=== PATIENT | male | born 1960 | race Caucasian/White ===

== ENCOUNTER 2017-09-04 21:06 | Emergency (ER) | payer BC, SELFPAY ==
[2017-09-04 21:07] VITALS: BP 137/89; PULSE 69; RESP 16; TEMP 37; O2SAT 97; BMI 25.8
--- NOTE | 2017-09-04 22:58 | US_ITS ---
STUDY: SCROTUM ULTRASOUND REASON FOR EXAM: Male, 57 years old. Left greater than right scrotal pain. History of scrotal mass. TECHNIQUE: Ultrasound evaluation of the scrotum was performed with color Doppler and static bhatia-scale imaging. COMPARISON: June 09, 2015 FINDINGS: RIGHT TESTICLE INTRATESTICULAR: There is a normal size of the right testicle. The right testicle measures 4.4 x 2.9 x 2.4 cm. There is a homogenous echotexture. There is normal arterial and normal venous vascularity. There is no demonstrated right testicular mass or cyst. EXTRATESTICULAR: The epididymis is enlarged. The epididymis head measures 2.3 x 2.8 x 2.3 cm. There is normal vascularity of the epididymis. There is a well-defined cystic structure within the epididymis, without internal echoes, consistent with an epididymal cyst. There is a moderate size hydrocele. There is no demonstrated varicocele. There is no demonstrated extratesticular mass or cyst. LEFT TESTICLE INTRATESTICULAR: There is a normal size of the left testicle. The left testicle measures 4.5 x 2.8 x 1.9 cm. There is a homogenous echotexture. There is normal arterial and normal venous vascularity. There is no demonstrated left testicular mass or cyst. EXTRATESTICULAR: The epididymis is enlarged. The epididymis head measures 2.4 x 3.7 x 1.8 cm. There is normal vascularity of the epididymis. There is a well-defined cystic structure within the epididymis, without internal echoes, consistent with an epididymal cyst. There is a moderate size hydrocele. There are prominent extratesticular veins consistent with a varicocele. There is no demonstrated extratesticular mass or cyst. US/Testicular with Arterial Flow IMPRESSION: Bilateral hydroceles and bilateral varicoceles. Bilateral epididymal cysts. Electronically Signed: Jayme Gamboa MD at 0:01 EST , Service support ,
[2017-09-04] MEDS: HYDROcodone Bitartrate/Apap 5/325 Tablet PO (23:03)
--- NOTE | 2017-09-04 23:06 | ED.VISSUMM ---
- ER Visit Summary Date of Service: 09/04/17 Chief Complaint: Testicular pain History of Present Illness: The patient is a [address] Oliva. He reports he has had bilateral testicle pain for approximately 1 month. Pain is much worse on the left than the right. It is an intermittent pain that he describes as aching that lasts for days at a time. It worsened today. Pain is 8 out of 10 at worst and 6 out of 10 currently. Is worsened by nothing relieved by nothing. He denies any penile discharge or lesions. No dysuria or frequency. He is sexually active with a single partner has been for a long time. No exposure to STDs. No anal intercourse. No fever, chills, or other complaints. Patient reports that he was told a couple of years ago that he had a mass on his left testicle. He did not follow-up on this. Physical Examination: Vitals: Stable. Afebrile. General: Well-nourished and well-developed. Head: Normocephalic atraumatic. Neck: Supple, no lymphadenopathy. No JVD. Nontender. Cardiovascular: Regular rate and rhythm. No murmurs. Respiratory: No respiratory distress. Clear to auscultation bilaterally. Abdominal: Soft, nontender, nondistended, normal bowel sounds. No guarding, rebound, or peritoneal signs. : Normal circumcised male. He has a mass on the inferior medial side of his left testicle. He has moderate left epididymal tenderness to palpation. There are no hernias. He was examined while standing. Back: Nontender. Extremities: Nontender, no edema. Skin: Normal color, no rash. Neurologic: Alert and oriented ?3. Cranial nerves II through XII are intact. Normal strength and sensation. Psych: Normal affect. Test Results: Ultrasound shows bilateral hydroceles and varicoceles and epididymal cysts. Emergency Department Course and Treatment: Patient was treated with [place]. He is resting comfortably. Treatment Plan: Patient will be discharged symptomatic care. Supportive undergarments. Ice to the area. [place] for pain. Follow-up with Dr. Leos in 1-2 weeks if not improving. Disposition: To home in improved and stable condition. Impression: 1. Bilateral hydroceles/varicoceles/epididymal cysts. This note was generated with [employer] software. It may contain incorrect words, spelling, and punctuation that were not noted in review of the chart prior to signing ED Disposition - Plan for ED Patient: Disposition: Home or Assisted Living Chief Complaint: Male Pain/Injury Prescriptions: Hydrocodone Bitart/Apap 5-325 [[place] 5/325] 1 - 2 tablet PO Q4H PRN PRN 5 Days #20 tablet PRN Reason: Pain Referrals: aMl Leos MD [STAFF PHYSICIAN] - 1-2 Weeks
[2017-09-05 00:21] VITALS: BP 140/91; PULSE 60; RESP 17; O2SAT 96
== END 2017-09-05 00:22 | disposition home or self-care (01) ==
PROVIDERS: Emergency Provider Emergency Medicine; Family Provider Internal Medicine; PCP Internal Medicine
DX: N43.3 Hydrocele, unspecified (principal); I86.1 Scrotal varices; N50.3 Cyst of epididymis; K21.9 Gastro-esophageal reflux disease without esophagitis; I10 Essential (primary) hypertension; Z86.711 Personal history of pulmonary embolism; F17.200 Nicotine dependence, unspecified, uncomplicated; Z79.01 Long term (current) use of anticoagulants; Z79.899 Other long term (current) drug therapy
CPT/HCPCS: 76870; 93976; 99283

== ENCOUNTER 2018-04-09 19:31 | Emergency (ER) | payer BC, SELFPAY ==
[2018-04-09 19:33] VITALS: BP 115/81; PULSE 101; RESP 16; TEMP 36.8; O2SAT 95; BMI 24.7
--- NOTE | 2018-04-09 20:24 | CT_ITS ---
STUDY: CT ABDOMEN AND PELVIS WITHOUT CONTRAST REASON FOR EXAM: Male, 58 years old. Abdominal pain. RADIATION DOSAGE (If Supplied By Facility): CTDIvol = ( 7.01 ) mGy, DLP = ( 380.14 ) mGycm TECHNIQUE: Transaxial images were obtained from the dome of the diaphragm to the symphysis pubis without oral contrast, and without intravenous contrast. Sagittal and coronal images were reconstructed. Individualized dose optimization techniques were used for this CT. COMPARISON: 06/09/2015. FINDINGS: The visualized lung bases are unremarkable. The visualized portions of the heart are within normal limits. There is a 1 cm low-attenuation lesion in the right lobe of the liver, not characterized without contrast. The liver is otherwise unremarkable. Normal gallbladder and extrahepatic biliary system. Normal spleen. Normal pancreas. There is a 1.2 cm right adrenal nodule. CT density measures approximately 2 Hounsfield units. This is consistent with adenoma with a high degree of confidence. The left adrenal gland is normal. The kidneys are unremarkable. The aorta is normal in caliber. There is no bowel obstruction or inflammatory change. Stool burden is moderate. The appendix is normal. The bladder is unremarkable. Normal abdominal wall. Normal osseous structures. CT/Abdomen/Pelvis without Cont IMPRESSION: 1. No acute process. 2. Hepatic hypodensity, not characterized without contrast. 3. Right adrenal adenoma. Electronically Signed: Katharina Russell MD at 21:20 EDT Tel , Service support ,
[2018-04-09] MEDS: 0.9% Normal Saline 1,000 ML 125 ML IV (20:42)
[2018-04-09 20:46] LABS: Absolute Lymphocyte Count 2.44 X10^3/ul (0.83-4.51); Absolute Neutrophil Count 5.2 X10^3/uL (2.0-7.7); Basophil# 0.04 X10^3/uL; Basophil% 0.5 % (0-1); Eosinophil# 0.16 X10^3/uL; Eosinophils% 1.8 % (0-5); Hematocrit 41.1 % (40-54); Hemoglobin 13.5 g/dl (13.0-16.5); Lymphocyte # 2.44 X10^3/ul (4.0); Lymphocyte % 27.7 % (19-41); Mean Corp Hgb Conc 32.8 g/gl (32-36); Mean Corpuscular Hgb 31.2 pg (27.0-32.0); Mean Corpuscular Volume 94.9 fL (80-94); Mean Platelet Vol. 10.1 fl (6.2-12.0); Monocyte# 1.01 X10^3/uL; Monocyte% 11.5 % (0-10); Neutrophil # 5.15 X10^3/uL (2.7-7.7); Neutrophil % 58.3 % (47-70); POSITIVE COUNT NO; POSITIVE DIFFERENTIAL NO; POSITIVE MORPHOLOGY NO; Platelet Count 270 K/mm3 (150-450); RBC Distribution Width CV 12.8 % (11.6-14.6); RBC Distribution Width SD 43.3 fl (35.1-43.9); Red Blood Count 4.33 M/mm3 (4.6-6.2); White Blood Count 8.8 K/mm3 (4.4-11.0)
[2018-04-09 20:58] LABS: ALB/GLOB Ratio 0.9 RATIO (0.9-2.4); AST(SGOT) 10 U/L (15-37); Alanine Aminotransfer ALT/SGPT 18 U/L (16-61); Albumin, Serum 3.7 g/dL (3.2-5.0); Alkaline Phosphatase 71 U/L (45-117); Anion Gap 6 (5-15); BUN 11 mg/dL (7-18); BUN/Creat Ratio 12.3 RATIO (10-20); Calcium,Total 8.7 mg/dL (8.5-10.1); Chloride 104 mmol/L (98-107); EST Glomerular Filtration Rate 92 mL/min (>60); Est Glom Filt Rate - Afr Amer 112 mL/min (>60); Estimated Creatinine Clearance 91.25 ml/min; Glucose 91 mg/dL (74-106); Lipase 108 U/L (73-393); Potassium 4.4 mmol/L (3.5-5.1); Protein, Total 7.7 g/dL (6.4-8.2); Sodium Level 139 mmol/L (136-145)
[2018-04-09 21:49] VITALS: BP 131/93; PULSE 91; RESP 18; O2SAT 97
--- NOTE | 2018-04-09 22:18 | ED.VISSUMM ---
- ER Visit Summary Date of Service: 04/09/18 Chief Complaint: [] History of Present Illness: The patient is a 58 M [abdominal pain presents the emergency department complaint of abdominal pain that started this morning. Patient states the pain started around 8 AM this been relatively continuous throughout the day but waxes and wanes in intensity. Patient had a lot of bloating associated with it. Patient does states that he had a colonoscopy and an EGD performed yesterday. Patient apparently did have a polyp removed and some biopsies of his colon. Patient denies any rectal bleeding. He does have a history of hypertension and Pringle's esophagitis. Patient has not had any vomiting today but has had nausea.] Physical Examination: [HEENT-PERRLA, EOMI. Cranial nerves II through XII grossly intact. TMs clear. Mucous membranes moist. No adenopathy. Cardiovascular-regular rate and rhythm without murmur or ectopy Lungs-clear to auscultation, chest wall stable without crepitus or subcu emphysema Abdomen-normoactive bowel sounds, soft. Patient has some mild diffuse tenderness on palpation. There is no rebound, rigidity, or perineal signs. Extremities-intact ?4, normal range of motion, normal pulses, atraumatic] Test Results: [CBC with differential was normal. Chemistries were normal. LFTs were normal. Lipase was normal. CT scan of the abdomen pelvis showed a right adrenal adenoma otherwise nothing acute.] Emergency Department Course and Treatment: [She did not anything for pain in the emergency department. Patient states that his bloating is significantly improved at this time is actually passing gas. He still continues to have some mild abdominal discomfort.] Treatment Plan: [Patient will be given for [place] tablets for home for severe pain should he need them. I suspect his pain may be related to gas insufflation rate related to the colonoscopy.] Disposition: [Discharged home in stable condition. Patient advised to return if worsening pain, fever, or condition should worsen anyway.] Impression: [Abdominal pain-etiology uncertain-status post colonoscopy and EGD] This note was generated with [employer] dictation software. It may contain incorrect words, spelling, and punctuation that were not noted in review of the chart prior to signing ED Disposition - Plan for ED Patient: Chief Complaint: Abd Pain Referrals: Harper Oliva MD [Primary Care Provider] -
--- NOTE | 2018-04-09 22:21 | ED.DEP ---
ED Disposition - Plan for ED Patient: Chief Complaint: Abd Pain Instructions: ED Abdominal Pain Unkn Cause Male Referrals: Harper Oliva MD [Primary Care Provider] - 3-5 Days
[2018-04-09] MEDS: HYDROcodone Bitartrate/Apap 5/325 Tablet PO (22:37)
[2018-04-09 22:39] VITALS: BP 139/99; PULSE 73; RESP 16; O2SAT 98
== END 2018-04-09 22:39 | disposition home or self-care (01) ==
LOC: ED 20:36
PROVIDERS: Emergency Provider Emergency Medicine; Family Provider Internal Medicine; PCP Internal Medicine
DX: R10.9 Unspecified abdominal pain (principal); Z98.890 Other specified postprocedural states; R11.0 Nausea; I10 Essential (primary) hypertension; K22.70 Barrett's esophagus without dysplasia; D35.01 Benign neoplasm of right adrenal gland; Z86.010 Personal history of colon polyps; Z79.01 Long term (current) use of anticoagulants; Z79.899 Other long term (current) drug therapy; Z72.0 Tobacco use
CPT/HCPCS: 74176; 80053; 83690; 85025; 96360; 96361; 99283; J7030; A4216

== ENCOUNTER → 2018-08-07 07:07 | Outpatient (CLI) | payer BC, SELFPAY ==
--- NOTE | 2018-08-07 07:11 | MRI_ITS ---
STUDY: MRI RIGHT FOOT REASON FOR EXAM: Pain between toes/ball of foot for 3 years. TECHNIQUE: Standardized fat and water weighted pulse sequences were obtained in all 3 orthogonal planes. COMPARISON: None. FINDINGS: Normal talonavicular articulation. Normal calcaneocuboid articulation. Normal navicular-cuneiform articulations. Normal intercuneiform articulations. 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 Normal first tarsometatarsal articulation. Normal Lisfranc ligament. Normal second and third tarsometatarsal articulations. Normal cuboid fourth and cuboid fifth tarsometatarsal articulation. Normal first through fifth metatarsi. Normal extensor hallucis longus tendon. Normal extensor digitorum longus tendons. Normal intrinsic muscles of the mid and forefoot region. Normal extensor digitorum brevis muscle. There is an intermetatarsal neuroma in the third webspace (T1 series 3 image 22) measuring 0.8 cm in AP dimension. 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 Electronically Signed: Darvin Tsang MD at 15:12 EST Tel , Service support ,
== END ==
PROVIDERS: Family Provider Internal Medicine; PCP Internal Medicine; Referring Provider Podiatrist; Visit Provider Podiatrist
DX: G57.81 Other specified mononeuropathies of right lower limb (principal)
CPT/HCPCS: 73718

== ENCOUNTER 2018-08-30 10:09 | Day surgery (SDC) | payer BC, SELFPAY ==
[2018-08-30] VITALS (7 sets, daily range): BP systolic 110–127; BP diastolic 79–92; PULSE 55–74; RESP 16–18; TEMP 35.9–36.7; O2SAT 98–100; BMI 24.7
--- NOTE | 2018-08-30 11:30 | NEUR_PTH ---
PATIENT: ROSA ISELA CERON LOC: [facility] U#:[id number] AGE/SX: 58/M ROOM: RE08/30/[address]: Dr. Brandon Flores DPM : 1960 BED: DIS: 08/30/2018 SPEC #: [id number] RECD: 08/30/18 16:18 STATUS: FAITH REAlisa #: [id number] DONOVAN: 08/30/18 11:[address]: Brandon Flores DEPT: SURGICAL PATHOLOGY RECD BY: Noel Pedraza ENTERED: 09/02/18 13:53 SP TYPE: NEUROMA OTHR DR: Dr. Harper Oliva MD Tissues: A - NEUROMA B - NEUROMA Procedures: Surgery Specimen Level III HEADER OPERATION: Excision second and third intermetatarsal neuromas PRE-OP DIAGNOSIS: Right foot second and third intermetatarsal neuromas TISSUE SUBMITTED: A - Neuroma 2-3, B - Neuroma 3-4 MICROSCOPIC DIAGNOSIS A. Neuroma 2-3, excision: Fragments of fibroadipose and fibrovascular tissue with focal changes consistent with Gar's neuroma. B. Neuroma 3-4, excision: Fragments of fibroadipose and fibrovascular tissue with focal changes consistent with Gar's neuroma. ANTHONY:anayeli 09/03/18 MICROSCOPIC DESCRIPTION Slides are reviewed. GROSS DESCRIPTION A - Received in fixative is one container labeled with the patient's name and designated neuroma 2-3. The specimen consists of multiple fragments of eli-yellow fibroadipose tissue that in aggregate measure 3 x 2.5 x 0.4 cm. The entire specimen is submitted in one cassette. B - Received in fixative is one container labeled with the patient's name and designated neuroma 3-4. The specimen consists of multiple fragments of eli-yellow fibroadipose tissue that in aggregate measure 3 x 2.5 x 0.4 cm. The entire specimen is submitted in one cassette. / SJ:anayeli 09/02/18 TC:5 CPT: 44147 x2
[2018-08-30] MEDS: Bupivacaine Mpf 0.5% 30 ML VIAL (12:25)
[2018-08-30] MEDS: Cefazolin 2 GM in 0.9% Normal Saline 100 ML IV (12:37)
--- NOTE | 2018-08-30 13:35 | DCINST_ITS ---
Discharge Diet: Light diet - advance as tolerated Discharge Activity: May Not Drive, Use Crutches Weight Bearing Status: No weight bearing - No weightbearing right foot Keep extremity elevated above heart level: Right Leg - Keep right foot elevated for at least 50 minutes per hour using pillows Call your doctor if your incision/area has: Continuous Slow Oozing, Sudden Increased Bleeding, Foul Smelling Discharge Call your doctor if you observe: Fever of 101 or Higher, Coldness, Increased Pain, Shortness of breath, Chest pain, Calf discomfort, Uncontrolled pain Cleanse incision/area with: Do not get Incision Wet, Keep Dressing Clean & Dry Allergies/Adverse Reactions: Allergies Sulfa (Sulfonamide Antibiotics) Allergy (Verified 08/30/18 10:35) Unknown venom-honey bee [bee venom (honey bee)] Allergy (Verified 08/30/18 10:35) Hives Medications to take at Discharge Multivit-Min/FA/Lycopene/Lut [Centrum Silver Tablet] 1 each PO DAILY 03/30/14 Omeprazole [Prilosec] 40 mg PO DAILY #30 capsule 03/31/14 Dicyclomine HCl 10 mg PO BID 12/22/14 Rivaroxaban [Xarelto] 20 mg PO DAILY #30 tablet 06/09/15 Cholecalciferol (Vitamin D3) [Vitamin D3] 1,000 unit PO DAILY 04/09/18 Calcipotriene [Calcitrene] 60 gm TP DAILY 08/23/18 Lisinopril [Zestril] 10 mg PO DAILY 08/23/18 Triamcinolone 0.1% Cream [Kenalog] 1 applic TOPICAL DAILY 08/23/18 Hydrocodone/Acetaminophen [Vicodin 5-300 mg Tablet] 1 ea PO Q6H PRN PRN 3 Days #30 tab 08/30/18 The following prescriptions were given: Hydrocodone/Acetaminophen [Vicodin 5-300 mg Tablet] 1 ea PO Q6H PRN PRN 3 Days #30 tab PRN Reason: Pain Primary Care Physician: Harper Oliva MD [Primary Care Provider] - Test Results: Test results from this visit will be discussed in further detail at your follow- up appointment, if applicable. Please Follow Up With: Brandon Flores DPM When: within 1 week, sooner if needed
--- NOTE | 2018-08-30 13:37 | OP.PCM_ITS ---
Report of Operation Date of Procedure: 08/30/18 Pre-Operative Diagnosis: Intermetatarsal neuroma right foot, 2nd and 3rd IM spaces Post-Operative Diagnosis: Same Surgery/Procedure Performed:: Excision of 2nd and 3rd intermetatarsal spaces neuromas right foot riveter helper: Yes - Dr. Sam Morales Type of Anesthesia:: Local MAC Specimen's removed: Excised 2nd and 3rd intermetatarsal space neuromas sent to pathology Description of Procedure: ndications: There is a 58 year old male with history of chronic right foot pain at level of the 2nd and 3rd intermetatarsal/digital spaces. He has undergone conservative / nonsurgical care (including but not limited to injection therapy, foot orthotics, rest, activity modifications, changes in shoegear, anti- inflammatories) but continues to have significant limiting pain. He elected to proceed with surgical intervention of excision of the 2nd and 3rd intermetatarsal space neuromas (advised patient she would have numbness to the plantar foot). This was discussed with him in great detail. He agreed with this plan, reviewed all of the possible benefits vs risks, goal, expectations, and typical healing time. He was able to repeat these back, all of his questions were answered. The consent forms were reviewed with him and he agreed signed them. No guarantees were given nor implied. Operative procedure: The patient was brought back to the operating room and was placed on the operating room table in the supine position. Patient was carefully secured the the operating room table with a safely belt around his waist. A time out was performed and the patient was properly identified and the surgical plan was confirmed. The patient received 2g of IV Cefazolin for antibiotic prophylaxis. A well padded pneumatic tourniquet was applied around the right ankle. The patient did receive MAC anesthesia per the anesthesiologist. A total of 10mL of 0.5% Bupivacaine plain was given as a local block to the 2nd and 3rd intermetatarsal spaces on the right foot. The right foot was scrubbed, prepped, draped in the usual aseptic fashion. The right foot was exsanguinated using an Esmarch bandage and the right ankle pneumatic tourniquet was inflated to 250mmHg. Attention was directed to the 2nd intermetatarsal space, where a longitudinal incision was made using a 15 blade on the dorsal aspect. Careful dissection was completed down to the deep transverse metatarsal ligament which was released in sharp fashion. A plantar neuroma was identified localized to the site, which was yellow, degenerative and had significant fatty tissue around it. There were findings consistent with perineural fibrosis to the lesion. This was carefully dissected out, removing the proximal nerve and also the distal branches to the 2nd and 3rd toes at the base of the toes. This was passed from the surgical site and was sent to pathology for further evaluation. The proximal nerve stump was healthy, viable and was carefully buried into the intrinsic musculature of the foot. All other tissue to the site appeared healthy and viable with no other abnormality present to this site. The site was flushed out with copious amounts of normal saline solution. The subcutaneous tissue was reapproximated using 4-0 Vicryl. The skin was reapproximated using 4-0 Monocryl. Attention was directed to the 3rd intermetatarsal space, where a longitudinal i ncision was made using a 15 blade on the dorsal aspect. Careful dissection was completed down to the deep transverse metatarsal ligament which was released in sharp fashion. A plantar neuroma was identified localized to the site, which was yellow, degenerative and had significant fatty tissue around it. There were findings consistent with perineural fibrosis to the lesion. This was carefully dissected out, removing the proximal nerve and also the distal branches to the 3rd and 4th toes at the base of the toes. This was passed from the surgical site and was sent to pathology for further evaluation. The proximal nerve stump was healthy, viable and was carefully buried into the intrinsic musculature of the foot. All other tissue to the site appeared healthy and viable with no other abnormality present to this site. The site was flushed out with copious amounts of normal saline solution. The subcutaneous tissue was reapproximated using 4-0 Vicryl. The skin was reapproximated using 4-0 Monocryl. An additional 20mL of 0.5% Bupivacaine was given as a local nerve block around the surgical site, this was needed as patient was relating to some pain when first starting. Cavilon was painted to the sutured skin edges and steristrips were applied across the sutures skin incision sites. All vital structures including all vital musculoskeletal and neurovascular structures were properly identified and protected/retracted as necessary. The pneumatic tourniquet was deflated (total tourniquet time was 40 minutes), and there was immediate return vascular flow to the foot, CFT < 2 seconds to all toes, normal temperature gradient, pedal pulses intact. Hemostasis was achieved. A dressing was applied which consisted of Betadine soaked adaptic, 4x4 gauze, kerlix, and delilah bandage. The patient tolerated the above operative procedure well at the anesthesia well with no complication. The patient was transported to the recovery room with vital signs stable and in good condition. Post operative orders were placed. Post operative instructions were reviewed with him as well as with his who was here with him today. No weightbearing to the right forefoot, keep right foot elevated for at least 50 minutes of every hour, keep dressing clean, dry and intact. Prescription for Vicodin 5mg/300mg was prescribed: 1-2 tabs PO q 6 hours PRN pain. Resume Xarelto 20mg PO daily. Reviewed mechanical DVT prophylaxis with patient pre operatively. He is to follow up with me within 1 week or sooner if needed. Grafts/Implants Used: None - Complications None
== END 2018-08-30 14:53 | disposition home or self-care (01) ==
LOC: SDC 10:10 → AC 10:11
PROVIDERS: Family Provider Internal Medicine; PCP Internal Medicine; Referring Provider Podiatrist; Visit Provider Podiatrist
PROC: (CPT 28080; principal; 2018-08-30 11:15)
DX: G57.81 Other specified mononeuropathies of right lower limb (principal); K21.9 Gastro-esophageal reflux disease without esophagitis; Z86.711 Personal history of pulmonary embolism; Z79.899 Other long term (current) drug therapy; I10 Essential (primary) hypertension; Z79.01 Long term (current) use of anticoagulants; L40.8 Other psoriasis; F17.210 Nicotine dependence, cigarettes, uncomplicated
CPT/HCPCS: 28080 ×2; 88304; J7120

== ENCOUNTER 2018-09-04 18:31 | Emergency (ER) | payer BC, SELFPAY ==
[2018-08-30 10:38] VITALS: BMI 24.7
[2018-09-04 18:32] VITALS: BP 153/105; PULSE 106; RESP 18; TEMP 36.3; O2SAT 99; BMI 25.1
== END 2018-09-04 21:10 | disposition left against medical advice (07) ==
LOC: ED 20:45
PROVIDERS: Emergency Provider Emergency Medicine; Family Provider Internal Medicine; PCP Internal Medicine
DX: M79.673 Pain in unspecified foot (principal); G89.18 Other acute postprocedural pain; Z53.21 Procedure and treatment not carried out due to patient leaving prior to being seen by health care provider

== ENCOUNTER 2018-09-06 09:20 | Observation (INO) | payer BC, SELFPAY ==
[2018-09-06 10:02] VITALS: BMI 24.0
[2018-09-06 10:07] VITALS: BP 121/76; PULSE 65; RESP 16; TEMP 36.5; O2SAT 100
--- NOTE | 2018-09-06 10:44 | MRI_ITS ---
STUDY: MRI RIGHT MIDFOOT REASON FOR EXAM: Male, 58 years old. Abscess after surgery for Gar's neuroma removal. TECHNIQUE: Standardized fat and water weighted pulse sequences were obtained in all 3 orthogonal planes. COMPARISON: None. FINDINGS: There is a 1.6 cm low T2 and low T1 signal collection or mass in the dorsal subcutaneous soft tissues at the level of the distal second and third metatarsals just superficial to the extensor tendons, difficult to evaluate without IV contrast. There is diffuse dorsal subcutaneous soft tissue edema. Normal talonavicular articulation. Normal calcaneocuboid articulation. Normal navicular-cuneiform articulations. Normal intercuneiform articulations. Normal first tarsometatarsal articulation. Normal Lisfranc ligament. Normal second and third tarsometatarsal articulations. Normal cuboid fourth and cuboid fifth tarsometatarsal articulation. Normal first through fifth metatarsi. Visualized tendons of the foot appear grossly unremarkable. Normal intrinsic muscles of the mid and forefoot region. Normal extensor digitorum brevis muscle. MRI/Lower Ext/No Jt/w/o IMPRESSION: There is a 1.6 cm low T2 and low T1 signal collection or mass in the dorsal subcutaneous soft tissues at the level of the distal second and third metatarsals just superficial to the extensor tendons, difficult to evaluate without IV contrast. These findings may represent an abscess as per history. There is diffuse dorsal subcutaneous soft tissue edema. Electronically Signed: Hao Salas, at 9:54 EST Tel , Service support ,
[2018-09-06] MEDS: oxyCODONE 5 MG Tablet PO ×3 (10:53→19:10)
[2018-09-06] MEDS: Morphine 4 MG/ML Syringe IV (11:04)
[2018-09-06 11:20] LABS: Absolute Lymphocyte Count 2.74 X10^3/ul (0.83-4.51); Absolute Neutrophil Count 4.9 X10^3/uL (2.0-7.7); Basophil# 0.04 X10^3/uL; Basophil% 0.5 % (0-1); Eosinophil# 0.14 X10^3/uL; Eosinophils% 1.6 % (0-5); Hematocrit 43.2 % (40-54); Hemoglobin 14.3 g/dl (13.0-16.5); Lymphocyte # 2.74 X10^3/ul (4.0); Lymphocyte % 31.2 % (19-41); Mean Corp Hgb Conc 33.1 g/gl (32-36); Mean Corpuscular Hgb 31.2 pg (27.0-32.0); Mean Corpuscular Volume 94.1 fL (80-94); Mean Platelet Vol. 10.4 fl (6.2-12.0); Monocyte# 0.94 X10^3/uL; Monocyte% 10.7 % (0-10); Neutrophil # 4.91 X10^3/uL (2.7-7.7); Neutrophil % 55.8 % (47-70); Platelet Count 280 K/mm3 (150-450); RBC Distribution Width CV 12.9 % (11.6-14.6); RBC Distribution Width SD 43.8 fl (35.1-43.9); Red Blood Count 4.59 M/mm3 (4.6-6.2); White Blood Count 8.8 K/mm3 (4.4-11.0)
[2018-09-06 11:24] LABS: POSITIVE COUNT NO; POSITIVE DIFFERENTIAL NO; POSITIVE MORPHOLOGY NO
[2018-09-06 11:35] LABS: BUN 16 mg/dL (7-18); Creatinine, Serum 0.95 mg/dL (0.70-1.30); Estimated Creatinine Clearance 86.45 ml/min; Glucose 94 mg/dL (74-106)
[2018-09-06 11:36] LABS: ALB/GLOB Ratio 0.8 RATIO (0.9-2.4); AST(SGOT) 14 U/L (15-37); Alanine Aminotransfer ALT/SGPT 20 U/L (16-61); Albumin, Serum 3.7 g/dL (3.2-5.0); Alkaline Phosphatase 69 U/L (45-117); Anion Gap 10 (5-15); BUN/Creat Ratio 16.9 RATIO (10-20); Calcium,Total 9.3 mg/dL (8.5-10.1); Chloride 103 mmol/L (98-107); EST Glomerular Filtration Rate 86 mL/min (>60); Est Glom Filt Rate - Afr Amer 105 mL/min (>60); Globulin 4.4 g/dL (2.2-4.2); Potassium 4.1 mmol/L (3.5-5.1); Protein, Total 8.1 g/dL (6.4-8.2); Sodium Level 138 mmol/L (136-145)
--- NOTE | 2018-09-06 12:59 | CASEMGMT ---
Addendum entered by Ej Hernandez 09/06/18 13:36: MRI pending. PT/OT evals pending. CM to follow. *If pt would require IV atb's on d/c, will need to re-address discharge plans with pt. Original Note: RN CM [employer] CM to room to meet with patient for initial transition planning/care coordination assessment. RN CM introduced self and role at [facility]. Pt voices understanding and consents to assessment at this time. Pt resting in bed in no distress at this time. Pt is A/O at this time and answers all questions appropriately. Care providers, pharmacy, and demographics verified at this time. PCP: [facility]: Dr Flores. Also goes to [facility] for psoriasis. Preferred Pharmacy: [facility] Insurance: [place] Prescription Benefit: Yes Living Will/HPOA: States he is pretty sure he completed paperwork for LW & HCPOA with his state's attorney in the past, but is unsure. States that if he has completed paperwork that his PCP, Dr Oliva, should have copies of this. Offered to call Dr Oliva's office for him to inquire if they have this paperwork and he stated appreciated this. Call placed to Dr Oliva's office and they do have pt's LW and HCPOA on file. They faxed copies to this NEYDA GILBERT and they were placed on pt's chart. Pt made aware they have this paperwork and it has been placed on his records @ [facility]. LNOK: Living Arrangements: Lives in a Ranch-style home with his . Approx 12 steps to go downstairs. 2 steps to enter. States independent prior to admission. able to assist if needed. Transportation: Pt/. DME: [facility] has the following DME that he currently uses: Shower chair, crutches. [facility] also has a walker available but does not use. Pt states no need for further DME at this time. HHC/SNF: Has never used HHC or been to a SNF. Anticipate pt will be discharged home on PO atb's. CM to follow for for discharge planning/needs. Pt voices no further concerns/needs at this time. Advised pt to ask for CM if any further questions/concerns/needs arise. Voices understanding. PLAN: Home w/spousal support and discharge plans in place. DGiauque BSN RN CM
--- NOTE | 2018-09-06 13:01 | PCM.RX.CS ---
Consult Pharmacy has been consulted to manage selected antiobiotic: Vancomycin Type of Consult: New start Suspected Infection: Other Prior Doses of Antibiotics Received/Current Regimen: 0 NEW START Labs: Sodium 138 mmol/L (136-145) 09/06/18 11:00 Potassium 4.1 mmol/L (3.5-5.1) 09/06/18 11:00 Chloride 103 mmol/L (98-107) 09/06/18 11:00 Carbon Dioxide 25.0 mmol/L (21.0-32.0) 09/06/18 11:00 Anion Gap 10 (5-15) 09/06/18 11:00 BUN 16 mg/dL (7-18) 09/06/18 11:00 Creatinine 0.95 mg/dL (0.70-1.30) 09/06/18 11:00 Est GFR (MDRD) Af Amer 105 mL/min (>60) 09/06/18 11:00 Est GFR (MDRD) Non-Af 86 mL/min (>60) 09/06/18 11:00 BUN/Creatinine Ratio 16.9 RATIO (10-20) 09/06/18 11:00 Glucose 94 mg/dL (74-106) 09/06/18 11:00 Weight used for dosin kg Estimated Creatinine Clearance: 86 Goal Trough: 15-20 mcg/mL - VANCOMYCIN 1250MG IVPB Q12H. CHECK TROUGH LEVEL PRIOR TO 4TH DOSE = 09/08/18 @0030 Pharmacy Plan for Drug Dosing: Pharmacy Service will continue to monitor and adjust dosing as required.
[2018-09-06] MEDS: 0.9% NaCl Peripheral Flush Adult/Peds IV ×3 (13:27→21:02)
--- NOTE | 2018-09-06 13:32 | CON.PCM_ITS ---
Reason for Consult Date of Consultation: 09/06/18 Reason for Consultation: Right foot History of Present Illness: The patient is a 58 year old gentleman with history of PE in past on Xarelto presented to my office today for 1 week post op check on right foot. He is s/p 2nd and 3rd intermetatarsal neuroma excision on 08/30/18, surgery when well with no immediate post op complications or problems. He was doing well over weekend, he developed worsening pain over this week, he did not call me as instructed, but did go to the ER, however he relates he left because the wait was too long and he decided to wait until today (Sunday) to see me as scheduled. He relates to significant pain to the foot which is not getting better, pain is worse when not elevating his foot. Upon examination his right foot was red, warm and had edema, erythema extended from the distal dorsal forefoot to the across the dorsal foot to the lateral ankle/hindfoot area and was very painful. He had no fever, chills, nausea or vomiting. There was no visible abscess or silvia purulence. He was sent to the hospital due to significant cellulitis, as well as for MRI to r/o a deep abscess. Past Medical History Past Medical History (Chronic Problems): Chronic Problems Epididymal cyst (Chronic) Hydrocele (Chronic) Bullous emphysema (Chronic) Hypertension (Chronic) Allergies Sulfa (Sulfonamide Antibiotics) Allergy (Verified 09/06/18 10:11) Unknown venom-honey bee [bee venom (honey bee)] Allergy (Verified 09/06/18 10:11) Hives Home Medications: Ambulatory Orders Medication Instructions Recorded Multivit-Min/FA/Lycopene/Lut 1 each PO DAILY 03/30/14 [Centrum Silver Tablet] Omeprazole [Prilosec] 40 mg PO DAILY #30 capsule 03/31/14 Dicyclomine HCl 10 mg PO BID 12/22/14 Rivaroxaban [Xarelto] 20 mg PO DAILY #30 tablet 06/09/15 Cholecalciferol (Vitamin D3) 1,000 unit PO DAILY 04/09/18 [Vitamin D3] Calcipotriene [Calcitrene] 60 gm TP DAILY 08/23/18 Lisinopril [Zestril] 10 mg PO DAILY 08/23/18 Triamcinolone 0.1% Cream [Kenalog] 1 applic TOPICAL DAILY 08/23/18 Surgical History: - - orthospedic surgery left hand, R inguinal herniorrhaphy 1 08/09/14 Smoking Status: Light Smoker (<10/day) - *Family History Paternal History Items: - Sibling History Items: - Maternal History Items: Diabetes, Heart Disease, - Review of Systems Constitutional: Denies: Chills, Fever Gastrointestinal: Denies: Nausea, Vomiting - Physical Exam General: Alert, Oriented x3, Cooperative, No apparent distress Extremities: Capillary Refill Less than 3 Seconds, No Calf Tenderness, Peripheral Pulses Normal - to foot, - - Incision sites dorsal 2nd and 3rd IM spaces right foot well coapted, there is no dehiscence, no fluctuance, no crepitus, no maloder, no necrosis, but there is significant cellulitis extending from the forefoot to the hindfoot/lateral ankle on the dorsal surface of the right foot, there is no blistering or visible abscess present. POP to the dorsal right foot, sensation intact and motor function intact to the right foot. Psych/Mental Status: Normal Affect Vital Signs Temp Pulse Resp BP Pulse Ox 97.7 F L 65 16 121/76 H 100 09/06/18 10:07 09/06/18 10:07 09/06/18 10:07 09/06/18 10:07 09/06/18 10:07 Oxygen Delivery Method Room Air Weight: 76 kg Body Mass Index (BMI) 24.0 Laboratory Tests Past 24 Hrs 09/06/18 09/06/18 11:00 11:00 WBC 8.8 RBC 4.59 L Hgb 14.3 Hct 43.2 MCV 94.1 H MCH 31.2 MCHC 33.1 RDW 12.9 RDW Differential 43.8 Plt Count 280 MPV 10.4 Immature Gran % (Auto) 0.200 Neut % (Auto) 55.8 Lymph % (Auto) 31.2 [place] % (Auto) 10.7 H Eos % (Auto) 1.6 Baso % (Auto) 0.5 Absolute Neuts (auto) 4.9 Absolute Lymphs (auto) 2.74 Total Counted Not Reportable Sodium 138 Potassium 4.1 Chloride 103 Carbon Dioxide 25.0 Anion Gap 10 BUN 16 Creatinine 0.95 Estim Creat Clear Calc 86.45 Est GFR (MDRD) Af Amer 105 Est GFR (MDRD) Non-Af 86 BUN/Creatinine Ratio 16.9 Glucose 94 Calcium 9.3 Total Bilirubin 1.10 H AST 14 L ALT 20 Alkaline Phosphatase 69 Total Protein 8.1 Albumin 3.7 Globulin 4.4 H Albumin/Globulin Ratio 0.8 L Assessment/Plan All Active Problems Bilateral pulmonary embolism (Acute) Adrenal nodule (Resolved) 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 New right foot xrays also ordered as well. Labs reviewed and patient has no leukocytosis. Patient afebrile. A culture has been obtained from when he was in my office this morning and was sent for culture and sensitivity as well as MRSA DNA PCR. I did speak with Dr. Mckeon, and greatly appreciate medicine team's assistance.
--- NOTE | 2018-09-06 14:00 | RAD_ITS ---
STUDY: X-RAY - RIGHT FOOT CLINICAL: Male, 58 years old. Cellulitis, pain TECHNIQUE: 3 view(s) of the foot. COMPARISON: None. FINDINGS: There is a plantar and Achilles spur. Normal visualized subtalar, talonavicular, calcaneocuboid, tarsal and tarsometatarsal articulations. Normal metatarsi. Normal metatarsophalangeal joint of the great toe. Normal tibial and fibular sesamoid bones. Normal interphalangeal joint of the great toe. Normal phalanges of the great toe. Normal second through fifth metatarsophalangeal joints. Normal interphalangeal joints and phalanges of the lesser toes. There is mild soft tissue swelling. RAD/Foot min 3 Views IMPRESSION: Soft tissue swelling about the foot. No visualized fracture. Electronically Signed: Michelle Sevilla MD at 14:46 EST Tel , Service support ,
--- NOTE | 2018-09-06 14:31 | NURSING ---
This nurse in and took old dressing off and Dr. Mckeon looked at dressing. This nurse was going to obtain MRSA swab and culture to wound. Dr. Mckeon aware that Dr. Mcdonald ordered but informed this nurse that Dr. Flores performed in office so order from Dr. Mckeon not to get culture or MRSA swab.
[2018-09-06 14:48] VITALS: BP 106/69; PULSE 96; RESP 18; TEMP 36.7; O2SAT 97
--- NOTE | 2018-09-06 16:05 | PCM.HP.ID ---
Problem List (1) Foot infection Status: Acute Reason for Consult: foot infection Consulted by: Dr. Mkceon History of Present Illness: The patient is a 58 year old M with h/o PE, follows with Dr. Flores, is s/p 2nd and 3rd intermetatarsal neuroma excision on 08/30/18. Over the next few days post-op, developed severe throbbing pain in foot with swelling, odor, and redness. Minimal drainage. No fever. No n/v/d. No prior h/o MRSA infection. Saw Dr. Flores this AM, sent to hospital. Full ROS performed and neg except as noted above. - Medical History Past Medical History (Chronic Problems): Chronic Problems Epididymal cyst (Chronic) Hydrocele (Chronic) Bullous emphysema (Chronic) Hypertension (Chronic) Allergies/Adverse Reactions: Allergies Sulfa (Sulfonamide Antibiotics) Allergy (Verified 09/06/18 10:11) Unknown venom-honey bee [bee venom (honey bee)] Allergy (Verified 09/06/18 10:11) Hives Home Medications: Ambulatory Orders Medication Instructions Recorded RX: Multivit-Min/FA/Lycopene/Lut 1 each PO DAILY 03/30/14 [Centrum Silver Tablet] RX: Omeprazole [Prilosec] 40 mg PO DAILY #30 capsule 03/31/14 RX: Dicyclomine HCl 10 mg PO BID 12/22/14 RX: Rivaroxaban [Xarelto] 20 mg PO DAILY #30 tablet 06/09/15 Cholecalciferol (Vitamin D3) 1,000 unit PO DAILY 04/09/18 [Vitamin D3] Calcipotriene [Calcitrene] 60 gm TP DAILY 08/23/18 Lisinopril [Zestril] 10 mg PO DAILY 08/23/18 Triamcinolone 0.1% Cream [Kenalog] 1 applic TOPICAL DAILY 08/23/18 - Social History Tobacco Use: cigarettes Vital Signs Temp Pulse Resp BP Pulse Ox 98.1 F 96 18 106/69 97 09/06/18 14:48 09/06/18 14:48 09/06/18 14:48 09/06/18 14:48 09/06/18 14:48 Oxygen Delivery Method Room Air Weight: 76 kg Body Mass Index (BMI) 24.0 Laboratory Tests Past 24 Hrs 09/06/18 09/06/18 09/06/18 11:00 11:00 16:02 WBC 8.8 RBC 4.59 L Hgb 14.3 Hct 43.2 MCV 94.1 H MCH 31.2 MCHC 33.1 RDW 12.9 RDW Differential 43.8 Plt Count 280 MPV 10.4 Immature Gran % (Auto) 0.200 Neut % (Auto) 55.8 Lymph % (Auto) 31.2 [place] % (Auto) 10.7 H Eos % (Auto) 1.6 Baso % (Auto) 0.5 Absolute Neuts (auto) 4.9 Absolute Lymphs (auto) 2.74 Total Counted Not Reportable Sodium 138 Potassium 4.1 Chloride 103 Carbon Dioxide 25.0 Anion Gap 10 BUN 16 Creatinine 0.95 Estim Creat Clear Calc 86.45 Est GFR (MDRD) Af Amer 105 Est GFR (MDRD) Non-Af 86 BUN/Creatinine Ratio 16.9 Glucose 94 Calcium 9.3 Total Bilirubin 1.10 H AST 14 L ALT 20 Alkaline Phosphatase 69 Total Protein 8.1 Albumin 3.7 Globulin 4.4 H Albumin/Globulin Ratio 0.8 L S.aureus Protein A PCR Pending MRSA (PCR) Pending - Other Studies Radiology: [] reviewed Other Studies: [] Route of nutrition/ use of supplements: [] Nutritional Intake: [] IV Site: [] Fernandez Catheter: [] - Physical Exam General: Alert, Oriented x3, Cooperative, No apparent distress HEENT: Atraumatic, PERRLA, EOMI Neck: Supple, No Nodes Lungs: Clear to auscultation, Normal air movement Cardiovascular: Regular rate, Regular Rhythm, No murmurs Abdomen: Soft, Non Tender, Non-Distended Extremities: No edema Skin: Ulcer/ Wound - R foot with swelling and redness around surgical sites. IV Site: Peripheral, without redness Neurological: Cranial nerves II-XII grossly intact - Assessment/Plan Antibiotics: [] Assessment/Plan: [] R foot post-surgical infection - wound cx sent as well as MRSA pcr. MRI pending. Given recent surgery, will start empiric nosocomial coverage with vanc/zosyn. Will follow, thank you.
[2018-09-06] MEDS: Dicyclomine 10 MG Capsule PO (17:28)
[2018-09-06 17:30] LABS: M R Staph aureus DNA By PCR Negative (Negative); Probe Check PASS; Specimen Processing Control PASS; Staph aureus DNA By PCR NEGATIVE (Negative)
[2018-09-06 20:59] VITALS: BP 119/76; PULSE 65; RESP 18; TEMP 36.9; O2SAT 99
--- NOTE | 2018-09-06 21:00 | PCM.HP.STD ---
Problem List (1) Cellulitis of right foot Status: Acute History of Present Illness Date of Admission: 09/06/18 Chief Complaint: Right foot cellulitis The patient is a 58 year old M who was directly admitted to the third floor MedSurg unit at [facility] with a chief complaint of redness, pain, and swelling of the right foot. Patient had surgery on August 30, 2018 for a neuroma between his second and third metatarsal areas. Patient states that his foot is been wrapped since his surgery and it has hurt since the surgery but the pain became more intense this week, he initially went to the emergency room at the hospital here but did not want to wait to be seen and left without being seen. He contacted Dr. Flores and was examined by Dr. espinoza today and Dr. espinoza recommended that he be admitted to the hospital. Patient denies any fevers or chills, he states his right foot throbs. Patient states that the right foot is hurt since the surgery on August 30, 2018. Past Medical History Past Medical History (Chronic Problems): Chronic Problems Epididymal cyst (Chronic) Hydrocele (Chronic) Bullous emphysema (Chronic) Hypertension (Chronic) Allergies Sulfa (Sulfonamide Antibiotics) Allergy (Verified 09/06/18 10:11) Unknown venom-honey bee [bee venom (honey bee)] Allergy (Verified 09/06/18 10:11) Hives Home Medications: Ambulatory Orders Medication Instructions Recorded Multivit-Min/FA/Lycopene/Lut 1 each PO DAILY 03/30/14 [Centrum Silver Tablet] Omeprazole [Prilosec] 40 mg PO DAILY #30 capsule 03/31/14 Dicyclomine HCl 10 mg PO BID 12/22/14 Rivaroxaban [Xarelto] 20 mg PO DAILY #30 tablet 06/09/15 Cholecalciferol (Vitamin D3) 1,000 unit PO DAILY 04/09/18 [Vitamin D3] Calcipotriene [Calcitrene] 60 gm TP DAILY 08/23/18 Lisinopril [Zestril] 10 mg PO DAILY 08/23/18 Triamcinolone 0.1% Cream [Kenalog] 1 applic TOPICAL DAILY 08/23/18 Surgical History: - - orthospedic surgery left hand, R inguinal herniorrhaphy 06/08/15 Psychiatric History: No pertinent psych hx Lives: Spouse/ Significant Other Smoking Status: Light Smoker (<10/day) Tobacco Use: Cigarettes Alcohol: Occasional Drugs: None - *Family History Paternal History Items: - - Leukemia, renal failure Maternal History Items: Diabetes, Heart Disease Review of Systems Constitutional: Denies: Anorexia, Chills, Fever, Night Sweats, Malaise, Weakness, Weight Change, Fatigue Eyes: Denies: Blurred vision, Cataracts, Conjunctivae Inflammation, Double vision, Drainage HEENT: Denies: Difficulty Swallowing, Dysphasia, Ear Pain, Eye Pain, Hearing Changes, Nasal bleeding, Nasal Congestion Cardiovascular: Denies: Chest Pain, Claudication, Chest Pressure, Chest Tightness, Edema, Heaviness, Palpitations Respiratory: Denies: Cough, Hemoptysis, Pleuritic Pain, Shortness of Breath, Shortness of breath at rest, Shortness of breath upon exertion Gastrointestinal: Denies: Abdominal Pain, Constipation, Diarrhea, Hematemesis, Hematochezia, Nausea, Melena, Vomiting Genitourinary: Denies: Dysuria, Frequency, Hematuria, Hesitancy, Urgency Musculoskeletal: Reports: Foot Pain. Denies: Arm Pain, Back Pain, Hand Pain, Joint Pain, Joint stiffness, Joint swelling Skin: Denies: Dryness, Jaundice, Pruritis, Rash Neurological: Denies: Blurred vision, Double vision, Change in Speech, Slurred speech, Difficulty swallowing, Focal weakness, Headaches, Incoordination, Numbness, Tingling Psychiatric: Denies: Anxiety, Depression, Homicidal Ideations, Suicidal Ideations Endocrine: Denies: Change in Body Habitus, Heat/ Cold Intolerance, Polydipsia, Polyuria Hematologic/ Lymphatic: Denies: Adenopathy, Anemia, Easy Bruising, Easy Bleeding, Petechiae, Purpura VTE Information - Inpt Only VTE Present on Admission: No VTE Mechan Device Prophylaxis: None VTE Pharm Prophylaxis ordered?: Yes Patient Problems: Active and Suspected Problems Foot infection (Acute) Cellulitis of right foot (Acute) - Physical Exam General: Alert, Oriented x3, Cooperative, Well developed, Well nourished HEENT: Atraumatic, PERRLA, EOMI, Normocephalic Oral: Moist Mucosa Neck: Supple, No JVD, Negative Carotid Bruits, No Nuchal Rigidity, Trachea Midline, Thyroid Normal Size and Texture Lungs: Clear to auscultation, Normal air movement, No rhonchi, No wheeze, No rales Cardiovascular: Regular rate, Regular Rhythm, Normal S1, Normal S2, No murmurs, No Ectopic Activity, PMI Normal, No rub noted, No Gallop Abdomen: Bowel Sounds Present, Soft, Non Tender, Non-Distended, No hernias noted Extremities: No clubbing, No cyanosis, Capillary Refill Less than 3 Seconds, Edema - Generalized swelling of the right foot is noted along with redness over the lateral aspect of the right foot, Tenderness - Right foot is tender to palpation Skin: Rash Present - There is redness over the patient's right foot particularly on its lateral aspect Musculoskeletal: No Muscle Wasting Neurological: Cranial nerves II-XII grossly intact, Neuro grossly intact, Sensory exam intact to light touch and pain, Coordination normal Psych/Mental Status: Normal Affect, Appropriate, Alert and oriented to time, place, person, mood and affect Vital Signs Temp Pulse Resp BP Pulse Ox 98.4 F 65 18 119/76 99 09/06/18 20:59 09/06/18 20:59 09/06/18 20:59 09/06/18 20:59 09/06/18 20:59 Oxygen Delivery Method Room Air Weight: 76 kg Body Mass Index (BMI) 24.0 Intake and Output for Last 24 Hours 09/04/18 09/05/18 09/06/18 23:59 23:59 23:59 Intake Total 572 / 572 Balance 572 / 572 Laboratory Tests Past 24 Hrs 09/06/18 09/06/18 09/06/18 11:00 11:00 16:02 WBC 8.8 RBC 4.59 L Hgb 14.3 Hct 43.2 MCV 94.1 H MCH 31.2 MCHC 33.1 RDW 12.9 RDW Differential 43.8 Plt Count 280 MPV 10.4 Immature Gran % (Auto) 0.200 Neut % (Auto) 55.8 Lymph % (Auto) 31.2 [place] % (Auto) 10.7 H Eos % (Auto) 1.6 Baso % (Auto) 0.5 Absolute Neuts (auto) 4.9 Absolute Lymphs (auto) 2.74 Total Counted Not Reportable Sodium 138 Potassium 4.1 Chloride 103 Carbon Dioxide 25.0 Anion Gap 10 BUN 16 Creatinine 0.95 Estim Creat Clear Calc 86.45 Est GFR (MDRD) Af Amer 105 Est GFR (MDRD) Non-Af 86 BUN/Creatinine Ratio 16.9 Glucose 94 Calcium 9.3 Total Bilirubin 1.10 H AST 14 L ALT 20 Alkaline Phosphatase 69 Total Protein 8.1 Albumin 3.7 Globulin 4.4 H Albumin/Globulin Ratio 0.8 L S.aureus Protein A PCR NEGATIVE MRSA (PCR) Negative Assessment/Plan All Active Problems Foot infection (Acute) Cellulitis of right foot (Acute) Bilateral pulmonary embolism (Acute) Adrenal nodule (Resolved) #1 cellulitis of the right foot-in a patient with recent right foot surgery-suspect gram-positive bacterial infection-swab was obtained by podiatry today in their office and at the time of this dictation, swab is negative for staph. Patient was seen by infectious diseases today and they recommended Zosyn and vancomycin. Patient had x-rays of his foot today, he will have an MRI of his foot performed. Podiatry will follow the patient during his hospital stay #2 remote history of blood clot-patient currently is on Xarelto, I have taken him off Xarelto in case surgery needs to be performed on his foot, patient was placed on Lovenox for VTE prophylaxis #3 hypertension-patient will remain on his home medication #4 GERD Code Visit Inpatient E&M: 34343 Init Hosp L3
[2018-09-06 21:29] VITALS: PULSE 65; RESP 18; O2SAT 99
[2018-09-07] MEDS: oxyCODONE 5 MG Tablet PO ×4 (00:01→17:01)
[2018-09-07 02:01] VITALS: BP 100/51; PULSE 64; RESP 18; TEMP 36.8; O2SAT 95
[2018-09-07 02:05] VITALS: PULSE 64; RESP 18
--- NOTE | 2018-09-07 05:48 | PCM.PROGNOTE ---
Patient Problems: Active and Suspected Problems Foot infection (Acute) Cellulitis of right foot (Acute) Subjective: This 58 year old patient is about 1 week s/p neuroma excision of the second and third interspace. He was admitted for cellulitis yesterday. His pain is still moderate but slightly decreased compared to yesterday. He has been resting and elevating. He denies fever, chill, nausea, vomiting, shortness of breath or chest pain. - Physical Exam General: Alert, Oriented x3, Cooperative HEENT: Atraumatic Extremities: No cyanosis, Capillary Refill Less than 3 Seconds - All digits right foot, No Calf Tenderness - Negative Keisha and Munoz sign bilateral, Edema - Right foot and ankle; skin wrinkles are starting to develop suggesting edema decreased compared to yesterday to dorsal foot and ankle region, Peripheral Pulses Normal - Palpable dorsalis pedis pulse right Skin: Incision - Well aligned and coapted with subcutaneous sutures intact; no gapping or silvia necrosis. There is no active drainage or purulence on expression today. The incisions are located over the dorsal second and third interspaces of the right foot. Careful evaluation does not demonstrate interdigital maceration, fluctuance or crepitation on palpation to the interspaces or surgical area., - - There is intense dark erythema/ecchymosis appearance of the dorsal right foot spanning from the toe sulcus area to the lateral ankle area which was marked with a marker. The discoloration does not extend beyond these boundaries. Musculoskeletal: No Muscle Wasting, Tenderness - Pain on palpation to dorsal foot proximal to the medial incision dorsal site without palpable abscess. Passive and active range of motion of digits is noted to the right foot without pain. Compartments remain soft to the right foot. Subjectively he reports decreased pain with palpation and foot manipulation on exam Neurological: Sensory exam intact to light touch and pain Psych/Mental Status: Normal Affect, Appropriate Vital Signs Temp Pulse Resp BP Pulse Ox 98.3 F 64 18 100/51 L 95 09/07/18 02:01 09/07/18 02:05 09/07/18 02:05 09/07/18 02:01 09/07/18 02:01 Oxygen Delivery Method Room Air Weight: 76 kg Body Mass Index (BMI) 24.0 Intake and Output for Last 24 Hours 09/05/18 09/06/18 09/07/18 23:59 23:59 23:59 Intake Total 572 / 572 158 / 158 Balance 572 / 572 158 / 158 Laboratory Tests Past 24 Hrs 09/06/18 09/06/18 09/06/18 11:00 11:00 16:02 WBC 8.8 RBC 4.59 L Hgb 14.3 Hct 43.2 MCV 94.1 H MCH 31.2 MCHC 33.1 RDW 12.9 RDW Differential 43.8 Plt Count 280 MPV 10.4 Immature Gran % (Auto) 0.200 Neut % (Auto) 55.8 Lymph % (Auto) 31.2 [place] % (Auto) 10.7 H Eos % (Auto) 1.6 Baso % (Auto) 0.5 Absolute Neuts (auto) 4.9 Absolute Lymphs (auto) 2.74 Total Counted Not Reportable Sodium 138 Potassium 4.1 Chloride 103 Carbon Dioxide 25.0 Anion Gap 10 BUN 16 Creatinine 0.95 Estim Creat Clear Calc 86.45 Est GFR (MDRD) Af Amer 105 Est GFR (MDRD) Non-Af 86 BUN/Creatinine Ratio 16.9 Glucose 94 Calcium 9.3 Total Bilirubin 1.10 H AST 14 L ALT 20 Alkaline Phosphatase 69 Total Protein 8.1 Albumin 3.7 Globulin 4.4 H Albumin/Globulin Ratio 0.8 L S.aureus Protein A PCR NEGATIVE MRSA (PCR) Negative Medical Necessity - Tobacco Use Smoking Status: Light Smoker (<10/day) Tobacco Use: Cigarettes Assessment/Plan All Active Problems Foot infection (Acute) Cellulitis of right foot (Acute) Bilateral pulmonary embolism (Acute) Adrenal nodule (Resolved) s/p 2nd and 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 He is on broad-spectrum antibiotics including vancomycin and Zosyn time. Initial CBC did not demonstrate leukocytosis in the labs from this morning are pending. His wound culture and blood cultures do not demonstrate bacterial growth so far and these are pending. MRSA PCR was negative. His foot x-rays were negative for soft tissue emphysema, fracture, dislocation, foreign body or other acute findings. The images from the MRI of the right foot were reviewed which do not demonstrate any osseous changes. There is edema noted in the subcutaneous tissue adjacent to the surgical site with fluid formation. This is semi-formed and is likely consistent with his surgery that was performed 1 week ago. The final MRI report is pending and I will follow with this as it is finalized. It is noted he appears to be clinically stable and his vital signs are stable overnight. The right foot site was evaluated and a new postoperative dressing was applied including gauze, Kerlix, and Phillip wrap. I recommend he works on edema reduction by elevating his foot today and wear the compressive dressing. Medical management, pain control, DVT prophylaxis per primary team is greatly appreciated. The podiatry team will continue to follow him closely while in house. Please not hesitate to call if you have any questions. Tasha Weinstein DPM, [facility] [phone]
[2018-09-07] MEDS: Enoxaparin 40 MG/0.4 ML Syringe SC (06:13)
[2018-09-07 07:20] LABS: Absolute Lymphocyte Count 2.16 X10^3/ul (0.83-4.51); Absolute Neutrophil Count 4.3 X10^3/uL (2.0-7.7); Basophil# 0.03 X10^3/uL; Basophil% 0.4 % (0-1); Eosinophil# 0.23 X10^3/uL; Eosinophils% 3.1 % (0-5); Hematocrit 38.6 % (40-54); Hemoglobin 12.5 g/dl (13.0-16.5); Lymphocyte # 2.16 X10^3/ul (4.0); Lymphocyte % 29.1 % (19-41); Mean Corp Hgb Conc 32.4 g/gl (32-36); Mean Corpuscular Hgb 31.3 pg (27.0-32.0); Mean Corpuscular Volume 96.5 fL (80-94); Mean Platelet Vol. 10.1 fl (6.2-12.0); Monocyte# 0.72 X10^3/uL; Monocyte% 9.7 % (0-10); Neutrophil # 4.25 X10^3/uL (2.7-7.7); Neutrophil % 57.4 % (47-70); POSITIVE COUNT NO; POSITIVE DIFFERENTIAL NO; POSITIVE MORPHOLOGY NO; Platelet Count 265 K/mm3 (150-450); RBC Distribution Width CV 12.9 % (11.6-14.6); RBC Distribution Width SD 44.9 fl (35.1-43.9); White Blood Count 7.4 K/mm3 (4.4-11.0)
[2018-09-07] MEDS: Dicyclomine 10 MG Capsule PO ×2 (07:52→16:54)
[2018-09-07] MEDS: Pantoprazole Sodium 40 MG Tablet PO (07:53)
--- NOTE | 2018-09-07 07:57 | NURSING ---
Assisted pt to bathroom. Encouraged pt to sit in chair for breakfast. He wants to sit in chair when breakfast comes and until then will lay in bed and elevate leg. RLE elevated on 3 pillows at this time.
[2018-09-07 08:00] VITALS: BP 100/76; PULSE 72; RESP 16; TEMP 37; O2SAT 95
[2018-09-07 10:40] VITALS: BP 154/91; PULSE 89
[2018-09-07] MEDS: Lisinopril 10 MG Tablet PO (10:40)
--- NOTE | 2018-09-07 11:54 | PCM.PN.HOSP ---
Patient Problems: Active and Suspected Problems Foot infection (Acute) Cellulitis of right foot (Acute) Subjective: Patient seen and examined. He is being managed for cellulitis. He has no complaints and fells well. Pain is well controlled. He denies any fever, chills, cough, chest pain, SOB, abdominal pain, diarrhea or vomiting. Review of systems is otherwise negative. Labs and vitals reviewed. Vitals/I&O's: Vital Signs Temp Pulse Resp BP Pulse Ox 98.6 F 89 16 154/91 H 95 09/07/18 08:00 09/07/18 10:40 09/07/18 08:00 09/07/18 10:40 09/07/18 08:00 Oxygen Delivery Method Room Air Weight: 167 lb 8.821 oz Body Mass Index (BMI) 24.0 Intake and Output for Last 24 Hours 09/05/18 09/06/18 09/07/18 23:59 23:59 23:59 Intake Total 572 / 572 843 / 843 Balance 572 / 572 843 / 843 General: Alert, Oriented x3, Cooperative HEENT: Atraumatic, PERRLA, EOMI, Normocephalic Oral: Moist Mucosa Neck: Supple, No JVD, Negative Carotid Bruits Lungs: Clear to auscultation, Normal air movement, No rhonchi, No wheeze, No rales Cardiovascular: Regular rate, Regular Rhythm, Normal S1, Normal S2, No murmurs Abdomen: Bowel Sounds Present, Soft, Non Tender, Non-Distended, No Hepato-splenomegaly Extremities: No clubbing, No cyanosis, No edema, Capillary Refill Less than 3 Seconds Skin: - - as under extremities Musculoskeletal: - - right foot wrapped in bandage Lymphatic: No Cervical, Supraclavicular, or Inguinal Adenopathy Neurological: Cranial nerves II-XII grossly intact, Neuro grossly intact Psych/Mental Status: Normal Affect, Appropriate, Alert and oriented to time, place, person, mood and affect Microbiology Past 72 Hours 09/06/18 16:02 Wound Abcess - Right Foot Gram Stain - Final 09/06/18 16:02 Wound Abcess - Right Foot Wound Culture - Preliminary No growth-Final to follow Laboratory Results 09/06/18 16:02: S.aureus Protein A PCR NEGATIVE, MRSA (PCR) Negative 09/07/18 07:04: WBC 7.4, RBC 4.00 L, Hgb 12.5 L, Hct 38.6 L, MCV 96.5 H, MCH 31.3, MCHC 32.4, RDW 12.9, RDW Differential 44.9 H, Plt Count 265, MPV 10.1, Immature Gran % (Auto) 0.300, Neut % (Auto) 57.4, Lymph % (Auto) 29.1, [place] % (Auto) 9.7, Eos % (Auto) 3.1, Baso % (Auto) 0.4, Absolute Neuts (auto) 4.3, Absolute Lymphs (auto) 2.16, Total Counted Not Reportable Diagnostic Data Lower Extremity MRI 09/06/18 10:44 IMPRESSION: There is a 1.6 cm low T2 and low T1 signal collection or mass in the dorsal subcutaneous soft tissues at the level of the distal second and third metatarsals just superficial to the extensor tendons, difficult to evaluate without IV contrast. These findings may represent an abscess as per history. There is diffuse dorsal subcutaneous soft tissue edema. Electronically Signed: Hao Salas, at 9:54 EST Tel , Service support , Foot X-Ray 09/06/18 14:00 IMPRESSION: Soft tissue swelling about the foot. No visualized fracture. Electronically Signed: Michelle Sevilla MD at 14:46 EST Tel , Service support , Current Medications Acetaminophen (Tylenol) 650 mg PO Q6H PRN PRN PRN Reason: Mild Pain (1-3)/Temp > 100.7 F Dicyclomine HCl (Bentyl) 10 mg PO BIDAC [facility] Last Admin: 09/07/18 07:52 Dose: 10 mg Enoxaparin Sodium (Lovenox) 40 mg SC DAILY@0600 [facility] Last Admin: 09/07/18 06:13 Dose: 40 mg Piperacillin Sod/Tazobactam (Sod 3.375 gm/ Sodium Chloride) 50 mls @ 12.5 mls/hr IV Q8 [facility] Last Admin: 09/07/18 06:13 Dose: 12.5 mls/hr Vancomycin IV Pharmacy to Dose (1 ea/ Sodium Chloride) 500 mls @ 250 mls/hr IV X1 PRN; Protocol PRN Reason: Rx to Dose Vancomycin HCl 1,250 mg/ (Sodium Chloride) 275 mls @ 167 mls/hr IV Q12H [facility] Last Admin: 09/07/18 01:57 Dose: 167 mls/hr Lisinopril (Zestril) 10 mg PO DAILY [facility] Last Admin: 09/07/18 10:40 Dose: 10 mg Morphine Sulfate () 4 - 6 mg IV Q4H PRN PRN PRN Reason: MOD-SEVERE PAIN (4-10/10) Last Admin: 09/06/18 11:04 Dose: 4 mg Nutritional Formula (Lactose Free) (Ensure Enlive) 120 ml PO 4X/DAY [facility] Last Admin: 09/07/18 07:52 Dose: 120 ml Ondansetron HCl (Zofran) 4 mg IV Q8H PRN PRN PRN Reason: NAUSEA Oxycodone HCl (Oxyir) 5 - 10 mg PO Q4H PRN PRN PRN Reason: MOD-SEVERE PAIN (4-10/10) Last Admin: 09/07/18 10:46 Dose: 10 mg Pantoprazole Sodium (Protonix) 40 mg PO DAILY [facility] Last Admin: 09/07/18 07:53 Dose: 40 mg Sodium Chloride () 5 - 15 ml IV UD PRN PRN Reason: SALINE FLUSH Last Admin: 09/06/18 21:02 Dose: 10 ml Medical Necessity - Tobacco Use Smoking Status: Light Smoker (<10/day) Tobacco Use: Cigarettes Assessment/Plan All Active Problems Foot infection (Acute) Cellulitis of right foot (Acute) Bilateral pulmonary embolism (Acute) Adrenal nodule (Resolved) 1. 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 ID on board. Currently on vancomycin and Zosyn. Has remained afebrile. Has no leukocytosis. MRI of the foot showed signal collection or mass in the dorsal subcutaneous soft tissues at the level of the distal second and third metatarsals just superficial to the extensor tendons, difficult to evaluate without contrast. Findings may represent an abscess. There is also diffuse dorsal subcutaneous soft tissue edema. Podiatry on board-recommend elevating patient's foot to reduce edema. Wound cultures negative and blood cultures are pending. 2. History of blood clots: Was on Xarelto. Xarelto was held in case he would need surgery on his foot and is currently on Lovenox for DVT prophylaxis. 3. Hypertension: Fairly controlled. Lisinopril 10 mg daily DVT Prophylaxis: Lovenox Code Visit Inpatient E&M: 07092 [facility] L3
--- NOTE | 2018-09-07 11:59 | PN_ITS ---
Patient Problems: Active and Suspected Problems Foot infection (Acute) Cellulitis of right foot (Acute) Subjective: Patient seen and examined. He is being managed for cellulitis. He has no complaints and fells well. Pain is well controlled. He denies any fever, chills, cough, chest pain, SOB, abdominal pain, diarrhea or vomiting. Review of systems is otherwise negative. Labs and vitals reviewed. Vitals/I&O's: Vital Signs Temp Pulse Resp BP Pulse Ox 98.6 F 89 16 154/91 H 95 09/07/18 08:00 09/07/18 10:40 09/07/18 08:00 09/07/18 10:40 09/07/18 08:00 Oxygen Delivery Method Room Air Weight: 167 lb 8.821 oz Body Mass Index (BMI) 24.0 Intake and Output for Last 24 Hours 09/05/18 09/06/18 09/07/18 23:59 23:59 23:59 Intake Total 572 / 572 843 / 843 Balance 572 / 572 843 / 843 General: Alert, Oriented x3, Cooperative HEENT: Atraumatic, PERRLA, EOMI, Normocephalic Oral: Moist Mucosa Neck: Supple, No JVD, Negative Carotid Bruits Lungs: Clear to auscultation, Normal air movement, No rhonchi, No wheeze, No rales Cardiovascular: Regular rate, Regular Rhythm, Normal S1, Normal S2, No murmurs Abdomen: Bowel Sounds Present, Soft, Non Tender, Non-Distended, No Hepato- splenomegaly Extremities: No clubbing, No cyanosis, No edema, Capillary Refill Less than 3 Seconds Skin: - - as under extremities Musculoskeletal: - - right foot wrapped in bandage Lymphatic: No Cervical, Supraclavicular, or Inguinal Adenopathy Neurological: Cranial nerves II-XII grossly intact, Neuro grossly intact Psych/Mental Status: Normal Affect, Appropriate, Alert and oriented to time, place, person, mood and affect Microbiology Past 72 Hours 09/06/18 16:02 Wound Abcess - Right Foot Gram Stain - Final 09/06/18 16:02 Wound Abcess - Right Foot Wound Culture - Preliminary No growth-Final to follow Laboratory Results 09/06/18 16:02: S.aureus Protein A PCR NEGATIVE, MRSA (PCR) Negative 09/07/18 07:04: WBC 7.4, RBC 4.00 L, Hgb 12.5 L, Hct 38.6 L, MCV 96.5 H, MCH 31.3, MCHC 32.4, RDW 12.9, RDW Differential 44.9 H, Plt Count 265, MPV 10.1, Immature Gran % (Auto) 0.300, Neut % (Auto) 57.4, Lymph % (Auto) 29.1, [place] % (Auto) 9.7, Eos % (Auto) 3.1, Baso % (Auto) 0.4, Absolute Neuts (auto) 4.3, Absolute Lymphs (auto) 2.16, Total Counted Not Reportable Diagnostic Data Lower Extremity MRI 09/06/18 10:44 IMPRESSION: There is a 1.6 cm low T2 and low T1 signal collection or mass in the dorsal subcutaneous soft tissues at the level of the distal second and third metatarsals just superficial to the extensor tendons, difficult to evaluate without IV contrast. These findings may represent an abscess as per history. There is diffuse dorsal subcutaneous soft tissue edema. Electronically Signed: Hao Salas, at 9:54 EST Tel , Service support , Foot X-Ray 09/06/18 14:00 IMPRESSION: Soft tissue swelling about the foot. No visualized fracture. Electronically Signed: Michelle Sevilla MD at 14:46 EST Tel , Service support , Current Medications Acetaminophen (Tylenol) 650 mg PO Q6H PRN PRN PRN Reason: Mild Pain (1-3)/Temp > 100.7 F Dicyclomine HCl (Bentyl) 10 mg PO BIDAC [facility] Last Admin: 09/07/18 07:52 Dose: 10 mg Enoxaparin Sodium (Lovenox) 40 mg SC DAILY@0600 [facility] Last Admin: 09/07/18 06:13 Dose: 40 mg Piperacillin Sod/Tazobactam (Sod 3.375 gm/ Sodium Chloride) 50 mls @ 12.5 mls/hr IV Q8 [facility] Last Admin: 09/07/18 06:13 Dose: 12.5 mls/hr Vancomycin IV Pharmacy to Dose (1 ea/ Sodium Chloride) 500 mls @ 250 mls/hr IV X1 PRN; Protocol PRN Reason: Rx to Dose Vancomycin HCl 1,250 mg/ (Sodium Chloride) 275 mls @ 167 mls/hr IV Q12H [facility] Last Admin: 09/07/18 01:57 Dose: 167 mls/hr Lisinopril (Zestril) 10 mg PO DAILY [facility] Last Admin: 09/07/18 10:40 Dose: 10 mg Morphine Sulfate () 4 - 6 mg IV Q4H PRN PRN PRN Reason: MOD-SEVERE PAIN (4-10/10) Last Admin: 09/06/18 11:04 Dose: 4 mg Nutritional Formula (Lactose Free) (Ensure Enlive) 120 ml PO 4X/DAY [facility] Last Admin: 09/07/18 07:52 Dose: 120 ml Ondansetron HCl (Zofran) 4 mg IV Q8H PRN PRN PRN Reason: NAUSEA Oxycodone HCl (Oxyir) 5 - 10 mg PO Q4H PRN PRN PRN Reason: MOD-SEVERE PAIN (4-10/10) Last Admin: 09/07/18 10:46 Dose: 10 mg Pantoprazole Sodium (Protonix) 40 mg PO DAILY [facility] Last Admin: 09/07/18 07:53 Dose: 40 mg Sodium Chloride () 5 - 15 ml IV UD PRN PRN Reason: SALINE FLUSH Last Admin: 09/06/18 21:02 Dose: 10 ml Medical Necessity - Tobacco Use Smoking Status: Light Smoker (<10/day) Tobacco Use: Cigarettes Assessment/Plan All Active Problems Foot infection (Acute) Cellulitis of right foot (Acute) Bilateral pulmonary embolism (Acute) Adrenal nodule (Resolved) 1. 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 * ID on board. Currently on vancomycin and Zosyn. * Has remained afebrile. Has no leukocytosis. * MRI of the foot showed signal collection or mass in the dorsal subcutaneous soft tissues at the level of the distal second and third metatarsals just superficial to the extensor tendons, difficult to evaluate without contrast. Findings may represent an abscess. There is also diffuse dorsal subcutaneous soft tissue edema. * Podiatry on board-recommend elevating patient's foot to reduce edema. * Wound cultures negative and blood cultures are pending. 2. History of blood clots: Was on Xarelto. Xarelto was held in case he would need surgery on his foot and is currently on Lovenox for DVT prophylaxis. 3. Hypertension: Fairly controlled. Lisinopril 10 mg daily DVT Prophylaxis: Lovenox Code Visit Inpatient E&M: [id number] [facility] L3
[2018-09-07] MEDS: 0.9% NaCl Peripheral Flush Adult/Peds IV ×2 (13:03→20:36)
[2018-09-07 13:27] VITALS: BP 118/79; PULSE 72; RESP 18; TEMP 36.8; O2SAT 98
--- NOTE | 2018-09-07 18:58 | NURSING ---
Dr. Mayorga called in and spoke to this nurse. Not sure if going to take pt to surgery or not tomorrow, just depends what foot looks like in the morning but orders to make him NPO after midnight in case she has to take him to surgery.
[2018-09-07 20:28] VITALS: BP 118/68; PULSE 70; RESP 16; TEMP 36.8; O2SAT 99
[2018-09-07] MEDS: Morphine 4 MG/ML Syringe IV (20:36)
[2018-09-08 00:45] LABS: Vancomycin, Trough Level 9.5 ug/mL (5.0-15.0)
[2018-09-08 01:39] VITALS: BP 112/74; PULSE 60; RESP 16; TEMP 36.6; O2SAT 98
[2018-09-08] MEDS: Morphine 4 MG/ML Syringe IV (01:43)
--- NOTE | 2018-09-08 01:55 | PCM.RX.CS ---
Consult Pharmacy has been consulted to manage selected antiobiotic: Vancomycin Type of Consult: Follow-up Suspected Infection: Skin/Soft tissue Prior Doses of Antibiotics Received/Current Regimen: Medications Vancomycin HCl 1,250 mg/ (Sodium Chloride) 275 mls @ 167 mls/hr IV Q8H [facility] Discontinued Medications Vancomycin HCl 1,250 mg/ (Sodium Chloride) 275 mls @ 167 mls/hr IV Q12H [facility] Last Admin: 09/08/18 01:43 Dose: 167 mls/hr Labs: Sodium 138 mmol/L (136-145) 09/06/18 11:00 Potassium 4.1 mmol/L (3.5-5.1) 09/06/18 11:00 Chloride 103 mmol/L (98-107) 09/06/18 11:00 Carbon Dioxide 25.0 mmol/L (21.0-32.0) 09/06/18 11:00 Anion Gap 10 (5-15) 09/06/18 11:00 BUN 16 mg/dL (7-18) 09/06/18 11:00 Creatinine 0.95 mg/dL (0.70-1.30) 09/06/18 11:00 Est GFR (MDRD) Af Amer 105 mL/min (>60) 09/06/18 11:00 Est GFR (MDRD) Non-Af 86 mL/min (>60) 09/06/18 11:00 BUN/Creatinine Ratio 16.9 RATIO (10-20) 09/06/18 11:00 Glucose 94 mg/dL (74-106) 09/06/18 11:00 Vancomycin Trough 9.5 ug/mL (5.0-15.0) 09/08/18 00:00 Microbiology: Microbiology 09/06/18 16:02 Wound Abcess - Right Foot Gram Stain - Final 09/06/18 16:02 Wound Abcess - Right Foot Wound Culture - Preliminary No growth-Final to follow Weight used for dosin kg Estimated Creatinine Clearance: 86 Goal Trough: 15-20 mcg/mL Pharmacy Plan for Drug Dosing: Trough level of 9.5 was below target range of 15-20. Dosing calculator advised increasing frequency to 1250mg q8h. Will redraw trough in 4 doses. Pharmacy Service will continue to monitor and adjust dosing as required. Follow-Up Labs: Trough Vancomycin Labs to be done on [date and time ordered]: 09/09/18 @0030
--- NOTE | 2018-09-08 06:00 | EKG12_ITS ---
Test Reason : AM EKG Blood Pressure : / mmHG Vent. Rate : 062 BPM Atrial Rate : 062 BPM P-R Int : 204 ms QRS Dur : 090 ms QT Int : 384 ms P-R-T Axes : 010 023 018 degrees QTc Int : 389 ms Normal sinus rhythm Normal ECG When compared with ECG of 28-MAR-2016 15:10, No significant change was found Confirmed by KRISTI KLEIN, TOYA ([id number]), multimedia editor SHAVON PARKER ([id number]) on 09/13/2018 9:53:33 AM Referred By: Angelica Valente Confirmed By:TOYA BERRY MD
[2018-09-08 06:53] LABS: Absolute Lymphocyte Count 2.15 X10^3/ul (0.83-4.51); Absolute Neutrophil Count 4.7 X10^3/uL (2.0-7.7); Basophil# 0.04 X10^3/uL; Basophil% 0.5 % (0-1); Eosinophil# 0.32 X10^3/uL; Hematocrit 40.7 % (40-54); Hemoglobin 13.1 g/dl (13.0-16.5); Lymphocyte # 2.15 X10^3/ul (4.0); Lymphocyte % 26.8 % (19-41); Mean Corp Hgb Conc 32.2 g/gl (32-36); Mean Corpuscular Hgb 31.3 pg (27.0-32.0); Mean Corpuscular Volume 97.4 fL (80-94); Mean Platelet Vol. 10.6 fl (6.2-12.0); Monocyte# 0.81 X10^3/uL; Monocyte% 10.1 % (0-10); Neutrophil # 4.67 X10^3/uL (2.7-7.7); Neutrophil % 58.2 % (47-70); Platelet Count 279 K/mm3 (150-450); RBC Distribution Width CV 12.6 % (11.6-14.6); RBC Distribution Width SD 43.6 fl (35.1-43.9); Red Blood Count 4.18 M/mm3 (4.6-6.2)
[2018-09-08 06:59] LABS: POSITIVE COUNT NO; POSITIVE DIFFERENTIAL NO; POSITIVE MORPHOLOGY NO
[2018-09-08 07:06] LABS: Anion Gap 4 (5-15); BUN 15 mg/dL (7-18); BUN/Creat Ratio 17.4 RATIO (10-20); Calcium,Total 8.4 mg/dL (8.5-10.1); Chloride 107 mmol/L (98-107); Creatinine, Serum 0.86 mg/dL (0.70-1.30); EST Glomerular Filtration Rate 96 mL/min (>60); Est Glom Filt Rate - Afr Amer 116 mL/min (>60); Estimated Creatinine Clearance 95.49 ml/min; Glucose 89 mg/dL (74-106); Potassium 4.7 mmol/L (3.5-5.1); Sodium Level 138 mmol/L (136-145)
--- NOTE | 2018-09-08 07:37 | PCM.PROGNOTE ---
Patient Problems: Active and Suspected Problems Foot infection (Acute) Cellulitis of right foot (Acute) Subjective: This 58-year-old male was seen bedside for right foot cellulitis. It is noted he is about 1-1/2 weeks status post neuroma excisions. He rates his pain at worse is a 5 out of 10 and this has decreased over his hospital stay. He denies fever, chill, nausea, vomiting. - Physical Exam General: Alert, Oriented x3, Cooperative Extremities: No cyanosis, Capillary Refill Less than 3 Seconds, No Calf Tenderness - Negative Keisha and Munoz sign lateral, Edema - Decreased with increased skin tension lines noted, Peripheral Pulses Normal Skin: Incision - No purulence, odor, maceration, necrosis noted. The erythema has decreased in location and there is also significant reduction in erythema intensity. Both dorsal foot incisions are well aligned and coapted without. There is no bogginess or crepitus on palpation nor do I feel a palpable abscess Musculoskeletal: No Tenderness to Palpation of Joints or Extremities, No Muscle Wasting, - - Active range of motion digits noted right foot. Compartments of right foot remain soft to palpate Neurological: Sensory exam intact to light touch and pain Psych/Mental Status: Normal Affect, Appropriate Vital Signs Temp Pulse Resp BP Pulse Ox 97.8 F 60 16 112/74 98 09/08/18 01:39 09/08/18 01:39 09/08/18 01:39 09/08/18 01:39 09/08/18 01:39 Oxygen Flow Rate (L/min) 2 Oxygen Delivery Method Nasal Cannula Weight: 76 kg Body Mass Index (BMI) 24.0 Intake and Output for Last 24 Hours 09/06/18 09/07/18 09/09/18 23:59 23:59 00:59 Intake Total 572 / 572 1596 / 1596 881 / 881 Balance 572 / 572 1596 / 1596 881 / 881 Microbiology Past 72 Hours 09/06/18 16:02 Gram Stain - Final Wound Abcess - Right Foot Wound Culture - Preliminary No growth-Final to follow Laboratory Tests Past 24 Hrs 09/07/18 09/08/18 09/08/18 07:04 00:00 05:50 WBC 7.4 8.0 RBC 4.00 L 4.18 L Hgb 12.5 L 13.1 Hct 38.6 L 40.7 MCV 96.5 H 97.4 H MCH 31.3 31.3 MCHC 32.4 32.2 RDW 12.9 12.6 RDW Differential 44.9 H 43.6 Plt Count 265 279 MPV 10.1 10.6 Immature Gran % (Auto) 0.300 0.400 Neut % (Auto) 57.4 58.2 Lymph % (Auto) 29.1 26.8 [place] % (Auto) 9.7 10.1 H Eos % (Auto) 3.1 4.0 Baso % (Auto) 0.4 0.5 Absolute Neuts (auto) 4.3 4.7 Absolute Lymphs (auto) 2.16 2.15 Total Counted Not Reportable Not Reportable Sodium Potassium Chloride Carbon Dioxide Anion Gap BUN Creatinine Estim Creat Clear Calc Est GFR (MDRD) Af Amer Est GFR (MDRD) Non-Af BUN/Creatinine Ratio Glucose Calcium Vancomycin Trough 9.5 09/08/18 05:50 WBC RBC Hgb Hct MCV MCH MCHC RDW RDW Differential Plt Count MPV Immature Gran % (Auto) Neut % (Auto) Lymph % (Auto) [place] % (Auto) Eos % (Auto) Baso % (Auto) Absolute Neuts (auto) Absolute Lymphs (auto) Total Counted Sodium 138 Potassium 4.7 Chloride 107 Carbon Dioxide 27.0 Anion Gap 4 L BUN 15 Creatinine 0.86 Estim Creat Clear Calc 95.49 Est GFR (MDRD) Af Amer 116 Est GFR (MDRD) Non-Af 96 BUN/Creatinine Ratio 17.4 Glucose 89 Calcium 8.4 L Vancomycin Trough Medical Necessity - Tobacco Use Smoking Status: Light Smoker (<10/day) Tobacco Use: Cigarettes Assessment/Plan All Active Problems Foot infection (Acute) Cellulitis of right foot (Acute) Bilateral pulmonary embolism (Acute) Adrenal nodule (Resolved) 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 He is on broad-spectrum antibiotics including vancomycin and Zosyn time. His recent CBC did not demonstrate leukocytosis (WBC 8.0). His wound culture and blood cultures do not demonstrate bacterial growth so far and these are pending. MRSA PCR was negative. The images from the MRI of the right foot were reviewed which do not demonstrate any osseous changes. There is edema noted in the subcutaneous tissue adjacent to the surgical site with fluid formation. Clinically his foot appears to be improved and I do not recommend incision and drainage in the operating room at this time. His n.p.o. order that was placed last night as a precaution has been discontinued. I do recommend continuation of antibiotics and transition to oral antibiotics for discharge likely tomorrow. A new dressing was applied including gauze, [place], and Phillip wrap. His edema has also improved with his compression dressing and I recommend continued use of the compression dressing as well as elevation. Medical management, pain control, DVT prophylaxis per primary team is greatly appreciated. The podiatry team will continue to follow him closely while in house. Please not hesitate to call if you have any questions. Tasha Weinstein DPM, FACFAS [facility] [phone]
--- NOTE | 2018-09-08 07:45 | PCM.DC.POD ---
Discharge Diet: No Restrictions Discharge Activity: May not drive while taking narcotic pain medications., - - weight bear as tolerated right foot surgical shoe Weight Bearing Status: Weight bearing as tolerated Keep extremity elevated above heart level: Right Leg Call your doctor if your incision/area has: Continuous Slow Oozing, Sudden Increased Bleeding, Increased Pain/ Swelling, Increased Redness, Foul Smelling Discharge, Swelling at the incision site Call your doctor if you observe: Fever of 101 or Higher, Numbness or Tingling, Calf discomfort, Uncontrolled pain Cleanse incision/area with: Keep Dressing Clean & Dry Allergies/Adverse Reactions: Allergies Sulfa (Sulfonamide Antibiotics) Allergy (Verified 09/06/18 10:11) Unknown venom-honey bee [bee venom (honey bee)] Allergy (Verified 09/06/18 10:11) Hives Medications to take at Discharge Multivit-Min/FA/Lycopene/Lut [Centrum Silver Tablet] 1 each PO DAILY 03/30/14 Omeprazole [Prilosec] 40 mg PO DAILY #30 capsule 03/31/14 Dicyclomine HCl 10 mg PO BID 12/22/14 Rivaroxaban [Xarelto] 20 mg PO DAILY #30 tablet 06/09/15 Cholecalciferol (Vitamin D3) [Vitamin D3] 1,000 unit PO DAILY 04/09/18 Calcipotriene [Calcitrene] 60 gm TP DAILY 08/23/18 Lisinopril [Zestril] 10 mg PO DAILY 08/23/18 Triamcinolone 0.1% Cream [Kenalog] 1 applic TOPICAL DAILY 08/23/18 Primary Care Physician: Harper Oliva MD [Primary Care Provider] - Test Results: Test results from this visit will be discussed in further detail at your follow-up appointment, if applicable. Please Follow Up With: Brandon Flores DPM When: 1 week, [facility] [place] - [phone] Proposed Discharge Date: 09/09/18
[2018-09-08 07:49] VITALS: BP 121/84; PULSE 71; RESP 18; TEMP 36.5; O2SAT 98
[2018-09-08] MEDS: Pantoprazole Sodium 40 MG Tablet PO (07:52)
[2018-09-08] MEDS: Lisinopril 10 MG Tablet PO (07:52)
[2018-09-08] MEDS: Dicyclomine 10 MG Capsule PO ×2 (07:52→17:22)
[2018-09-08] MEDS: Enoxaparin 40 MG/0.4 ML Syringe SC (07:53)
[2018-09-08] MEDS: oxyCODONE 5 MG Tablet PO ×3 (09:23→19:01)
--- NOTE | 2018-09-08 13:21 | PCM.PN.HOSP ---
Patient Problems: Active and Suspected Problems Foot infection (Acute) Cellulitis of right foot (Acute) Subjective: Patient seen and examined. He has no complaints and feels well. Review of systems otherwise negative. Labs and vitals reviewed. Vitals/I&O's: Vital Signs Temp Pulse Resp BP Pulse Ox 97.7 F L 71 18 121/84 H 98 09/08/18 07:49 09/08/18 07:49 09/08/18 07:49 09/08/18 07:49 09/08/18 07:49 Oxygen Flow Rate (L/min) 2 Oxygen Delivery Method Room Air Weight: 167 lb 8.821 oz Body Mass Index (BMI) 24.0 Intake and Output for Last 24 Hours 09/06/18 09/07/18 09/09/18 23:59 23:59 00:59 Intake Total 572 / 572 1596 / 1596 881 / 881 Balance 572 / 572 1596 / 1596 881 / 881 General: Alert, Oriented x3, Cooperative HEENT: Atraumatic, PERRLA, EOMI, Normocephalic Oral: Moist Mucosa Neck: Supple, No JVD, Negative Carotid Bruits Lungs: Clear to auscultation, Normal air movement, No rhonchi, No wheeze, No rales Cardiovascular: Regular rate, Regular Rhythm, Normal S1, Normal S2, No murmurs Abdomen: Bowel Sounds Present, Soft, Non Tender, Non-Distended, No Hepato-splenomegaly Extremities: No clubbing, No cyanosis, No edema, Capillary Refill Less than 3 Seconds Skin: - - as under extremities Musculoskeletal: - - right foot wrapped in bandage Lymphatic: No Cervical, Supraclavicular, or Inguinal Adenopathy Neurological: Cranial nerves II-XII grossly intact, Neuro grossly intact Psych/Mental Status: Normal Affect, Appropriate, Alert and oriented to time, place, person, mood and affect Microbiology Past 72 Hours 09/06/18 16:02 Wound Abcess - Right Foot Gram Stain - Final 09/06/18 16:02 Wound Abcess - Right Foot Wound Culture - Preliminary No growth-Final to follow Laboratory Results 09/08/18 00:00: Vancomycin Trough 9.5 09/08/18 05:50: WBC 8.0, RBC 4.18 L, Hgb 13.1, Hct 40.7, MCV 97.4 H, MCH 31.3, MCHC 32.2, RDW 12.6, RDW Differential 43.6, Plt Count 279, MPV 10.6, Immature Gran % (Auto) 0.400, Neut % (Auto) 58.2, Lymph % (Auto) 26.8, [place] % (Auto) 10.1 H, Eos % (Auto) 4.0, Baso % (Auto) 0.5, Absolute Neuts (auto) 4.7, Absolute Lymphs (auto) 2.15, Total Counted Not Reportable 09/08/18 05:50: Sodium 138, Potassium 4.7, Chloride 107, Carbon Dioxide 27.0, Anion Gap 4 L, BUN 15, Creatinine 0.86, Estim Creat Clear Calc 95.49, Est GFR (MDRD) Af Amer 116, Est GFR (MDRD) Non-Af 96, BUN/Creatinine Ratio 17.4, Glucose 89, Calcium 8.4 L Current Medications Acetaminophen (Tylenol) 650 mg PO Q6H PRN PRN PRN Reason: Mild Pain (1-3)/Temp > 100.7 F Dicyclomine HCl (Bentyl) 10 mg PO BIDAC [facility] Last Admin: 09/08/18 07:52 Dose: 10 mg Enoxaparin Sodium (Lovenox) 40 mg SC DAILY@0600 [facility] Last Admin: 09/08/18 07:53 Dose: 40 mg Piperacillin Sod/Tazobactam (Sod 3.375 gm/ Sodium Chloride) 50 mls @ 12.5 mls/hr IV Q8 [facility] Last Admin: 09/08/18 05:56 Dose: 12.5 mls/hr Vancomycin IV Pharmacy to Dose (1 ea/ Sodium Chloride) 500 mls @ 250 mls/hr IV X1 PRN; Protocol PRN Reason: Rx to Dose Vancomycin HCl 1,250 mg/ (Sodium Chloride) 275 mls @ 167 mls/hr IV Q8H [facility] Last Admin: 09/08/18 10:34 Dose: 167 mls/hr Lisinopril (Zestril) 10 mg PO DAILY [facility] Last Admin: 09/08/18 07:52 Dose: 10 mg Morphine Sulfate () 4 - 6 mg IV Q4H PRN PRN PRN Reason: MOD-SEVERE PAIN (-04/10) Last Admin: 09/08/18 01:43 Dose: 4 mg Nutritional Formula (Lactose Free) (Ensure Enlive) 120 ml PO 4X/DAY [facility] Last Admin: 09/08/18 07:52 Dose: 120 ml Ondansetron HCl (Zofran) 4 mg IV Q8H PRN PRN PRN Reason: NAUSEA Oxycodone HCl (Oxyir) 5 - 10 mg PO Q4H PRN PRN PRN Reason: MOD-SEVERE PAIN (4-04/10) Last Admin: 09/08/18 09:23 Dose: 10 mg Pantoprazole Sodium (Protonix) 40 mg PO DAILY [facility] Last Admin: 09/08/18 07:52 Dose: 40 mg Sodium Chloride () 5 - 15 ml IV UD PRN PRN Reason: SALINE FLUSH Last Admin: 09/07/18 20:36 Dose: 10 ml Medical Necessity - Tobacco Use Smoking Status: Light Smoker (<10/day) Tobacco Use: Cigarettes Assessment/Plan All Active Problems Foot infection (Acute) Cellulitis of right foot (Acute) Bilateral pulmonary embolism (Acute) Adrenal nodule (Resolved) 1. Cellulitis of the right foot stable. ID on board. Remains on IV vancomycin and IV zosyn podiatry on board for likely dc tomorrow after antibiotics transitioned to orals per ID wound cultures negative. blood cultures are negative. 2. History of blood clots: Was on Xarelto. Xarelto was held in case he would need surgery on his foot and is currently on Lovenox for DVT prophylaxis. per podiatry, for likely dc tomorrow. Will therefore resume xarelto 3. Hypertension: Fairly controlled. Lisinopril 10 mg daily DVT Prophylaxis: Lovenox Code Visit Inpatient E&M: 75236 Subs Hosp L2
--- NOTE | 2018-09-08 13:28 | PN_ITS ---
Patient Problems: Active and Suspected Problems Foot infection (Acute) Cellulitis of right foot (Acute) Subjective: Patient seen and examined. He has no complaints and feels well. Review of systems otherwise negative. Labs and vitals reviewed. Vitals/I&O's: Vital Signs Temp Pulse Resp BP Pulse Ox 97.7 F L 71 18 121/84 H 98 09/08/18 07:49 09/08/18 07:49 09/08/18 07:49 09/08/18 07:49 09/08/18 07:49 Oxygen Flow Rate (L/min) 2 Oxygen Delivery Method Room Air Weight: 167 lb 8.821 oz Body Mass Index (BMI) 24.0 Intake and Output for Last 24 Hours 09/06/18 09/07/18 09/09/18 23:59 23:59 00:59 Intake Total 572 / 572 1596 / 1596 881 / 881 Balance 572 / 572 1596 / 1596 881 / 881 General: Alert, Oriented x3, Cooperative HEENT: Atraumatic, PERRLA, EOMI, Normocephalic Oral: Moist Mucosa Neck: Supple, No JVD, Negative Carotid Bruits Lungs: Clear to auscultation, Normal air movement, No rhonchi, No wheeze, No rales Cardiovascular: Regular rate, Regular Rhythm, Normal S1, Normal S2, No murmurs Abdomen: Bowel Sounds Present, Soft, Non Tender, Non-Distended, No Hepato-splenomegaly Extremities: No clubbing, No cyanosis, No edema, Capillary Refill Less than 3 Seconds Skin: - - as under extremities Musculoskeletal: - - right foot wrapped in bandage Lymphatic: No Cervical, Supraclavicular, or Inguinal Adenopathy Neurological: Cranial nerves II-XII grossly intact, Neuro grossly intact Psych/Mental Status: Normal Affect, Appropriate, Alert and oriented to time, place, person, mood and affect Microbiology Past 72 Hours 09/06/18 16:02 Wound Abcess - Right Foot Gram Stain - Final 09/06/18 16:02 Wound Abcess - Right Foot Wound Culture - Preliminary No growth-Final to follow Laboratory Results 09/08/18 00:00: Vancomycin Trough 9.5 09/08/18 05:50: WBC 8.0, RBC 4.18 L, Hgb 13.1, Hct 40.7, MCV 97.4 H, MCH 31.3, MCHC 32.2, RDW 12.6, RDW Differential 43.6, Plt Count 279, MPV 10.6, Immature Gran % (Auto) 0.400, Neut % (Auto) 58.2, Lymph % (Auto) 26.8, [place] % (Auto) 10.1 H, Eos % (Auto) 4.0, Baso % (Auto) 0.5, Absolute Neuts (auto) 4.7, Absolute Lymphs (auto) 2.15, Total Counted Not Reportable 09/08/18 05:50: Sodium 138, Potassium 4.7, Chloride 107, Carbon Dioxide 27.0, Anion Gap 4 L, BUN 15, Creatinine 0.86, Estim Creat Clear Calc 95.49, Est GFR (MDRD) Af Amer 116, Est GFR (MDRD) Non-Af 96, BUN/Creatinine Ratio 17.4, Glucose 89, Calcium 8.4 L Current Medications Acetaminophen (Tylenol) 650 mg PO Q6H PRN PRN PRN Reason: Mild Pain (1-3)/Temp > 100.7 F Dicyclomine HCl (Bentyl) 10 mg PO BIDAC [facility] Last Admin: 09/08/18 07:52 Dose: 10 mg Enoxaparin Sodium (Lovenox) 40 mg SC DAILY@0600 [facility] Last Admin: 09/08/18 07:53 Dose: 40 mg Piperacillin Sod/Tazobactam (Sod 3.375 gm/ Sodium Chloride) 50 mls @ 12.5 mls/hr IV Q8 [facility] Last Admin: 09/08/18 05:56 Dose: 12.5 mls/hr Vancomycin IV Pharmacy to Dose (1 ea/ Sodium Chloride) 500 mls @ 250 mls/hr IV X1 PRN; Protocol PRN Reason: Rx to Dose Vancomycin HCl 1,250 mg/ (Sodium Chloride) 275 mls @ 167 mls/hr IV Q8H [facility] Last Admin: 09/08/18 10:34 Dose: 167 mls/hr Lisinopril (Zestril) 10 mg PO DAILY [facility] Last Admin: 09/08/18 07:52 Dose: 10 mg Morphine Sulfate () 4 - 6 mg IV Q4H PRN PRN PRN Reason: MOD-SEVERE PAIN (-04/10) Last Admin: 09/08/18 01:43 Dose: 4 mg Nutritional Formula (Lactose Free) (Ensure Enlive) 120 ml PO 4X/DAY [facility] Last Admin: 09/08/18 07:52 Dose: 120 ml Ondansetron HCl (Zofran) 4 mg IV Q8H PRN PRN PRN Reason: NAUSEA Oxycodone HCl (Oxyir) 5 - 10 mg PO Q4H PRN PRN PRN Reason: MOD-SEVERE PAIN (4-04/10) Last Admin: 09/08/18 09:23 Dose: 10 mg Pantoprazole Sodium (Protonix) 40 mg PO DAILY [facility] Last Admin: 09/08/18 07:52 Dose: 40 mg Sodium Chloride () 5 - 15 ml IV UD PRN PRN Reason: SALINE FLUSH Last Admin: 09/07/18 20:36 Dose: 10 ml Medical Necessity - Tobacco Use Smoking Status: Light Smoker (<10/day) Tobacco Use: Cigarettes Assessment/Plan All Active Problems Foot infection (Acute) Cellulitis of right foot (Acute) Bilateral pulmonary embolism (Acute) Adrenal nodule (Resolved) 1. Cellulitis of the right foot * stable. ID on board. Remains on IV vancomycin and IV zosyn * podiatry on board * for likely dc tomorrow after antibiotics transitioned to orals per ID * wound cultures negative. blood cultures are negative. * 2. History of blood clots: * Was on Xarelto. Xarelto was held in case he would need surgery on his foot and is currently on Lovenox for DVT prophylaxis. * per podiatry, for likely dc tomorrow. Will therefore resume xarelto 3. Hypertension: Fairly controlled. Lisinopril 10 mg daily DVT Prophylaxis: Lovenox Code Visit Inpatient E&M: 53202 Subs Hosp L2
[2018-09-08 14:26] VITALS: BP 133/80; PULSE 75; RESP 16; TEMP 36.6; O2SAT 98
[2018-09-08] MEDS: Rivaroxaban 20 MG Tablet PO (17:27)
[2018-09-08 20:29] VITALS: BP 126/82; PULSE 72; RESP 18; TEMP 36.7; O2SAT 100
[2018-09-09] MEDS: oxyCODONE 5 MG Tablet PO ×3 (01:07→10:46)
[2018-09-09 02:47] LABS: Absolute Lymphocyte Count 2.23 X10^3/ul (0.83-4.51); Absolute Neutrophil Count 3.8 X10^3/uL (2.0-7.7); Basophil# 0.04 X10^3/uL; Basophil% 0.5 % (0-1); Eosinophil# 0.36 X10^3/uL; Eosinophils% 4.9 % (0-5); Hematocrit 38.9 % (40-54); Hemoglobin 12.8 g/dl (13.0-16.5); Lymphocyte # 2.23 X10^3/ul (4.0); Lymphocyte % 30.2 % (19-41); Mean Corp Hgb Conc 32.9 g/gl (32-36); Mean Corpuscular Hgb 31.5 pg (27.0-32.0); Mean Corpuscular Volume 95.8 fL (80-94); Mean Platelet Vol. 10.1 fl (6.2-12.0); Monocyte# 0.89 X10^3/uL; Monocyte% 12.1 % (0-10); Neutrophil # 3.84 X10^3/uL (2.7-7.7); Platelet Count 281 K/mm3 (150-450); RBC Distribution Width CV 12.2 % (11.6-14.6); Red Blood Count 4.06 M/mm3 (4.6-6.2); White Blood Count 7.4 K/mm3 (4.4-11.0)
[2018-09-09 02:48] LABS: POSITIVE COUNT NO; POSITIVE DIFFERENTIAL NO; POSITIVE MORPHOLOGY NO
[2018-09-09 03:12] LABS: Anion Gap 8 (5-15); BUN 16 mg/dL (7-18); Calcium,Total 8.7 mg/dL (8.5-10.1); Chloride 105 mmol/L (98-107); Creatinine, Serum 0.89 mg/dL (0.70-1.30); EST Glomerular Filtration Rate 93 mL/min (>60); Est Glom Filt Rate - Afr Amer 113 mL/min (>60); Estimated Creatinine Clearance 92.28 ml/min; Glucose 100 mg/dL (74-106); Potassium 4.6 mmol/L (3.5-5.1); Sodium Level 141 mmol/L (136-145)
[2018-09-09 03:20] VITALS: BP 116/66; PULSE 66; RESP 16; TEMP 36.5; O2SAT 97
[2018-09-09 03:32] LABS: Vancomycin, Trough Level 18.1 ug/mL (5.0-15.0)
--- NOTE | 2018-09-09 03:48 | PCM.RX.CS ---
Consult Pharmacy has been consulted to manage selected antiobiotic: Vancomycin Type of Consult: Follow-up Suspected Infection: Skin/Soft tissue Prior Doses of Antibiotics Received/Current Regimen: Medications Vancomycin HCl 1,250 mg/ (Sodium Chloride) 275 mls @ 167 mls/hr IV Q8H [facility] Last Admin: 09/09/18 03:18 Dose: 167 mls/hr Labs: Sodium 141 mmol/L (136-145) 09/09/18 02:37 Potassium 4.6 mmol/L (3.5-5.1) 09/09/18 02:37 Chloride 105 mmol/L (98-107) 09/09/18 02:37 Carbon Dioxide 28.0 mmol/L (21.0-32.0) 09/09/18 02:37 Anion Gap 8 (5-15) 09/09/18 02:37 BUN 16 mg/dL (7-18) 09/09/18 02:37 Creatinine 0.89 mg/dL (0.70-1.30) 09/09/18 02:37 Est GFR (MDRD) Af Amer 113 mL/min (>60) 09/09/18 02:37 Est GFR (MDRD) Non-Af 93 mL/min (>60) 09/09/18 02:37 BUN/Creatinine Ratio 18.0 RATIO (10-20) 09/09/18 02:37 Glucose 100 mg/dL (74-106) 09/09/18 02:37 Vancomycin Trough 18.1 ug/mL (5.0-15.0) H 09/09/18 02:37 Microbiology: Microbiology 09/06/18 12:36 Blood Culture (Wb) - Left Hand Blood Culture - Preliminary No growth in 48 hours. 09/06/18 12:32 Blood Culture (Wb) - Anticubital Left Blood Culture - Preliminary No growth in 48 hours. 09/06/18 16:02 Wound Abcess - Right Foot Gram Stain - Final 09/06/18 16:02 Wound Abcess - Right Foot Wound Culture - Preliminary No growth-Final to follow Weight used for dosin kg Estimated Creatinine Clearance: 92 Goal Trough: 15-20 mcg/mL Pharmacy Plan for Drug Dosing: Trough level after previous dose change came back at 18.1, within target range 15-20. Will continue current dosing and re-draw trough in 4 days. Pharmacy Service will continue to monitor and adjust dosing as required. Follow-Up Labs: Trough Vancomycin Labs to be done on [date and time ordered]: 09/13/18 @1038
[2018-09-09 07:52] VITALS: BP 124/77; PULSE 69; RESP 18; TEMP 36.7; O2SAT 96
[2018-09-09] MEDS: Dicyclomine 10 MG Capsule PO (07:58)
[2018-09-09] MEDS: Pantoprazole Sodium 40 MG Tablet PO (07:59)
[2018-09-09] MEDS: Lisinopril 10 MG Tablet PO (07:59)
--- NOTE | 2018-09-09 09:23 | PCM.PROGNOTE ---
Patient Problems: Active and Suspected Problems Foot infection (Acute) Cellulitis of right foot (Acute) Subjective: Patient was seen this morning for follow up on right foot, he relates foot is feeling better. He was resting comfortably in bed with no complaints. No complaints of fever, chills, nausea or vomiting. No calf pain, shortness of breath or chest pain. - Physical Exam General: Alert, Oriented x3, Cooperative, No apparent distress Extremities: - - Incision sites dorsal 2nd and 3rd IM spaces right foot well coapted, there is no dehiscence, no fluctuance, no crepitus, no maloder, no necrosis, previous cellulitis to right foot significantly improved, there is no blistering or visible abscess present. Some residual POP to the dorsal right foot at incision sites but also much improved, sensation intact and motor function intact to the right foot. Psych/Mental Status: Normal Affect, Appropriate, Alert and oriented to time, place, person, mood and affect Vital Signs Temp Pulse Resp BP Pulse Ox 98.0 F 69 18 124/77 H 96 09/09/18 07:52 09/09/18 07:52 09/09/18 07:52 09/09/18 07:52 09/09/18 07:52 Oxygen Flow Rate (L/min) 2 Oxygen Delivery Method Room Air Weight: 76 kg Body Mass Index (BMI) 24.0 Intake and Output for Last 24 Hours 09/07/18 09/08/18 09/09/18 22:59 23:59 23:59 Intake Total 322 / 322 Balance 322 / 322 Microbiology Past 72 Hours 09/06/18 16:02 Gram Stain - Final Wound Abcess - Right Foot Wound Culture - Final No growth aerobically. Anaerobic Culture - Preliminary No growth in 48 hours. 09/06/18 12:36 Blood Culture - Preliminary Blood Culture (Wb) - Left Hand No growth in 48 hours. 09/06/18 12:32 Blood Culture - Preliminary Blood Culture (Wb) - Anticubital Left No growth in 48 hours. Laboratory Tests Past 24 Hrs 09/09/18 09/09/18 09/09/18 02:37 02:37 02:37 WBC 7.4 RBC 4.06 L Hgb 12.8 L Hct 38.9 L MCV 95.8 H MCH 31.5 MCHC 32.9 RDW 12.2 RDW Differential 42.0 Plt Count 281 MPV 10.1 Immature Gran % (Auto) 0.300 Neut % (Auto) 52.0 Lymph % (Auto) 30.2 [place] % (Auto) 12.1 H Eos % (Auto) 4.9 Baso % (Auto) 0.5 Absolute Neuts (auto) 3.8 Absolute Lymphs (auto) 2.23 Total Counted Not Reportable Sodium 141 Potassium 4.6 Chloride 105 Carbon Dioxide 28.0 Anion Gap 8 BUN 16 Creatinine 0.89 Estim Creat Clear Calc 92.28 Est GFR (MDRD) Af Amer 113 Est GFR (MDRD) Non-Af 93 BUN/Creatinine Ratio 18.0 Glucose 100 Calcium 8.7 Vancomycin Trough 18.1 H Medical Necessity - Tobacco Use Smoking Status: Light Smoker (<10/day) Tobacco Use: Cigarettes Assessment/Plan All Active Problems Foot infection (Acute) Cellulitis of right foot (Acute) Bilateral pulmonary embolism (Acute) Adrenal nodule (Resolved) s/p 2nd and 3rd intermetatarsal space neuromas right foot now with post op infection cellulitis - significantly improved and doing well at this time. Reviewed diagnostic data, WBC normal, patient afebrile, culture was negative for growth. MRI with area of fluid collection, but clinically there has been significant improvement to right foot with IV antibiotics, appears the fluid collection seen on MRI is from post surgical changes and healing process. Recommend continued antibiotic therapy and monitoring. Patient may continue with xarelto as there are no plans for surgical intervention at this time. From podiatry standpoint ok for patient to be discharged home on oral antibiotics if ok with Infectious Disease as well. Today dressing was changed, removed suture tails, painted incision lines with betadine solution and applied gauze, kerlix and delilah dressing. Patient to keep clean, dry, and intact. Keep right foot elevated, and weightbear on heel with use of surgical shoe. Vicodin 5mg/325mg tab, 1-2 tabs PO q 6 hour PRN pain for pain control at home (was prescribed and placed in patient's chart). Patient to follow up with me in office tomorrow for check, he is to call sooner if needed. Greatly appreciate medicine team's assistance.
--- NOTE | 2018-09-09 11:14 | PCM.DC ---
- Discharge Diagnoses Current Active Problems: Current Active and Chronic Problems Foot infection (Acute) Cellulitis of right foot (Acute) You will use the following diet at home:: Cardiac Your food should be the consistency of: Regular Discharge Activity: May not drive while taking narcotic pain medications., - - weight bear as tolerated right foot surgical shoe Weight Bearing Status: Weight bearing as tolerated Keep extremity elevated above heart level: Right Leg Call your doctor if your incision/area has: Continuous Slow Oozing, Sudden Increased Bleeding, Increased Pain/ Swelling, Increased Redness, Foul Smelling Discharge, Swelling at the incision site Call your doctor if you observe: Fever of 101 or Higher, Numbness or Tingling, Calf discomfort, Uncontrolled pain Cleanse incision/area with: Keep Dressing Clean & Dry Allergies/Adverse Reactions: Allergies Sulfa (Sulfonamide Antibiotics) Allergy (Verified 09/06/18 10:11) Unknown venom-honey bee [bee venom (honey bee)] Allergy (Verified 09/06/18 10:11) Hives Medications to take at Discharge Multivit-Min/FA/Lycopene/Lut [Centrum Silver Tablet] 1 each PO DAILY 03/30/14 Omeprazole [Prilosec] 40 mg PO DAILY #30 capsule 03/31/14 Dicyclomine HCl 10 mg PO BID 12/22/14 Rivaroxaban [Xarelto] 20 mg PO DAILY #30 tablet 06/09/15 Cholecalciferol (Vitamin D3) [Vitamin D3] 1,000 unit PO DAILY 04/09/18 Calcipotriene [Calcitrene] 60 gm TP DAILY 08/23/18 Lisinopril [Zestril] 10 mg PO DAILY 08/23/18 Triamcinolone 0.1% Cream [Kenalog] 1 applic TOPICAL DAILY 08/23/18 Amoxicillin/Potassium Clav [Augmentin 875-125 Tablet] 1 each PO BID #14 tablet 09/09/18 Hydrocodone/Acetaminophen [Vicodin 5-300 mg Tablet] 1 - 2 tab PO Q6H PRN PRN 4 Days #30 tab 09/09/18 The following prescriptions were given: Hydrocodone/Acetaminophen [Vicodin 5-300 mg Tablet] 1 - 2 tab PO Q6H PRN PRN 4 Days #30 tab PRN Reason: Pain Amoxicillin/Potassium Clav [Augmentin 875-125 Tablet] 1 each PO BID #14 tablet Primary Care Physician: Harper Oliva MD [Primary Care Provider] - Please follow up with your Primary Care Physician in: one week Test Results: Test results from this visit will be discussed in further detail at your follow-up appointment, if applicable. Please Follow Up With: Brandon Flores DPM When: 1 week, [facility] - [phone] Please Follow Up With: Candido Lujan MD When: 1-2 weeks Proposed Discharge Date: 09/09/18
--- NOTE | 2018-09-09 11:17 | DCINST_ITS ---
- Discharge Diagnoses Current Active Problems: Current Active and Chronic Problems Foot infection (Acute) Cellulitis of right foot (Acute) You will use the following diet at home:: Cardiac Your food should be the consistency of: Regular Discharge Activity: May not drive while taking narcotic pain medications., - - weight bear as tolerated right foot surgical shoe Weight Bearing Status: Weight bearing as tolerated Keep extremity elevated above heart level: Right Leg Call your doctor if your incision/area has: Continuous Slow Oozing, Sudden Increased Bleeding, Increased Pain/ Swelling, Increased Redness, Foul Smelling Discharge, Swelling at the incision site Call your doctor if you observe: Fever of 101 or Higher, Numbness or Tingling, Calf discomfort, Uncontrolled pain Cleanse incision/area with: Keep Dressing Clean & Dry Allergies/Adverse Reactions: Allergies Sulfa (Sulfonamide Antibiotics) Allergy (Verified 09/06/18 10:11) Unknown venom-honey bee [bee venom (honey bee)] Allergy (Verified 09/06/18 10:11) Hives Medications to take at Discharge Multivit-Min/FA/Lycopene/Lut [Centrum Silver Tablet] 1 each PO DAILY 03/30/14 Omeprazole [Prilosec] 40 mg PO DAILY #30 capsule 03/31/14 Dicyclomine HCl 10 mg PO BID 12/22/14 Rivaroxaban [Xarelto] 20 mg PO DAILY #30 tablet 06/09/15 Cholecalciferol (Vitamin D3) [Vitamin D3] 1,000 unit PO DAILY 04/09/18 Calcipotriene [Calcitrene] 60 gm TP DAILY 08/23/18 Lisinopril [Zestril] 10 mg PO DAILY 08/23/18 Triamcinolone 0.1% Cream [Kenalog] 1 applic TOPICAL DAILY 08/23/18 Amoxicillin/Potassium Clav [Augmentin 875-125 Tablet] 1 each PO BID #14 tablet 09/09/18 Hydrocodone/Acetaminophen [Vicodin 5-300 mg Tablet] 1 - 2 tab PO Q6H PRN PRN 4 Days #30 tab 09/09/18 The following prescriptions were given: Hydrocodone/Acetaminophen [Vicodin 5-300 mg Tablet] 1 - 2 tab PO Q6H PRN PRN 4 Days #30 tab PRN Reason: Pain Amoxicillin/Potassium Clav [Augmentin 875-125 Tablet] 1 each PO BID #14 tablet Primary Care Physician: Harper Oliva MD [Primary Care Provider] - Please follow up with your Primary Care Physician in: one week Test Results: Test results from this visit will be discussed in further detail at your follow- up appointment, if applicable. Please Follow Up With: Brandon Flores DPM When: 1 week, [facility] - [phone] Please Follow Up With: Candido Lujan MD When: 1-2 weeks Proposed Discharge Date: 09/09/18
--- NOTE | 2018-09-09 11:17 | DS.PCM_ITS ---
Discharge Date and Diagnosis Date of Admission: 09/06/18 Date of Discharge: 09/09/18 - Primary Discharge Diagnosis Active and Suspected Problems Foot infection (Acute) Cellulitis of right foot (Acute) - Secondary Discharge Diagnosis Chronic Problems Epididymal cyst (Chronic) Hydrocele (Chronic) Bullous emphysema (Chronic) Hypertension (Chronic) Hospital Course and Treatment Imaging Results: Diagnostic Data Lower Extremity MRI 09/06/18 10:44 IMPRESSION: There is a 1.6 cm low T2 and low T1 signal collection or mass in the dorsal subcutaneous soft tissues at the level of the distal second and third metatarsals just superficial to the extensor tendons, difficult to evaluate without IV contrast. These findings may represent an abscess as per history. There is diffuse dorsal subcutaneous soft tissue edema. Electronically Signed: Hao Salas, at 9:54 EST Tel , Service support , Foot X-Ray 09/06/18 14:00 IMPRESSION: Soft tissue swelling about the foot. No visualized fracture. Electronically Signed: Michelle Sevilla MD at 14:46 EST Tel , Service support , podiatry, Infectious Disease Operations: None Procedures: None Summary of Care Provided: The patient is a 58 year old M who was admitted with a complaint of redness, pain and swelling of his right foot. He had had surgery on August 30, 2018 for removal of a neuroma between his second and third metatarsal areas and subsequently noticed that he was having more intense pain. He had no assisted fever or chills. 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 However on admission, repeat swab showed gram-positive bacteria. He was admitted and managed for cellulitis of his right foot and was started on IV vancomycin and Zosyn. CBC showed no leukocytosis and x-ray of his foot was negative for soft tissue emphysema, fracture, dislocation, foreign body or other acute findings. MRI of the right foot showed edema in the subcutaneous tissue adjacent to the surgical site with fluid formation below no osseous changes. Wound cultures and blood cultures were negative. Patient remained stable. He was discharged home on 09/09/2018 with a 1 week course of p.o. Augmentin. He is to follow-up with his primary care doctor, dynamite packing machine operator and infectious disease. Patient seen and examined prior to discharge. He had no complaints and felt well. Pain was well controlled. Review of systems otherwise negative. Labs and vitals reviewed. Home medications reviewed and reconciled. o/e: Vital Signs Height 5 ft 10 in Weight: 167 lb 8.821 oz Weight in Pounds 167.6 lbs Pulse Ox 96 Temperature 97.6 F Pulse Rate 74 Respiratory Rate 18 Blood Pressure [BP] 154/91 Blood Pressure 123/69 Blood Pressure Position [BP] Semi-Fowlers Blood Pressure Position Sitting [] General: Alert, Oriented x3, Cooperative HEENT: Atraumatic, PERRLA, EOMI, Normocephalic Oral: Moist Mucosa Neck: Supple, No JVD, Negative Carotid Bruits Lungs: Clear to auscultation, Normal air movement, No rhonchi, No wheeze, No rales Cardiovascular: Regular rate, Regular Rhythm, Normal S1, Normal S2, No murmurs Abdomen: Bowel Sounds Present, Soft, Non Tender, Non-Distended, No Hepato- splenomegaly Extremities: No clubbing, No cyanosis, No edema, Capillary Refill Less than 3 Seconds Skin: - - as under extremities Musculoskeletal: - - right foot wrapped in bandage Lymphatic: No Cervical, Supraclavicular, or Inguinal Adenopathy Neurological: Cranial nerves II-XII grossly intact, Neuro grossly intact Psych/Mental Status: Normal Affect, Appropriate, Alert and oriented to time, place, person, mood and affect - Physical Exam Vital Signs Temp Pulse Resp BP Pulse Ox 98.0 F 69 18 124/77 H 96 09/09/18 07:52 09/09/18 07:52 09/09/18 07:52 09/09/18 07:52 09/09/18 07:52 Oxygen Flow Rate (L/min) 2 Oxygen Delivery Method Room Air Weight: 167 lb 8.821 oz Body Mass Index (BMI) 24.0 Intake and Output for Last 24 Hours 09/07/18 09/08/18 09/09/18 22:59 23:59 23:59 Intake Total 322 / 322 Balance 322 / 322 Microbiology Past 72 Hours 09/06/18 16:02 Gram Stain - Final Wound Abcess - Right Foot Wound Culture - Final No growth aerobically. Anaerobic Culture - Preliminary No growth in 48 hours. 09/06/18 12:36 Blood Culture - Preliminary Blood Culture (Wb) - Left Hand No growth in 48 hours. 09/06/18 12:32 Blood Culture - Preliminary Blood Culture (Wb) - Anticubital Left No growth in 48 hours. Laboratory Tests Past 24 Hrs 09/09/18 09/09/18 09/09/18 02:37 02:37 02:37 WBC 7.4 RBC 4.06 L Hgb 12.8 L Hct 38.9 L MCV 95.8 H MCH 31.5 MCHC 32.9 RDW 12.2 RDW Differential 42.0 Plt Count 281 MPV 10.1 Immature Gran % (Auto) 0.300 Neut % (Auto) 52.0 Lymph % (Auto) 30.2 [place] % (Auto) 12.1 H Eos % (Auto) 4.9 Baso % (Auto) 0.5 Absolute Neuts (auto) 3.8 Absolute Lymphs (auto) 2.23 Total Counted Not Reportable Sodium 141 Potassium 4.6 Chloride 105 Carbon Dioxide 28.0 Anion Gap 8 BUN 16 Creatinine 0.89 Estim Creat Clear Calc 92.28 Est GFR (MDRD) Af Amer 113 Est GFR (MDRD) Non-Af 93 BUN/Creatinine Ratio 18.0 Glucose 100 Calcium 8.7 Vancomycin Trough 18.1 H Discharge Diet: No Restrictions, Low fat/ Low Cholesterol Discharge Activity: May not drive while taking narcotic pain medications., - - weight bear as tolerated right foot surgical shoe Weight Bearing Status: Weight bearing as tolerated Keep extremity elevated above heart level: Right Leg Call your doctor if your incision/area has: Continuous Slow Oozing, Sudden Increased Bleeding, Increased Pain/ Swelling, Increased Redness, Foul Smelling Discharge, Swelling at the incision site Call your doctor if you observe: Fever of 101 or Higher, Numbness or Tingling, Calf discomfort, Uncontrolled pain Cleanse incision/area with: Keep Dressing Clean & Dry Home Medications: Medications to take at Discharge Multivit-Min/FA/Lycopene/Lut [Centrum Silver Tablet] 1 each PO DAILY 03/30/14 Omeprazole [Prilosec] 40 mg PO DAILY #30 capsule 03/31/14 Dicyclomine HCl 10 mg PO BID 12/22/14 Rivaroxaban [Xarelto] 20 mg PO DAILY #30 tablet 06/09/15 Cholecalciferol (Vitamin D3) [Vitamin D3] 1,000 unit PO DAILY 04/09/18 Calcipotriene [Calcitrene] 60 gm TP DAILY 08/23/18 Lisinopril [Zestril] 10 mg PO DAILY 08/23/18 Triamcinolone 0.1% Cream [Kenalog] 1 applic TOPICAL DAILY 08/23/18 Amoxicillin/Potassium Clav [Augmentin 875-125 Tablet] 1 each PO BID #14 tablet 09/09/18 Hydrocodone/Acetaminophen [Vicodin 5-300 mg Tablet] 1 - 2 tab PO Q6H PRN PRN 4 Days #30 tab 09/09/18 Following Prescrptions Were Given to Patient: Hydrocodone/Acetaminophen [Vicodin 5-300 mg Tablet] 1 - 2 tab PO Q6H PRN PRN 4 Days #30 tab PRN Reason: Pain Amoxicillin/Potassium Clav [Augmentin 875-125 Tablet] 1 each PO BID #14 tablet Primary Care Physician: Harper Oliva MD [Primary Care Provider] - Please follow up with your Primary Care Physician in: one week Please Follow Up With: Brandon Flores DPM When: 1 week, [facility] - [phone] Please Follow Up With: Candido Lujan MD When: 1-2 weeks Disposition: Home Minutes spent on discharge:: 40 Patient Condition:: Stable Medical Necessity - Tobacco Use Smoking Status: Light Smoker (<10/day) Tobacco Use: Cigarettes Meaningful Use Info Meaningful Use Diagnoses (Choose all that apply): None applicable Code Visit Inpatient E&M: 39765 Disch Hosp
[2018-09-09 12:04] VITALS: BP 123/69; PULSE 74; RESP 18; TEMP 36.4; O2SAT 96
== END 2018-09-09 12:09 | disposition home or self-care (01) | DRG 863 ==
PROVIDERS: Internal Medicine Infectious Disease; Admitting Provider Internal Medicine; Family Provider Internal Medicine; PCP Internal Medicine; Referring Provider Internal Medicine; Visit Provider Student in an Organized Health Care Education/Training Program
DX: T81.40XA Infection following a procedure, unspecified, initial encounter (principal); L03.115 Cellulitis of right lower limb; I10 Essential (primary) hypertension; K21.9 Gastro-esophageal reflux disease without esophagitis; N50.3 Cyst of epididymis; N43.3 Hydrocele, unspecified; F17.210 Nicotine dependence, cigarettes, uncomplicated; Y83.8 Other surgical procedures as the cause of abnormal reaction of the patient, or of later complication, without mention of misadventure at the time of the procedure; Z79.01 Long term (current) use of anticoagulants; Z86.711 Personal history of pulmonary embolism; Z79.899 Other long term (current) drug therapy; J43.8 Other emphysema
CPT/HCPCS: 36415; 73630; 73718; 80048; 80053; 80202; 85025; 87040; 87070; 87075; 87205; 87640; 93005; 97110; 97116; 97162; 97166; 97530; 97802; 99218; J7050; A4216; G0378

== ENCOUNTER → 2019-06-04 06:38 | Outpatient (CLI) | payer BC, SELFPAY ==
[2018-09-06 10:02] VITALS: BMI 24.0
--- NOTE | 2019-06-04 06:42 | MRI_ITS ---
STUDY: MRI RIGHT MIDFOOT REASON FOR EXAM: Male, 59 years old. intermetatarsal neuroma right 2nd Tamp; 3rd MT, surgery 08/30/18 still complaining of plantar pain right forefoot TECHNIQUE: Standardized fat and water weighted pulse sequences were obtained in all 3 orthogonal planes. COMPARISON: MRI of the right foot dated August 07, 2018. FINDINGS: Normal talonavicular articulation. Normal calcaneocuboid articulation. Normal navicular-cuneiform articulations. Normal intercuneiform articulations. Normal first tarsometatarsal articulation. Normal Lisfranc ligament. Normal second and third tarsometatarsal articulations. Normal cuboid fourth and cuboid fifth tarsometatarsal articulation. Normal first through fifth metatarsi. Normal tibialis anterior tendon. Normal extensor hallucis longus tendon. Normal extensor digitorum longus tendons. Normal peroneus longus tendon and distal insertion. Normal peroneus brevis tendon and distal insertion. Normal intrinsic muscles of the mid and forefoot region. Normal extensor digitorum brevis muscle. Normal subcutis adipose space. No visualized soft tissue mass or ganglion on this study. MRI/Lower Ext/No Jt/w/o IMPRESSION: 1. No visualized soft tissue mass or ganglion on this study. 2. If symptoms persist consider repeating the examination with contrast. Electronically Signed: Gildardo Malagon MD at 18:30 EST , Service support ,
== END ==
PROVIDERS: Family Provider Internal Medicine; PCP Internal Medicine; Referring Provider Podiatrist; Visit Provider Podiatrist
DX: G57.81 Other specified mononeuropathies of right lower limb (principal); M77.41 Metatarsalgia, right foot
CPT/HCPCS: 73718

== ENCOUNTER 2019-08-09 05:14 | Emergency (ER) | payer OTHER, BC, SELFPAY ==
[2018-09-06 10:02] VITALS: BMI 24.0
[2019-08-09 05:15] VITALS: BP 139/95; PULSE 89; RESP 16; TEMP 36.5; O2SAT 98; BMI 27.6
--- NOTE | 2019-08-09 05:20 | ED.RN ---
PT STATES HE FELL ONTO A LUNCH BOX AFTER WORK THIS EVENING AND NOW HAS PAIN FROM THE LEFT WASTE UP TO THE ARM PIT, PAIN IS WORSE WITH A DEEP BREATH PER PT.
--- NOTE | 2019-08-09 05:25 | CT_ITS ---
STUDY: CT BRAIN WITHOUT CONTRAST REASON FOR EXAM: Male, 59 years old. FELL ON ICE, DIDN''T HIT HEAD. RADIATION DOSAGE (If Supplied By Facility): CTDIvol = ( 44.99 ) mGy, DLP = ( 829.85 ) mGycm TECHNIQUE: Transaxial CT imaging of the brain was performed without administration of intravenous contrast material. Individualized dose optimization techniques were used for this CT. COMPARISON: No relevant priors. FINDINGS: Normal soft tissue structures. Normal calvarium. Normal size ventricles and extra-axial spaces for the patient''s age. Normal white matter tracts of the cerebral hemispheres. Normal basal ganglia and thalami. Normal brainstem. Normal cerebellum. There is no intracranial hemorrhage. There are no findings of an acute ischemic infarction. Normal visualized paranasal sinuses. CT/Brain/Head without Contrast IMPRESSION: No fracture or hemorrhage. Electronically Signed: Prateek Sparrow MD at 6:08 EST Tel , Service support ,
[2019-08-09] MEDS: HYDROcodone Bitartrate/Apap 5/325 Tablet PO (05:28)
--- NOTE | 2019-08-09 05:45 | RAD_ITS ---
STUDY: X-RAY - UNILATERAL RIBS ( LEFT ) WITH CHEST REASON FOR EXAM: Male, 59 years old. FALL ON LEFT SIDE TECHNIQUE - RIBS: 3 view(s) of the ribs. TECHNIQUE - CHEST: Chest 03/28/2016 COMPARISON: None. FINDINGS - RIBS: Remote deformity of the left rib 4. Age-indeterminate fracture of left rib 8. FINDINGS - CHEST: The lungs are clear and expanded. There is no demonstrated pleural abnormality. Normal size heart. Normal mediastinum and aubree. Normal visualized pulmonary arteries. Normal visualized aortic arch and descending thoracic aorta. Normal visualized thoracic spine. There is no demonstrated abnormality of the visualized soft tissue structures of the upper abdomen. RAD/Ribs Uni Min 3V w/PA Chest IMPRESSION: RIBS: Remote deformity of the left rib 4. Age-indeterminate fracture of left rib 8. CHEST: No acute pulmonary findings. Electronically Signed: Prateek Sparrow MD at 6:25 EST Tel , Service support ,
--- NOTE | 2019-08-09 06:20 | ED.DCSUM_ITS ---
- ER Visit Summary Date of Service: 08/09/19 Chief Complaint: Fall History of Present Illness: The patient is a 59 M who fell overnight. He slipped on ice. He landed on his left side. He complains of pain over his left lower lateral and anterior ribs. He did not hit his head or neck. Denies head and neck pain. He did land on his left arm, but it is not bothering him that much. No other injuries or complaints. He does take Xarelto for PE. Patient symptoms are worse with movement. Nothing makes them better. No other respiratory symptoms. No GI symptoms. No symptoms. No weakness or numbness. Physical Examination: Afebrile and vital signs are unremarkable. Head and neck atraumatic. Neck is nontender. HEENT exam unremarkable. Heart regular. Lungs clear. Left lateral/anterior/inferior ribs are tender to palpation without crepitus or abnormal movements. Skin unremarkable. Abdomen is soft and nontender. CVA nontender. Otherwise exam atraumatic. Test Results: CT brain showed nothing acute. Chest x-ray and rib series showed a remote fracture of the fourth rib and an age-indeterminate fracture of the eighth rib. No signs of bleeding or pneumothorax. Emergency Department Course and Treatment: Patient received [place] for pain. I did check a head CT because he is on Xarelto. This was unremarkable. Chest x- ray and rib series, as above. Patient ambulated new or worsening issues. I believe he is appropriate for outpatient care. Return for any new or worsening issues as he is at risk for bleeding. Incentive spirometer, pain meds. Follow- up with primary care. Treatment Plan: As above Disposition: Discharge Impression: 1. Left chest wall pain 2. Left rib fracture This note was generated with AirPRation software. It may contain incorrect words, spelling, and punctuation that were not noted in review of the chart prior to signing ED Disposition - Plan for ED Patient: Referrals: Harper Oliva MD [Primary Care Provider] -
--- NOTE | 2019-08-09 06:29 | DCINST.ED_ITS ---
ED Disposition - Plan for ED Patient: Instructions: FRACTURE, Rib Prescriptions: Hydrocodone Bitart/Apap 5-325 [[place] 5MG-325MG] 1 tab PO Q6H PRN PRN 3 Days #12 tab PRN Reason: Pain Prescription Printed Referrals: Harper Oliva MD [Primary Care Provider] -
[2019-08-09 06:38] VITALS: BP 145/86; PULSE 82; RESP 15; O2SAT 98
== END 2019-08-09 06:39 | disposition home or self-care (01) ==
LOC: ED 05:37
PROVIDERS: Emergency Provider Emergency Medicine; PCP Internal Medicine
DX: S22.32XA Fracture of one rib, left side, initial encounter for closed fracture (principal); R07.89 Other chest pain; W00.0XXA Fall on same level due to ice and snow, initial encounter; Y93.9 Activity, unspecified; Y92.9 Unspecified place or not applicable; I10 Essential (primary) hypertension; Z86.711 Personal history of pulmonary embolism; Z79.01 Long term (current) use of anticoagulants; Z79.899 Other long term (current) drug therapy; Z72.0 Tobacco use
CPT/HCPCS: 70450; 71101; 99283

== ENCOUNTER → 2020-07-07 06:24 | Outpatient (CLI) | payer OTHER, SELFPAY ==
--- NOTE | 2020-07-07 16:35 | NEURO ---
NCS and/or EMG Patient Report Ordering Doctor: Brandon Flores DATE OF SERVICE: 07/07/20 Hao Temple presents for electrodiagnostic testing of the lower limbs. He reports that he previously had neuromas removed from both feet and still experiences pain. Electrodiagnostic findings: Peroneal motor nerve demonstrates normal distal latency, amplitude and conduction velocity bilaterally. Normal tibial motor response bilaterally. F waves and H reflex within normal limits. Normal sural and superficial peroneal response bilaterally. On needle EMG, all muscles tested in the lower limb showed no evidence of denervation with normal motor unit action potentials. Electrodiagnostic impression: This is a normal study in the lower limbs. There is no electrodiagnostic evidence for peripheral polyneuropathy. No electrodiagnostic evidence is noted for tarsal tunnel syndrome. If there are any further questions, please do not hesitate to contact me
== END ==
PROVIDERS: PCP Internal Medicine; Referring Provider Podiatrist; Visit Provider Podiatrist
DX: D36.13 Benign neoplasm of peripheral nerves and autonomic nervous system of lower limb, including hip (principal); G62.9 Polyneuropathy, unspecified
CPT/HCPCS: 95886; 95912

== ENCOUNTER 2021-10-29 16:42 | Emergency (ER) | payer BC, SELFPAY ==
[2021-10-29 16:42] VITALS: BP 136/98; PULSE 71; RESP 15; TEMP 36.8; O2SAT 98; BMI 24.6
--- NOTE | 2021-10-29 17:02 | EX.ED.DYSGE1 ---
HPI History of Present Illness Chief Complaint: Complaint Informant: patient Narrative Narrative: 61-year-old male presents to the emergency room for the evaluation of hematuria. Patient's notes that the symptoms began with his first urination of the day this morning. He notes no clots. He states he has been able to empty his bladder. He is on Coumadin for prior pulmonary embolism and follows with Dr. Scott. The patient notes that he has not had any long car rides, fever, or known trauma. Yesterday he shoveled a couple yards of mulch. He notes urinary frequency but not dysuria. No bowel symptoms. Patient has a long smoking history. [facility] Medical History (Updated 10/29/21 @ 18:[address] Hao Fleming, ) GERD (gastroesophageal reflux disease) Hypertension Pulmonary embolism Home Medications Centrum Silver 1 ea PO DAILY 03/30/14 [History Last Taken 09/06/18] Omeprazole [Prilosec] 40 mg PO DAILY #30 capsule 03/31/14 [Rx Last Taken 09/06/18] cholecalciferol (vitamin D3) [Vitamin D3] 1,000 unit PO DAILY 04/09/18 [History Last Taken Unknown] Triamcinolone 0.1% Cream [Kenalog] 1 applic TOPICAL DAILY 08/23/18 [History Last Taken Unknown] calcipotriene [Calcitrene] 60 g TP DAILY 08/23/18 [History Last Taken Unknown] lisinopril 10 mg PO DAILY 08/23/18 [History Last Taken 09/06/18] cephalexin 500 mg PO Q12 #14 capsule 10/29/21 [Rx Last Taken Unknown] dicyclomine 10 mg PO BID 10/29/21 [History Last Taken Unknown] rosuvastatin 10 mg PO DAILY 10/29/21 [History Last Taken Unknown] warfarin [Coumadin] 8 mg PO SUTUTHSA 10/29/21 [History Last Taken Unknown] warfarin [Coumadin] 8.5 mg PO QMWF 10/29/21 [History Last Taken Unknown] Allergy/AdvReac Type Severity Reaction Status Date / Time Sulfa (Sulfonamide Allergy Unknown Verified 10/29/21 16:46 Antibiotics) venom-honey bee Allergy Hives Verified 10/29/21 16:46 [bee venom (honey bee)] Social History (Updated 10/29/21 @ 17:[address] Hao Fleming, DO) Smoking Status: Current every day smoker tobacco type: cigarettes substance use type: does not use ROS ROS ED Constitutional Constitutional ED: Denies chills, fever(s) or weight loss Eyes Eyes: Denies change in vision or diplopia ENT ENT ED: Denies ear pain, rhinorrhea or sore throat Cardiovascular Cardiovascular: Denies chest pain, orthopnea, palpitations or racing heartbeat Respiratory/Chest Respiratory/Chest: Denies cough, dyspnea or orthopnea Gastrointestinal Gastrointestinal: Denies abdominal pain, diarrhea, nausea or vomiting Genitourinary Genitourinary ED: Reports hematuria and urinary frequency; Denies dysuria Musculoskeletal Musculoskeletal: Denies arthralgias or myalgias Integumentary Denies abscess or rash Neurologic Neurologic: Denies headache(s) or weakness Psychiatric Psychiatric: Denies anxiety, depression, suicidal ideation or suicidal thoughts Endocrine Endocrinology: Denies polydipsia, polyphagia or polyuria Allergic/Immunologic Allergic/Immunologic ED: Denies mouth swelling, tongue swelling or urticaria EXAM Physical Exam Const Vital Signs: 10/29/21 16:42 10/29/21 17:57 Temperature 98.3 F Temperature Source Temporal Pulse Rate 71 72 Respiratory Rate 15 16 Blood Pressure 136/98 H 134/82 H Blood Pressure Mean 110 99 Pulse Ox 98 97 Oxygen Delivery Method Room Air Room Air Positive well nourished and well developed General Appearance ED: well developed HEENT Reports normocephalic, head/scalp atraumatic, TM's clear and moist mucous membranes Negative for trauma Tympanic Membrane ED: Yes TM's clear Eyes PERRL and EOMs intact bilaterally Neck no lymphadenopathy, supple and no JVD Resp normal respiratory effort and clear to auscultation bilaterally Cardio regular rate, regular rhythm and no murmurs GI normal to inspection, nondistended, normoactive bowel sounds and non-tender Palpation: soft Back/Spine no CVA tenderness and normal ROM Extremity normal to inspection General Extremety ED: Negative for edema General Extremity: Negative for edema Neuro oriented x3 and CN's II-XII intact bilaterally Sensorium / Orientation: alert Motor Exam: strength 5/5 throughout Psych mental status grossly normal Mood & Affect: Negative for depressed or tearful Skin no rashes or lesions noted and no wounds MDM MDM MDM Narrative Medical decision making narrative: White count 11.5 with a hemoglobin of 14.7. INR 3.6. Normal creatinine. Urinalysis greater than 100 red blood cells rare bacteria negative nitrates. This will be sent for culture. Patient is not having any urinary retention clots, fever. He is advised to return instructions. I will be placing him on Keflex. He is to follow-up with urology in [facility] clinic in the next 2 days. Lab Data Attestation: I reviewed the patient's lab results. Labs: Laboratory Results - last 24 hr 10/29/21 10/29/21 10/29/21 17:10 17:10 17:10 WBC 11.5 H RBC 4.77 Hgb 14.7 Hct 44.3 MCV 92.9 MCH 30.8 MCHC 33.2 RDW Std Deviation 45.2 H RDW Coeff of Liss 13.2 Plt Count 284 MPV 10.1 Immature Gran % (Auto) 0.400 Neut % (Auto) 52.6 Lymph % (Auto) 34.9 [place] % (Auto) 9.3 Eos % (Auto) 2.3 Baso % (Auto) 0.5 Absolute Neuts (auto) 6.1 Absolute Lymphs (auto) 4.02 Nucleated RBC % 0 PT 36.0 H INR 3.6 Sodium 136 Potassium 3.9 Chloride 102 Carbon Dioxide 29.0 Anion Gap 5 BUN 22 H Creatinine 0.89 Estim Creat Clear Calc 86.06 Est GFR (MDRD) Af Amer 111 Est GFR (MDRD) Non-Af 92 BUN/Creatinine Ratio 24.7 H Glucose 93 Calcium 8.8 Total Bilirubin 0.90 AST 18 ALT 29 Alkaline Phosphatase 62 Total Protein 8.2 Albumin 3.9 Globulin 4.3 H Albumin/Globulin Ratio 0.9 Urine Color Urine Clarity Urine pH Ur Specific [place] Urine Protein Urine Glucose (UA) Urine Ketones Urine Occult Blood Urine Nitrite Urine Bilirubin Urine Urobilinogen Ur Leukocyte Esterase Urine RBC Urine WBC Ur Squamous Epith Cells Urine Bacteria Urine Mucus 10/29/21 17:10 WBC RBC Hgb Hct MCV MCH MCHC RDW Std Deviation RDW Coeff of Liss Plt Count MPV Immature Gran % (Auto) Neut % (Auto) Lymph % (Auto) [place] % (Auto) Eos % (Auto) Baso % (Auto) Absolute Neuts (auto) Absolute Lymphs (auto) Nucleated RBC % PT INR Sodium Potassium Chloride Carbon Dioxide Anion Gap BUN Creatinine Estim Creat Clear Calc Est GFR (MDRD) Af Amer Est GFR (MDRD) Non-Af BUN/Creatinine Ratio Glucose Calcium Total Bilirubin AST ALT Alkaline Phosphatase Total Protein Albumin Globulin Albumin/Globulin Ratio Urine Color Red Urine Clarity Turbid Urine pH 6.5 Ur Specific [place] 1.015 Urine Protein 100 H Urine Glucose (UA) Normal Urine Ketones 5 H Urine Occult Blood 250 H Urine Nitrite Negative Urine Bilirubin Negative Urine Urobilinogen Normal Ur Leukocyte Esterase 100 H Urine RBC > 100 SEEN Urine WBC 0-5 SEEN Ur Squamous Epith Cells 0-5 SEEN Urine Bacteria RARE Urine Mucus 0 SEEN Discharge Plan Triage Chief Complaint: Complaint ED Provider: Hao Fleming Dx/Rx/DC Orders Clinical Impression: Hematuria, Supratherapeutic INR Instructions: ED Hematuria Prescriptions: New cephalexin [cephalexin] 500 MG capsule 500 mg PO Q12 Qty: 14 RF: 0 No Action Centrum Silver 1 EACH tablet 1 ea PO DAILY RF: 0 Omeprazole [Prilosec] 40 MG capsule 40 mg PO DAILY Qty: 30 RF: 0 cholecalciferol (vitamin D3) [Vitamin D3] 1,000 UNIT capsule 1,000 unit PO DAILY RF: 0 lisinopril 10 MG tablet 10 mg PO DAILY RF: 0 calcipotriene [Calcitrene] 60 GM ointment 60 g TP DAILY RF: 0 Triamcinolone 0.1% Cream [Kenalog] 1 APPLIC Tube 1 applic topical DAILY RF: 0 warfarin [Coumadin] 4 mg Tablet 8 mg PO SUTUTHSA RF: 0 warfarin [Coumadin] 1 mg Tablet 8.5 mg PO QMWF RF: 0 dicyclomine 10 mg capsule 10 mg PO BID RF: 0 rosuvastatin 10 mg tablet 10 mg PO DAILY RF: 0 Primary Care Provider: Harper Oliva Referrals: Harper Oliva MD [Primary Care Provider] - Mal Leos MD [STAFF PHYSICIAN] - As soon as possible Activity Restrictions/Additional Instructions: Your INR today was 3.6. Please hold your Coumadin dose tonight and tomorrow night. You need to see urology as soon as possible. Disposition Disposition: Home, Self Care
[2021-10-29 17:18] LABS: Mucous, Urine 0 SEEN /hpf (<or=2+)
[2021-10-29 17:24] LABS: Color, Urine Red (Yellow); Glucose, Dipstick Normal (Normal); Ketone-Dipstick 5 mg/dl (Negative); Leukocyte Esterase-Dipstick 100 /ul (Negative); Nitrite-Dipstick Negative (Negative); Occult Blood-Urine 250 /ul (Negative); Protein-Dipstick 100 mg/dl (Negative); Specific Gravity, Urine 1.015 (1.002-1.030); Urine Bilirubin Dipstick Negative (Negative); Urine Clarity Turbid (Clear); Urine Urobilinogen Normal (Normal); Urine pH 6.5 (5.0 - 8.0)
[2021-10-29 17:25] LABS: Absolute Lymphocyte Count 4.02 X10^3/uL (0.83-4.51); Absolute Neutrophil Count 6.1 X10^3/uL (2.0-7.7); Basophil# 0.06 X10^3/uL; Basophil% 0.5 % (0-1); Eosinophil# 0.26 X10^3/uL; Eosinophils% 2.3 % (0-5); Hematocrit 44.3 % (40-54); Hemoglobin 14.7 g/dL (13.0-16.5); Lymphocyte # 4.02 X10^3/ul (0.83-4.51); Lymphocyte % 34.9 % (19-41); Mean Corp Hgb Conc 33.2 g/dL (32-36); Mean Corpuscular Hgb 30.8 pg (27.0-32.0); Mean Corpuscular Volume 92.9 fL (80-94); Mean Platelet Vol. 10.1 fl (6.2-12.0); Monocyte# 1.07 X10^3/uL; Monocyte% 9.3 % (0-10); NRBC Flagged by Analyzer 0 % (0-5); Neutrophil # 6.05 X10^3/uL (2.7-7.7); Neutrophil % 52.6 % (47-70); Platelet Count 284 K/mm3 (150-450); RBC Distribution Width CV 13.2 % (11.6-14.6); RBC Distribution Width SD 45.2 fl (35.1-43.9); Red Blood Count 4.77 M/mm3 (4.6-6.2); White Blood Count 11.5 K/mm3 (4.4-11.0)
[2021-10-29 17:34] LABS: Red Blood Cells-Urine > 100 SEEN /hpf (0-5)
[2021-10-29 17:36] LABS: Squamous Epithelial Cells - UA 0-5 SEEN /hpf (0-5); White Blood Cells 0-5 SEEN /hpf (0-5)
[2021-10-29 17:38] LABS: Bacteria RARE /hpf (None Seen)
[2021-10-29 17:42] LABS: International Normalized Ratio 3.6
[2021-10-29 17:53] LABS: ALB/GLOB Ratio 0.9 RATIO (0.9-2.4); AST(SGOT) 18 U/L (15-37); Alanine Aminotransfer ALT/SGPT 29 U/L (16-61); Albumin, Serum 3.9 g/dL (3.2-5.0); Alkaline Phosphatase 62 U/L (45-117); Anion Gap 5 (5-15); BUN 22 mg/dL (7-18); BUN/Creat Ratio 24.7 RATIO (10-20); Calcium,Total 8.8 mg/dL (8.5-10.1); Chloride 102 mmol/L (98-107); Creatinine, Serum 0.89 mg/dL (0.70-1.30); EST Glomerular Filtration Rate 92 mL/min (>60); Est Glom Filt Rate - Afr Amer 111 mL/min (>60); Estimated Creatinine Clearance 86.06 ml/min; Globulin 4.3 g/dL (2.2-4.2); Glucose 93 mg/dL (74-106); Potassium 3.9 mmol/L (3.5-5.1); Protein, Total 8.2 g/dL (6.4-8.2); Sodium Level 136 mmol/L (136-145)
[2021-10-29 17:57] VITALS: BP 134/82; PULSE 72; RESP 16; O2SAT 97
== END 2021-10-29 18:19 | disposition home or self-care (01) ==
PROVIDERS: Emergency Provider Emergency Medicine; PCP Internal Medicine; Visit Provider Emergency Medicine
DX: R31.9 Hematuria, unspecified (principal); R79.1 Abnormal coagulation profile; R35.0 Frequency of micturition; F17.210 Nicotine dependence, cigarettes, uncomplicated; I10 Essential (primary) hypertension; K21.9 Gastro-esophageal reflux disease without esophagitis; Z86.711 Personal history of pulmonary embolism; Z79.899 Other long term (current) drug therapy; Z79.01 Long term (current) use of anticoagulants
CPT/HCPCS: 80053; 81001; 85025; 85610; 87086; 99283; A4216

== ENCOUNTER → 2021-10-31 | Outpatient (CLI) | payer BC, SELFPAY ==
--- NOTE | 2021-10-31 11:04 | CT_ITS ---
STUDY: CT ABDOMEN AND PELVIS WITHOUT CONTRAST REASON FOR EXAM: Male, 61 years old. GROSS HEMATURIA RADIATION DOSAGE (If Supplied By Facility): CTDIvol = ( 7.21 ) mGy, DLP = ( 351.20 ) mGycm TECHNIQUE: Transaxial images were obtained from the dome of the diaphragm to the symphysis pubis without oral contrast, and without intravenous contrast. Sagittal and coronal images were reconstructed. Individualized dose optimization techniques were used for this CT. COMPARISON: Comparison is made with prior study 04/09/2018. FINDINGS: The visualized lung bases are unremarkable. The visualized portions of the heart are within normal limits. Stable 1 cm cyst in the posterior aspect of the superior portion of the right lobe of the liver. Normal gallbladder and extrahepatic biliary system. Normal spleen. Normal pancreas. There is a small, circumscribed, smooth, low attenuation right adrenal mass, consistent with an adrenal adenoma. This measures 1.2 cm. Normal left adrenal gland. Normal right kidney. Normal left kidney. Normal visualized stomach. Normal small intestine. Normal colon. The appendix is visualized and appears normal. There is scattered atherosclerotic calcification of the abdominal aorta, without a demonstrated aneurysm. Normal inferior vena cava. Normal retroperitoneum. Mild degree of bladder wall thickening along the base of the urinary bladder. Normal abdominal wall. There are degenerative changes of the visualized lumbar spine. CT/Abdomen/Pelvis without Cont IMPRESSION: Mild degree of bladder wall thickening along the base of the bladder. Electronically Signed: Michael Johnson MD at 11:53 EDT ,
== END | disposition home or self-care (01) ==
LOC: CT 11:01
PROVIDERS: PCP Internal Medicine; Visit Provider Urology
DX: R31.0 Gross hematuria (principal)
CPT/HCPCS: 74176

== ENCOUNTER → 2021-11-01 | Outpatient (CLI) | payer BC, SELFPAY ==
--- NOTE | 2021-11-01 09:05 | EKG12_ITS ---
Test Reason : PREOP Blood Pressure : / mmHG Vent. Rate : 074 BPM Atrial Rate : 074 BPM P-R Int : 184 ms QRS Dur : 080 ms QT Int : 348 ms P-R-T Axes : 014 015 043 degrees QTc Int : 386 ms Normal sinus rhythm Normal ECG Confirmed by KRISTI KLEIN, TOYA ([id number]), associate entertainment editor SHAVON PARKER ([id number]) on 11/02/2021 9:20:31 AM Referred By: Mal Leos Confirmed By:TOYA BERRY MD
== END | disposition home or self-care (01) ==
PROVIDERS: PCP Internal Medicine; Referring Provider Urology; Visit Provider Urology
DX: Z01.810 Encounter for preprocedural cardiovascular examination (principal)
CPT/HCPCS: 93005

== ENCOUNTER → 2022-01-30 | Outpatient (CLI) | payer BC, SELFPAY ==
[2022-01-30 10:35] LABS: PSA,Total - Annual Screen 0.83 ng/mL (0.00-4.00)
== END | disposition home or self-care (01) ==
LOC: LAB 09:07
PROVIDERS: PCP Internal Medicine; Referring Provider Urology; Visit Provider Urology
DX: Z12.5 Encounter for screening for malignant neoplasm of prostate (principal)
CPT/HCPCS: 36415; 84153; G0103

== ENCOUNTER 2023-08-20 13:09 | Observation (INO) | payer BC, SELFPAY ==
[2023-08-20 13:09] VITALS: BP 103/86; PULSE 97; RESP 18; TEMP 36.2; O2SAT 100; BMI 22.5
--- NOTE | 2023-08-20 14:06 | CT_ITS ---
STUDY: CT ABDOMEN AND PELVIS WITH CONTRAST REASON FOR EXAM: Male, 63 years old. Abdominal pain, diffuse RADIATION DOSAGE (If Supplied By Facility): CTDIvol = ( 10.05 ) mGy, DLP = ( 512.64 ) mGycm TECHNIQUE: Transaxial images were obtained from the dome of the diaphragm to the symphysis pubis without oral contrast. IV 100mL Isovue-300 was administered. Sagittal and coronal images were reconstructed. Individualized dose optimization techniques were used for this CT. COMPARISON: Comparison is made with prior study dated October 31, 2021. FINDINGS: Minimal degree of bibasilar atelectasis. The visualized portions of the heart are within normal limits. There is decreased attenuation of the liver consistent with steatosis. Normal gallbladder and extrahepatic biliary system. Normal spleen. Normal pancreas. Normal bilateral adrenal glands. Normal right kidney. Normal left kidney. The stomach is fluid distended. There is diffuse thickening of the gastric folds. Gastritis should be ruled out. Fluid-filled distal small bowel loops although the bowel loops are not distended at this time. Fluid in fecal material are seen throughout the colon. An ileus pattern should be ruled out. The appendix is visualized and appears normal. There is scattered atherosclerotic calcification of the abdominal aorta, without a demonstrated aneurysm. Normal inferior vena cava. Normal retroperitoneum. Normal urinary bladder. Normal abdominal wall. Degenerative changes at the L5-S1 level. CT/Abdomen/Pelvis W IV Cont ONLY IMPRESSION: Fatty infiltration of the liver. Fluid distention of the stomach with the thickening of the gastric folds. Gastritis should be ruled out. Nondilated fluid-filled distal small bowel loops as well as fluid in the colon. An ileus pattern should be ruled out. Electronically Signed: Michael Johnson MD at 15:35 EST ,
--- NOTE | 2023-08-20 14:06 | EKG12_ITS ---
Test Reason : ABD PAIN Blood Pressure : / mmHG Vent. Rate : 079 BPM Atrial Rate : 079 BPM P-R Int : 182 ms QRS Dur : 082 ms QT Int : 360 ms P-R-T Axes : -02 042 048 degrees QTc Int : 412 ms Normal sinus rhythm Normal ECG Confirmed by KRISTI KLEIN, TOYA ([id number]), advertising editor SHAVON PARKER ([id number]) on 08/21/2023 9:44:00 AM Referred By: Confirmed By:TOYA BERRY MD
[2023-08-20] MEDS: Morphine 4 MG/ML Syringe IV (14:12)
[2023-08-20] MEDS: Ondansetron 4 MG/2 ML Vial IV (14:12)
[2023-08-20] MEDS: 0.9% Normal Saline (1000mL) 1,000 ML 125 ML IV ×2 (14:12→18:04)
[2023-08-20 14:18] LABS: Squamous Epithelial Cells - UA 0 SEEN /hpf (0-5)
--- NOTE | 2023-08-20 14:21 | ED.VIS.GI ---
HPI HPI - GI History of Present Illness Chief Complaint: Abd Pain Informant: patient and spouse/S.O. 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 Preston presenting with worsening abdominal pain. Patient states he felt fine when he woke up around 730 this morning and his normal routine and workout. Notes that as a day went on he has had increased pain of his abdomen. States a twisting pain in the suprapubic region and an intense pressure in the upper abdomen. He tried to get himself to vomit to help himself feel better total of 4 times with no relief of his symptoms. Notes that he had a bowel movement this morning that was diarrhea and denies any blood in his stool. Never had any pain like this before. Notes he is even having pain underneath his ribs. Only cardiac history is pericarditis 40 years ago per the patient. Denies any symptoms. Denies associated numbness or weakness especially his lower extremities. No other complaints or concerns at this time. [facility] Medical History GERD (gastroesophageal reflux disease) Hiatal hernia Hypertension Pulmonary embolism Home Medications lcltltmh-dza-cplex acid 0.4 mg-lycopene 300 mcg-lutein 250 mcg tablet (Centrum Silver) 1 ea PO DAILY 03/30/14 [History Last Taken 09/06/18] cholecalciferol (vitamin D3) 25 mcg (1,000 unit) capsule (Vitamin D3) 1,000 unit PO DAILY 04/09/18 [History Last Taken Unknown] Triamcinolone 0.1% Cream [Kenalog] 1 applic topical DAILY PSORIASIS 08/23/18 [History Last Taken Unknown] calcipotriene 0.005 % topical ointment (Calcitrene) 60 g topical DAILY PSORIASIS 08/23/18 [History Last Taken Unknown] dicyclomine 10 mg capsule 10 mg PO BID 10/29/21 [History Last Taken Unknown] rosuvastatin 10 mg tablet 10 mg PO DAILY cholesterol 10/29/21 [History Last Taken Unknown] apixaban 5 mg tablet (Eliquis) 5 mg PO Q12H 08/20/23 [History Last Taken Unknown] ketoconazole 2 % shampoo 1 applic topical DAILY 08/20/23 [History Last Taken Unknown] lisinopril 10 mg-hydrochlorothiazide 12.5 mg tablet 1 tab PO DAILY 08/20/23 [History Last Taken Unknown] omeprazole 40 mg capsule,delayed release 40 mg PO DAILY 08/20/23 [History Last Taken Unknown] Allergy/AdvReac Type Severity Reaction Status Date / Time Sulfa (Sulfonamide Allergy Unknown Verified 08/20/23 13:09 Antibiotics) venom-honey bee Allergy Hives Verified 08/20/23 13:09 [bee venom (honey bee)] Social History Smoking Status: Current every day smoker tobacco type: cigarettes substance use type: does not use ROS ROS ED Constitutional Constitutional ED: Denies chills or fever(s) Cardiovascular Cardiovascular: Denies chest pain Respiratory/Chest Respiratory/Chest: Denies cough Gastrointestinal Gastrointestinal: Reports abdominal pain, diarrhea, nausea and vomiting Genitourinary Genitourinary ED: Reports other Details: Denies sensation of incomplete emptying of the bladder ; Denies dysuria, hematuria or urinary frequency Musculoskeletal Musculoskeletal: Denies arthralgias, back pain or myalgias Integumentary Denies rash Neurologic Neurologic: Denies headache(s) or weakness Psychiatric Psychiatric: Denies anxiety Hematologic/Lymphatic Hematologic/Lymphatic: Reports easy bleeding and easy bruising EXAM Physical Exam Const Vital Signs: 08/20/23 13:09 08/20/23 16:31 08/20/23 16:31 Temperature 97.1 F L 97.6 F L Temperature Source Temporal Pulse Rate 97 90 90 Respiratory Rate 18 14 14 Blood Pressure 103/86 H 122/79 H 122/79 H Blood Pressure Mean 91 93 93 Pulse Ox 100 99 99 Oxygen Delivery Method Room Air Room Air Positive well nourished and well developed General Appearance ED: well developed HEENT Reports moist mucous membranes normocephalic Eyes PERRL Neck supple Resp normal respiratory effort and clear to auscultation bilaterally Cardio regular rate and regular rhythm GI GI Narrative: Diffuse abdominal tenderness. Seems to be worse in the suprapubic region. Inspection: abdominal distention Auscultation: hypoactive bowel sounds Palpation: soft; Negative for guarding, rigid, hernia or mass Narrative: Normal external exam. No inguinal hernia appreciated. Very mild tenderness palpation of the right inguinal area but patient states it is less severe than his abdominal pain Extremity full ROM General Extremety ED: Negative for edema General Extremity: Negative for edema Neuro Sensorium / Orientation: alert, oriented to person, oriented to place and oriented to time Motor Exam: Negative for general weakness Psych mental status grossly normal Skin no wounds Lesions: no lesions Rashes: no rashes MDM MDM MDM Narrative Medical decision making narrative: Patient is evaluated for diffuse abdominal pain that started today. He is uncomfortable appearing. Vital signs are normal. Differential includes pancreatitis, diverticulitis, small bowel obstruction, volvulus, gastroenteritis and kidney stone. Patient is given IV morphine and Zofran as well as IV fluids in the ER. Will obtain belly labs, EKG and CT abdomen pelvis to evaluate the cause of his symptoms. Patient is a mild leukocytosis of 13.3 with mild left shift. Uncertain clinical significance. CMP, troponin, lactate and urinalysis largely normal. Patient is mild improvement in discomfort with morphine but no significant improvement in the emergency room. Still has a lot of pressure and discomfort in his abdomen. CT of the abdomen pelvis is consistent with a ileus and gastritis. Patient has hypoactive bowel sounds, continued abdominal discomfort and abnormal CT findings with a leukocytosis I did obtain a surgical consult and speak with Dr. Michele.. More than likely this is a gastroenteritis however given the ileus recommend observation to medicine service, bowel rest and repeat evaluation in the morning with IV fluids overnight. Patient is agreeable with this. He is given dose of sublingual Levsin to see if this helps with some of his cramping abdominal discomfort. Case is discussed with admitting physician, Dr. Chahal and he is admitted to the hospital service. At this time he does not require an NG tube as he is not vomiting. Lab Data Attestation: I reviewed the patient's lab results. Labs: Laboratory Results - last 24 hr 08/20/23 08/20/23 13:25 14:50 WBC 13.3 H RBC 5.01 Hgb 15.4 Hct 47.1 MCV 94.0 MCH 30.7 MCHC 32.7 RDW Std Deviation 45.4 H RDW Coeff of Liss 13.2 Plt Count 301 MPV 10.7 Immature Gran % (Auto) 0.400 Neut % (Auto) 83.2 H Lymph % (Auto) 9.3 L [place] % (Auto) 5.5 Eos % (Auto) 1.4 Baso % (Auto) 0.2 Absolute Neuts (auto) 11.1 H Absolute Lymphs (auto) 1.24 Nucleated RBC % 0 Sodium 138 Potassium 3.8 Chloride 106 Carbon Dioxide 25.0 Anion Gap 7 BUN 19 H Creatinine 0.95 Estim Creat Clear Calc 79.08 Est GFR (MDRD) Af Amer 102 Est GFR (MDRD) Non-Af 84 BUN/Creatinine Ratio 19.9 Glucose 110 H Lactic Acid 0.9 Calcium 9.2 Total Bilirubin 1.70 H AST 20 ALT 29 Alkaline Phosphatase 68 Troponin I High Sens 4 Total Protein 8.6 H Albumin 3.8 Globulin 4.8 H Albumin/Globulin Ratio 0.8 L Urine Color Yellow Urine Clarity Clear Urine pH 5.0 Ur Specific [place] 1.020 Urine Protein 15 H Urine Glucose (UA) Normal Urine Ketones 5 H Urine Occult Blood Negative Urine Nitrite Negative Urine Bilirubin Negative Urine Urobilinogen Normal Ur Leukocyte Esterase 25 H Urine RBC 0-5 SEEN Urine WBC 0-5 SEEN Ur Squamous Epith Cells 0 SEEN Urine Bacteria 1+ Urine Mucus 3+ Radiography Diagnostic Testing: Clinical Impression(s) from Imaging Studies Abdomen/Pelvis CT 08/20/23 14:06 IMPRESSION: Fatty infiltration of the liver. Fluid distention of the stomach with the thickening of the gastric folds. Gastritis should be ruled out. Nondilated fluid-filled distal small bowel loops as well as fluid in the colon. An ileus pattern should be ruled out. Electronically Signed: Michael Johnson MD at 15:35 EST , Rhythm Strip Rhythm Strip: Sinus Rhythm Rate: 79 Ectopy: None EKG Initial EKG: Attestation: I personally reviewed and interpreted this EKG as follows: Interpretation: Sinus Rhythm Comments: Normal sinus rhythm at a rate of 79 bpm Normal axis Normal intervals Normal ST segments Discharge Plan Triage Chief Complaint: Abd Pain ED Provider: Inez Bonilla Dx/Rx/DC Orders Clinical Impression: Ileus, unspecified, Leukocytosis Prescriptions: No Action Centrum Silver 1 EACH tablet 1 ea PO DAILY Patient Comments: suppliment cholecalciferol (vitamin D3) [Vitamin D3] 1,000 UNIT capsule 1,000 unit PO DAILY calcipotriene [Calcitrene] 60 GM ointment 60 g topical DAILY Triamcinolone 0.1% Cream [Kenalog] 1 APPLIC Tube 1 applic topical DAILY dicyclomine 10 mg capsule 10 mg PO BID Patient Comments: take 1 capsule by mouth twice a day with meals rosuvastatin 10 mg tablet 10 mg PO DAILY Patient Comments: take 1 tablet by mouth once daily Eliquis 5 mg tablet 5 mg PO Q12H Patient Comments: TAKE 1 TABLET BY MOUTH 2 TIMES A DAY. lisinopril-hydrochlorothiazide 10-12.5 mg tablet 1 tab PO DAILY Patient Comments: take 1 tablet by mouth once daily omeprazole 40 mg capsule,delayed release(DR/EC) 40 mg PO DAILY Patient Comments: take 1 capsule by mouth once daily ketoconazole 2 % shampoo 1 applic topical DAILY Primary Care Provider: Harper Oliva Referrals: Harper Oliva MD [Primary Care Provider] - Disposition Disposition: Acute Care Hospital [facility]
[2023-08-20 14:28] LABS: Color, Urine Yellow (Yellow); Glucose, Dipstick Normal (Normal); Ketone-Dipstick 5 mg/dl (Negative); Leukocyte Esterase-Dipstick 25 /ul (Negative); Nitrite-Dipstick Negative (Negative); Occult Blood-Urine Negative /ul (Negative); Protein-Dipstick 15 mg/dl (Negative); Urine Bilirubin Dipstick Negative (Negative); Urine Clarity Clear (Clear); Urine Urobilinogen Normal (Normal)
[2023-08-20 14:31] LABS: Absolute Lymphocyte Count 1.24 X10^3/uL (0.83-4.51); Absolute Neutrophil Count 11.1 X10^3/uL (2.0-7.7); Basophil# 0.03 X10^3/uL; Basophil% 0.2 % (0-1); Eosinophil# 0.19 X10^3/uL; Eosinophils% 1.4 % (0-5); Hematocrit 47.1 % (40-54); Hemoglobin 15.4 g/dL (13.0-16.5); Lymphocyte # 1.24 X10^3/ul (0.83-4.51); Lymphocyte % 9.3 % (19-41); Mean Corp Hgb Conc 32.7 g/dL (32-36); Mean Corpuscular Hgb 30.7 pg (27.0-32.0); Mean Platelet Vol. 10.7 fl (6.2-12.0); Monocyte# 0.73 X10^3/uL; Monocyte% 5.5 % (0-10); NRBC Flagged by Analyzer 0 % (0-5); Neutrophil # 11.06 X10^3/uL (2.7-7.7); Neutrophil % 83.2 % (47-70); Platelet Count 301 K/mm3 (150-450); RBC Distribution Width CV 13.2 % (11.6-14.6); RBC Distribution Width SD 45.4 fl (35.1-43.9); Red Blood Count 5.01 M/mm3 (4.6-6.2); White Blood Count 13.3 K/mm3 (4.4-11.0)
[2023-08-20 14:50] LABS: ALB/GLOB Ratio 0.8 RATIO (0.9-2.4); AST(SGOT) 20 U/L (15-37); Alanine Aminotransfer ALT/SGPT 29 U/L (16-61); Albumin, Serum 3.8 g/dL (3.2-5.0); Alkaline Phosphatase 68 U/L (45-117); Anion Gap 7 (5-15); BUN 19 mg/dL (7-18); BUN/Creat Ratio 19.9 RATIO (10-20); Calcium,Total 9.2 mg/dL (8.5-10.1); Chloride 106 mmol/L (98-107); Creatinine, Serum 0.95 mg/dL (0.70-1.30); EST Glomerular Filtration Rate 84 mL/min (>60); Est Glom Filt Rate - Afr Amer 102 mL/min (>60); Estimated Creatinine Clearance 79.08 ml/min; Globulin 4.8 g/dL (2.2-4.2); Glucose 110 mg/dL (74-106); Potassium 3.8 mmol/L (3.5-5.1); Protein, Total 8.6 g/dL (6.4-8.2); Sodium Level 138 mmol/L (136-145); Troponin-I HS 4 pg/mL (3.0-78.0)
[2023-08-20 14:56] LABS: Mucous, Urine 3+ /hpf (<or=2+); White Blood Cells 0-5 SEEN /hpf (0-5)
[2023-08-20 14:58] LABS: Bacteria 1+ /hpf (None Seen); Red Blood Cells-Urine 0-5 SEEN /hpf (0-5)
[2023-08-20 15:51] LABS: Lactic Acid 0.9 mmol/L (0.4-1.9)
[2023-08-20] MEDS: Hyoscyamine Sulfate 0.125 MG Tablet 0.25 MG SL (16:29)
[2023-08-20 16:31] VITALS: BP 122/79; PULSE 90; RESP 14; TEMP 36.4; O2SAT 99
--- NOTE | 2023-08-20 16:49 | CON.PCM.SX_ITS ---
Assessment & Plan Assessment/Plan (1) Gastroenteritis: PLAN: The patient seems to have gastroenteritis versus early obstruction. I do not believe he has a complete obstruction as the colon has a lot of fluid in it. There was not significant dilation of the small bowel but there was fluid in all of it. There is also fluid in the stomach. Patient has never had surgery in the past and I do not see an obvious transition zone needs to do the radiologist. I recommend at this time to admit and hydrate and recheck a KUB in the morning. He can have sips and ice chips overnight. If anything worsens I will repeat a CT scan with oral contrast. If he is feeling better after 24 to 48 hours of hydration we can start a diet and see if it really was gastroenteritis. I also recommended that if he continues to have nausea vomiting that an NG tube be placed at this time the patient is refusing. Alexander Michele MD Pager: [facility] [address] [place] [address], [address] [place] [address] Office: HPI Consult Data Date of Consult: 08/20/23 HPI Narrative HPI Narrative: ROSA ISELA CERON, is a 63 M who presents with nausea vomiting and abdominal pain. The patient reports that he woke up and felt fine this morning and he ate his normal breakfast and started exercising on his elliptical and then started hav ing abdominal pain. He says the pain is diffuse and then it started becoming more pressure and then he felt like he needed to vomit. He made himself vomit several times which helped each time but it came back again. Patient currently is feeling a little bit better after receiving morphine and Zofran. Patient denies any fevers or chills. He has never had abdominal surgery. He does report he feels like he needs to have diarrhea. He has not had any fevers or chills. [facility] Medical History GERD (gastroesophageal reflux disease) Hiatal hernia Hypertension Pulmonary embolism Home Medications bduxzwdv-dcm-kusnx acid 0.4 mg-lycopene 300 mcg-lutein 250 mcg tablet (Centrum Silver) 1 ea PO DAILY 03/30/14 [History Last Taken 09/06/18] cholecalciferol (vitamin D3) 25 mcg (1,000 unit) capsule (Vitamin D3) 1,000 unit PO DAILY 04/09/18 [History Last Taken Unknown] Triamcinolone 0.1% Cream [Kenalog] 1 applic topical DAILY PSORIASIS 08/23/18 [History Last Taken Unknown] calcipotriene 0.005 % topical ointment (Calcitrene) 60 g topical DAILY PSORIASIS 08/23/18 [History Last Taken Unknown] dicyclomine 10 mg capsule 10 mg PO BID 10/29/21 [History Last Taken Unknown] rosuvastatin 10 mg tablet 10 mg PO DAILY cholesterol 10/29/21 [History Last Taken Unknown] apixaban 5 mg tablet (Eliquis) 5 mg PO Q12H 08/20/23 [History Last Taken Unknown] ketoconazole 2 % shampoo 1 applic topical DAILY 08/20/23 [History Last Taken Unknown] lisinopril 10 mg-hydrochlorothiazide 12.5 mg tablet 1 tab PO DAILY 08/20/23 [History Last Taken Unknown] omeprazole 40 mg capsule,delayed release 40 mg PO DAILY 08/20/23 [History Last Taken Unknown] Allergy/AdvReac Type Severity Reaction Status Date / Time Sulfa (Sulfonamide Allergy Unknown Verified 08/20/23 13:09 Antibiotics) venom-honey bee Allergy Hives Verified 08/20/23 13:09 [bee venom (honey bee)] Social History Smoking Status: Current every day smoker tobacco type: cigarettes substance use type: does not use ROS Constitutional Constitutional: Denies anorexia, chills or fatigue Eyes Eyes: Denies blurry vision ENT HEENT: Denies abnormal hearing Cardiovascular Cardiovascular: Denies chest pain Respiratory/Chest Respiratory/Chest: Denies cough or dyspnea Gastrointestinal Gastrointestinal: Reports abdominal pain, bloating, nausea and vomiting Genitourinary Genitourinary: Denies change in urinary stream Musculoskeletal Musculoskeletal: Denies abnormal gait Integumentary Integumentary: Denies jaundice Neurologic Neurologic: Denies abnormal gait Lab / Micro Data 08/20/23 13:25 08/20/23 13:25 Labs: Laboratory Results - last 24 hr 08/20/23 13:25: WBC 13.3 H, RBC 5.01, Hgb 15.4, Hct 47.1, MCV 94.0, MCH 30.7, MCHC 32.7, RDW Std Deviation 45.4 H, RDW Coeff of Liss 13.2, Plt Count 301, MPV 10.7, Immature Gran % (Auto) 0.400, Neut % (Auto) 83.2 H, Lymph % (Auto) 9.3 L, [place] % (Auto) 5.5, Eos % (Auto) 1.4, Baso % (Auto) 0.2, Absolute Neuts (auto) 11.1 H, Absolute Lymphs (auto) 1.24, Nucleated RBC % 0, Sodium 138, Potassium 3.8, Chloride 106, Carbon Dioxide 25.0, Anion Gap 7, BUN 19 H, Creatinine 0.95, Estim Creat Clear Calc 79.08, Est GFR (MDRD) Af Amer 102, Est GFR (MDRD) Non-Af 84, BUN/Creatinine Ratio 19.9, Glucose 110 H, Calcium 9.2, Total Bilirubin 1.70 H, AST 20, ALT 29, Alkaline Phosphatase 68, Troponin I High Sens 4, Total Protein 8.6 H, Albumin 3.8, Globulin 4.8 H, Albumin/Globulin Ratio 0.8 L, Urine Color Yellow, Urine Clarity Clear, Urine pH 5.0, Ur Specific [place] 1.020, Urine Protein 15 H, Urine Glucose (UA) Normal, Urine Ketones 5 H, Urine Occult Blood Negative, Urine Nitrite Negative, Urine Bilirubin Negative, Urine Urobilinogen Normal, Ur Leukocyte Esterase 25 H, Urine RBC 0-5 SEEN, Urine WBC 0-5 SEEN, Ur Squamous Epith Cells 0 SEEN, Urine Bacteria 1+, Urine Mucus 3+ 08/20/23 14:50: Lactic Acid 0.9 Rhythm Strip Rhythm Strip: Sinus Rhythm Rate: 79 Ectopy: None Imaging Radiology Impression Abdomen/Pelvis CT 08/20/23 14:06 IMPRESSION: Fatty infiltration of the liver. Fluid distention of the stomach with the thickening of the gastric folds. Gastritis should be ruled out. Nondilated fluid-filled distal small bowel loops as well as fluid in the colon. An ileus pattern should be ruled out. Electronically Signed: Michael Johnson MD at 15:35 EST ,
--- OUTSIDE RECORDS SUMMARY | 2023-08-20 17:00 | XMS RPT_ITS | CCD ---
Author Name Unknown Address [address] [place] [address] Organization [facility] Care Team Providers Care Clinical Appeals Auditor Name Role Phone Jaswinder Scott DO A Unavailable Murray Preston MD Unavailable Pj KLEIN, Harper Primary Care Provider Jaswinder Scott DO Unavailable Murray Preston MD Unavailable Pj KLEIN, Harper Primary Care Provider Patricia Velez Unavailable Unavailabl e GANTA, HARPER Primary Care Unavailable GANTA, HARPER Referring Unavailable GANTA, HARPER Primary Care Unavailable GANTA, HARPER Primary Care Unavailable [place], Melissa Attending Unavailable GANTA, HARPER Primary Care Unavailable BURNETTLEIGH Attending Unavailable [place], Melissa Referring Unavailable GANTA, HARPER Primary Care Unavailable MASCI, JASWINDER A Attending Unavailable MASCI, JASWINDER A Referring Unavailable GANTA, HARPER Primary Care Unavailable LEIGH BURNETT Referring Unavailable LEIGH BURNETT Attending Unavailable GANTA, HARPER Primary Care Unavailable GANTA, HARPER Primary Care Unavailable DENBOW, EDUARDA Attending Unavailable GANTA, HARPER Primary Care Unavailable DENBOW, EDUARDA Referring Unavailable GANTA, HARPER Primary Care Unavailable MASCI, JASWINDER A Referring Unavailable MASCI, JASWINDER A Attending Unavailable GANTA, HARPER Primary Care Unavailable MASCI, JASWINDER A Referring Unavailable GANTA, HARPER Primary Care Unavailable GANTA, HARPER Primary Care Unavailable DENBOW, EDUARDA Attending Unavailable GANTA, HARPER Primary Care Unavailable MASCI, JASWINDER A Referring Unavailable GANTA, HARPER Referring Unavailable GANTA, HARPER Primary Care Unavailable GANTA, HARPER Primary Care Unavailable GANTA, HARPER Primary Care Unavailable Allergies Allergy Classification Reported Allergen(s) Allergy Type Date of Onset Reaction(s) Facility (20 sources) Sulfonamides (Antibiotic); Translations: [SULFA (SULFONAMIDE ANTIBIOTICS)] Propensity to adverse reactions 5 Rash [facility] Work Phone: (20 sources) bee stings [Other] Propensity to adverse reactions 5 Rash, Swelling [facility] Work Phone: (1 source) OTHER; Translations: [OTHER] Propensity to adverse reactions (disorder) 5 [facility] Repository Medications Current Medications Medication Drug Class(es) Dates Sig (Normalized) Sig (Original) polyethylene glycol 3350 414885 mg / potassium chloride 2970 mg / sodium bicarbonate 6740 mg / sodium chloride 5860 mg / sodium sulfate 73329 mg powder for oral solution (1 source) Osmotic Laxative Start: 03-13-2023 End: 03-13-2023 peg 3350-Electrolytes (GOLYTELY) 236-22.74-6.74 -5.86 gram suspension Take 4,000 mL by mouth one time only for 1 dose. 1 Each 0 03/13/2023 03/13/2023 Active Completed/Discontinued Medications Medication Drug Class(es) Dates Sig (Normalized) Sig (Original) acetaminophen 500 mg oral tablet (13 sources) End: 02-03-2022 take 2 tablets by mouth every six hours as needed acetaminophen (TYLENOL) 500 mg tablet Take 1,000 mg by mouth every 6 hours as needed. 0 02/03/2022 Discontinued (Discontinued by Patient) Problems Active Problems Problem Classification Problem Date Documented Da te Episodic/Chronic Abdominal pain (2 sources) Pain in pelvis; Translations: [Pelvic and perineal pain] 03-09-2023 Episodic Coagulation and hemorrhagic disorders (20 sources) Blood coagulation disorder; Translations: [Coagulation defect, unspecified] Onset: 07-30-2015 07-30-2015 Chronic Disorders of lipid metabolism (5 sources) Mixed hyperlipidemia; Translations: [Mixed hyperlipidemia] Onset: 08-14-2023 Chronic Disorders of teeth and jaw (1 source) Jaw pain; Translations: [Jaw pain] Episodic Esophageal disorders (20 sources) Pringle's esophagus; Translations: [Pringle's esophagus without dysplasia] Onset: 04-04-2018 04-04-2018 Chronic Essential hypertension (20 sources) Essential hypertension; Translations: [Essential (primary) hypertension] Onset: 11-15-2007 05-06-2015 Chronic Nutritional deficiencies (1 source) Vitamin D deficiency; Translations: [Vitamin D deficiency, unspecified] Chronic Other aftercare (10 sources) Patient encounter status; Translations: [Other [facility] drug therapy] Onset: 05-07-2023 Episodic Other and unspecified benign neoplasm (1 source) History of polyp of colon; Translations: [Personal history of colonic polyps] 05-16-2023 Episodic Other ear and sense organ disorders (1 source) Impacted cerumen of bilateral ears; Translations: [Impacted cerumen, bilateral] Episodic Other inflammatory condition of skin (20 sources) Psoriasis; Translations: [Psoriasis, unspecified] Onset: 11-15-2007 05-06-2015 Chronic Other liver diseases (20 sources) Lesion of liver; Translations: [Liver disease, unspecified] Onset: 05-24-2018 05-24-2018 Chronic Other liver diseases (1 source) Liver disease, unspecified; Translations: [Liver lesion] Onset: 05-24-2018 Chronic Other screening for suspected conditions (not mental disorders or infectious disease) (2 sources) Encounter for screening for malignant neoplasm of prostate; Translations: [Encounter for screening for other suspected endocrine disorder] Onset: 02-08-2023 Episodic Other upper respiratory infections (1 source) Pharyngitis; Translations: [Acute pharyngitis, unspecified] Episodic Pulmonary heart disease (20 sources) Chronic pulmonary embolism; Translations: [Chronic pulmonary embolism] Chronic Residual codes; unclassified (1 source) Tobacco user; Translations: [Tobacco use] Episodic Substance-related disorders (20 sources) Tobacco user; Translations: [Nicotine dependence, unspecified, uncomplicated] Onset: 11-15-2007 11-15-2007 Chronic Past or Other Problems Problem Classification Problem Date Documented Date Episodic/Chronic Abdominal hernia (20 sources) Diaphragmatic hernia; Translations: [Diaphragmatic hernia without obstruction or gangrene] Onset: 01-07-2007 01-07-2007 Episodic Diseases of mouth; excluding dental (20 sources) Aphthous ulcer of mouth; Translations: [Recurrent oral aphthae] Onset: 07-06-2015 07-06-2015 Episodic Immunizations and screening for infectious disease (20 sources) Autoantibody level - finding; Translations: [Raised antibody titer] Onset: 07-30-2015 11-08-2016 Episodic Other and unspecified benign neoplasm (20 sources) Adenoma of right adrenal gland; Translations: [Benign neoplasm of right adrenal gland] Onset: 05-24-2018 05-24-2018 Episodic Pulmonary heart disease (20 sources) Pulmonary embolism; Translations: [Other pulmonary embolism without acute cor pulmonale] Onset: 07-06-2015 07-06-2015 Episodic Results Test Name Value Interpretation Reference Range Facil ity Vital Signs Date Time Vital Sign Value Performing Clinician Jesusita mai 08-10-2023 08:43-0500 Body height 175.3 cm Eduarda Denbow PA-C Work Phone: [facility] 08-10-2023 08:43-0500 Body temperature 97.59 [degF] Eduarda Denbow PA-C Work Phone: [facility] 08-10-2023 08:43-0500 Body weight 70.76 kg Eduarda Denbow PA-C Work Phone: [facility] 08-10-2023 08:43-0500 Diastolic blood pressure 70 mm[Hg] Eduarda Denbow PA-C Work Phone: [facility] 08-10-2023 08:43-0500 Heart rate 84 /min Eduarda Denbow PA-C Work Phone: [facility] 08-10-2023 08:43-0500 Respiratory rate 12 /min Eduarda Denbow PA-C Work Phone: [facility] 08-10-2023 08:43-0500 SaO2% (BldA) [Mass fraction] 97 % Eduarda Denbow PA-C Work Phone: [facility] 08-10-2023 08:43-0500 Systolic blood pressure 124 mm[Hg] Eduarda Denbow PA-C Work Phone: [facility] 05-15-2023 09:19-0500 Body height 175.3 cm Leigh Burnett MD Work Phone: [facility] 05-15-2023 09:19-0500 Body temperature 97.9 [degF] Leigh Burnett MD Work Phone: [facility] 05-15-2023 09:19-0500 Body weight 72.67 kg Leigh Burnett MD Work Phone: [facility] 05-15-2023 09:19-0500 Diastolic blood pressure 78 mm[Hg] Leigh Burnett MD Work Phone: [facility] 05-15-2023 09:19-0500 Heart rate 78 /min Leigh Burnett MD Work Phone: [facility] 05-15-2023 09:19-0500 SaO2% (BldA) [Mass fraction] 99 % Leigh Burnett MD Work Phone: [facility] 05-15-2023 09:19-0500 Systolic blood pressure 118 mm[Hg] Leigh Burnett MD Work Phone: [facility] 05-08-2023 08:50-0500 Body height 174 cm Jaswinder Masci DO Work Phone: [facility] 05-08-2023 08:50-0500 Body temperature 98.49 [degF] Jaswinder Masci DO Work Phone: [facility] 05-08-2023 08:50-0500 Body weight 72.12 kg Jaswinder Masci DO Work Phone: [facility] 05-08-2023 08:50-0500 Diastolic blood pressure 76 mm[Hg] Jaswinder Masci DO Work Phone: [facility] 05-08-2023 08:50-0500 Heart rate 73 /min Jaswinder Masci DO Work Phone: [facility] 05-08-2023 08:50-0500 SaO2% (BldA) [Mass fraction] 98 % Jaswinder Masci DO Work Phone: [facility] 05-08-2023 08:50-0500 Systolic blood pressure 135 mm[Hg] Jaswinder Masci DO Work Phone: [facility] 05-07-2023 11:12-0500 Diastolic blood pressure 79 mm[Hg] Leigh Burnett MD Work Phone: [facility] 05-07-2023 11:12-0500 Heart rate 65 /min Leigh Burnett MD Work Phone: [facility] 05-07-2023 11:12-0500 Respiratory rate 16 /min Leigh Burnett MD Work Phone: [facility] 05-07-2023 11:12-0500 SaO2% (BldA) [Mass fraction] 98 % Leigh Burnett MD Work Phone: [facility] 05-07-2023 11:12-0500 Systolic blood pressure 129 mm[Hg] Leigh Burnett MD Work Phone: [facility] 05-07-2023 09:36-0500 Body temperature 97.81 [degF] Leigh Burnett MD Work Phone: [facility] 05-07-2023 09:36-0500 Body weight 72.8 kg Leigh Burnett MD Work Phone: [facility] 03-09-2023 12:01-0400 Body temperature 97.5 [degF] Jayme Russell MD Work Phone: [facility] 03-09-2023 12:01-0400 Body weight 73.03 kg Jayme Russell MD Work Phone: [facility] 03-09-2023 12:01-0400 Diastolic blood pressure 70 mm[Hg] Jayme Russell MD Work Phone: [facility] 03-09-2023 12:01-0400 Heart rate 80 /min Jayme Russell MD Work Phone: [facility] 03-09-2023 12:01-0400 Respiratory rate 16 /min Jayme Russell MD Work Phone: [facility] 03-09-2023 12:01-0400 SaO2% (BldA) [Mass fraction] 98 % Jayme Russell MD Work Phone: [facility] 03-09-2023 12:01-0400 Systolic blood pressure 124 mm[Hg] Jayme Russell MD Work Phone: [facility] 02-07-2023 08:37-0400 Body height 172.7 cm Eduarda Denbow PA-C Work Phone: [facility] 02-07-2023 08:37-0400 Body temperature 98.1 [degF] Eduarda Denbow PA-C Work Phone: [facility] 02-07-2023 08:37-0400 Body weight 73.48 kg Eduarda Denbow PA-C Work Phone: [facility] 02-07-2023 08:37-0400 Diastolic blood pressure 62 mm[Hg] Eduarda Denbow PA-C Work Phone: [facility] 02-07-2023 08:37-0400 Heart rate 74 /min Eduarda Denbow PA-C Work Phone: [facility] 02-07-2023 08:37-0400 Respiratory rate 12 /min Eduarda Denbow PA-C Work Phone: [facility] 02-07-2023 08:37-0400 SaO2% (BldA) [Mass fraction] 96 % Eduarda Denbow PA-C Work Phone: [facility] 02-07-2023 08:37-0400 Systolic blood pressure 114 mm[Hg] Eduarda Denbow PA-C Work Phone: [facility] 09-16-2022 09:58-0400 Body temperature 97.81 [degF] Jayme Russell MD Work Phone: [facility] 09-16-2022 09:58-0400 Body weight 74.12 kg Jayme Russell MD Work Phone: [facility] 09-16-2022 09:58-0400 Diastolic blood pressure 80 mm[Hg] Jayme Russell MD Work Phone: [facility] 09-16-2022 09:58-0400 Heart rate 81 /min Jayme Russell MD Work Phone: [facility] 09-16-2022 09:58-0400 Respiratory rate 18 /min Jayme Russell MD Work Phone: [facility] 09-16-2022 09:58-0400 SaO2% (BldA) [Mass fraction] 97 % Jayme Russell MD Work Phone: [facility] 09-16-2022 09:58-0400 Systolic blood pressure 140 mm[Hg] Jayme Russell MD Work Phone: [facility] 08-09-2022 09:10-0500 Body height 175.3 cm Harper Coats MD Work Phone: [facility] 08-09-2022 09:10-0500 Body temperature 98.4 [degF] Harper Coats MD Work Phone: [facility] 08-09-2022 09:10-0500 Body weight 75.75 kg Harper Coats MD Work Phone: [facility] 08-09-2022 09:10-0500 Diastolic blood pressure 72 mm[Hg] Harper Coats MD Work Phone: [facility] 08-09-2022 09:10-0500 Heart rate 69 /min Harper Coats MD Work Phone: [facility] 08-09-2022 09:10-0500 Respiratory rate 12 /min Harper Coats MD Work Phone: [facility] 08-09-2022 09:10-0500 SaO2% (BldA) [Mass fraction] 98 % Harper Coats MD Work Phone: [facility] 08-09-2022 09:10-0500 Systolic blood pressure 134 mm[Hg] Harper Coats MD Work Phone: [facility] 02-03-2022 09:24-0400 Body weight 74.84 kg Ann Marie Howe LEGAL BILLING SPECIALIST.NEUROLOGY PHYSICIAN ASSISTANT Work Phone: [facility] 02-03-2022 09:24-0400 Diastolic blood pressure 68 mm[Hg] Ann Marie Howe LEGAL BILLING SPECIALIST.NEUROLOGY PHYSICIAN ASSISTANT Work Phone: [facility] 02-03-2022 09:24-0400 Heart rate 68 /min Ann Marie Older LEGAL BILLING SPECIALIST.NEUROLOGY PHYSICIAN ASSISTANT Work Phone: [facility] 02-03-2022 09:24-0400 Respiratory rate 16 /min Ann Marie Older LEGAL BILLING SPECIALIST.NEUROLOGY PHYSICIAN ASSISTANT Work Phone: [facility] 02-03-2022 09:24-0400 Systolic blood pressure 118 mm[Hg] Ann Marie Older LEGAL BILLING SPECIALIST.NEUROLOGY PHYSICIAN ASSISTANT Work Phone: [facility] 01-22-2022 12:13-0400 Body temperature 98.71 [degF] Niurka Costello LEGAL BILLING SPECIALIST.NEUROLOGY PHYSICIAN ASSISTANT Work Phone: [facility] 01-22-2022 12:13-0400 Body weight 74.84 kg Niurka Costello LEGAL BILLING SPECIALIST.NEUROLOGY PHYSICIAN ASSISTANT Work Phone: [facility] 01-22-2022 12:13-0400 Diastolic blood pressure 80 mm[Hg] Niurka Costello LEGAL BILLING SPECIALIST.NEUROLOGY PHYSICIAN ASSISTANT Work Phone: [facility] 01-22-2022 12:13-0400 Heart rate 93 /min Niurka Costello LEGAL BILLING SPECIALIST.NEUROLOGY PHYSICIAN ASSISTANT Work Phone: [facility] 01-22-2022 12:13-0400 Respiratory rate 16 /min Niurka Costello LEGAL BILLING SPECIALIST.NEUROLOGY PHYSICIAN ASSISTANT Work Phone: [facility] 01-22-2022 12:13-0400 SaO2% (BldA) [Mass fraction] 98 % Niurka Costello LEGAL BILLING SPECIALIST.NEUROLOGY PHYSICIAN ASSISTANT Work Phone: [facility] 01-22-2022 12:13-0400 Systolic blood pressure 130 mm[Hg] Niurka Costello LEGAL BILLING SPECIALIST.NEUROLOGY PHYSICIAN ASSISTANT Work Phone: [facility] Encounters Encounter Date Encounter Type Care Provider Facility Start: 08-14-2023 End: 08-15-2023 [facility] Facility:[facility] Start: 08-10-2023 End: 08-10-2023 [facility] Start: 08-10-2023 End: 08-10-2023 Patient encounter procedure Eduarda Cortes PA-C Work Phone: [facility] Procedures Date Procedure Procedure Detail Performing Clinician Start: 05-07-2023 Esophagogastroduodenoscopy transoral diagnostic Melissa Fuentes PA-C Work Phone: Start: 05-07-2023 Colonoscopy flx dx w/collj spec when pfrmd Melissa Fuentes PA-C Work Phone: Start: 05-07-2023 Colonoscopy Leigh Burnett MD Work Phone: Start: 03-09-2023 Urnls dip stick/tablet rgnt auto w/o microscopy Jayme Russell MD Work Phone: Start: 08-10-2022 Lipid 1996 panel - Serum or Plasma Rosalva Fuentes PA-C Work Phone: Start: 02-03-2022 Adult depression screening assessment Ann Marie Howe LEGAL BILLING SPECIALIST.NEUROLOGY PHYSICIAN ASSISTANT Work Phone: Start: 01-22-2022 STREP A MOLECULAR (POC) Niurka Costello LEGAL BILLING SPECIALIST.NEUROLOGY PHYSICIAN ASSISTANT Work Phone: Start: 05-24-2018 Adult depression screening assessment Jaswinder Costamartha HEALY Work Phone: Start: 04-08-2018 Colonoscopy Jaswinder Scott DO Work Phone: Plan of Treatment Date Care Activity Detail Author Start: 07-25-2029 Urine microalbumin profile [facility] Start: 05-07-2028 Colonoscopy Colonoscopy [facility] Start: 05-07-2028 Colorectal Cancer Screening Colorectal Cancer Screening [facility] Start: 05-07-2028 Screening for malign ant neoplasm of colon [facility] Start: 08-10-2027 Lipid 1996 panel - S faith or Plasma Lipid Screening [facility] Start: 08-10-2027 Lipid panel Lipid Screening [facility] Start: 08-10-2027 LIPID SCREEN LIPID SCREEN [facility] Start: 07-20-2026 LIPID SCREEN LIPID SCREEN [facility] Start: 02-08-2026 DIABET[facility]CRE[facility] Start: 02-08-2026 Diabetes Screening Diabetes Screenin g [facility] Start: 11-03-2025 PROSTATE CANCER SCRE ENING DISCUSSION PROSTATE CANCER SCREENING DISCUSSION [facility] Start: 11-03-2025 Prostate specific an tigen measurement Prostate Cancer Screening Discussion [facility] Start: 01-17-2025 DIABETES SCREEN DIABETES SCREEN [facility] Start: 08-10-2024 Annual PCP Team Repair Order Clerk maria isabel Disease Visit Annual PCP Team Chronic Disease Visit [facility] Start: 08-10-2024 BP Controlled (<130/80) BP Controlle d (<130/80) [facility] Start: 08-10-2024 RSV Vaccine (1 - 1-d ose 60+ series) RSV Vaccine (1 - 1-dose 60+ series) [facility] Immunizations Immunization Date Immunization Notes Care Provider Steve acosta 04-12-2023 influenza (aIIV4) vaccine, age 65+ yr, quadrivalent, PF (FLUAD QUAD) Eduarda Cortes PA-C Work Phone: [facility] Work Phone: 04-15-2021 influenza, injectabl e, quadrivalent, contains preservative Jaswinder Costai DO Work Phone: [facility] Work Phone: 04-15-2021 influenza virus vacc ine, unspecified formulation Melissa Fuentes PA-C Work Phone: [facility] 04-21-2020 influenza, seasonal, injectable Jaswinder Masci DO Work Phone: [facility] 07-25-2019 tetanus toxoid, redu ludin diphtheria toxoid, and acellular pertussis vaccine, adsorbed Jaswinder Tyler DO Work Phone: [facility] Work Phone: 04-17-2018 influenza virus vacc ine, unspecified formulation Jaswinder Masci DO Work Phone: [facility] 04-01-2015 influenza, seasonal, injectable, preservative free Jaswinder Skeltoni DO Work Phone: [facility] 05-01-2014 pneumococcal polysaccharide vaccine, 23 valent Jaswinder Scott DO Work Phone: [facility] 04-05-2014 influenza, seasonal, injectable Jaswinder Skeltoni DO Work Phone: [facility] 03-17-2014 influenza, seasonal, injectable, preservative free Jaswinder Scott DO Work Phone: [facility] 05-01-2013 tetanus toxoid, redu ludin diphtheria toxoid, and acellular pertussis vaccine, adsorbed Jaswinder Scott DO Work Phone: [facility] 04-21-2013 influenza virus vacc ine, unspecified formulation Jaswinder Scott DO Work Phone: [facility] 04-01-2003 diphtheria and tetan us toxoids, adsorbed for pediatric use Jaswinder Costai DO Work Phone: [facility] 03-24-1969 diphtheria and tetan us toxoids, adsorbed for pediatric use Jaswinder Scott DO Work Phone: [facility] Payers Date Payer Category Payer Unknown [employer] PPO [id number] 2021-Present [phone] [address] [place] [address] PPO [id number] 2021 Unknown [id number] 2011 Unknown [id number] Social History Date Type Detail Facility Start: 07-30-2015 End: 08-09-2022 Tobacco smoking status NHIS Occasional tobacco smoker [facility] History of tobacco use Cigarette Smoker [facility] Start: 07-30-2015 End: 02-07-2023 Cigarettes smoked current (pack per day) - Reported 1 [facility] Work Phone: Start: 07-30-2015 End: 08-09-2022 Tobacco use and exposure Smokeless tobacco non-user [facility] Start: 08-23-2021 End: 08-10-2023 Alcohol intake Current drinker of alcohol (finding) [facility] Start: 05-07-2020 History SDOH Alcohol Comment social - 2 beers a day on 05/07/2020 states 12 pack on weekends none during the week [facility] Start: 05-07-2020 End: 08-09-2022 Tobacco Comment Less than a half pack a week [facility] Start: 1960 Sex Assigned At Not on file [facility] Start: 09-26-2021 End: 04-06-2022 Exposure to SARS-CoV-2 (event) Not sure [facility] Work Phone: Start: 10-17-2022 End: 02-07-2023 Tobacco use panel [facility] Work Phone: Adult Depression Screening Assessment 0 [facility] Work Phone: Medical Equipment Procedure Code Equipment Code Equipment Origin al Text Equipment Identifier Dates Plug Srg Prfx 1.55x1.3in Med - [id number] Start: 06-08-2015 Clinical Notes 04-04-2018 to 08-10-2023 Eduarda Cortes PA-C - 08/10/2023 8:51 AM Leigh Tse MD - 05/15/2023 9:29 AM Jaswinder Antonio DO - 05/08/2023 8:57 AM Kya Coffey RN - 05/07/2023 10:42 AM ESTPatient Instructions Note Date & Type Note Facility 08-10-2023 Note HNO ID: [id number] Author: EDUARDA CORTES PA-C Service: ? Author Type: Physician Locker Attendant Type: Progress Notes Filed: 08/10/2023 10:00 Note Text: CC: Patient presents with: F/U 6 months: labs and HTN HPI Hao Ceron is a 63 year old male who presents today for annual physical exam. Exercise: works out regularly 5 times per week with [employer] (15 minute sessions) Diet: Watches diet for salt (salty snacks, added salt, processed frozen/canned foods), sugary/sweet snacks, unhealthy fats: Yes Yogurt and nuts for breakfast 4 days/week Eating cereal once/week Lunch at home, dinner at work (works second shift)- ie meatloaf sandwich Caffeine: 1 cup coffee/morning. No sodas. 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 Scott, sees 1-2x/year. LV was with myself on 02/07/23. Lipid panel future ordered at last visit but never obtained. Healthcare Maintenance: Colonoscopy- 05/07/23 - polyps found again, so repeat in 5 years REVIEW OF SYSTEMS Neg ROS PAST MEDICAL HISTORY Diagnosis Date Acute gastritis without mention of hemorrhage Acute pericarditis, unspecified early Alcohol Intake 4 per day 11/15/2007 1 case beer per week Congenital tracheoesophageal fistula, esophageal atresia and stenosis Diaphragmatic hernia without mention of obstruction or gangrene Esophagitis, unspecified GERD (gastroesophageal reflux disease) Hiatal hernia Internal hemorrhoids without mention of complication Orchitis and epididymitis 09/13/2017 Other psoriasis Pulmonary embolism (HCC) Right foot infection post foot surgery Snoring Tobacco use disorder 11/15/2007 Unspecified essential hypertension 11/15/2007 PAST SURGICAL HISTORY Procedure Laterality Date COLONOSCOPY 05/07/2023 repeat 5 years COLONOSCOPY FLX DX W/COLLJ SPEC WHEN PFRMD 05/24/2009 EGD 05/07/2023 Pringle's, repeat 2-3 years EGD TRANSORAL BIOPSY SINGLE/MULTIPLE 05/24/2009 ESOPHAGOGASTRODUODENOSCOPY TRANSORAL DIAGNOSTIC 01/07/2007 EGD ESOPHAGOGASTRODUODENOSCOPY TRANSORAL DIAGNOSTIC 04/20/2014 EGD ESOPHAGOGASTRODUODENOSCOPY TRANSORAL DIAGNOSTIC 04/08/2018 EGD ESOPHAGOGASTRODUODENOSCOPY TRANSORAL DIAGNOSTIC 05/07/2020 EGD ESOPHAGOSCOPY FLEX BALLOON DILAT <30 MM DIAM 03/28/2007 EXC NEUROMA HAND/FOOT XCP DIGITAL NERVE Right 2 removed HERNIA REPAIR HX PAST SURGICAL HISTORY OF 06/14/2012 left [facility] arthroplasty PAST SURGICAL HISTORY OF Right right foot surgery- removal of neuromas RPR 1ST INGUN HRNA AGE 4 YRS/> REDUCIBLE Right 06/08/2015 INDIRECT - MEDIUM MESH PLUG SKIN BIOPSY HX ALLERGIES Bee Stings [Other] and Sulfa (Sulfonamide Antibiotics) MEDICATIONS dicyclomine (BENTYL) 10 mg capsule take 1 capsule by mouth twice a day with food omeprazole (PRILOSEC) 40 mg capsule Take 1 capsule by mouth once daily. lisinopril-hydroCHLOROthiazide (ZESTORETIC) 10-12.5 mg per tablet Take 1 tablet by mouth once daily. apixaban (ELIQUIS) 5 mg tab(s) Take 1 tablet by mouth twice daily. rosuvastatin (CRESTOR) 10 mg tablet take 1 tablet by mouth once daily triamcinolone acetonide (KENALOG) 0.1 % cream Apply 1 application to affected area three times daily. ketoconazole (NIZORAL) 2 % shampoo Apply 1 application to affected area three times a week. Jfubjyhumiidn-Fuxzecbo-Onswss (CENTRUM SILVER) tab Take 1 tablet by mouth once daily. CHOLECALCIFEROL (VITAMIN D3) 1,000 UNIT CAP Take one(1) tablet daily. FAMILY HISTORY Problem Relation Age of Onset Diabetes Mother [place] Heart Mother Heart Father mi ,kidney fail other (Other) Father LEUKEMIA Emphysema Brother Social History Tobacco Use Smoking status: Some Days Packs/day: 1.00 Years: 40.00 Additional pack years: 0.00 Total pack years: 40.00 Types: Cigarettes Smokeless tobacco: Never Tobacco comments: Less than a half pack a week Vaping Use Vaping Use: Never used Substance Use Topics Alcohol use: Yes Alcohol/week: 21.0 standard drinks of alcohol Types: 21 Cans of Beer (12oz) per week Comment: social - 2 beers a day on 05/07/2020 states 12 pack on weekends none during the week Drug use: No PHYSICAL EXAM BP 124/70 (BP Site: Left Arm, BP Position: Sitting, BP Cuff Size: Large Adult) Pulse 84 Temp 36.4 ?C (97.6 ?F) Resp 12 Ht 175.3 cm (5' 9 ) Wt 70.8 kg (156 lb) SpO2 97% BMI 23.04 kg/m? General Appearance: well appearing, in no acute distress, alert Psych: mood and affect broad and appropriate Skin: Skin color, texture, turgor no (more content not included)... [facility] 08-10-2023 History of Presen t illness Narrative CC: Patient presents with: F/U 6 months: labs and HTN HPI Hao Ceron is a 63 year old male who presents today for annual physical exam. Exercise: works out regularly 5 times per week with [employer] (15 minute sessions) Diet: Watches diet for salt (salty snacks, added salt, processed frozen/canned foods), sugary/sweet snacks, unhealthy fats: Yes Yogurt and nuts for breakfast 4 days/week Eating cereal once/week Lunch at home, dinner at work (works second shift)- ie meatloaf sandwich Caffeine: 1 cup coffee/morning. No sodas. 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 Scott, sees 1-2x/year. LV was with myself on 02/07/23. Lipid panel future ordered at last visit but never obtained. Healthcare Maintenance: Colonoscopy- 05/07/23 - polyps found again, so repeat in 5 years REVIEW OF SYSTEMS Neg ROS PAST MEDICAL HISTORY Diagnosis Date Acute gastritis without mention of hemorrhage Acute pericarditis, unspecified early Alcohol Intake 4 per day 11/15/2007 1 case beer per week Congenital tracheoesophageal fistula, esophageal atresia and stenosis Diaphragmatic hernia without mention of obstruction or gangrene Esophagitis, unspecified GERD (gastroesophageal reflux disease) Hiatal hernia Internal hemorrhoids without mention of complication Orchitis and epididymitis 09/13/2017 Other psoriasis Pulmonary embolism (HCC) Right foot infection post foot surgery Snoring Tobacco use disorder 11/15/2007 Unspecified essential hypertension 11/15/2007 PAST SURGICAL HISTORY Procedure Laterality Date COLONOSCOPY 05/07/2023 repeat 5 years COLONOSCOPY FLX DX W/COLLJ SPEC WHEN PFRMD 05/24/2009 EGD 05/07/2023 Pringle's, repeat 2-3 years EGD TRANSORAL BIOPSY SINGLE/MULTIPLE 05/24/2009 ESOPHAGOGASTRODUODENOSCOPY TRANSORAL DIAGNOSTIC 01/07/2007 EGD ESOPHAGOGASTRODUODENOSCOPY TRANSORAL DIAGNOSTIC 04/20/2014 EGD ESOPHAGOGASTRODUODENOSCOPY TRANSORAL DIAGNOSTIC 04/08/2018 EGD ESOPHAGOGASTRODUODENOSCOPY TRANSORAL DIAGNOSTIC 05/07/2020 EGD ESOPHAGOSCOPY FLEX BALLOON DILAT <30 MM DIAM 03/28/2007 EXC NEUROMA HAND/FOOT XCP DIGITAL NERVE Right 2 removed HERNIA REPAIR HX PAST SURGICAL HISTORY OF 06/14/2012 left CMC arthroplasty PAST SURGICAL HISTORY OF Right right foot surgery- removal of neuromas RPR 1ST INGUN HRNA AGE 5 YRS/> REDUCIBLE Right 06/08/2015 INDIRECT - MEDIUM MESH PLUG SKIN BIOPSY HX ALLERGIES Bee Stings [Other] and Sulfa (Sulfonamide Antibiotics) MEDICATIONS dicyclomine (BENTYL) 10 mg capsule take 1 capsule by mouth twice a day with food omeprazole (PRILOSEC) 40 mg capsule Take 1 capsule by mouth once daily. lisinopril-hydroCHLOROthiazide (ZESTORETIC) 10-12.5 mg per tablet Take 1 tablet by mouth once daily. apixaban (ELIQUIS) 5 mg tab(s) Take 1 tablet by mouth twice daily. rosuvastatin (CRESTOR) 10 mg tablet take 1 tablet by mouth once daily triamcinolone acetonide (KENALOG) 0.1 % cream Apply 1 application to affected area three times daily. ketoconazole (NIZORAL) 2 % shampoo Apply 1 application to affected area three times a week. Lhscgzxrlttps-Tjlepoqg-Xhayiu (CENTRUM SILVER) tab Take 1 tablet by mouth once daily. CHOLECALCIFEROL (VITAMIN D3) 1,000 UNIT CAP Take one(1) tablet daily. FAMILY HISTORY Problem Relation Age of Onset Diabetes Mother [place] Heart Mother Heart Father mi ,kidney fail other (Other) Father LEUKEMIA Emphysema Brother Social History Tobacco Use Smoking status: Some Days Packs/day: 1.00 Years: 40.00 Additional pack years: 0.00 Total pack years: 40.00 Types: Cigarettes Smokeless tobacco: Never Tobacco comments: Less than a half pack a week Vaping Use Vaping Use: Never used Substance Use Topics Alcohol use: Yes Alcohol/week: 21.0 standard drinks of alcohol Types: 21 Cans of Beer (12oz) per week Comment: social - 2 beers a day on 05/07/2020 states 12 pack on weekends none during the week Drug use: No PHYSICAL EXAM BP 124/70 (BP Site: Left Arm, BP Position: Sitting, BP Cuff Size: Large Adult) Pulse 84 Temp 36.4 C (97.6 F) Resp 12 Ht 175.3 cm (5' 9 ) Wt 70.8 kg (156 lb) SpO2 97% BMI 23.04 kg/m General Appearance: well appearing, in no acute distress, alert Psych: mood and affect broad and appropriate Skin: Skin color, texture, turgor normal for age Lungs: Lungs clear to auscultation. No wheezing, rhonchi, rales. Heart: RRR without murmur, gallop, or rubs. Extremities: No gross deformities, significant edema, skin discoloration, clubbing or cyanosis. Neurological: Gait normal. No focal neurological deficits. Sensation grossly intact. HIV Screening Never done Shingrix Vaccine(1 of 2) Never done Pneumococcal Vaccine(2 of 2 - PCV) due on 05/01/2015 RSV Vaccine(1 - 1-dose 60+ series) Never done Influenza Vaccine(1) due on 03/02/2023 Lung Cancer Screening due on 04/12/2023 Depression Assessment due on 07/02/2023 Annual PCP Team Chronic Disease Visit due on 02/08/2024 BP Controlled (<130/80) due on 05/15/2024 Prostate Cancer Screening Discussion due on 11/03/2025 Diabetes Screening due on 02/08/2026 Lipid Screening due on 08/10/2027 Colorectal Cancer Screening due on 05/07/2028 DTaP,Tdap,Td Vaccine(5 - Td or Tdap) due on 07/25/2029 Hepatitis C Screening Completed Covid-19 Vaccine Completed ASSESSMENT/PLAN: 1. Annual physical exam - ICD9: V70.0, ICD10: Z00.00 (primary diagnosis) - Counseled on healthy diet and regular exercise - Risks/benefits of prostate cancer screening discussed. screening PSA ordered - Lung cancer screening recommended - Smoking cessation encouraged; discussed risks to health and quitting strategies. Patient is not ready to quit - Depression screening tool completed and reviewed with patient. Based on score and interview, patient is not at risk for depression and recommended no further intervention at this time. - DEPRESSION SCREENING/ASSESSMENT 2. Essential hypertension - ICD9: 401.9, ICD10: I10 - Controlled - Continue current medications - Recommend home blood pressure monitoring, to bring results to next visit - Encouraged sodium restriction, DASH or Mediterranean diet - Recommend regular aerobic exercise - CBC + DIFF - COMP METABOLIC PANEL 3. Mixed hyperlipidemia - ICD9: 272.2, ICD10: E78.2 - Control undetermined, due for labs - Continue current medications - Counseled on healthy diet and regular exercise - LIPID PANEL BASIC - COMP METABOLIC PANEL 4. Encounter for screening for lung cancer - ICD9: V76.0, ICD10: Z12.2 See above re: lung ca screening - CONSULT LUNG CANCER SCREENING CLINIC Benign physical exam findings. All preventative maintenance orders updated per above. Prescription instructions reviewed with patient as applicable. Potential red flag symptoms discussed with the patient. Reviewed appropriate action plan to take if red flag symptoms occur. Patient agreeable to treatment plan. Eduarda Cortes PA-C documented in this encounter [facility] 07-24-2023 Note Patient Outreach (IN [facility]) HAO CERON ([id number]) 1960 [facility] Date Time Provider Department 07/24/23 [place] [employer] During your visit today, we recorded the following information about you: Allergies As of Date: 07/24/2023 Noted Allergy Reaction bee stings [Other] 05/18/2005 2 - Rash 7 - Swelling SULFA (SULFONAMIDE ANTIBIOTICS) 05/18/2005 2 - Rash Date Reviewed: 05/15/2023 Reviewed by: Dalia Valdez LPN - Fully Assessed Visit Diagnosis:Mixed hyperlipidemia [E78.2] Order(s):LIPID PANEL BASIC [SQLIPB] Order #: [id number] FUTURE Prescriptions as of 07/27/2023 - dicyclomine (BENTYL) 10 mg capsule take 1 capsule by mouth twice a day with food - omeprazole (PRILOSEC) 40 mg capsule Take 1 capsule by mouth once daily. - lisinopril-hydroCHLOROthiazide (ZESTORETIC) 10-12.5 mg per tablet Take 1 tablet by mouth once daily. - apixaban (ELIQUIS) 5 mg tab(s) Take 1 tablet by mouth twice daily. - rosuvastatin (CRESTOR) 10 mg tablet take 1 tablet by mouth once daily - triamcinolone acetonide (KENALOG) 0.1 % cream Apply 1 application to affected area three times daily. - ketoconazole (NIZORAL) 2 % shampoo Apply 1 application to affected area three times a week. - Lwtmeabxyjefg-Nwneooaw-Tcbozd (CENTRUM SILVER) tab Take 1 tablet by mouth once daily. - CHOLECALCIFEROL (VITAMIN D3) 1,000 UNIT CAP Take one(1) tablet daily. 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] 09/12/2006 06/03/2015 SPRAIN OF FOOT NOS [S93.609A] 09/12/2006 11/15/2007 Esophagitis, unspecified [K20.90] 01/07/2007 04/29/2018 DIAPHRAGMATIC HERNIA [K44.9] 01/07/2007 Essential hypertension [I10] 11/15/2007 Psoriasis [L40.9] 11/15/2007 TOBACCO USE DISORDER [F17.200] 11/15/2007 Alcohol Intake 4 per day [F10.10] 11/15/2007 06/03/2015 Acute gastritis without mention of hemorrhage [*05/24/2009 06/03/2015 Hypercholesteremia [E78.00] 08/10/2010 05/24/2018 CMC arthritis, thumb, degenerative [M18.9] 06/14/2012 06/03/2015 Hiatal hernia [K44.9] 05/06/2015 Mild intermittent asthma without complication [*05/06/2015 05/18/2020 Right inguinal hernia [K40.90] 05/13/2015 11/19/2018 Pulmonary embolism without acute cor pulmonale *07/06/2015 Oral aphthae [K12.0] 07/06/2015 Coagulation defect (HCC) [D68.9] 07/30/2015 Anticardiolipin antibody positive [R76.0] 07/30/2015 Pringle's esophagus without dysplasia [K22.70] 04/04/2018 Encounter for screening for malignant neoplasm *04/04/2018 11/19/2018 Adenoma of right adrenal gland [D35.01] 05/24/2018 Liver lesion [K76.9] 05/24/2018 Encounter for screening for colorectal malignan*05/07/2023 History of pulmonary embolism [Z86.711] 05/08/2023 Encounter Status:Closed by Xhale, PRODUSER on 07/27/23 [facility] 05-15-2023 Note HNO ID: [id number] Author: Leigh Burnett MD Service: ? Author Type: Physician Type: Progress Notes Filed: 05/16/2023 12:37 PM Note Text: Hao Ceron 1960 REFERRING PHYSICIAN: Leigh Burnett MD CHIEF COMPLAINT: Follow Up (EGD and colonoscopy) HPI: The patient is a 63 year old male is s/p upper and lower endoscopy done on 05/07/2023. Pathology reveals FINAL DIAGNOSIS A. Stomach, antrum, biopsy: - Mild chronic inactive gastritis. - No morphologic evidence of Helicobacter pylori organisms. B. Esophagogastric junction, biopsy: - Squamous esophageal mucosa with basal zone hyperplasia and intraepithelial eosinophils (up to 5 eosinophils per high power field) suggestive of reflux esophagitis. - Inflamed cardiofundic-type mucosa with reactive epithelial changes. - No morphologic evidence of intestinal metaplasia or dysplasia. C. Colon, sigmoid, polypectomy: - Colonic mucosa with intramucosal lymphoid aggregate. - Negative for dysplasia. Patient notes not problems after procedure PAST MEDICAL HISTORY Diagnosis Date Acute gastritis without mention of hemorrhage Acute pericarditis, unspecified early Alcohol Intake 4 per day 11/15/2007 1 case beer per week Congenital tracheoesophageal fistula, esophageal atresia and stenosis Diaphragmatic hernia without mention of obstruction or gangrene Esophagitis, unspecified GERD (gastroesophageal reflux disease) Hiatal hernia Internal hemorrhoids without mention of complication Orchitis and epididymitis 09/13/2017 Other psoriasis Pulmonary embolism (HCC) Right foot infection post foot surgery Snoring Tobacco use disorder 11/15/2007 Unspecified essential hypertension 11/15/2007 PAST SURGICAL HISTORY Procedure Laterality Date COLONOSCOPY 05/07/2023 COLONOSCOPY FLX DX W/COLLJ SPEC WHEN PFRMD 05/24/2009 EGD 05/07/2023 EGD TRANSORAL BIOPSY SINGLE/MULTIPLE 05/24/2009 ESOPHAGOGASTRODUODENOSCOPY TRANSORAL DIAGNOSTIC 01/07/2007 EGD ESOPHAGOGASTRODUODENOSCOPY TRANSORAL DIAGNOSTIC 04/20/2014 EGD ESOPHAGOGASTRODUODENOSCOPY TRANSORAL DIAGNOSTIC 04/08/2018 EGD ESOPHAGOGASTRODUODENOSCOPY TRANSORAL DIAGNOSTIC 05/07/2020 EGD ESOPHAGOSCOPY FLEX BALLOON DILAT <30 MM DIAM 03/28/2007 EXC NEUROMA HAND/FOOT XCP DIGITAL NERVE Right 2 removed HERNIA REPAIR HX PAST SURGICAL HISTORY OF 06/14/2012 left [facility]MC arthroplasty PAST SURGICAL HISTORY OF Right right foot surgery- removal of neuromas RPR 1ST INGUN HRNA AGE 4 YRS/> REDUCIBLE Right 06/08/2015 INDIRECT - MEDIUM MESH PLUG SKIN BIOPSY HX Current Outpatient Medications Medication Sig omeprazole (PRILOSEC) 40 mg capsule Take 1 capsule by mouth once daily. lisinopril-hydroCHLOROthiazide (ZESTORETIC) 10-12.5 mg per tablet Take 1 tablet by mouth once daily. apixaban (ELIQUIS) 5 mg tab(s) Take 1 tablet by mouth twice daily. dicyclomine (BENTYL) 10 mg capsule take 1 capsule by mouth twice a day with food rosuvastatin (CRESTOR) 10 mg tablet take 1 tablet by mouth once daily triamcinolone acetonide (KENALOG) 0.1 % cream Apply 1 application to affected area three times daily. ketoconazole (NIZORAL) 2 % shampoo Apply 1 application to affected area three times a week. Uimssmkegaovg-Ozuuifrm-Naljvy (CENTRUM SILVER) tab Take 1 tablet by mouth once daily. CHOLECALCIFEROL (VITAMIN D3) 1,000 UNIT CAP Take one(1) tablet daily. No current facility-administered medications for this visit. ALLERGIES: Bee Stings [Other] and Sulfa (Sulfonamide Antibiotics) REVIEW OF SYSTEMS: Denies pain PHYSICAL EXAMINATION: General: The patient is 63 year old male, well nourished, well hydrated in no acute distress. The patient is oriented to time, place, and person. VITALS: Blood pressure 118/78, pulse 78, temperature 36.6 ?C (97.9 ?F), height 175.3 cm (5' 9 ), weight 72.7 kg (160 lb 3.2 oz), SpO2 99 %. Body mass index is 23.66 kg/m?. Head: Normal cephalic, atraumatic Eyes: pupils are equally round, sclera are clear/anicteric Neck is supple with no tracheal deviation Respiratory: Normal respiratory excursion and pattern. Abdominal exam: benign Extremities: no clubbing, cyanosis or edema. Neuro: non focal Psych: normal mood Assessment IMPRESSION: hiatal hernia with mild reflux esophagitis PLAN: I have discussed the above with the patient. I have reassured patient that he has no evidence of colonic neoplasia. I have rec'd surveillance colonoscopy in 2027. I have discussed patient's hiatal hernia/reflux esophagitis with patient. He notes minimal symptoms. I have rec'd continue surveillance for Pringle's with EGD in 2-3 years. Patient acknowledges the above.. I have answered all questions to the patient?s satisfaction and the patient has no further questions. HM updated and recall letter generated. I have confirmed and edited as necessary, the PFSH and ROS obtained by others. . Diagnoses: (Z86.010) History of colonic polyps (K22.70) Bar (more content not included)... [facility] 05-15-2023 History of Presen t illness Narrative Hao Ceron 1960 REFERRING PHYSICIAN: Leigh Burnett MD CHIEF COMPLAINT: Follow Up (EGD and colonoscopy) HPI: The patient is a 63 year old male is s/p upper and lower endoscopy done on 05/07/2023. Pathology reveals FINAL DIAGNOSIS A. Stomach, antrum, biopsy: - Mild chronic inactive gastritis. - No morphologic evidence of Helicobacter pylori organisms. B. Esophagogastric junction, biopsy: - Squamous esophageal mucosa with basal zone hyperplasia and intraepithelial eosinophils (up to 5 eosinophils per high power field) suggestive of reflux esophagitis. - Inflamed cardiofundic-type mucosa with reactive epithelial changes. - No morphologic evidence of intestinal metaplasia or dysplasia. C. Colon, sigmoid, polypectomy: - Colonic mucosa with intramucosal lymphoid aggregate. - Negative for dysplasia. Patient notes not problems after procedure PAST MEDICAL HISTORY Diagnosis Date Acute gastritis without mention of hemorrhage Acute pericarditis, unspecified early Alcohol Intake 4 per day 11/15/2007 1 case beer per week Congenital tracheoesophageal fistula, esophageal atresia and stenosis Diaphragmatic hernia without mention of obstruction or gangrene Esophagitis, unspecified GERD (gastroesophageal reflux disease) Hiatal hernia Internal hemorrhoids without mention of complication Orchitis and epididymitis 09/13/2017 Other psoriasis Pulmonary embolism (HCC) Right foot infection post foot surgery Snoring Tobacco use disorder 11/15/2007 Unspecified essential hypertension 11/15/2007 PAST SURGICAL HISTORY Procedure Laterality Date COLONOSCOPY 05/07/2023 COLONOSCOPY FLX DX W/COLLJ SPEC WHEN PFRMD 05/24/2009 EGD 05/07/2023 EGD TRANSORAL BIOPSY SINGLE/MULTIPLE 05/24/2009 ESOPHAGOGASTRODUODENOSCOPY TRANSORAL DIAGNOSTIC 01/07/2007 EGD ESOPHAGOGASTRODUODENOSCOPY TRANSORAL DIAGNOSTIC 04/20/2014 EGD ESOPHAGOGASTRODUODENOSCOPY TRANSORAL DIAGNOSTIC 04/08/2018 EGD ESOPHAGOGASTRODUODENOSCOPY TRANSORAL DIAGNOSTIC 05/07/2020 EGD ESOPHAGOSCOPY FLEX BALLOON DILAT <30 MM DIAM 03/28/2007 EXC NEUROMA HAND/FOOT XCP DIGITAL NERVE Right 2 removed HERNIA REPAIR HX PAST SURGICAL HISTORY OF 06/14/2012 left [facility]MC arthroplasty PAST SURGICAL HISTORY OF Right right foot surgery- removal of neuromas RPR 1ST INGUN HRNA AGE 5 YRS/> REDUCIBLE Right 06/08/2015 INDIRECT - MEDIUM MESH PLUG SKIN BIOPSY HX Current Outpatient Medications Medication Sig omeprazole (PRILOSEC) 40 mg capsule Take 1 capsule by mouth once daily. lisinopril-hydroCHLOROthiazide (ZESTORETIC) 10-12.5 mg per tablet Take 1 tablet by mouth once daily. apixaban (ELIQUIS) 5 mg tab(s) Take 1 tablet by mouth twice daily. dicyclomine (BENTYL) 10 mg capsule take 1 capsule by mouth twice a day with food rosuvastatin (CRESTOR) 10 mg tablet take 1 tablet by mouth once daily triamcinolone acetonide (KENALOG) 0.1 % cream Apply 1 application to affected area three times daily. ketoconazole (NIZORAL) 2 % shampoo Apply 1 application to affected area three times a week. Cojejxaodmatu-Pzgcrsus-Lqamhi (CENTRUM SILVER) tab Take 1 tablet by mouth once daily. CHOLECALCIFEROL (VITAMIN D3) 1,000 UNIT CAP Take one(1) tablet daily. No current facility-administered medications for this visit. ALLERGIES: Bee Stings [Other] and Sulfa (Sulfonamide Antibiotics) REVIEW OF SYSTEMS: Denies pain PHYSICAL EXAMINATION: General: The patient is 63 year old male, well nourished, well hydrated in no acute distress. The patient is oriented to time, place, and person. VITALS: Blood pressure 118/78, pulse 78, temperature 36.6 C (97.9 F), height 175.3 cm (5' 9 ), weight 72.7 kg (160 lb 3.2 oz), SpO2 99 %. Body mass index is 23.66 kg/m . Head: Normal cephalic, atraumatic Eyes: pupils are equally round, sclera are clear/anicteric Neck is supple with no tracheal deviation Respiratory: Normal respiratory excursion and pattern. Abdominal exam: benign Extremities: no clubbing, cyanosis or edema. Neuro: non focal Psych: normal mood Assessment IMPRESSION: hiatal hernia with mild reflux esophagitis PLAN: I have discussed the above with the patient. I have reassured patient that he has no evidence of colonic neoplasia. I have rec'd surveillance colonoscopy in 2027. I have discussed patient's hiatal hernia/reflux esophagitis with patient. He notes minimal symptoms. I have rec'd continue surveillance for Pringle's with EGD in 2-3 years. Patient acknowledges the above.. I have answered all questions to the patient s satisfaction and the patient has no further questions. HM updated and recall letter generated. I have confirmed and edited as necessary, the PFSH and ROS obtained by others. . Diagnoses: (Z86.010) History of colonic polyps (K22.70) Pringle's esophagus without dysplasia I spent a total of 15 minutes on the date of the service which included preparing to see the patient with review of any pertinent laboratory studies/radiological imaging/medical records, [id number] patient care, obtaining oral medical history from the patient in this encounter, counseling and educating the patient/family/caregiver, and ordering and/or scheduling of medications/tests/procedures, and completing appropriate medical documentation. Leigh Burnett MD documented in this encounter [facility] 05-08-2023 Note HNO ID: [id number] Author: Jaswinder Scott, DO Service: ? Author Type: Physician Type: Progress Notes Filed: 05/08/2023 9:25 AM Note Text: Hematologic problems: 1) Pulmonary embolism. 2) Low level positive beta-2 glycoprotein IgM. HPI: The patient is a 63 yo male with a PMH significant for HTN and GERD. Patient underwent an outpatient inguinal herniorrhaphy on 06/08/2015. The following morning experienced chest pain and presented to the emergency department. CTA of the chest revealed bilateral pulmonary emboli albeit small. Bullous changes in the right lung apex and a small left pleural effusion were observed. Duplex ultrasound legs revealed no evidence of thrombus. CT scan the abdomen and pelvis showed no evidence of malignancy and only showed changes consistent with recent herniorrhaphy. Was anticoagulated with Xarelto and discharged. Hypercoagulability testing that was done when he was in the hospital included a normal protein C antigen. Protein C functional activity was normal. Antithrombin was normal. Testing for factor V Leiden was negative. There was a mild (indeterminate) elevation of IgM anticardiolipin antibody. Had neuromas removed right foot 2018. Interim history: Rotated back to apixaban 6 months ago when lupus anticoagulant testing was negative. There was a low level anticardiolipin antibody. No bleeding issues. Pack of cigarettes still lasts ~2 weeks--confirmed. No respiratory symptoms. specifically no cough, chest pain or hemoptysis. No dyspnea at rest or with exertion. 15 min on elliptical 5 times a week. No lower extremity pain, swelling or edema. Continues to work full-time ten-hour second shift at [employer]. Will retire 01/2024. Sex: Male. Smoker: Yes. BMI: 24.6. Family h/o VTE: No. Family h/o atherosclerotic disease: Yes. Family h/o cancer: Father--?chronic leukemia. Up to date on age and gender appropriate cancer screening studies: Yes.. Risk factors: Anticardiolipin antibody. PMH, medications and allergies personally reviewed by me today. Any changes documented in appropriate section. ROS: Constitutional: Denies episodes of fever and night sweats. Not significantly fatigued. Normal appetite. Neuro: Denies COX, vertigo, dizziness and imbalance. Denies symptoms of neuropathy. HEENT: No recent change in voice, vision or hearing. Resp: See above. CVS: Denies exertional chest pain, PND, orthopnea and LE edema. GI: Denies dysgeusia. Denies symptoms of stomatitis. Denies dysphagia and odynophagia. Denies reflux, n/v, change in bowel habits and abdominal pain. : Denies dysuria or gross hematuria. No symptoms of bladder outlet obstruction. Endo: Denies hot flashes. Denies polyuria and polydipsia. Denies heat and cold intolerance. Musculoskeletal: Denies bone, back, joint and muscular pain. Derm: Denies rash. Denies jaundice and diffuse pruritis. Heme: See above. Psych: Normal mood. PHYSICAL EXAM: Vitals: Blood pressure 135/76, pulse 73, temperature 36.9 ?C (98.5 ?F), height 174 cm (5' 8.5 ), weight 72.1 kg (159 lb), SpO2 98 %. Well-appearing and in no acute distress. EYES: Sclerae are anicteric bilaterally. NECK: Supple. LYMPHATIC: There is no palpable cervical or supraclavicular adenopathy. RESPIRATORY: Inspiratory breath sounds are of normal intensity in all mckeon. No rales, wheezes or rhonchi. CARDIOVASCULAR: Rhythm is regular. Normal intensity S1/S2. ABDOMEN: The abdomen is nondistended. No organomegaly. No tenderness. Extremities: No swelling or edema. SKIN: No jaundice or rash. No petechiae. NEUROLOGIC: tank cleaner II-XII are grossly intact. No focal motor weakness. MUSCULOSKELETAL: No muscle wasting. 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 Work up revealed low level anticardiolipin antibody. -Tolerating anticoagulation well with no unusual bleeding or unexplained bruising. -Still had low level anticardiolipin IgM antibody. -Unclear if original PE may have been in part due to underlying antiphospholipid antibody syndrome. -We again discussed the risks and benefits of continuing anticoagulation and he prefers to continue. This is reasonable since risk for bleeding is low. -Longer-term plan will be to continue following antibody titers and once undetectable for period of 3 months or more then consider stopping anticoagulation. -Again discussed the importance of smoking cessation. He has been working to taper down slowly over time. -He had annual influenza and the new COVID vaccination. Plan: -Advised RSV vaccination. -CBC/anticardiolipin antibodies and office visit in about a year. -Follow-up with PCP for management of other modifiable cardiovascular risk factors and general health care needs. Portions of this documentation were copied and p (more content not included)... [facility] 05-08-2023 History of Presen t illness Narrative Hematologic problems: 1) Pulmonary embolism. 2) Low level positive beta-2 glycoprotein IgM. HPI: The patient is a 63 yo male with a PMH significant for HTN and GERD. Patient underwent an outpatient inguinal herniorrhaphy on 06/08/2015. The following morning experienced chest pain and presented to the emergency department. CTA of the chest revealed bilateral pulmonary emboli albeit small. Bullous changes in the right lung apex and a small left pleural effusion were observed. Duplex ultrasound legs revealed no evidence of thrombus. CT scan the abdomen and pelvis showed no evidence of malignancy and only showed changes consistent with recent herniorrhaphy. Was anticoagulated with Xarelto and discharged. Hypercoagulability testing that was done when he was in the hospital included a normal protein C antigen. Protein C functional activity was normal. Antithrombin was normal. Testing for factor V Leiden was negative. There was a mild (indeterminate) elevation of IgM anticardiolipin antibody. Had neuromas removed right foot 2018. Interim history: Rotated back to apixaban 6 months ago when lupus anticoagulant testing was negative. There was a low level anticardiolipin antibody. No bleeding issues. Pack of cigarettes still lasts ~2 weeks--confirmed. No respiratory symptoms. specifically no cough, chest pain or hemoptysis. No dyspnea at rest or with exertion. 15 min on elliptical 5 times a week. No lower extremity pain, swelling or edema. Continues to work full-time ten-hour second shift at [employer]. Will retire 01/2024. Sex: Male. Smoker: Yes. BMI: 24.6. Family h/o VTE: No. Family h/o atherosclerotic disease: Yes. Family h/o cancer: Father--?chronic leukemia. Up to date on age and gender appropriate cancer screening studies: Yes.. Risk factors: Anticardiolipin antibody. PMH, medications and allergies personally reviewed by me today. Any changes documented in appropriate section. ROS: Constitutional: Denies episodes of fever and night sweats. Not significantly fatigued. Normal appetite. Neuro: Denies COX, vertigo, dizziness and imbalance. Denies symptoms of neuropathy. HEENT: No recent change in voice, vision or hearing. Resp: See above. CVS: Denies exertional chest pain, PND, orthopnea and LE edema. GI: Denies dysgeusia. Denies symptoms of stomatitis. Denies dysphagia and odynophagia. Denies reflux, n/v, change in bowel habits and abdominal pain. : Denies dysuria or gross hematuria. No symptoms of bladder outlet obstruction. Endo: Denies hot flashes. Denies polyuria and polydipsia. Denies heat and cold intolerance. Musculoskeletal: Denies bone, back, joint and muscular pain. Derm: Denies rash. Denies jaundice and diffuse pruritis. Heme: See above. Psych: Normal mood. PHYSICAL EXAM: Vitals: Blood pressure 135/76, pulse 73, temperature 36.9 C (98.5 F), height 174 cm (5' 8.5 ), weight 72.1 kg (159 lb), SpO2 98 %. Well-appearing and in no acute distress. EYES: Sclerae are anicteric bilaterally. NECK: Supple. LYMPHATIC: There is no palpable cervical or supraclavicular adenopathy. RESPIRATORY: Inspiratory breath sounds are of normal intensity in all mckeon. No rales, wheezes or rhonchi. CARDIOVASCULAR: Rhythm is regular. Normal intensity S1/S2. ABDOMEN: The abdomen is nondistended. No organomegaly. No tenderness. Extremities: No swelling or edema. SKIN: No jaundice or rash. No petechiae. NEUROLOGIC: tank cleaner II-XII are grossly intact. No focal motor weakness. MUSCULOSKELETAL: No muscle wasting. 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 Work up revealed low level anticardiolipin antibody. -Tolerating anticoagulation well with no unusual bleeding or unexplained bruising. -Still had low level anticardiolipin IgM antibody. -Unclear if original PE may have been in part due to underlying antiphospholipid antibody syndrome. -We again discussed the risks and benefits of continuing anticoagulation and he prefers to continue. This is reasonable since risk for bleeding is low. -Longer-term plan will be to continue following antibody titers and once undetectable for period of 3 months or more then consider stopping anticoagulation. -Again discussed the importance of smoking cessation. He has been working to taper down slowly over time. -He had annual influenza and the new COVID vaccination. Plan: -Advised RSV vaccination. -CBC/anticardiolipin antibodies and office visit in about a year. -Follow-up with PCP for management of other modifiable cardiovascular risk factors and general health care needs. Portions of this documentation were copied and pasted from previous office visit notes in order to provide a cohesive continuity of the history. The note has been reviewed and edited and updated as necessary. I spent a total of 20 minutes on the date of the service which included preparing to see the patient, [id number] patient care, completing clinical documentation, obtaining and/or reviewing separately obtained history, performing a medically appropriate examination, counseling and educating the patient/family/caregiver, ordering medications, tests, or procedures, communicating with other HCPs (not separately reported), and communicating results to the patient/family/caregiver. Jaswinder Scott DO documented in this encounter [facility] 05-07-2023 Note HNO ID: [id number] Author: Kya Carpenter RN Service: ? Author Type: Registered Nurse Type: Nursing Progress Note Filed: 05/07/2023 10:45 AM Note Text: Abdomen soft non-distended. Will continue to monitor. [facility] 05-07-2023 Nurse Note Abdomen soft non-distended. Will continue to monitor. documented in this encounter [facility] 05-07-2023 History and physical note UPDATED PROCEDURAL SEDATION HISTORY AND PHYSICAL EXAMINATION SERVICE DATE: 05/07/2023 SERVICE TIME: 9:38 PHYSICAL EXAM MUST BE COMPLETED ON ADMISSION PROCEDURE: EGD/colonoscopy, possible biopsies Procedure Indications: Pringle's, history of colon polyps The History and Physical (completed in the past 30 days) has been reviewed and the patient has been examined. The contents accurately reflect the patient's condition with the following additions or revisions since the H&P was completed. ASA Class: ASA Class:: Patient with mild systemic disease Examination indicates no changes. AIRWAY: Airway Visualization of Uvula: Yes Mouth opening greater than 2 fingerbreadths: Yes Neck Full Range of Motion: Yes LUNGS: Lungs clear to auscultation CARDIAC: Regular rhythm,Regular rate Provisional Diagnosis/Treatment Plan: EGD/colonoscopy, possible biopsies SEDATION GOAL: Moderate This H&P can be found in the Electronic Medical Record. SIGNATURE: Leigh Burnett MD PATIENT NAME: Hao Ceron DATE: May 07, 2023 TIME: 9:39 AM Source Note - Leigh Burnett MD - 05/07/2023 10:15 AM EST HISTORY AND PHYSICAL Hao [place] 1960 REFERRING PHYSICIAN: No ref. provider found CHIEF COMPLAINT: Consult (Colonoscopy consult. ) HPI: The patient is a 63 year old male referred for endoscopy. Hao notes history of colon polyps. Patient denies any change in bowel habits, weight changes, blood in stools, black tarry stools or abdominal pain. Denies family history of colon issues. The patient notes history of Pringle's esophagus and is due for surveillance EGD. Denies any worsening reflux issues. Hao has undergone prior endoscopy. Most recent EGD 05/07/20, last colonoscopy 04/08/18 with removal of adenomatous polyp. Patient denies chest pain, shortness of breath or recent hospitalizations. Denies problems with sedation in the past. PAST MEDICAL HISTORY PAST MEDICAL HISTORY Diagnosis Date Acute gastritis without mention of hemorrhage Acute pericarditis, unspecified early Alcohol Intake 4 per day 11/15/2007 1 case beer per week Congenital tracheoesophageal fistula, esophageal atresia and stenosis Diaphragmatic hernia without mention of obstruction or gangrene Esophagitis, unspecified GERD (gastroesophageal reflux disease) Hiatal hernia Internal hemorrhoids without mention of complication Orchitis and epididymitis 09/13/2017 Other psoriasis Pulmonary embolism (HCC) Right foot infection post foot surgery Snoring Tobacco use disorder 11/15/2007 Unspecified essential hypertension 11/15/2007 PAST SURGICAL HISTORY PAST SURGICAL HISTORY Procedure Laterality Date COLONOSCOPY FLX DX W/COLLJ SPEC WHEN PFRMD 05/24/09 EGD TRANSORAL BIOPSY SINGLE/MULTIPLE 05/24/09 ESOPHAGOGASTRODUODENOSCOPY TRANSORAL DIAGNOSTIC 01/07/2007 EGD ESOPHAGOGASTRODUODENOSCOPY TRANSORAL DIAGNOSTIC 04/20/2014 EGD ESOPHAGOGASTRODUODENOSCOPY TRANSORAL DIAGNOSTIC 04/08/2018 EGD ESOPHAGOGASTRODUODENOSCOPY TRANSORAL DIAGNOSTIC 05/07/2020 EGD ESOPHAGOSCOPY FLEX BALLOON DILAT <30 MM DIAM 03/28/07 EXC NEUROMA HAND/FOOT XCP DIGITAL NERVE Right 2 removed HERNIA REPAIR HX PAST SURGICAL HISTORY OF 06/14/2012 left CMC arthroplasty PAST SURGICAL HISTORY OF Right right foot surgery- removal of neuromas RPR 1ST INGUN HRNA AGE 5 YRS/> REDUCIBLE Right 06/08/15 INDIRECT - MEDIUM MESH PLUG CURRENT MEDICATIONS Current Outpatient Medications Medication Sig lisinopril-hydroCHLOROthiazide (ZESTORETIC) 10-12.5 mg per tablet Take 1 tablet by mouth once daily. apixaban (ELIQUIS) 5 mg tab(s) Take 1 tablet by mouth twice daily. dicyclomine (BENTYL) 10 mg capsule take 1 capsule by mouth twice a day with food rosuvastatin (CRESTOR) 10 mg tablet take 1 tablet by mouth once daily omeprazole (PRILOSEC) 40 mg capsule Take 1 capsule by mouth once daily. triamcinolone acetonide (KENALOG) 0.1 % cream Apply 1 application to affected area three times daily. ketoconazole (NIZORAL) 2 % shampoo Apply 1 application to affected area three times a week. Knkdxxzfcxoux-Zafonfug-Ynibkb (CENTRUM SILVER) tab Take 1 tablet by mouth once daily. CHOLECALCIFEROL (VITAMIN D3) 1,000 UNIT CAP Take one(1) tablet daily. No current facility-administered medications for this visit. ALLERGIES: Bee Stings [Other] and Sulfa (Sulfonamide Antibiotics) PERSONAL HISTORY: SOCIAL HISTORY Social History Tobacco Use Smoking status: Some Days Packs/day: 1.00 Years: 40.00 Additional pack years: 0.00 Total pack years: 40.00 Types: Cigarettes Smokeless tobacco: Never Tobacco comments: Less than a half pack a week Vaping Use Vaping Use: Never used Substance Use Topics Alcohol use: Yes Alcohol/week: 52.5 standard drinks of alcohol Types: 21 Cans of Beer (12oz) per week Comment: social - 2 beers a day on 05/07/2020 states 12 pack on weekends none during the week Drug use: No FAMILY HISTORY: FAMILY HISTORY FAMILY HISTORY Problem Relation Age of Onset Diabetes Mother [place] Heart Mother Heart Father mi ,kidney fail other (Other) Father LEUKEMIA Emphysema Brother REVIEW OF SYMPTOMS: The review of systems data was entered by the nurse and reviewed by ga Nursing Notes: Keshia Feldman RN 03/13/2023 8:53 AM Signed REVIEW OF SYSTEMS: General: The patient denies fatigue, denies weight loss, denies weight gain, denies feeling hot, and denies feelings of cold. Eyes: The patient denies glaucoma, denies eye injury/surgery, wears glasses or contacts. Ear/Nose/Throat: The patient NOTES allergies, denies hayfever, denies ear infections, and denies bloody noses. Cardiovascular: The patient denies chest pain, denies heart disease, NOTES high blood pressure,denies cardiac stent, denies prior heart attack, denies irregular heart beat, denies high cholesterol, denies poor circulation, denies heart failure, other cardiac issues, denies claudication, denies cold feet, denies peripheral arterial stent. Respiratory: The patient denies tuberculosis, denies pneumonia, denies frequent cough, denies pulmonary embolism, denies shortness of breath, and denies coughing up blood. Gastrointestinal: The patient denies difficulty swallowing, NOTES acid reflux, denies ulcers, denies vomiting, denies jaundice/hepatitis, denies gallbladder problems, denies black or tarry stools, NOTES hemorrhoids, denies bleeding from rectum, denies diverticulitis, denies constipation, denies diarrhea, denies loss of stool control, and NOTES hernias. Kidney/Bladder: The patient denies kidney stones, denies urine infections, and denies bloody urine. Skin: The patient denies a history of skin cancer, denies bleeding/changing moles, and NOTES a history of skin rash. Neurologic: The patient denies a history of epilepsy/convulsions, denies headaches, denies head/spinal injuries, and denies stroke/TIA. Psychiatric: The patient denies psychiatric medications, denies depression, and denies voices, denies substance abuse. Endocrine: The patient denies thyroid disorders, denies diabetes, and denies hormonal problems. Hematologic: The patient denies a history of bruising, denies bleeding, and denies anemia, denies blood clots. Infections: The patient denies a history of measles and mumps, denies rheumatic fever, and denies sexually transmitted diseases. Musculoskeletal: The patient denies back pain/injury, denies back problems, denies sciatica, denies knee/foot trouble, denies arthritis, or denies gout. When was patient's last Mammogram screening? N/A Last Colonoscopy: 2018 Keshia Feldman RN I have confirmed and edited as necessary, the PFSH and ROS obtained by others. Melissa Fuentes PA-C PHYSICAL EXAMINATION: General: The patient is 63 year old male, well nourished, well hydrated in no acute distress. The patient is oriented to time, place, and person. VITALS: Blood pressure 127/72, pulse 79, temperature 36.7 C (98.1 F), height 175.3 cm (5' 9 ), weight 72.8 kg (160 lb 9.6 oz), SpO2 99 %. Body mass index is 23.72 kg/m . HEENT: Normal cephalic, ataumatic, pupils are equally round, sclera are anicteric, mucous membranes are moist, oropharynx is clear. Neck has no masses, asymmetry or lymphadenopathy. Respiratory: Clear to auscultation and percussion. Normal respiratory excursion and pattern. Cardiac: Examination is regular rate and rhythm. Normal S1/S2 Abdominal exam: Soft, nontender, with no palpable masses. No hepatosplenomegaly. No palpable hernias. Extremities: no clubbing, cyanosis or edema. No adenopathy. LABORATORY VALUES: As Noted RADIOLOGIC STUDIES: As Noted Assessment IMPRESSION: history of colon polyps, encounter for surveillance colonoscopy. Pringle's esophagus PLAN: I have reviewed my findings with the surgeon. Will plan for upper and lower endoscopy. We discussed the risks and benefits of the planned endoscopy. I have informed the patient that complications can occur including failure to complete the endoscopy and perforation. The patient had the opportunity to ask questions concerning the planned endoscopy. My staff has also explained the procedure to the patient in understandable terms and has given the patient printed material concerning the procedure. The patient freely consents to surgery. I plan to use Golytely bowel preparation Patient to remain on anticoagulation for endoscopy Diagnoses: (Z12.11) Encounter for screening for malignant neoplasm of colon (primary encounter diagnosis) (Z86.010) History of colonic polyps (K22.70) Pringle's esophagus without dysplasia Consultation requested by Dr. Coats for an opinion regarding history of colon polyps. My final recommendations will be communicated back to the requesting physician by way of shared Medical record or letter to requesting physician via US mail. Melissa Fuentes PA-C HISTORY AND PHYSICAL Hao [place] 1960 REFERRING PHYSICIAN: No ref. provider found CHIEF COMPLAINT: Consult (Colonoscopy consult. ) HPI: The patient is a 63 year old male referred for endoscopy. Hao notes history of colon polyps. Patient denies any change in bowel habits, weight changes, blood in stools, black tarry stools or abdominal pain. Denies family history of colon issues. The patient notes history of Pringle's esophagus and is due for surveillance EGD. Denies any worsening reflux issues. Hao has undergone prior endoscopy. Most recent EGD 05/07/20, last colonoscopy 04/08/18 with removal of adenomatous polyp. Patient denies chest pain, shortness of breath or recent hospitalizations. Denies problems with sedation in the past. PAST MEDICAL HISTORY PAST MEDICAL HISTORY Diagnosis Date Acute gastritis without mention of hemorrhage Acute pericarditis, unspecified early Alcohol Intake 4 per day 11/15/2007 1 case beer per week Congenital tracheoesophageal fistula, esophageal atresia and stenosis Diaphragmatic hernia without mention of obstruction or gangrene Esophagitis, unspecified GERD (gastroesophageal reflux disease) Hiatal hernia Internal hemorrhoids without mention of complication Orchitis and epididymitis 09/13/2017 Other psoriasis Pulmonary embolism (HCC) Right foot infection post foot surgery Snoring Tobacco use disorder 11/15/2007 Unspecified essential hypertension 11/15/2007 PAST SURGICAL HISTORY PAST SURGICAL HISTORY Procedure Laterality Date COLONOSCOPY FLX DX W/COLLJ SPEC WHEN PFRMD 05/24/09 EGD TRANSORAL BIOPSY SINGLE/MULTIPLE 05/24/09 ESOPHAGOGASTRODUODENOSCOPY TRANSORAL DIAGNOSTIC 01/07/2007 EGD ESOPHAGOGASTRODUODENOSCOPY TRANSORAL DIAGNOSTIC 04/20/2014 EGD ESOPHAGOGASTRODUODENOSCOPY TRANSORAL DIAGNOSTIC 04/08/2018 EGD ESOPHAGOGASTRODUODENOSCOPY TRANSORAL DIAGNOSTIC 05/07/2020 EGD ESOPHAGOSCOPY FLEX BALLOON DILAT <30 MM DIAM 03/28/07 EXC NEUROMA HAND/FOOT XCP DIGITAL NERVE Right 2 removed HERNIA REPAIR HX PAST SURGICAL HISTORY OF 06/14/2012 left CMC arthroplasty PAST SURGICAL HISTORY OF Right right foot surgery- removal of neuromas RPR 1ST INGUN HRNA AGE 4 YRS/> REDUCIBLE Right 06/08/15 INDIRECT - MEDIUM MESH PLUG CURRENT MEDICATIONS Current Outpatient Medications Medication Sig lisinopril-hydroCHLOROthiazide (ZESTORETIC) 10-12.5 mg per tablet Take 1 tablet by mouth once daily. apixaban (ELIQUIS) 5 mg tab(s) Take 1 tablet by mouth twice daily. dicyclomine (BENTYL) 10 mg capsule take 1 capsule by mouth twice a day with food rosuvastatin (CRESTOR) 10 mg tablet take 1 tablet by mouth once daily omeprazole (PRILOSEC) 40 mg capsule Take 1 capsule by mouth once daily. triamcinolone acetonide (KENALOG) 0.1 % cream Apply 1 application to affected area three times daily. ketoconazole (NIZORAL) 2 % shampoo Apply 1 application to affected area three times a week. Gfenddlryxakg-Grdnqgzd-Arosyo (CENTRUM SILVER) tab Take 1 tablet by mouth once daily. CHOLECALCIFEROL (VITAMIN D3) 1,000 UNIT CAP Take one(1) tablet daily. No current facility-administered medications for this visit. ALLERGIES: Bee Stings [Other] and Sulfa (Sulfonamide Antibiotics) PERSONAL HISTORY: SOCIAL HISTORY Social History Tobacco Use Smoking status: Some Days Packs/day: 1.00 Years: 40.00 Additional pack years: 0.00 Total pack years: 40.00 Types: Cigarettes Smokeless tobacco: Never Tobacco comments: Less than a half pack a week Vaping Use Vaping Use: Never used Substance Use Topics Alcohol use: Yes Alcohol/week: 52.5 standard drinks of alcohol Types: 21 Cans of Beer (12oz) per week Comment: social - 2 beers a day on 05/07/2020 states 12 pack on weekends none during the week Drug use: No FAMILY HISTORY: FAMILY HISTORY FAMILY HISTORY Problem Relation Age of Onset Diabetes Mother [place] Heart Mother Heart Father mi ,kidney fail other (Other) Father LEUKEMIA Emphysema Brother REVIEW OF SYMPTOMS: The review of systems data was entered by the nurse and reviewed by me Nursing Notes: Keshia Feldman RN 03/13/2023 8:53 AM Signed REVIEW OF SYSTEMS: General: The patient denies fatigue, denies weight loss, denies weight gain, denies feeling hot, and denies feelings of cold. Eyes: The patient denies glaucoma, denies eye injury/surgery, wears glasses or contacts. Ear/Nose/Throat: The patient NOTES allergies, denies hayfever, denies ear infections, and denies bloody noses. Cardiovascular: The patient denies chest pain, denies heart disease, NOTES high blood pressure,denies cardiac stent, denies prior heart attack, denies irregular heart beat, denies high cholesterol, denies poor circulation, denies heart failure, other cardiac issues, denies claudication, denies cold feet, denies peripheral arterial stent. Respiratory: The patient denies tuberculosis, denies pneumonia, denies frequent cough, denies pulmonary embolism, denies shortness of breath, and denies coughing up blood. Gastrointestinal: The patient denies difficulty swallowing, NOTES acid reflux, denies ulcers, denies vomiting, denies jaundice/hepatitis, denies gallbladder problems, denies black or tarry stools, NOTES hemorrhoids, denies bleeding from rectum, denies diverticulitis, denies constipation, denies diarrhea, denies loss of stool control, and NOTES hernias. Kidney/Bladder: The patient denies kidney stones, denies urine infections, and denies bloody urine. Skin: The patient denies a history of skin cancer, denies bleeding/changing moles, and NOTES a history of skin rash. Neurologic: The patient denies a history of epilepsy/convulsions, denies headaches, denies head/spinal injuries, and denies stroke/TIA. Psychiatric: The patient denies psychiatric medications, denies depression, and denies voices, denies substance abuse. Endocrine: The patient denies thyroid disorders, denies diabetes, and denies hormonal problems. Hematologic: The patient denies a history of bruising, denies bleeding, and denies anemia, denies blood clots. Infections: The patient denies a history of measles and mumps, denies rheumatic fever, and denies sexually transmitted diseases. Musculoskeletal: The patient denies back pain/injury, denies back problems, denies sciatica, denies knee/foot trouble, denies arthritis, or denies gout. When was patient's last Mammogram screening? N/A Last Colonoscopy: 2018 Keshia Feldman RN I have confirmed and edited as necessary, the PFSH and ROS obtained by others. Melissa Fuentes PA-C PHYSICAL EXAMINATION: General: The patient is 63 year old male, well nourished, well hydrated in no acute distress. The patient is oriented to time, place, and person. VITALS: Blood pressure 127/72, pulse 79, temperature 36.7 C (98.1 F), height 175.3 cm (5' 9 ), weight 72.8 kg (160 lb 9.6 oz), SpO2 99 %. Body mass index is 23.72 kg/m . HEENT: Normal cephalic, ataumatic, pupils are equally round, sclera are anicteric, mucous membranes are moist, oropharynx is clear. Neck has no masses, asymmetry or lymphadenopathy. Respiratory: Clear to auscultation and percussion. Normal respiratory excursion and pattern. Cardiac: Examination is regular rate and rhythm. Normal S1/S2 Abdominal exam: Soft, nontender, with no palpable masses. No hepatosplenomegaly. No palpable hernias. Extremities: no clubbing, cyanosis or edema. No adenopathy. LABORATORY VALUES: As Noted RADIOLOGIC STUDIES: As Noted Assessment IMPRESSION: history of colon polyps, encounter for surveillance colonoscopy. Pringle's esophagus PLAN: I have reviewed my findings with the surgeon. Will plan for upper and lower endoscopy. We discussed the risks and benefits of the planned endoscopy. I have informed the patient that complications can occur including failure to complete the endoscopy and perforation. The patient had the opportunity to ask questions concerning the planned endoscopy. My staff has also explained the procedure to the patient in understandable terms and has given the patient printed material concerning the procedure. The patient freely consents to surgery. I plan to use Golytely bowel preparation Patient to remain on anticoagulation for endoscopy Diagnoses: (Z12.11) Encounter for screening for malignant neoplasm of colon (primary encounter diagnosis) (Z86.010) History of colonic polyps (K22.70) Pringle's esophagus without dysplasia Consultation requested by Dr. Coats for an opinion regarding history of colon polyps. My final recommendations will be communicated back to the requesting physician by way of shared Medical record or letter to requesting physician via US mail. Melissa Fuentes PA-C documented in this encounter [facility] 04-30-2023 Miscellaneous Notes Called and updated patient to stay on blood thinner per Office note. Resent Golytely instructions via [employer] to update patient. Dalia Valdez LPN Patient called has a EDG&COL scheduled for 05/07 patient asking how to take his medication that day because he is on a blood thinner he can be reached at [phone] Please advise documented in this encounter [facility] 04-30-2023 Miscellaneous Notes Patient has been identified by name and date of : No Patient phones for refill(s): Requested Prescriptions Pending Prescriptions Disp Refills omeprazole (PRILOSEC) 40 mg capsule 90 capsule 3 Sig: Take 1 capsule by mouth once daily. Date of last office visit in primary care: 02/07/2023 Date of next office visit in primary care: 08/10/2023 Last 2 Encounter Wt Readings: Date: Wt: 03/13/2023 72.8 kg (160 lb 9.6 oz) 03/09/2023 73 kg (161 lb) Previous labs/tests for medication: Not applicable Please advise. Thank you. Maryjane Vazquez. Patient has been identified by name and date of : Yes Last office visit in this department: 02/07/2023 RX INSTRUCTIONS: Patient aware RX will be sent to pharmacy. No need to notify patient. Patient phones requesting refills as follows: Requested Prescriptions Pending Prescriptions Disp Refills omeprazole (PRILOSEC) 40 mg capsule 90 capsule 3 Sig: Take 1 capsule by mouth once daily. Please review and advise. Josephine Barker documented in this encounter [facility] 04-24-2023 Miscellaneous Notes No labs needed. Jaswinder Scott DO Patient asking if labs are needed prior to next OV. Informed we would contact him if labs are needed. Checked thru Dr. Scott notes and don't see any mention of labs prior to this upcoming visit on 05/08 Nora Dickerson LPN documented in this encounter [facility] 03-13-2023 Note HNO ID: [id number] Author: Melissa Fuentes PA-C Service: ? Author Type: Physician Locker Attendant Type: Progress Notes Filed: 03/18/2023 10:20 PM Note Text: HISTORY AND PHYSICAL Hao Young Osmany 1960 REFERRING PHYSICIAN: No ref. provider found CHIEF COMPLAINT: Consult (Colonoscopy consult. ) HPI: The patient is a 63 year old male referred for endoscopy. Hao notes history of colon polyps. Patient denies any change in bowel habits, weight changes, blood in stools, black tarry stools or abdominal pain. Denies family history of colon issues. The patient notes history of Pringle's esophagus and is due for surveillance EGD. Denies any worsening reflux issues. Hao has undergone prior endoscopy. Most recent EGD 05/07/20, last colonoscopy 04/08/18 with removal of adenomatous polyp. Patient denies chest pain, shortness of breath or recent hospitalizations. Denies problems with sedation in the past. PAST MEDICAL HISTORY Diagnosis Date Acute gastritis without mention of hemorrhage Acute pericarditis, unspecified early Alcohol Intake 4 per day 11/15/2007 1 case beer per week Congenital tracheoesophageal fistula, esophageal atresia and stenosis Diaphragmatic hernia without mention of obstruction or gangrene Esophagitis, unspecified GERD (gastroesophageal reflux disease) Hiatal hernia Internal hemorrhoids without mention of complication Orchitis and epididymitis 09/13/2017 Other psoriasis Pulmonary embolism (HCC) Right foot infection post foot surgery Snoring Tobacco use disorder 11/15/2007 Unspecified essential hypertension 11/15/2007 PAST SURGICAL HISTORY Procedure Laterality Date COLONOSCOPY FLX DX W/COLLJ SPEC WHEN PFRMD 05/24/09 EGD TRANSORAL BIOPSY SINGLE/MULTIPLE 05/24/09 ESOPHAGOGASTRODUODENOSCOPY TRANSORAL DIAGNOSTIC 01/07/2007 EGD ESOPHAGOGASTRODUODENOSCOPY TRANSORAL DIAGNOSTIC 04/20/2014 EGD ESOPHAGOGASTRODUODENOSCOPY TRANSORAL DIAGNOSTIC 04/08/2018 EGD ESOPHAGOGASTRODUODENOSCOPY TRANSORAL DIAGNOSTIC 05/07/2020 EGD ESOPHAGOSCOPY FLEX BALLOON DILAT <30 MM DIAM 03/28/07 EXC NEUROMA HAND/FOOT XCP DIGITAL NERVE Right 2 removed HERNIA REPAIR HX PAST SURGICAL HISTORY OF 06/14/2012 left CMC arthroplasty PAST SURGICAL HISTORY OF Right right foot surgery- removal of neuromas RPR 1ST INGUN HRNA AGE 5 YRS/> REDUCIBLE Right 06/08/15 INDIRECT - MEDIUM MESH PLUG Current Outpatient Medications Medication Sig lisinopril-hydroCHLOROthiazide (ZESTORETIC) 10-12.5 mg per tablet Take 1 tablet by mouth once daily. apixaban (ELIQUIS) 5 mg tab(s) Take 1 tablet by mouth twice daily. dicyclomine (BENTYL) 10 mg capsule take 1 capsule by mouth twice a day with food rosuvastatin (CRESTOR) 10 mg tablet take 1 tablet by mouth once daily omeprazole (PRILOSEC) 40 mg capsule Take 1 capsule by mouth once daily. triamcinolone acetonide (KENALOG) 0.1 % cream Apply 1 application to affected area three times daily. ketoconazole (NIZORAL) 2 % shampoo Apply 1 application to affected area three times a week. Wptvvutjsxktm-Pbcdhpdg-Fdzqok (CENTRUM SILVER) tab Take 1 tablet by mouth once daily. CHOLECALCIFEROL (VITAMIN D3) 1,000 UNIT CAP Take one(1) tablet daily. No current facility-administered medications for this visit. ALLERGIES: Bee Stings [Other] and Sulfa (Sulfonamide Antibiotics) PERSONAL HISTORY: Social History Tobacco Use Smoking status: Some Days Packs/day: 1.00 Years: 40.00 Additional pack years: 0.00 Total pack years: 40.00 Types: Cigarettes Smokeless tobacco: Never Tobacco comments: Less than a half pack a week Vaping Use Vaping Use: Never used Substance Use Topics Alcohol use: Yes Alcohol/week: 52.5 standard drinks of alcohol Types: 21 Cans of Beer (12oz) per week Comment: social - 2 beers a day on 05/07/2020 states 12 pack on weekends none during the week Drug use: No FAMILY HISTORY: FAMILY HISTORY Problem Relation Age of Onset Diabetes Mother [place] Heart Mother Heart Father mi ,kidney fail other (Other) Father LEUKEMIA Emphysema Brother REVIEW OF SYMPTOMS: The review of systems data was entered by the nurse and reviewed by ga Nursing Notes: Keshia Feldman RN 03/13/2023 8:53 AM Signed REVIEW OF SYSTEMS: General: The patient denies fatigue, denies weight loss, denies weight gain, denies feeling hot, and denies feelings of cold. Eyes: The patient denies glaucoma, denies eye injury/surgery, wears glasses or contacts. Ear/Nose/Throat: The patient NOTES allergies, denies hayfever, denies ear infections, and denies bloody noses. Cardiovascular: The patient denies chest pain, denies heart disease, NOTES high blood pressure,denies cardiac stent, denies prior heart attack, denies irregular heart beat, denies high cholesterol, denies poor circulation, denies heart failure, other cardiac issues, denies claudication, denies cold feet, denies peripheral arterial stent. Respiratory: The patient de (more content not included)... [facility] 03-09-2023 Note HNO ID: [id number] Author: Jayme Russell MD Service: ? Author Type: Physician Type: Progress Notes Filed: 03/09/2023 12:50 PM Note Text: Patient presents with: Pelvic Pain: x 1 day, bilateral sides HPI: Groin pain: Duration: 24 hours Location: deep bilateral anterior pelvis, started on the left Character: persistent aching, not bad Radiation: No. Aggravating: walking sometimes yesterday, no issue with using elliptical today, no pain with bowel movement or jostling Relieving: Pain relievers: none Associated: Pertinent negatives: Denies known injury, bulges, scrotal pain, prostate pain Dysuria: No Frequency: No Hematuria: No Nausea: Yes Fever or chills: No Back pain: No Abdominal pain: No PAST MEDICAL HISTORY Diagnosis Date Acute gastritis without mention of hemorrhage Acute pericarditis, unspecified early Alcohol Intake 4 per day 11/15/2007 1 case beer per week Congenital tracheoesophageal fistula, esophageal atresia and stenosis Diaphragmatic hernia without mention of obstruction or gangrene Esophagitis, unspecified GERD (gastroesophageal reflux disease) Hiatal hernia Internal hemorrhoids without mention of complication Orchitis and epididymitis 09/13/2017 Other psoriasis Pulmonary embolism (HCC) Right foot infection post foot surgery Snoring Tobacco use disorder 11/15/2007 Unspecified essential hypertension 11/15/2007 MEDICATIONS: Current Outpatient Medications Medication Sig lisinopril-hydroCHLOROthiazide (ZESTORETIC) 10-12.5 mg per tablet Take 1 tablet by mouth once daily. apixaban (ELIQUIS) 5 mg tab(s) Take 1 tablet by mouth twice daily. dicyclomine (BENTYL) 10 mg capsule take 1 capsule by mouth twice a day with food rosuvastatin (CRESTOR) 10 mg tablet take 1 tablet by mouth once daily omeprazole (PRILOSEC) 40 mg capsule Take 1 capsule by mouth once daily. triamcinolone acetonide (KENALOG) 0.1 % cream Apply 1 application to affected area three times daily. ketoconazole (NIZORAL) 2 % shampoo Apply 1 application to affected area three times a week. Qqcbecltasdsg-Mcbzzudj-Hhdviz (CENTRUM SILVER) tab Take 1 tablet by mouth once daily. CHOLECALCIFEROL (VITAMIN D3) 1,000 UNIT CAP Take one(1) tablet daily. No current facility-administered medications for this visit. ALLERGIES: ALLERGIES Allergen Reactions Bee Stings [Other] Rash, Swelling Sulfa (Sulfonamide * Rash VITALS: BP 124/70 Pulse 80 Temp 36.4 ?C (97.5 ?F) Resp 16 Wt 73 kg (161 lb) SpO2 98% BMI 24.48 kg/m? PHYSICAL EXAM: GEN: NAD HEENT: EOMI, conjunctiva clear, HEART: regular rate and rhythm, no murmurs LUNGS: clear to auscultation, no wheezes or crackles, no increased WOB ABDOMEN: Soft, nondistended, no masses, no suprapubic tenderness BACK: No CVA tenderness : normal external male genitalia. Bilaterally descended testicles. 2-3cm mass posterior and above the left testicle. No inguinal masses. Small bulge palpable with cough at the right canal. Bilateral pubic bone is location of pain. HIP: no pain with straight leg raise, internal or external rotation. ASSESSMENT/PLAN: 1. Pelvic pain - ICD9: [id number], ICD10: R10.2 (primary diagnosis) 2. Inguinal pain, unspecified laterality - ICD9: 789.09, ICD10: R10.30 - UA DIP, URINE (POC) - negative. Benign exam and symptoms. Continue conservative treatment. He will follow up with IM or urology if symptoms persist. Left scrotal mass corresponds to epididymus evaluated on ultrasound 2014 and 2017. Jayme Russell MD [facility] 03-09-2023 History of Presen t illness Narrative Patient presents with: Pelvic Pain: x 1 day, bilateral sides HPI: Groin pain: Duration: 24 hours Location: deep bilateral anterior pelvis, started on the left Character: persistent aching, not bad Radiation: No. Aggravating: walking sometimes yesterday, no issue with using elliptical today, no pain with bowel movement or jostling Relieving: Pain relievers: none Associated: Pertinent negatives: Denies known injury, bulges, scrotal pain, prostate pain Dysuria: No Frequency: No Hematuria: No Nausea: Yes Fever or chills: No Back pain: No Abdominal pain: No PAST MEDICAL HISTORY Diagnosis Date Acute gastritis without mention of hemorrhage Acute pericarditis, unspecified early Alcohol Intake 4 per day 11/15/2007 1 case beer per week Congenital tracheoesophageal fistula, esophageal atresia and stenosis Diaphragmatic hernia without mention of obstruction or gangrene Esophagitis, unspecified GERD (gastroesophageal reflux disease) Hiatal hernia Internal hemorrhoids without mention of complication Orchitis and epididymitis 09/13/2017 Other psoriasis Pulmonary embolism (HCC) Right foot infection post foot surgery Snoring Tobacco use disorder 11/15/2007 Unspecified essential hypertension 11/15/2007 MEDICATIONS: Current Outpatient Medications Medication Sig lisinopril-hydroCHLOROthiazide (ZESTORETIC) 10-12.5 mg per tablet Take 1 tablet by mouth once daily. apixaban (ELIQUIS) 5 mg tab(s) Take 1 tablet by mouth twice daily. dicyclomine (BENTYL) 10 mg capsule take 1 capsule by mouth twice a day with food rosuvastatin (CRESTOR) 10 mg tablet take 1 tablet by mouth once daily omeprazole (PRILOSEC) 40 mg capsule Take 1 capsule by mouth once daily. triamcinolone acetonide (KENALOG) 0.1 % cream Apply 1 application to affected area three times daily. ketoconazole (NIZORAL) 2 % shampoo Apply 1 application to affected area three times a week. Whoxjadsknuda-Lbpdxzlx-Amhnsk (CENTRUM SILVER) tab Take 1 tablet by mouth once daily. CHOLECALCIFEROL (VITAMIN D3) 1,000 UNIT CAP Take one(1) tablet daily. No current facility-administered medications for this visit. ALLERGIES: ALLERGIES Allergen Reactions Bee Stings [Other] Rash, Swelling Sulfa (Sulfonamide * Rash VITALS: BP 124/70 Pulse 80 Temp 36.4 C (97.5 F) Resp 16 Wt 73 kg (161 lb) SpO2 98% BMI 24.48 kg/m PHYSICAL EXAM: GEN: NAD HEENT: EOMI, conjunctiva clear, HEART: regular rate and rhythm, no murmurs LUNGS: clear to auscultation, no wheezes or crackles, no increased WOB ABDOMEN: Soft, nondistended, no masses, no suprapubic tenderness BACK: No CVA tenderness : normal external male genitalia. Bilaterally descended testicles. 2-3cm mass posterior and above the left testicle. No inguinal masses. Small bulge palpable with cough at the right canal. Bilateral pubic bone is location of pain. HIP: no pain with straight leg raise, internal or external rotation. ASSESSMENT/PLAN: 1. Pelvic pain - ICD9: [id number], ICD10: R10.2 (primary diagnosis) 2. Inguinal pain, unspecified laterality - ICD9: 789.09, ICD10: R10.30 - UA DIP, URINE (POC) - negative. Benign exam and symptoms. Continue conservative treatment. He will follow up with IM or urology if symptoms persist. Left scrotal mass corresponds to epididymus evaluated on ultrasound 2014 and 2018. Jayme Russell MD documented in this encounter [facility] 03-07-2023 Miscellaneous Notes Addended by: BRIGETTE VERDIN on: 03/07/2023 10:20 AM Modules accepted: Orders Pt calling to confirm refill request as pended. See other refill encounter 03/07/23. Will close this encounter. Brigette Verdin RN documented in this encounter [facility] 02-27-2023 Miscellaneous Notes Printed. Jaswinder Scott DO Dr. Scott - Received a call from pt this date reporting [facility] did not receive Eliquis prescription. Can you please print and sign another one? [employer] is asking for it to be a 90 day supply with 3 refills. Thank you! GIBSON Mckinney Rx printed. Jaswinder Scott DO SOCIAL WORK FOLLOW UP NOTE: [facility] Date of service: February 06, 2023 Hao Ceron is being seen for a follow up social work visit. Today's visit includes: spouse and patient TOPICS ADDRESSED: SW met with pt and this date to discuss patient assistance for Eliqujosé miguel. Pt reports he is working with [employer] for his med and is need of a prescription for their patient assistance program. SW to fax when received. Dr Scott - Can you please print a script for pt's Eliquis. Assistance [employer] is asking for it to be a 90 day supply with 3 refills. Thank you! PLAN: Continue follow up as needed F/U APPOINTMENT: PRN Assigned SW listed in Care Team tab: Yes JAZZMINE Mckinney-Hector documented in this encounter [facility] 02-07-2023 Note HNO ID: [id number] Author: Eduarda Cortes PA-C Service: ? Author Type: Physician Locker Attendant Type: Progress Notes Filed: 02/07/2023 9:42 AM Note Text: CC: Patient presents with: F/U 6 months: HTN HPI Hao Ceron is a 63 year old male who presents today for 6-month routine follow-up. Last visit was with Dr. Coats on 08/09/2022. Has lost 5 lbs in the past 6 months since prior visit. Notes he started using the elliptical instead of power walking. HTN/HLD: Mr. Ceron indicates a history of hypertension and states that he is feeling well and denies any symptoms referable to elevated blood pressure. Specifically denies headache, chest pain, palpitations, dyspnea, and peripheral edema. Patient denies any side effects of his medication(s) and is compliant with their regimen. Unable to power walk anymore secondary to foot pain, so started using elliptical routinely. Watches his diet for sodium, low fat and low cholesterol most of the time. Last 3 Encounter BP Readings: Date: BP: 02/07/2023 114/62 10/17/2022 140/93 09/16/2022 140/80 Hyperlipidemia. Mr. Ceron reports doing well on current therapy of rosuvastatin (Crestor). Denies side effects of muscle weakness or achiness. His most recent lipid panels are: Cholesterol, Total (mg/dL) Date Value 08/10/2022 137 07/20/2021 192 03/23/2018 181 HDL Cholesterol (mg/dL) Date Value 08/10/2022 58 07/20/2021 57 03/23/2018 56 LDL Cholesterol (mg/dL) Date Value 08/10/2022 67 07/20/2021 124 03/23/2018 101 Triglyceride (mg/dL) Date Value 08/10/2022 58 07/20/2021 55 03/23/2018 119 History of PE secondary to blood clotting disorder (unspecified, but anticardiolipin antibody was positive). In 11/21, had coumadin d/c'ed and started on Eliquis alternatively. Sees Dr. Scott routinely. Psoriasis of scalp-Managed through derm. Liver lesion - noted on CT abd 05/19, but never pursued further. Patient denies any abdominal pain, changes in stools, scleral icterus, jaundice, or any other associated symptoms. REVIEW OF SYSTEMS See HPI All other systems negative PAST MEDICAL HISTORY Diagnosis Date Acute gastritis without mention of hemorrhage Acute pericarditis, unspecified early Alcohol Intake 4 per day 11/15/2007 1 case beer per week Congenital tracheoesophageal fistula, esophageal atresia and stenosis Diaphragmatic hernia without mention of obstruction or gangrene Esophagitis, unspecified GERD (gastroesophageal reflux disease) Hiatal hernia Internal hemorrhoids without mention of complication Orchitis and epididymitis 09/13/2017 Other psoriasis Pulmonary embolism (HCC) Right foot infection post foot surgery Snoring Tobacco use disorder 11/15/2007 Unspecified essential hypertension 11/15/2007 PAST SURGICAL HISTORY Procedure Laterality Date COLONOSCOPY FLX DX W/COLLJ SPEC WHEN PFRMD 05/24/09 EGD TRANSORAL BIOPSY SINGLE/MULTIPLE 05/24/09 ESOPHAGOGASTRODUODENOSCOPY TRANSORAL DIAGNOSTIC 01/07/2007 EGD ESOPHAGOGASTRODUODENOSCOPY TRANSORAL DIAGNOSTIC 04/20/2014 EGD ESOPHAGOGASTRODUODENOSCOPY TRANSORAL DIAGNOSTIC 04/08/2018 EGD ESOPHAGOGASTRODUODENOSCOPY TRANSORAL DIAGNOSTIC 05/07/2020 EGD ESOPHAGOSCOPY FLEX BALLOON DILAT <30 MM DIAM 03/28/07 EXC NEUROMA HAND/FOOT XCP DIGITAL NERVE Right 2 removed HERNIA REPAIR HX PAST SURGICAL HISTORY OF 06/14/2012 left CMC arthroplasty PAST SURGICAL HISTORY OF Right right foot surgery- removal of neuromas RPR 1ST INGUN HRNA AGE 5 YRS/> REDUCIBLE Right 06/08/15 INDIRECT - MEDIUM MESH PLUG ALLERGIES Bee Stings [Other] and Sulfa (Sulfonamide Antibiotics) MEDICATIONS apixaban (ELIQUIS) 5 mg tab(s) Take 1 tablet by mouth twice daily. dicyclomine (BENTYL) 10 mg capsule take 1 capsule by mouth twice a day with food lisinopril-hydroCHLOROthiazide (ZESTORETIC) 10-12.5 mg per tablet Take 1 tablet by mouth once daily. rosuvastatin (CRESTOR) 10 mg tablet take 1 tablet by mouth once daily omeprazole (PRILOSEC) 40 mg capsule Take 1 capsule by mouth once daily. triamcinolone acetonide (KENALOG) 0.1 % cream Apply 1 application to affected area three times daily. ketoconazole (NIZORAL) 2 % shampoo Apply 1 application to affected area three times a week. Jnxvwdrrykvhc-Lzhrabie-Ijxbff (CENTRUM SILVER) tab Take 1 tablet by mouth once daily. CHOLECALCIFEROL (VITAMIN D3) 1,000 UNIT CAP Take one(1) tablet daily. amoxicillin (AMOXIL) 500 mg capsule Take 500 mg by mouth three times daily. (Patient not taking: Reported on 10/17/2022) warfarin (COUMADIN) 4 mg tablet take 2 tablets by mouth once daily warfarin (COUMADIN) 1 mg tablet Take 8 tablets by mouth once daily. (Patient taking differently: Take 8 mg by mouth once daily. Mon, Wed, Fri, - 8mg Tues, Th, Sat, Sun 7.5 mg) warfarin (COUMADIN) 5 mg tablet take 9 MG by mouth once daily FAMILY HISTORY Problem Relation Age of Onset Diabetes Mother [place] Heart Mother Heart Father mi (more content not included)... [facility] 02-07-2023 History of Presen t illness Narrative CC: Patient presents with: F/U 6 months: HTN HPI Hao Ceron is a 63 year old male who presents today for 6-month routine follow-up. Last visit was with Dr. Coats on 08/09/2022. Has lost 5 lbs in the past 6 months since prior visit. Notes he started using the elliptical instead of power walking. HTN/HLD: Mr. Ceron indicates a history of hypertension and states that he is feeling well and denies any symptoms referable to elevated blood pressure. Specifically denies headache, chest pain, palpitations, dyspnea, and peripheral edema. Patient denies any side effects of his medication(s) and is compliant with their regimen. Unable to power walk anymore secondary to foot pain, so started using elliptical routinely. Watches his diet for sodium, low fat and low cholesterol most of the time. Last 3 Encounter BP Readings: Date: BP: 02/07/2023 114/62 10/17/2022 140/93 09/16/2022 140/80 Hyperlipidemia. Mr. Ceron reports doing well on current therapy of rosuvastatin (Crestor). Denies side effects of muscle weakness or achiness. His most recent lipid panels are: Cholesterol, Total (mg/dL) Date Value 08/10/2022 137 07/20/2021 192 03/23/2018 181 HDL Cholesterol (mg/dL) Date Value 08/10/2022 58 07/20/2021 57 03/23/2018 56 LDL Cholesterol (mg/dL) Date Value 08/10/2022 67 07/20/2021 124 03/23/2018 101 Triglyceride (mg/dL) Date Value 08/10/2022 58 07/20/2021 55 03/23/2018 119 History of PE secondary to blood clotting disorder (unspecified, but anticardiolipin antibody was positive). In 11/21, had coumadin d/c'ed and started on Eliquis alternatively. Sees Dr. Scott routinely. Psoriasis of scalp-Managed through derm. Liver lesion - noted on CT abd 05/19, but never pursued further. Patient denies any abdominal pain, changes in stools, scleral icterus, jaundice, or any other associated symptoms. REVIEW OF SYSTEMS See HPI All other systems negative PAST MEDICAL HISTORY Diagnosis Date Acute gastritis without mention of hemorrhage Acute pericarditis, unspecified early Alcohol Intake 4 per day 11/15/2007 1 case beer per week Congenital tracheoesophageal fistula, esophageal atresia and stenosis Diaphragmatic hernia without mention of obstruction or gangrene Esophagitis, unspecified GERD (gastroesophageal reflux disease) Hiatal hernia Internal hemorrhoids without mention of complication Orchitis and epididymitis 09/13/2017 Other psoriasis Pulmonary embolism (HCC) Right foot infection post foot surgery Snoring Tobacco use disorder 11/15/2007 Unspecified essential hypertension 11/15/2007 PAST SURGICAL HISTORY Procedure Laterality Date COLONOSCOPY FLX DX W/COLLJ SPEC WHEN PFRMD 05/24/09 EGD TRANSORAL BIOPSY SINGLE/MULTIPLE 05/24/09 ESOPHAGOGASTRODUODENOSCOPY TRANSORAL DIAGNOSTIC 01/07/2007 EGD ESOPHAGOGASTRODUODENOSCOPY TRANSORAL DIAGNOSTIC 04/20/2014 EGD ESOPHAGOGASTRODUODENOSCOPY TRANSORAL DIAGNOSTIC 04/08/2018 EGD ESOPHAGOGASTRODUODENOSCOPY TRANSORAL DIAGNOSTIC 05/07/2020 EGD ESOPHAGOSCOPY FLEX BALLOON DILAT <30 MM DIAM 03/28/07 EXC NEUROMA HAND/FOOT XCP DIGITAL NERVE Right 2 removed HERNIA REPAIR HX PAST SURGICAL HISTORY OF 06/14/2012 left CMC arthroplasty PAST SURGICAL HISTORY OF Right right foot surgery- removal of neuromas RPR 1ST INGUN HRNA AGE 4 YRS/> REDUCIBLE Right 06/08/15 INDIRECT - MEDIUM MESH PLUG ALLERGIES Bee Stings [Other] and Sulfa (Sulfonamide Antibiotics) MEDICATIONS apixaban (ELIQUIS) 5 mg tab(s) Take 1 tablet by mouth twice daily. dicyclomine (BENTYL) 10 mg capsule take 1 capsule by mouth twice a day with food lisinopril-hydroCHLOROthiazide (ZESTORETIC) 10-12.5 mg per tablet Take 1 tablet by mouth once daily. rosuvastatin (CRESTOR) 10 mg tablet take 1 tablet by mouth once daily omeprazole (PRILOSEC) 40 mg capsule Take 1 capsule by mouth once daily. triamcinolone acetonide (KENALOG) 0.1 % cream Apply 1 application to affected area three times daily. ketoconazole (NIZORAL) 2 % shampoo Apply 1 application to affected area three times a week. Nfpnsgczhytrl-Eyqrwciw-Kasokr (CENTRUM SILVER) tab Take 1 tablet by mouth once daily. CHOLECALCIFEROL (VITAMIN D3) 1,000 UNIT CAP Take one(1) tablet daily. amoxicillin (AMOXIL) 500 mg capsule Take 500 mg by mouth three times daily. (Patient not taking: Reported on 10/17/2022) warfarin (COUMADIN) 4 mg tablet take 2 tablets by mouth once daily warfarin (COUMADIN) 1 mg tablet Take 8 tablets by mouth once daily. (Patient taking differently: Take 8 mg by mouth once daily. Mon, Wed, Fri, - 8mg Tues, Th, Sat, Sun 7.5 mg) warfarin (COUMADIN) 5 mg tablet take 9 MG by mouth once daily FAMILY HISTORY Problem Relation Age of Onset Diabetes Mother [place] Heart Mother Heart Father mi ,kidney fail other (Other) Father LEUKEMIA Emphysema Brother Social History Tobacco Use Smoking status: Some Days Packs/day: 1.00 Years: 40.00 Total pack years: 40.00 Types: Cigarettes Smokeless tobacco: Never Tobacco comments: Less than a half pack a week Vaping Use Vaping Use: Never used Substance Use Topics Alcohol use: Yes Alcohol/week: 52.5 standard drinks of alcohol Types: 21 Cans of Beer (12oz) per week Comment: social - 2 beers a day on 05/07/2020 states 12 pack on weekends none during the week Drug use: No PHYSICAL EXAM BP 114/62 (BP Site: Left Arm, BP Position: Sitting, BP Cuff Size: Large Adult) Pulse 74 Temp 36.7 C (98.1 F) Resp 12 Ht 172.7 cm (5' 8 ) Wt 73.5 kg (162 lb) SpO2 96% BMI 24.63 kg/m General Appearance: well appearing, in no acute distress, alert Pysch: mood and affect broad and appropriate Skin: Skin color, texture, turgor normal for age Head: normocephalic, atraumatic Lymph nodes: No cervical lymphadenopathy Lungs: Lungs clear to auscultation. No wheezing, rhonchi, rales. Heart: RRR without murmur, gallop, or rubs. No ectopy Abdomen: Abdomen soft, no tenderness to palpation. Bowel sounds normal. No masses, organomegaly. No rigidity, guarding, or other evidence of acute abdomen demonstrated on exam Extremities: No gross deformities, significant edema, skin discoloration, clubbing or cyanosis. Neurological: Gait normal. No focal neurological deficits. Sensation grossly intact. ASSESSMENT/PLAN: 1. Essential hypertension - ICD9: 401.9, ICD10: I10 (primary diagnosis) - Controlled - Continue current medications - Recommend home blood pressure monitoring, to bring results to next visit - Encouraged sodium restriction, DASH or Mediterranean diet - Recommend regular aerobic exercise 2. Coagulation defect (HCC) - ICD9: 286.9, ICD10: D68.9 Currently on Eliquis twice daily. Continue current management per Dr. Scott. 3. Mixed hyperlipidemia - ICD9: 272.2, ICD10: E78.2 - Controlled - Continue current medications - Counseled on healthy diet and regular exercise 4. Liver lesion - ICD9: 573.8, ICD10: K76.[address] scan abdomen 05/19, but never investigated further. Patient is asymptomatic at this time. Will check labs, including liver function, to assess for stability/make sure no lab elevations suggestive of concerning pathology - COMP METABOLIC PANEL 5. Screening for thyroid disorder - ICD9: V77.0, ICD10: Z13.29 Routine screening lab ordered as thyroid has not been screened for many years. - TSH BLD Prescription instructions reviewed with patient as applicable. Potential red flag symptoms discussed with the patient. Reviewed appropriate action plan to take if red flag symptoms occur. Patient agreeable to treatment plan. RTC 6 months for routine issues Eduarda Cortes PA-C documented in this encounter [facility] 01-23-2023 Note Patient Outreach (IN [facility]) HAO CERON ([id number]) [address] [facility] Date Time Provider Department 01/23/23 HARPER COATS During your visit today, we recorded the following information about you: Allergies As of Date: 01/23/2023 Noted Allergy Reaction bee stings [Other] 05/18/2005 2 - Rash 7 - Swelling SULFA (SULFONAMIDE ANTIBIOTICS) 05/18/2005 2 - Rash Date Reviewed: 10/17/2022 Reviewed by: Jaswinder Scott DO - Fully Assessed Visit Diagnosis:Essential hypertension [I10] Order(s):BASIC METABOLIC PNL [SQBMP] Order #: [id number] FUTURE Prescriptions as of 01/26/2023 - dicyclomine (BENTYL) 10 mg capsule take 1 capsule by mouth twice a day with food - apixaban (ELIQUIS) 5 mg tab(s) Take 1 tablet by mouth twice daily. - amoxicillin (AMOXIL) 500 mg capsule Take 500 mg by mouth three times daily. - lisinopril-hydroCHLOROthiazide (ZESTORETIC) 10-12.5 mg per tablet Take 1 tablet by mouth once daily. - warfarin (COUMADIN) 4 mg tablet take 2 tablets by mouth once daily - rosuvastatin (CRESTOR) 10 mg tablet take 1 tablet by mouth once daily - omeprazole (PRILOSEC) 40 mg capsule Take 1 capsule by mouth once daily. - warfarin (COUMADIN) 1 mg tablet Take 8 tablets by mouth once daily. - warfarin (COUMADIN) 5 mg tablet take 9 MG by mouth once daily - triamcinolone acetonide (KENALOG) 0.1 % cream Apply 1 application to affected area three times daily. - ketoconazole (NIZORAL) 2 % shampoo Apply 1 application to affected area three times a week. - Nimkddqwjtsct-Kpvkgmbf-Oyczmp (CENTRUM SILVER) tab Take 1 tablet by mouth once daily. - CHOLECALCIFEROL (VITAMIN D3) 1,000 UNIT CAP Take one(1) tablet daily. 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] 09/12/2006 06/03/2015 SPRAIN OF FOOT NOS [S93.609A] 09/12/2006 11/15/2007 Esophagitis, unspecified [K20.90] 01/07/2007 04/29/2018 DIAPHRAGMATIC HERNIA [K44.9] 01/07/2007 Essential hypertension [I10] 11/15/2007 Psoriasis [L40.9] 11/15/2007 TOBACCO USE DISORDER [F17.200] 11/15/2007 Alcohol Intake 4 per day [F10.10] 11/15/2007 06/03/2015 Acute gastritis without mention of hemorrhage [*05/24/2009 06/03/2015 Hypercholesteremia [E78.00] 08/10/2010 05/24/2018 CMC arthritis, thumb, degenerative [M18.9] 06/14/2012 06/03/2015 Hiatal hernia [K44.9] 05/06/2015 Mild intermittent asthma without complication [*05/06/2015 05/18/2020 Right inguinal hernia [K40.90] 05/13/2015 11/19/2018 Pulmonary embolism without acute cor pulmonale *07/06/2015 Oral aphthae [K12.0] 07/06/2015 Coagulation defect (HCC) [D68.9] 07/30/2015 Anticardiolipin antibody positive [R76.0] 07/30/2015 Pringle's esophagus without dysplasia [K22.70] 04/04/2018 Encounter for screening for malignant neoplasm *04/04/2018 11/19/2018 Adenoma of right adrenal gland [D35.01] 05/24/2018 Liver lesion [K76.9] 05/24/2018 Encounter Status:Closed by PockitUSER on 01/26/23 [facility] 01-15-2023 Miscellaneous Notes Patient has been identified by name and date of : Yes, Provider Dr. Coats Date 01/15/23 Time 8:22 am Patient phones for refill(s): Requested Prescriptions Pending Prescriptions Disp Refills dicyclomine (BENTYL) 10 mg capsule 180 capsule 1 Sig: take 1 capsule by mouth twice a day with food Date of last office visit in primary care: 08/09/22 next apt 02/07/23 Last 2 Encounter Wt Readings: Date: Wt: 10/17/2022 76.7 kg (169 lb) 09/16/2022 74.1 kg (163 lb 6.4 oz) Previous labs/tests for medication: Not applicable Thank you. Katharina CHANEY documented in this encounter [facility] 11-01-2022 Miscellaneous Notes Pt. Contacted There was no lupus anticoagulant. Therefore I would feel comfortable with him rotating to Eliquis. I sent in prescription. He may discontinue Coumadin and start taking Eliquis. Office visit in 6 months. Pt. Scheduled for appt. With PCP in Jan. And 1 year f/u with Dr. Tyler byrne. Pt. Voiced understanding . Nora Blackwood LPN The testing revealed only a low level anticardiolipin antibody. The previous antibeta 2 glycoprotein antibody has resolved. There was no lupus anticoagulant. Therefore I would feel comfortable with him rotating to Eliquis. I sent in prescription. He may discontinue Coumadin and start taking Eliquis. Office visit in 6 months. Jaswinder Scott DO Patient requesting 10/25 lab results documented in this encounter [facility] 10-25-2022 Note HNO ID: [id number] Author: Mary Wolfe RN Service: ? Author Type: ? Type: Progress Notes Filed: 10/25/2022 3:25 PM Note Text: spouse notified of information [facility] 10-25-2022 History of Presen t illness Narrative spouse notified of information Thank you. He can continue holding Coumadin until labs from today resulted. Will let you and him know. Jaswinder Scott DO patient had inr completed at [facility] patients inr is 1.0 (patients inr range is 2.0-3.0) patient is currently holding 8mg Mon,Wed,Fri and 7.5mg all other days due to blood work for other testing patients last dose change was on 10/12/22 due to a low level of 1.9 (dose at that time was 7.5mg daily) patient has had no changes in medication except for the coumadin and no change in diet Advised patient that they would be contacted regarding medication dose and when to follow up after information is reviewed by provider. After provider review please contact the patient with information and schedule follow up appointment with coumadin clinic. ok to leave a detailed message if no answer FYI - patient did have his other lab work completed today documented in this encounter [facility] 10-25-2022 Note HNO ID: [id number] Author: Jaswinder Scott, DO Service: ? Author Type: Physician Type: Progress Notes Filed: 10/25/2022 9:58 AM Note Text: Thank you. He can continue holding Coumadin until labs from today resulted. Will let you and him know. Jaswinder Scott, DO [facility] 10-25-2022 Note HNO ID: [id number] Author: Mary Wolfe RN Service: ? Author Type: ? Type: Progress Notes Filed: 10/25/2022 9:58 AM Note Text: patient had inr completed at [facility] patients inr is 1.0 (patients inr range is 2.0-3.0) patient is currently holding 8mg Mon,Wed,Sun and 7.5mg all other days due to blood work for other testing patients last dose change was on 10/12/22 due to a low level of 1.9 (dose at that time was 7.5mg daily) patient has had no changes in medication except for the coumadin and no change in diet Advised patient that they would be contacted regarding medication dose and when to follow up after information is reviewed by provider. After provider review please contact the patient with information and schedule follow up appointment with coumadin clinic. ok to leave a detailed message if no answer FYI - patient did have his other lab work completed today [facility] 10-19-2022 Miscellaneous Notes Relayed message to patient left message for pt to return call .Leonila Benson LPN And toPlease let him know that the lab testing showed a low level body that he has had before. He can hold Coumadin for the time being then come to the lab next Sunday to have the lab work done entered under this encounter. Jaswinder Scott DO documented in this encounter [facility] 10-17-2022 Note HNO ID: [id number] Author: Jaswinder Scott DO Service: ? Author Type: Physician Type: Progress Notes Filed: 10/17/2022 9:14 AM Note Text: Hematologic problems: 1) Pulmonary embolism. 2) Low level positive beta-2 glycoprotein IgM. HPI: The patient is a 61 yo male with a PMH significant for HTN and GERD. Patient underwent an outpatient inguinal herniorrhaphy on 06/08/2015. The following morning experienced chest pain and presented to the emergency department. CTA of the chest revealed bilateral pulmonary emboli albeit small. Bullous changes in the right lung apex and a small left pleural effusion were observed. Duplex ultrasound legs revealed no evidence of thrombus. CT scan the abdomen and pelvis showed no evidence of malignancy and only showed changes consistent with recent herniorrhaphy. Was anticoagulated with Xarelto and discharged. Hypercoagulability testing that was done when he was in the hospital included a normal protein C antigen. Protein C functional activity was normal. Antithrombin was normal. Testing for factor V Leiden was negative. There was a mild (indeterminant) elevation of IgM anticardiolipin antibody. Had neuromas removed right foot 2018. Interim history: Tolerating Coumadin well. No unusual bleeding or bruising. Pack of cigarettes still lasts ~2 weeks. No respiratory symptoms. specifically no cough, chest pain or hemoptysis. No dyspnea at rest or with exertion. No lower extremity pain, swelling or edema. Continues to work full-time ten-hour second shift at [employer]. Sex: Male. Smoker: Yes. BMI: 24.6. Family h/o VTE: No. Family h/o atherosclerotic disease: Yes. Family h/o cancer: Father--?chronic leukemia. Up to date on age and gender appropriate cancer screening studies: Yes.. Transient risk factors: Anticardiolipin antibody. PMH, medications and allergies personally reviewed by me today. Any changes documented in appropriate section. ROS: Constitutional: Denies episodes of fever and night sweats. Not significantly fatigued. Normal appetite. Neuro: Denies COX, vertigo, dizziness and imbalance. Denies symptoms of neuropathy. HEENT: No recent change in voice, vision or hearing. Resp: See above. CVS: Denies exertional chest pain, PND, orthopnea and LE edema. GI: Denies dysgeusia. Denies symptoms of stomatitis. Denies dysphagia and odynophagia. Denies reflux, n/v, change in bowel habits and abdominal pain. : Denies dysuria or gross hematuria. No symptoms of bladder outlet obstruction. Endo: Denies hot flashes. Denies polyuria and polydipsia. Denies heat and cold intolerance. Musculoskeletal: Denies bone, back, joint and muscular pain. Derm: Denies rash. Denies jaundice and diffuse pruritis. Heme: See above. Psych: Normal mood. PHYSICAL EXAM: Vitals: Blood pressure 140/93, pulse 74, temperature 36.7 ?C (98.1 ?F), height 175 cm (5' 8.9 ), weight 76.7 kg (169 lb), SpO2 97 %. Well-appearing and in no acute distress. EYES: Sclerae are anicteric bilaterally. NECK: Supple. LYMPHATIC: There is no palpable cervical or supraclavicular adenopathy. RESPIRATORY: Inspiratory breath sounds are of normal intensity in all mckeon. No rales, wheezes or rhonchi. CARDIOVASCULAR: Rhythm is regular. Normal intensity S1/S2. ABDOMEN: The abdomen is nondistended. No organomegaly. No tenderness. Extremities: No swelling or edema. SKIN: No jaundice or rash. No petechiae. NEUROLOGIC: tank cleaner II-XII are grossly intact. No focal motor weakness. MUSCULOSKELETAL: No muscle wasting. 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 Work up revealed low level anticardiolipin antibody. -Tolerating anticoagulation well with no unusual bleeding or unexplained bruising. -Still had low level anticardiolipin IgM antibody in 04/2021 of unclear clinical significance. No lupus anticoagulant activity. -Discussed rationale for below testing. Plan: -Continue Coumadin. -Recheck anticardiolipin antibodies. If negative, then hold Coumadin and recheck lupus anticoagulant. -Could consider DOAC if just low level anticardiolipin antibody. Portions of this documentation were copied and pasted from previous office visit notes in order to provide a cohesive continuity of the history. The note has been reviewed and edited and updated as necessary. I spent a total of 25 minutes on the date of the service which included preparing to see the patient, [id number] patient care, completing clinical documentation, obtaining and/or reviewing separately obtained history, performing a medically appropriate examination, counseling and educating the patient/family/caregiver, and ordering medications, tests, or procedures. Jaswinder Scott DO [facility] 10-12-2022 Note HNO ID: [id number] Author: Mary Wolfe RN Service: ? Author Type: ? Type: Progress Notes Filed: 10/12/2022 2:22 PM Note Text: spouse notified of information [facility] 10-12-2022 Note HNO ID: [id number] Author: Jaswinder Scott DO Service: ? Author Type: Physician Type: Progress Notes Filed: 10/12/2022 12:35 PM Note Text: Have him try 8 mg Mon,Wed,Fri and 7.5 mg all other days and recheck INR as scheduled. Jaswinder Scott DO [facility] 10-12-2022 History of Presen t illness Narrative spouse notified of information Have him try 8 mg Mon,Wed,Fri and 7.5 mg all other days and recheck INR as scheduled. Jaswinder Scott DO patient had inr completed at [facility] patients inr is 1.9 (patients inr range is 2.0-3.0) patient is currently taking 7.5mg daily patients last dose change was on 09/28/22 due to a high level of 3.4 (dose at that time was 7.5mg Mon,Wed,Fri and 8mg all other days) patient has had no changes in medication except for coumadin and no missed doses and no change in diet Advised patient that they would be contacted regarding medication dose and when to follow up after information is reviewed by provider. After provider review please contact the patient with information and schedule follow up appointment with coumadin clinic. ok to leave a detailed message is no answer FYI- patient has been scheduled for a 2 week follow up inr on 10/26/22 documented in this encounter [facility] 10-12-2022 Note HNO ID: [id number] Author: Mary Wolfe RN Service: ? Author Type: ? Type: Progress Notes Filed: 10/12/2022 12:35 PM Note Text: patient had inr completed at [facility] patients inr is 1.9 (patients inr range is 2.0-3.0) patient is currently taking 7.5mg daily patients last dose change was on 09/28/22 due to a high level of 3.4 (dose at that time was 7.5mg Mon,Wed,Fri and 8mg all other days) patient has had no changes in medication except for coumadin and no missed doses and no change in diet Advised patient that they would be contacted regarding medication dose and when to follow up after information is reviewed by provider. After provider review please contact the patient with information and schedule follow up appointment with coumadin clinic. ok to leave a detailed message is no answer FYI- patient has been scheduled for a 2 week follow up inr on 10/26/22 [facility] 09-28-2022 Note HNO ID: [id number] Author: Mary Wolfe RN Service: ? Author Type: ? Type: Progress Notes Filed: 09/28/2022 3:23 PM Note Text: PATIENT NOTIFIED OF INFORMATION via detailed message [facility] 09-28-2022 Miscellaneous Notes He's been consistent in getting his INR checked so can see for follow up OV without labs when good for him sometime in the next few weeks. Jaswinder Scott DO Haven't seen pt. Since 02/28/2021 F/U was to be determined after labs were resulted. Nothing scheduled. Nora Blackwood LPN Patient states he was at [facility] today for labs and was informed to contact office to schedule follow up. Please advise of appt and/or if testing is needed prior. documented in this encounter [facility] 09-28-2022 History of Presen t illness Narrative PATIENT NOTIFIED OF INFORMATION via detailed message Advise him to resume Coumadin tomorrow at 7.5 mg daily. Recheck INR in approximately 2 weeks as scheduled. Jaswinder Scott DO patient had inr completed at [facility] patients inr is 3.4 (patients inr range is 2.0-3.0) patient is currently taking 7.5mg Mon,Wed,Fri and 8mg all other days patients last dose change was on 02/16/22 due to a high level of 3.1 (dose at that time was 8mg daily) patient has had a changes in medication as patient completed an antibiotic 1 week ago no missed doses and no change in diet FYI- patient has been instructed to hold coumadin until contacted Advised patient that they would be contacted regarding medication dose and when to follow up after information is reviewed by provider. After provider review please contact the patient with information and schedule follow up appointment with coumadin clinic. ok to leave a detailed message if no answer FYI- patient has been scheduled for a 2 week follow up inr on 10/12/22 due to the cc is closed at the 1 week charan documented in this encounter [facility] 09-28-2022 Note HNO ID: [id number] Author: Jaswinder A Masci, DO Service: ? Author Type: Physician Type: Progress Notes Filed: 09/28/2022 11:25 AM Note Text: Advise him to resume Coumadin tomorrow at 7.5 mg daily. Recheck INR in approximately 2 weeks as scheduled. Jaswinder Scott, [facility] 09-28-2022 Note HNO ID: [id number] Author: Mary Wolfe RN Service: ? Author Type: ? Type: Progress Notes Filed: 09/28/2022 11:25 AM Note Text: patient had inr completed at [facility] patients inr is 3.4 (patients inr range is 2.0-3.0) patient is currently taking 7.5mg Mon,Wed,Fri and 8mg all other days patients last dose change was on 02/16/22 due to a high level of 3.1 (dose at that time was 8mg daily) patient has had a changes in medication as patient completed an antibiotic 1 week ago no missed doses and no change in diet FYI- patient has been instructed to hold coumadin until contacted Advised patient that they would be contacted regarding medication dose and when to follow up after information is reviewed by provider. After provider review please contact the patient with information and schedule follow up appointment with coumadin clinic. ok to leave a detailed message if no answer FYI- patient has been scheduled for a 2 week follow up inr on 10/12/22 due to the cc is closed at the 1 week charan [facility] 09-16-2022 Note HNO ID: [id number] Author: Africa Gil LPN Service: ? Author Type: ? Type: Progress Notes Filed: 09/16/2022 11:01 AM Note Text: Ambulatory Ear Lavage Pre-treatment: Warm water Treatment: Both ears Equipment and Irrigation solution and Volume used: Single use syringe with single use irrigation tip Return flow appearance: Brown Yellow Patient tolerated procedure: yes Post-treatment: Post Irrigation Post-treatment: Ear Canal/Tympanic membrane assessed by LIP Dr. Jayem Russell. Africa Gil LPN [facility] 09-16-2022 Note HNO ID: [id number] Author: Jayme Russell MD Service: ? Author Type: Physician Type: Progress Notes Filed: 09/16/2022 10:46 AM Note Text: Patient presents with: Pain: Pt reported (RT) ear, jaw pain x2 wks, current [facility] dental appointment. HPI: Right ear/jaw pain: Duration: right upper posterior tooth sensitivity 1 month ago. Has been having jaw pain for 2 weeks. Dentist evaluation this week reported no problem with his tooth. Location: right upper jaw Character: pressure, waxing and waning from mild to intense Radiation: some into the ear and neck below Aggravating: sometimes chewing, Relieving: cutting big sandwich into smaller pieces Pain relievers: Tylenol. Taking amoxicillin through dentist 4 days Associated: past cerumen impaction Pertinent negatives: Denies hearing loss, tinnitus, fever MEDICATIONS: amoxicillin (AMOXIL) 500 mg capsule Take 500 mg by mouth three times daily. lisinopril-hydroCHLOROthiazide (ZESTORETIC) 10-12.5 mg per tablet Take 1 tablet by mouth once daily. warfarin (COUMADIN) 4 mg tablet take 2 tablets by mouth once daily rosuvastatin (CRESTOR) 10 mg tablet take 1 tablet by mouth once daily dicyclomine (BENTYL) 10 mg capsule take 1 capsule by mouth twice a day with food omeprazole (PRILOSEC) 40 mg capsule Take 1 capsule by mouth once daily. warfarin (COUMADIN) 1 mg tablet Take 8 tablets by mouth once daily. warfarin (COUMADIN) 5 mg tablet take 9 MG by mouth once daily triamcinolone acetonide (KENALOG) 0.1 % cream Apply 1 application to affected area three times daily. ketoconazole (NIZORAL) 2 % shampoo Apply 1 application to affected area three times a week. Fegkvqmioaubo-Nvcbvojt-Dactrz (CENTRUM SILVER) tab Take 1 tablet by mouth once daily. CHOLECALCIFEROL (VITAMIN D3) 1,000 UNIT CAP Take one(1) tablet daily. ALLERGIES: ALLERGIES Allergen Reactions Bee Stings [Other] Rash, Swelling Sulfa (Sulfonamide * Rash VITALS: BP 140/80 Pulse 81 Temp 36.6 ?C (97.8 ?F) (Tympanic) Resp 18 Wt 74.1 kg (163 lb 6.4 oz) SpO2 97% BMI 24.13 kg/m? PHYSICAL EXAM: GEN: pleasant, no acute distress, alert HEENT: PERRL, EOMI, MMM EARS: Bilateral cerumen impaction. No temporomandibular joint tenderness. NECK: supple, no lymphadenopathy, no thyromegaly HEART: regular rate, regular rhythm, no murmurs LUNGS: clear to auscultation, no wheezes or crackles, no increased WOB EXT: no clubbing, no cyanosis, no edema ASSESSMENT/PLAN: 1. Bilateral impacted cerumen - ICD9: 380.4, ICD10: H61.23 (primary diagnosis) Successful removal of bilateral impaction by staff water irrigation. Tympanic membranes and canals clear after the procedure. He may use mineral oil PRN for softening cerumen. 2. Jaw pain - ICD9: 784.92, ICD10: R68.84 Follow-up with ENT if jaw pain is not improved. Possible TMJ dysfunction. Jayme Russell MD [facility] 09-16-2022 History of Presen t illness Narrative Ambulatory Ear Lavage Pre-treatment: Warm water Treatment: Both ears Equipment and Irrigation solution and Volume used: Single use syringe with single use irrigation tip Return flow appearance: Brown Yellow Patient tolerated procedure: yes Post-treatment: Post Irrigation Post-treatment: Ear Canal/Tympanic membrane assessed by LIP Dr. Jayme Russell. Africa Gil LPN Patient presents with: Pain: Pt reported (RT) ear, jaw pain x2 wks, current [facility] dental appointment. HPI: Right ear/jaw pain: Duration: right upper posterior tooth sensitivity 1 month ago. Has been having jaw pain for 2 weeks. Dentist evaluation this week reported no problem with his tooth. Location: right upper jaw Character: pressure, waxing and waning from mild to intense Radiation: some into the ear and neck below Aggravating: sometimes chewing, Relieving: cutting big sandwich into smaller pieces Pain relievers: Tylenol. Taking amoxicillin through dentist 4 days Associated: past cerumen impaction Pertinent negatives: Denies hearing loss, tinnitus, fever MEDICATIONS: amoxicillin (AMOXIL) 500 mg capsule Take 500 mg by mouth three times daily. lisinopril-hydroCHLOROthiazide (ZESTORETIC) 10-12.5 mg per tablet Take 1 tablet by mouth once daily. warfarin (COUMADIN) 4 mg tablet take 2 tablets by mouth once daily rosuvastatin (CRESTOR) 10 mg tablet take 1 tablet by mouth once daily dicyclomine (BENTYL) 10 mg capsule take 1 capsule by mouth twice a day with food omeprazole (PRILOSEC) 40 mg capsule Take 1 capsule by mouth once daily. warfarin (COUMADIN) 1 mg tablet Take 8 tablets by mouth once daily. warfarin (COUMADIN) 5 mg tablet take 9 MG by mouth once daily triamcinolone acetonide (KENALOG) 0.1 % cream Apply 1 application to affected area three times daily. ketoconazole (NIZORAL) 2 % shampoo Apply 1 application to affected area three times a week. Xtiyntbbsypff-Befwaqjl-Jgcymm (CENTRUM SILVER) tab Take 1 tablet by mouth once daily. CHOLECALCIFEROL (VITAMIN D3) 1,000 UNIT CAP Take one(1) tablet daily. ALLERGIES: ALLERGIES Allergen Reactions Bee Stings [Other] Rash, Swelling Sulfa (Sulfonamide * Rash VITALS: BP 140/80 Pulse 81 Temp 36.6 C (97.8 F) (Tympanic) Resp 18 Wt 74.1 kg (163 lb 6.4 oz) SpO2 97% BMI 24.13 kg/m PHYSICAL EXAM: GEN: pleasant, no acute distress, alert HEENT: PERRL, EOMI, MMM EARS: Bilateral cerumen impaction. No temporomandibular joint tenderness. NECK: supple, no lymphadenopathy, no thyromegaly HEART: regular rate, regular rhythm, no murmurs LUNGS: clear to auscultation, no wheezes or crackles, no increased WOB EXT: no clubbing, no cyanosis, no edema ASSESSMENT/PLAN: 1. Bilateral impacted cerumen - ICD9: 380.4, ICD10: H61.23 (primary diagnosis) Successful removal of bilateral impaction by staff water irrigation. Tympanic membranes and canals clear after the procedure. He may use mineral oil PRN for softening cerumen. 2. Jaw pain - ICD9: 784.92, ICD10: R68.84 Follow-up with ENT if jaw pain is not improved. Possible TMJ dysfunction. Jayme Russell MD documented in this encounter [facility] 08-31-2022 Note HNO ID: [id number] Author: Jaswinder Scott DO Service: ? Author Type: Physician Type: Progress Notes Filed: 08/31/2022 12:57 PM Note Text: Agree with plan as outlined below. Jaswinder Scott DO [facility] 08-31-2022 History of Presen t illness Narrative Agree with plan as outlined below. Jaswinder Scott DO patient had inr completed at [facility] patients inr is 2.0 (patients inr range is 2.0-3.0) patient is currently taking 7.5mg Mon,Wed,Fri and 8mg all other days patients last dose change was on 02/16/22 due to a high level of 3.1 (dose at that time was 8mg daily) patient has had no changes in medication and no missed doses and no change in diet Advised patient to continue on the same dose(s) and that they would only be contacted regarding dosage and follow up instructions after review with provider, if a change is needed. Written instructions given and patient verbalized understanding. Presently scheduled in 4 weeks (09/28/22) for follow up INR. documented in this encounter [facility] 08-31-2022 Note HNO ID: [id number] Author: Mary Wolfe RN Service: ? Author Type: ? Type: Progress Notes Filed: 08/31/2022 12:57 PM Note Text: patient had inr completed at [facility] patients inr is 2.0 (patients inr range is 2.0-3.0) patient is currently taking 7.5mg Mon,Wed,Fri and 8mg all other days patients last dose change was on 02/16/22 due to a high level of 3.1 (dose at that time was 8mg daily) patient has had no changes in medication and no missed doses and no change in diet Advised patient to continue on the same dose(s) and that they would only be contacted regarding dosage and follow up instructions after review with provider, if a change is needed. Written instructions given and patient verbalized understanding. Presently scheduled in 4 weeks (09/28/22) for follow up INR. [facility] 08-15-2022 Miscellaneous Notes PATIENT NOTIFIED OF SAME. Apologies. I meant the lipid numbers are all normal. I tried to call the patient but his voice mail did not have an identifier for him so I could not leave an apology and message that his lipids are normal Regards, Harper Coats MD Patient returned call and went over results from Dr Coats, patient said he did not have thyroid labs done, he had lipid panel done. Please review Component Latest Ref Rng & Units 08/10/2022 Cholesterol, Total <200 mg/dL 137 Triglyceride <150 mg/dL 58 HDL Cholesterol >39 mg/dL 58 Non HDL Cholesterol <130 mg/dL 79 Fasting Time hrs 11 VLDL Cholesterol <30 mg/dL 12 TC:HDL Ratio <5.10 2.36 LDL Cholesterol <100 mg/dL 67 LDL:HDL Ratio <2.54 1.16 ----- Message from Harper Coats MD sent at 08/12/2022 1:17 PM EST ----- Thyroid is completely normal Regards, Harper Coats MD Left message to call & speak to nurse re: non-urgent results. Jessica Chavarria LPN ----- Message from Harper Coats MD sent at 08/12/2022 1:17 PM EST ----- Thyroid is completely normal Regards, Harper Coats MD documented in this encounter [facility] 08-09-2022 History of Presen t illness Narrative Reason for Visit Patient presents with: Physical Hao Ceron is a 62 year old male who presents here today for CPE. Health Maintenance LUNG CANCER SCREENING INFLUENZA(1) DEPRESSION ASSESSMENT HPI Hao Ceron is a 62 year old male who presents today for follow up on chronic conditions. And medication review He sees a skin doctor yearly, psoriasis on the scalp is controlled. His gi symptoms are controlled on the medication. Takes dicyclomine for upper abdominal spasms and diarrhea. Has been on this for years. Denies any abdominal pain, diarrhea, constipation, nausea, or vomiting. HTN and HLD: Mr. Ceron indicates that he is feeling well and denies any symptoms referable to elevated blood pressure. Specifically denies headache, chest pain, palpitations, dyspnea and peripheral edema. Patient denies any side effects of his medication(s) and is compliant with their regimen. He does not check BP's generally. Hao works out regularly 7 times per week with walking and light weights some trouble with the right foot still. He had 2 neuromas removed in the past and it is better than it has been in the past but the long hours standing on concrete does not help him much. He watches his diet for sodium, low fat and low cholesterol most of the time. 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 scott for this. Coumadin dosing controlled by coumadin clinic. Denies any chest pain, shortness of breath, or palpitations. GERD: takes omeprazole for this and feels his symptoms are controlled. Denies heartburn, difficulty swallowing, or bloating. 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 Denies any current skin or scalp issues. No problem-specific Assessment & Plan notes found for this encounter. PAST MEDICAL HISTORY Diagnosis Date Acute gastritis without mention of hemorrhage Acute pericarditis, unspecified early Alcohol Intake 4 per day 11/15/2007 1 case beer per week Congenital tracheoesophageal fistula, esophageal atresia and stenosis Diaphragmatic hernia without mention of obstruction or gangrene Esophagitis, unspecified GERD (gastroesophageal reflux disease) Hiatal hernia Internal hemorrhoids without mention of complication Orchitis and epididymitis 09/13/2017 Other psoriasis Pulmonary embolism (HCC) Right foot infection post foot surgery Snoring Tobacco use disorder 11/15/2007 Unspecified essential hypertension 11/15/2007 PAST SURGICAL HISTORY Procedure Laterality Date COLONOSCOPY FLX DX W/COLLJ SPEC WHEN PFRMD 05/24/09 EGD TRANSORAL BIOPSY SINGLE/MULTIPLE 05/24/09 ESOPHAGOGASTRODUODENOSCOPY TRANSORAL DIAGNOSTIC 01/07/2007 EGD ESOPHAGOGASTRODUODENOSCOPY TRANSORAL DIAGNOSTIC 04/20/2014 EGD ESOPHAGOGASTRODUODENOSCOPY TRANSORAL DIAGNOSTIC 04/08/2018 EGD ESOPHAGOGASTRODUODENOSCOPY TRANSORAL DIAGNOSTIC 05/07/2020 EGD ESOPHAGOSCOPY FLEX BALLOON DILAT <30 MM DIAM 03/28/07 EXC NEUROMA HAND/FOOT XCP DIGITAL NERVE Right 2 removed HERNIA REPAIR HX PAST SURGICAL HISTORY OF 06/14/2012 left CMC arthroplasty PAST SURGICAL HISTORY OF Right right foot surgery- removal of neuromas RPR 1ST INGUN HRNA AGE 4 YRS/> REDUCIBLE Right 06/08/15 INDIRECT - MEDIUM MESH PLUG FAMILY HISTORY Problem Relation Age of Onset Diabetes Mother [place] Heart Mother Heart Father mi ,kidney fail other (Other) Father LEUKEMIA Emphysema Brother Social History Tobacco Use Smoking status: Some Days Packs/day: 1.00 Years: 40.00 Pack years: 40.00 Types: Cigarettes Smokeless tobacco: Never Tobacco comments: Less than a half pack a week Vaping Use Vaping Use: Never used Substance Use Topics Alcohol use: Yes Alcohol/week: 52.5 standard drinks Types: 21 Cans of Beer (12oz) per week Comment: social - 2 beers a day on 05/07/2020 states 12 pack on weekends none during the week Drug use: No Past medical history, appointments, medications, allergies reviewed. Pertinent Lab/Diagnostic Studies are reviewed and discussed today Current Outpatient Medications: warfarin (COUMADIN) 4 mg tablet rosuvastatin (CRESTOR) 10 mg tablet dicyclomine (BENTYL) 10 mg capsule omeprazole (PRILOSEC) 40 mg capsule warfarin (COUMADIN) 1 mg tablet warfarin (COUMADIN) 5 mg tablet lisinopril-hydroCHLOROthiazide (PRINZIDE,ZESTORETIC) 10-12.5 mg per tablet triamcinolone acetonide (KENALOG) 0.1 % cream ketoconazole (NIZORAL) 2 % shampoo Kwgmvccxmqzeg-Zmmqhyoc-Tuuqio (CENTRUM SILVER) tab CHOLECALCIFEROL (VITAMIN D3) 1,000 UNIT CAP Review of Systems CONSTITUTIONAL: No fevers, chills, nightsweats, unintended weight loss HEENT: Denies frequent or severe heaches, nasal congestion/sinus symptoms, problematic allergy problems. EYES: No diplopia or blurry vision. CARDIOVASCULAR: No chest pain, dyspnea, palpitations, orthopnea, PND, ankle edema. PULM: No dyspnea, unexplained cough. GI: No dysphagia/odynophagia, problematic reflux, constipation, diarrhea, changes in stool habits, hematochezia, melena. : No new urinary complaints, including dysuria, gross hematuria or pyuria. NEURO: No new balance problems, peripheral weakness/paresthesias or numbness of concern. MUSC-SKEL: No new joint pain, swelling, or erythema. PSY: No concerns regarding depression, anxiety or panic. INTEGUMENTARY: No new skin changes (rash, new or changing mole, new growth) Physical Exam BP 134/72 (BP Site: Left Arm, BP Position: Sitting, BP Cuff Size: Large Adult) Pulse 69 Temp 36.9 C (98.4 F) Resp 12 Ht 175.3 cm (5' 9 ) Wt 75.8 kg (167 lb) SpO2 98% BMI 24.66 kg/m General appearance: Well appearing, alert, in no acute distress, well-hydrated, well nourished. Skin: Skin color, texture, turgor normal, no suspicious rashes or lesions Head: Normocephalic, no masses, lesions, tenderness or abnormalities Eyes: Anicteric sclera. Pupils are equally round and reactive to light. Extraocular movements are intact. Ears: External ears normal, canals clear Nose/Sinuses: Nares normal, septum midline, mucosa normal, no drainage or sinus tenderness Oropharynx: Lips, mucosa, and tongue normal, teeth and gums normal, oropharynx normal Neck: Supple, no adenopathy; thyroid symmetric, normal size, no bruits Back: Normal exam Lungs: Lungs clear to auscultation. No wheezing, rhonchi, rales Heart: RRR without murmur, gallop, or rubs. No ectopy Abdomen: Normal abdominal exam, Abdomen soft, non-tender. Bowel sounds normal. No masses, organomegaly Extremities: No deformities, edema, skin discoloration, clubbing or cyanosis. Good capillary refill. Musculoskeletal: No joint swelling, deformity, or tenderness Peripheral pulses: Normal Neuro: Gait normal. Reflexes normal and symmetric. Sensation grossly intact. ASSESSMENT/PLAN: 1. Annual physical exam - ICD9: V70.0, ICD10: Z00.00 (primary diagnosis) - Counseled on healthy diet and regular exercise 2. Essential hypertension - ICD9: 401.9, ICD10: I10 - good control - Recommended regular aerobic exercise. - Recommend home blood pressure monitoring, to bring results in on next visit - Goal of BP <130/80 3. Coagulation defect (HCC) - ICD9: 286.9, ICD10: D68.9 Stable ,cont the same 4. 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 Jaswinder Scott DO patient had inr completed at [facility] patients inr is 2.5 (patients inr range is 2.0-3.0) patient is currently taking 7.5mg Mon,Wed,Fri and 8mg all other days patients last dose change was on 02/16/22 due to a high level of 3.1 (dose at that time was 8mg daily) patient has had no changes in medication and no missed doses and no change in diet Advised patient to continue on the same dose(s) and that they would only be contacted regarding dosage and follow up instructions after review with provider, if a change is needed. Written instructions given and patient verbalized understanding. Presently scheduled in 4 weeks (08/31/22) for follow up INR. documented in this encounter [facility] 07-17-2022 Miscellaneous Notes Patient has been identified by name and date of : No Patient phones for refill(s): Requested Prescriptions Pending Prescriptions Disp Refills rosuvastatin (CRESTOR) 10 mg tablet [Pharmacy Med Name: ROSUVASTATIN CALCIUM 10 MG TAB] 180 tablet 3 Sig: take 1 tablet by mouth once daily Date of last office visit in primary care: 02/03/2022 Last 2 Encounter Wt Readings: Date: Wt: 02/03/2022 74.8 kg (165 lb) 01/22/2022 74.8 kg (165 lb) Previous labs/tests for medication: Cholesterol: HDL Cholesterol (mg/dL) Date Value 07/20/2021 57 LDL Cholesterol (mg/dL) Date Value 07/20/2021 124 ALT (U/L) Date Value 03/22/2021 14 Non HDL Cholesterol (mg/dL) Date Value 07/20/2021 135 Please advise. Thank you. Maryjane Morrell LPN Patient has been identified by name and date of : Yes Requested Prescriptions Pending Prescriptions Disp Refills rosuvastatin (CRESTOR) 10 mg tablet [Pharmacy Med Name: ROSUVASTATIN CALCIUM 10 MG TAB] 180 tablet 3 Sig: take 1 tablet by mouth once daily RX INSTRUCTIONS: Patient aware RX will be sent to pharmacy. No need to notify patient. Flora Nava Pss documented in this encounter [facility] 07-17-2022 Miscellaneous Notes Patient has been identified by name and date of : Yes Requested Prescriptions Pending Prescriptions Disp Refills warfarin (COUMADIN) 4 mg tablet [Pharmacy Med Name: WARFARIN SODIUM 4 MG TABLET] 60 tablet 11 Sig: take 2 tablets by mouth once daily RX INSTRUCTIONS: Patient aware RX will be sent to pharmacy. No need to notify patient. Nora Blackwood LPN documented in this encounter [facility] 07-06-2022 History of Presen t illness Narrative Agree with plan as outlined below. Jaswinder Scott DO patient had inr completed at [facility] patients inr is 2.1 (patients inr range is 2.0-3.0) patient is currently taking 7.5mg Mon,Wed,Fri and 8mg all other days patients last dose change was on 02/16/22 due to a high level of 3.1 (dose at that the was 8mg daily) patient has had no changes in medication and no missed doses and no change in diet Advised patient to continue on the same dose(s) and that they would only be contacted regarding dosage and follow up instructions after review with provider, if a change is needed. Written instructions given and patient verbalized understanding. Presently scheduled in 4 weeks (08/03/22) for follow up INR. documented in this encounter [facility] 06-01-2022 History of Presen t illness Narrative Agree with plan as outlined below. Jaswinder Scott DO patient had inr completed at [facility] patients inr is 2.4 (patients inr range is 2.0-3.0) patient is currently taking 7.5mg Mon,Wed,Fri and 8mg all other days patients last dose change was on 02/16/22 due to a high level of 3.1 (dose at that time was 8mg daily) patient has had no changes in medication and no missed doses and no change in diet Advised patient to continue on the same dose(s) and that they would only be contacted regarding dosage and follow up instructions after review with provider, if a change is needed. Written instructions given and patient verbalized understanding. Presently scheduled in 5 weeks (07/06/21 - due to the cc is closed at the 4 week charan) for follow up INR. documented in this encounter [facility] 05-29-2022 Miscellaneous Notes Patient has been identified by name and date of : Yes Patient phones for refill(s): Requested Prescriptions Pending Prescriptions Disp Refills dicyclomine (BENTYL) 10 mg capsule [Pharmacy Med Name: DICYCLOMINE 10 MG CAPSULE] 180 capsule 1 Sig: take 1 capsule by mouth twice a day with food Date of last office visit in primary care: 02/03/2022 Last 2 Encounter Wt Readings: Date: Wt: 02/03/2022 74.8 kg (165 lb) 01/22/2022 74.8 kg (165 lb) Previous labs/tests for medication: Not applicable Please advise. Thank you. Maryjane Morrell LPN documented in this encounter [facility] 05-04-2022 History of Presen t illness Narrative Agree with plan as outlined below. Jaswinder Scott DO patient had inr completed at [facility] patients inr is 2.9 (patients inr range is 2.0-3.0) patient is currently taking 7.5mg Mon,WEd,Fri and 8mg all other days patients last dose change was on 02/16/22 due to a high level of 3.1 (dose at that time was 8mg daily) patient has had no changes in medication and no missed doses and no change in diet Advised patient to continue on the same dose(s) and that they would only be contacted regarding dosage and follow up instructions after review with provider, if a change is needed. Written instructions given and patient verbalized understanding. Presently scheduled in 4 weeks (06/01/22) for follow up INR. documented in this encounter [facility] 04-25-2022 Miscellaneous Notes Last OV: 02/03/22 Next OV: 08/09/22 Pharmacy verified in [facility] Patient has been identified by name and date of : Yes Patient aware RX will be sent to pharmacy. No need to notify patient. Patient phones for refill(s): Requested Prescriptions Pending Prescriptions Disp Refills omeprazole (PRILOSEC) 40 mg capsule 90 capsule 3 Sig: Take 1 capsule by mouth once daily. Date of last office visit : 02/03/2022 Date of next office visit : 08/09/2022 Last 2 Encounter Wt Readings: Date: Wt: 02/03/2022 74.8 kg (165 lb) 01/22/2022 74.8 kg (165 lb) Please advise. Emma Daiz Pss documented in this encounter [facility] 04-06-2022 History of Presen t illness Narrative Continue Coumadin. Repeat PT/INR in 1 month. Sharlene Zartae MD patient had inr completed at [facility] patients inr is 2.2 (patients inr range is 2.0-3.0) patient is currently taking 7.5mg Mon,Wed,Fri and 8mg all other days patients last dose change was on 02/16/22 due to a high level of 3.1 (dose at that time was 8mg daily) patient has had no changes in medication and no missed doses and no change in diet Advised patient to continue on the same dose(s) and that they would only be contacted regarding dosage and follow up instructions after review with provider, if a change is needed. Written instructions given and patient verbalized understanding. Presently scheduled in 4 weeks (05/04/22) for follow up INR. documented in this encounter [facility] 03-27-2022 Miscellaneous Notes Follow up was to be dependant on results, no follow up scheduled. Does this pt. Need to be seen? Nora Blackwood LPN Patient has been identified by name and date of : Yes Requested Prescriptions Pending Prescriptions Disp Refills warfarin (COUMADIN) 1 mg tablet 120 tablet 3 Sig: Take 8 tablets by mouth once daily. RX INSTRUCTIONS: Patient aware RX will be sent to pharmacy. No need to notify patient. Nora Blackwood LPN Patient has been identified by name and date of : Yes Last office visit in this department: Visit date not found RX INSTRUCTIONS: Patient aware RX will be sent to pharmacy. No need to notify patient. Patient phones requesting refills as follows: Requested Prescriptions Pending Prescriptions Disp Refills warfarin (COUMADIN) 1 mg tablet 120 tablet 3 Sig: Take 8 tablets by mouth once daily. Please review and advise. Malgorzata Chahal Pss documented in this encounter [facility] 03-09-2022 History of Presen t illness Narrative Agree with plan as outlined below. Jaswinder Scott DO patient had inr completed at [facility] patients inr is 2.8 (patients inr range is 2.0-3.0) patient is currently taking 7.5mg Mon,Wed,Fri and 8mg all other days patients last dose change was on 02/16/22 due to a high level of 3.1 (dose at that time was 8mg daily) patient has had no changes in medication and no missed doses and no change in diet Advised patient to continue on the same dose(s) and that they would only be contacted regarding dosage and follow up instructions after review with provider, if a change is needed. Written instructions given and patient verbalized understanding. Presently scheduled in 4 weeks (04/06/22) for follow up INR. documented in this encounter [facility] 02-27-2022 Miscellaneous Notes Patient has been identified by name and date of : Yes Last office visit in this department: Visit date not found RX INSTRUCTIONS: Patient aware RX will be sent to pharmacy. No need to notify patient. Patient phones requesting refills as follows: Requested Prescriptions Pending Prescriptions Disp Refills warfarin (COUMADIN) 5 mg tablet 90 tablet 3 Sig: take 9 MG by mouth once daily Please review and advise. Emma Young documented in this encounter [facility] 02-23-2022 History of Presen t illness Narrative Agree with plan as outlined below. Jaswinder Scott DO patient had inr completed at [facility] patients inr is 2.8 (patients inr range is 2.0-3.0) patient is currently taking 7.5mg Mon,Wed,Fri and 8mg all other days patients last dose change was on 02/16/22 due to a high level of 3.1 (dose at that time was 8mg daily) patient has had no changes in medication except for coumadin and no missed doses and no change in diet Advised patient to continue on the same dose(s) and that they would only be contacted regarding dosage and follow up instructions after review with provider, if a change is needed. Written instructions given and patient verbalized understanding. Presently scheduled in 2 weeks (03/09/22) for follow up INR since this is the first normal reading since dose change documented in this encounter [facility] 02-16-2022 History of Presen t illness Narrative PATIENT NOTIFIED OF INFORMATION Change Coumadin dose to 7.5 mg on Sunday, Sunday and Sunday and 8 mg all other days. Recheck INR in a week as scheduled. Jaswinder Scott DO patient had inr completed at [facility] patients inr is 3.1 (patients inr range is 2.0-3.0) patient is currently taking 8mg daily patients last dose change was on 02/09/22 due to a high level of 3.5 (dose at that time was 8.5mg Mon,Fri and 8mg all other days) patient has had no changes in medication except for coumadin and no missed doses and no change in diet Advised patient that they would be contacted regarding medication dose and when to follow up after information is reviewed by provider. After provider review please contact the patient with information and schedule follow up appointment with coumadin clinic. ok to leave a detailed message if no answer FYI- patient has been scheduled for a 1 week follow up inr on 02/23/22 documented in this encounter [facility] 02-09-2022 History of Presen t illness Narrative patient notified via detailed Decrease Coumadin 8 mg daily. Repeat PT/INR in 1 week. Sharlene Zarate MD patient had inr completed at [facility] patients inr is 3.5 (patients inr range is 2.0-3.0) patient is currently taking 8.5mg Mon,Fri and 8mg all other days patients last dose change was on 09/15/21 due to a high level of 3.1 (dose at that time was 8.5mg Mon,Wed,Fri and 8mg all other days) patient has had no changes in medication and no missed doses and no change in diet Advised patient that they would be contacted regarding medication dose and when to follow up after information is reviewed by provider. After provider review please contact the patient with information and schedule follow up appointment with coumadin clinic. ok to leave a detailed message if no answer FYI- patient has been scheduled for a 1 week follow up inr on 02/16/22 documented in this encounter [facility] 02-03-2022 History of Presen t illness Narrative CC: Patient presents with: Recheck: 6 month follow up HPI Hao Ceron is a 62 year old male who presents today for follow up on chronic conditions. And medication review Takes dicyclomine for upper abdominal spasms and diarrhea. Has been on this for years. Denies any abdominal pain, diarrhea, constipation, nausea, or vomiting. HTN and HLD: Mr. Ceron indicates that he is feeling well and denies any symptoms referable to elevated blood pressure. Specifically denies headache, chest pain, palpitations, dyspnea and peripheral edema. Patient denies any side effects of his medication(s) and is compliant with their regimen. He does not check BP's generally. Hao works out regularly 7 times per week with walking and light weights. He watches his diet for sodium, low fat and low cholesterol most of the time. 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 scott for this. Coumadin dosing controlled by coumadin clinic. Denies any chest pain, shortness of breath, or palpitations. GERD: takes omeprazole for this and feels his symptoms are controlled. Denies heartburn, difficulty swallowing, or bloating. 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 Denies any current skin or scalp issues. REVIEW OF SYSTEMS General: no fevers, no chills, no night sweats, no recurrent infections, no change in appetite, no change in energy and no significant changes in weight Respiratory: no cough, no wheezing, no shortness of breath, no hemoptysis Cardiovascular: no chest pain, no chest pressure, no palpitations and no swelling GI: See HPI : No history of dysuria, frequency or incontinence Skin: Negative for lesions, rash, and itching Psych: PHQ2 is 0 Endocrine: no fatigue, no weight gain, no weight loss, no cold intolerance, no heat intolerance, no polyuria, no polyphagia and no polydipsia Neurologic: No headache, weakness, numbness, tingling, dizziness, syncope. PAST MEDICAL HISTORY Diagnosis Date Acute gastritis without mention of hemorrhage Acute pericarditis, unspecified early Alcohol Intake 4 per day 11/15/2007 1 case beer per week Congenital tracheoesophageal fistula, esophageal atresia and stenosis Diaphragmatic hernia without mention of obstruction or gangrene Esophagitis, unspecified GERD (gastroesophageal reflux disease) Hiatal hernia Internal hemorrhoids without mention of complication Orchitis and epididymitis 09/13/2017 Other psoriasis Pulmonary embolism (HCC) Right foot infection post foot surgery Snoring Tobacco use disorder 11/15/2007 Unspecified essential hypertension 11/15/2007 PAST SURGICAL HISTORY Procedure Laterality Date COLONOSCOPY FLX DX W/COLLJ SPEC WHEN PFRMD 05/24/09 EGD TRANSORAL BIOPSY SINGLE/MULTIPLE 05/24/09 ESOPHAGOGASTRODUODENOSCOPY TRANSORAL DIAGNOSTIC 01/07/2007 EGD ESOPHAGOGASTRODUODENOSCOPY TRANSORAL DIAGNOSTIC 04/20/2014 EGD ESOPHAGOGASTRODUODENOSCOPY TRANSORAL DIAGNOSTIC 04/08/2018 EGD ESOPHAGOGASTRODUODENOSCOPY TRANSORAL DIAGNOSTIC 05/07/2020 EGD ESOPHAGOSCOPY FLEX BALLOON DILAT <30 MM DIAM 03/28/07 EXC NEUROMA HAND/FOOT XCP DIGITAL NERVE Right 2 removed HERNIA REPAIR HX PAST SURGICAL HISTORY OF 06/14/2012 left [facility] arthroplasty PAST SURGICAL HISTORY OF Right right foot surgery- removal of neuromas RPR 1ST INGUN HRNA AGE 4 YRS/> REDUCIBLE Right 06/08/15 INDIRECT - MEDIUM MESH PLUG ALLERGIES Bee Stings [Other] and Sulfa (Sulfonamide Antibiotics) MEDICATIONS rosuvastatin (CRESTOR) 10 mg tablet Take 1 tablet by mouth once daily. dicyclomine (BENTYL) 10 mg capsule Take 1 capsule by mouth twice daily with meals. lisinopril-hydroCHLOROthiazide (PRINZIDE,ZESTORETIC) 10-12.5 mg per tablet Take 1 tablet by mouth once daily. warfarin (COUMADIN) 4 mg tablet 8mg daily warfarin (COUMADIN) 5 mg tablet take 9 MG by mouth once daily omeprazole (PRILOSEC) 40 mg capsule Take 1 capsule by mouth once daily. triamcinolone acetonide (KENALOG) 0.1 % cream Apply 1 application to affected area three times daily. warfarin (COUMADIN) 1 mg tablet Take 8 tablets by mouth once daily. mevmbxyviwSDTSN-uwddlj-ccopdfhtr (BMX 1:1:1) 1:1:1 liqd Mix in equal amounts - 1 T every 2hrs as needed for mouth pain, Swish/swallow or expectorate. (8oz) cyclobenzaprine (FLEXERIL) 10 mg tablet Take 1 tablet by mouth at bedtime as needed for Muscle Spasm. ketoconazole (NIZORAL) 2 % shampoo Apply 1 application to affected area three times a week. acetaminophen (TYLENOL) 500 mg tablet Take 1,000 mg by mouth every 6 hours as needed. Vctnsoxtgpsfp-Bkyqlnec-Bixujt (CENTRUM SILVER) tab Take 1 tablet by mouth once daily. CHOLECALCIFEROL (VITAMIN D3) 1,000 UNIT CAP Take one(1) tablet daily. FAMILY HISTORY Problem Relation Age of Onset Diabetes Mother [place] Heart Mother Heart Father mi ,kidney fail other (Other) Father LEUKEMIA Emphysema Brother Social History Tobacco Use Smoking status: Current Some Day Smoker Packs/day: 1.00 Years: 40.00 Pack years: 40.00 Types: Cigarettes Smokeless tobacco: Never Used Tobacco comment: Less than a half pack a week Vaping Use Vaping Use: Never used Substance Use Topics Alcohol use: Yes Alcohol/week: 52.5 standard drinks Types: 21 Cans of Beer (12oz) per week Comment: social - 2 beers a day on 05/07/2020 states 12 pack on weekends none during the week Drug use: No PHYSICAL EXAM BP 118/68 Pulse 68 Resp 16 Wt 74.8 kg (165 lb) BMI 24.37 kg/m General Appearance: well appearing, in no acute distress, alert Pysch: mood and affect broad and appropriate Skin: Skin color, texture, turgor normal for age; Eyes: PERRLA, conjunctiva pink and moist, no icterus, sclera white, non-injected Lungs: Lungs clear to auscultation. No wheezing, rhonchi, rales. Heart: RRR without murmur, gallop, or rubs. No ectopy BUE Extremities: No deformities, edema, skin discoloration, clubbing or cyanosis. Good capillary refill. Health maintenance reviewed with patient: HIV SCREENING Never done BP CONTROLLED (<130/80) Never done LUNG CANCER SCREENING Never done SHINGRIX VACCINE(1 of 2) Never done PNEUMOCOCCAL(2 - PCV) due on 05/01/2015 DEPRESSION SCREENING due on 05/24/2019 COVID-19 VACCINE(4 - Booster for Moderna series) due on 09/18/2021 INFLUENZA(1) due on 03/02/2022 ANNUAL PCP TEAM CHRONIC DISEASE VISIT due on 07/28/2022 COLORECTAL CANCER SCREENING due on 04/08/2023 DIABETES SCREEN due on 01/17/2025 PROSTATE CANCER SCREENING DISCUSSION due on 11/03/2025 LIPID SCREEN due on 07/20/2026 DTAP,TDAP,TD(5 - Td or Tdap) due on 07/25/2029 HEPATITIS C SCREENING Completed DATA REVIEWED: No new labs ASSESSMENT/PLAN: 1. Essential hypertension - ICD9: 401.9, ICD10: I10 (primary diagnosis) - good control - Continue current medication(s) - Recommended regular aerobic exercise. - Recommend home blood pressure monitoring, to bring results in on next visit - Goal of BP <130/80 - COMP METABOLIC PANEL - CBC + DIFF 2. Esophageal spasm - ICD9: 530.5, ICD10: K22.4 - controlled with omeprazole and dicyclomine. Will continue treatment 3. Mixed hyperlipidemia - ICD9: 272.2, ICD10: E78.2 - to be determined upon return of lab results - Continue current medication. - Encouraged following a low fat, low cholesterol diet. - Discussed the benefits of regular aerobic exercise and weight loss. - LIPID PANEL BASIC - COMP METABOLIC PANEL 4. Vitamin D deficiency - ICD9: 268.9, ICD10: E55.9 - VITAMIN D 25 HYDROXY 5. 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 Prescription instructions reviewed with patient as applicable. Potential red flag symptoms discussed with the patient. Reviewed appropriate action plan to take if red flag symptoms occur. Patient agreeable to treatment plan. Ann Marie Howe APRN.CNP documented in this encounter [facility] 01-23-2022 Miscellaneous Notes Patient has been identified by name and date of : Yes Patient phones for refill(s): Pending Prescriptions Disp Refills ROSUVASTATIN 10 MG TABLET 30 tablet 5 Sig: Take 1 tablet by mouth once daily. ELIANA: No Date of last office visit in primary care: 07/28/21 Last 2 Encounter Wt Readings: Date: Wt: 01/22/2022 74.8 kg (165 lb) 08/23/2021 75.9 kg (167 lb 6.4 oz) Previous labs/tests for medication: Cholesterol: HDL Cholesterol (mg/dL) Date Value 07/20/2021 57 LDL Cholesterol (mg/dL) Date Value 07/20/2021 124 ALT (U/L) Date Value 03/22/2021 14 Non HDL Cholesterol (mg/dL) Date Value 07/20/2021 135 Please advise. Thank you. Odette Bragg Ma Patient has been identified by name and date of : Yes Pending Prescriptions Disp Refills ROSUVASTATIN 10 MG TABLET 30 tablet 5 Sig: Take 1 tablet by mouth once daily. ELIANA: No RX INSTRUCTIONS: patient has enough for today and tomorrow night but will be out tomorrow. Please send JOE Patient aware RX will be sent to pharmacy. No need to notify patient. Eduarda Grullon Pss documented in this encounter [facility] 01-22-2022 Instructions Niurka Costello APRN.CNP - 01/22/2022 12:57 PM [address] [facility] PATIENT INFO PHARYNGITIS OVERVIEW A sore throat (pharyngitis) is a common problem, and usually is caused by a viral or bacterial infection. Sore throat usually resolves on its own without complications in adults, although it is important to know when to seek medical attention. Viruses can cause a sore throat and other upper respiratory infections, such as the common cold. Sore throat caused by a virus is not treated with antibiotics, but instead may be treated with rest, pain medication, and other therapies aimed at relieving symptoms. Strep throat is a particular kind of pharyngitis that is caused by a bacterium known as group A streptococcus (GAS). Strep throat is treated with a course of antibiotics. SORE THROAT SYMPTOMS Viral pharyngitis Most people with a sore throat have a virus. The most common viruses are those that cause upper respiratory infections, such as the common cold. Symptoms of a viral infection can include: A runny or congested nose Irritation or redness of the eyes Cough, hoarseness, or soreness in the roof of the mouth Some viruses cause a fever and can make you feel quite ill. Strep throat Approximately 10 percent of adults with a sore throat have strep throat. Signs and symptoms of strep throat include the following: Pain in the throat Fever (temperature greater than 100.4 F or 38 C) Enlarged lymph glands in the neck White patches of pus on the side or back of the throat No cough, runny nose, or irritation/redness of the eyes Other infections Many other less common but more serious infections can cause a sore throat, including mononucleosis (mono), influenza (the flu), N. gonococcus (gonorrhea), human immunodeficiency virus (HIV), and others. When to seek urgent help See your doctor or nurse immediately if you have a sore throat along with any of the following: Difficulty breathing Skin rash Drooling because you cannot swallow Swelling of the neck or tongue Stiff neck or difficulty opening the mouth SORE THROAT DIAGNOSIS Most people with a sore throat get better without treatment. There is no specific treatment for a sore throat caused by usual cold viruses. Is it strep or not? A combination of symptoms (fever, enlarged glands in the neck, white patches on your tonsils, and no cough) can help in determining if you have strep. If you have two or more symptoms, a rapid test or throat culture may be done. People with fewer than two symptoms usually do not need testing or treatment for strep throat. Rapid test The rapid test determines if there are streptococcus bacteria on a throat swab. The test can be done in a clinician's office and the results are available within a few minutes. The test is accurate in most cases, although a small percentage of tests are falsely negative (the bacteria are present but the test is negative). Throat culture A throat culture involves swabbing the throat, sending the swab to a laboratory, and waiting 24 to 48 hours for the results. Throat cultures are slightly more accurate than the rapid test. TREATMENT OF SORE THROAT Sore throat treatment Antibiotics do not help throat pain caused by a virus and are not recommended. Sore throat caused by viral infections usually lasts four to five days. During this time, treatments to reduce pain may be helpful. Several therapies can help to relieve throat pain. Pain medication You can treat your throat pain with a mild pain reliever such as acetaminophen (Tylenol ) or a non-steroidal anti-inflammatory agent such as ibuprofen or naproxen (Motrin or Aleve ). Oral rinses Salt-water gargles are an old stand-by for throat pain. It is not clear that salt water works to relieve pain, but it is unlikely to be harmful. Most recipes suggest 1/4 to 1/2 teaspoon of salt per one cup (8 ounces) of warm water. Sprays Sprays containing topical anesthetics (eg, benzocaine, phenol) are available to treat sore throat. However, such sprays are no more effective than sucking on hard candy. Lozenges A variety of lozenges (cough drops) are available to treat throat pain or relieve dryness. However, it is not clear that lozenges work any better than other forms of hard candy, which are generally less expensive. Other treatments Other treatments that may help with throat pain include sipping warm beverages (eg, honey or lemon tea, chicken soup), cold beverages, or eating cold or frozen desserts (eg, ice cream, popsicles). Alternative therapies Health food stores, vitamin outlets, and Internet Web sites offer alternative treatments for relief of sore throat pain. We do not recommend these type of treatments due to the risks of contamination with pesticides/herbicides, inaccurate labeling and dosing information, and a lack of studies showing that these treatments are safe and effective. Strep throat Although strep throat typically resolves on its own within two to five days, treatment with antibiotics is recommended for adults whose rapid test or throat culture is positive for strep throat. Penicillin, or an antibiotic related to penicillin, is the treatment of choice for strep throat. It is usually given in pill or liquid form two to four times per day for 10 days. A one time injection of penicillin is also available. People who are allergic to penicillin are given an alternate antibiotic. It is important to finish the entire course of treatment to completely eliminate the infection. If symptoms do not begin to improve or worsen by three days of antibiotic treatment, you should see your doctor or nurse again. Return to work/school If you have been diagnosed with strep throat, stay home from work or school until you have completed 24 hours of antibiotics. Within 24 hours of beginning antibiotic treatment, you will feel better and will be less contagious [1]. If you have a sore throat (not diagnosed as strep), you may participate in your usual activities as soon as you feel well. SORE THROAT PREVENTION Hand washing is an essential and highly effective way to prevent the spread of infection. Wet your hands with water and plain soap, and rub them together for 15 to 30 seconds. Pay special attention to the fingernails, between the fingers, and the wrists. Rinse your hands thoroughly, and dry them with a clean towel. Alcohol-based hand rubs are a good alternative for disinfecting hands if a sink is not available. Hand rubs should be spread over the entire surface of hands, fingers, and wrists until dry, and may be used several times. These rubs can be used repeatedly without skin irritation or loss of effectiveness. Hand rubs are available as a liquid or wipe in small, portable sizes that are easy to carry in a pocket or handbag. When a sink is available, visibly soiled hands should be washed with soap and water. Wash your hands after coughing, blowing the nose, or sneezing. While it is not always possible to avoid being near a person who is sick, avoiding touching your eyes, nose, or mouth to prevent the spread of infection. In addition, tissues should be used to cover the mouth when sneezing or coughing. These used tissues should be disposed of promptly. Sneezing/coughing into your sleeve (at the inner elbow) is another way to contain sprays of saliva and secretions and will not contaminate your hand documented in this encounter [facility] 01-22-2022 History of Presen t illness Narrative This note was created using [id number]. Subjective Hao Ceron is a 61 year old male. 61 year old male with PMH HTN, PE (Coumadin), GERD presents with complaints of sore throat. Acute onset middle of night +sore throat Denies exudate. Denies cough or congestion Denies fever or chills Denies N/V/D Utilized Tylenol COVID + December 22 2021 Denies inability to handle secretions. The history is provided by the patient. No notch grinder was used. Sore Throat This is a new problem. The current episode started today. The problem has been unchanged. Neither side of throat is experiencing more pain than the other. There has been no fever. The pain is at a severity of 4/10. The pain is mild. Pertinent negatives include no abdominal pain, congestion, coughing, diarrhea, drooling, ear discharge, ear pain, headaches, hoarse voice, plugged ear sensation, neck pain, shortness of breath, stridor, swollen glands, trouble swallowing or vomiting. He has had no exposure to strep or mono. He has tried acetaminophen for the symptoms. The treatment provided mild relief. PAST MEDICAL HISTORY Diagnosis Date Acute gastritis without mention of hemorrhage Acute pericarditis, unspecified early Alcohol Intake 4 per day 11/15/2007 1 case beer per week Congenital tracheoesophageal fistula, esophageal atresia and stenosis Diaphragmatic hernia without mention of obstruction or gangrene Esophagitis, unspecified GERD (gastroesophageal reflux disease) Hiatal hernia Internal hemorrhoids without mention of complication Orchitis and epididymitis 09/13/2017 Other psoriasis Pulmonary embolism (HCC) Right foot infection post foot surgery Snoring Tobacco use disorder 11/15/2007 Unspecified essential hypertension 11/15/2007 PAST SURGICAL HISTORY Procedure Laterality Date COLONOSCOPY FLX DX W/COLLJ SPEC WHEN PFRMD 05/24/09 EGD TRANSORAL BIOPSY SINGLE/MULTIPLE 05/24/09 ESOPHAGOGASTRODUODENOSCOPY TRANSORAL DIAGNOSTIC 01/07/2007 EGD ESOPHAGOGASTRODUODENOSCOPY TRANSORAL DIAGNOSTIC 04/20/2014 EGD ESOPHAGOGASTRODUODENOSCOPY TRANSORAL DIAGNOSTIC 04/08/2018 EGD ESOPHAGOGASTRODUODENOSCOPY TRANSORAL DIAGNOSTIC 05/07/2020 EGD ESOPHAGOSCOPY FLEX BALLOON DILAT <30 MM DIAM 03/28/07 EXC NEUROMA HAND/FOOT XCP DIGITAL NERVE Right 2 removed HERNIA REPAIR HX PAST SURGICAL HISTORY OF 06/14/2012 left [facility] arthroplasty PAST SURGICAL HISTORY OF Right right foot surgery- removal of neuromas RPR 1ST INGUN HRNA AGE 4 YRS/> REDUCIBLE Right 06/08/15 INDIRECT - MEDIUM MESH PLUG ALLERGIES Bee Stings [Other] and Sulfa (Sulfonamide Antibiotics) MEDICATIONS dicyclomine (BENTYL) 10 mg capsule Take 1 capsule by mouth twice daily with meals. lisinopril-hydroCHLOROthiazide (PRINZIDE,ZESTORETIC) 10-12.5 mg per tablet Take 1 tablet by mouth once daily. rosuvastatin (CRESTOR) 10 mg tablet Take 1 tablet by mouth once daily. warfarin (COUMADIN) 4 mg tablet 8mg daily warfarin (COUMADIN) 5 mg tablet take 9 MG by mouth once daily omeprazole (PRILOSEC) 40 mg capsule Take 1 capsule by mouth once daily. triamcinolone acetonide (KENALOG) 0.1 % cream Apply 1 application to affected area three times daily. warfarin (COUMADIN) 1 mg tablet Take 8 tablets by mouth once daily. ketoconazole (NIZORAL) 2 % shampoo Apply 1 application to affected area three times a week. Pvvblxdhdiryg-Qaotiuyk-Qgvost (CENTRUM SILVER) tab Take 1 tablet by mouth once daily. CHOLECALCIFEROL (VITAMIN D3) 1,000 UNIT CAP Take one(1) tablet daily. [id number]-[id number] (BMX 1:1:1) 1:1:1 liqd Mix in equal amounts - 1 T every 2hrs as needed for mouth pain, Swish/swallow or expectorate. (8oz) cyclobenzaprine (FLEXERIL) 10 mg tablet Take 1 tablet by mouth at bedtime as needed for Muscle Spasm. acetaminophen (TYLENOL) 500 mg tablet Take 1,000 mg by mouth every 6 hours as needed. FAMILY HISTORY Problem Relation Age of Onset Diabetes Mother [place] Heart Mother Heart Father mi ,kidney fail other (Other) Father LEUKEMIA Emphysema Brother Social History Tobacco Use Smoking status: Current Some Day Smoker Packs/day: 1.00 Years: 40.00 Pack years: 40.00 Types: Cigarettes Smokeless tobacco: Never Used Tobacco comment: Less than a half pack a week Vaping Use Vaping Use: Never used Substance Use Topics Alcohol use: Yes Alcohol/week: 52.5 standard drinks Types: 21 Cans of Beer (12oz) per week Comment: social - 2 beers a day on 05/07/2020 states 12 pack on weekends none during the week Drug use: No Review of Systems Constitutional: Negative for activity change, appetite change, chills and diaphoresis. HENT: Positive for sore throat. Negative for congestion, drooling, ear discharge, ear pain, hoarse voice, mouth sores, nosebleeds, postnasal drip, sinus pressure, sinus pain and trouble swallowing. Eyes: Negative for pain, discharge, redness and itching. Respiratory: Negative for apnea, cough, chest tightness, shortness of breath and stridor. Cardiovascular: Negative for chest pain, palpitations and leg swelling. Gastrointestinal: Negative for abdominal pain, diarrhea and vomiting. Musculoskeletal: Negative for arthralgias, back pain, gait problem and neck pain. Skin: Negative for color change, pallor, rash and wound. Allergic/Immunologic: Negative for environmental allergies, food allergies and immunocompromised state. Neurological: Negative for dizziness, facial asymmetry and headaches. Hematological: Negative for adenopathy. Does not bruise/bleed easily. Psychiatric/Behavioral: Negative for agitation and behavioral problems. Objective BP 130/80 Pulse 93 Temp 37.1 C (98.7 F) Resp 16 Wt 74.8 kg (165 lb) SpO2 98% BMI 24.37 kg/m Physical Exam Vitals and nursing note reviewed. Constitutional: General: He is not in acute distress. Appearance: Normal appearance. He is not ill-appearing, toxic-appearing or diaphoretic. HENT: Head: Normocephalic and atraumatic. Right Ear: External ear normal. Left Ear: External ear normal. Nose: Nose normal. No congestion or rhinorrhea. Mouth/Throat: Mouth: Mucous membranes are moist. Pharynx: Oropharynx is clear. Posterior oropharyngeal erythema (marked posterior erythema. Uvula midline and handling secretions. ) present. No oropharyngeal exudate. Eyes: General: Right eye: No discharge. Left eye: No discharge. Extraocular Movements: Extraocular movements intact. Conjunctiva/sclera: Conjunctivae normal. Pupils: Pupils are equal, round, and reactive to light. Cardiovascular: Rate and Rhythm: Normal rate and regular rhythm. Pulses: Normal pulses. Heart sounds: Normal heart sounds. No murmur heard. No friction rub. No gallop. Pulmonary: Effort: Pulmonary effort is normal. No respiratory distress. Breath sounds: Normal breath sounds. No stridor. No wheezing, rhonchi or rales. Chest: Chest wall: No tenderness. Abdominal: General: Abdomen is flat. There is no distension. Palpations: Abdomen is soft. There is no mass. Tenderness: There is no abdominal tenderness. There is no guarding or rebound. Hernia: No hernia is present. Musculoskeletal: General: No swelling, tenderness, deformity or signs of injury. Normal range of motion. Cervical back: Normal range of motion and neck supple. No rigidity or tenderness. Right lower leg: No edema. Left lower leg: No edema. Lymphadenopathy: Cervical: No cervical adenopathy. Skin: General: Skin is warm and dry. Capillary Refill: Capillary refill takes less than 2 seconds. Coloration: Skin is not jaundiced or pale. Findings: No bruising, lesion or rash. Neurological: General: No focal deficit present. Mental Status: He is alert and oriented to person, place, and time. Cranial Nerves: No cranial nerve deficit. Sensory: No sensory deficit. Motor: No weakness. Coordination: Coordination normal. Gait: Gait normal. Deep Tendon Reflexes: Reflexes normal. Psychiatric: Mood and Affect: Mood normal. Behavior: Behavior normal. Thought Content: Thought content normal. Assessment and Plan ASSESSMENT/PLAN: 1. Pharyngitis, unspecified etiology - ICD9: 462, ICD10: J02.9 - suspect viral - Alere Strep Test NEGATIVE , no culture pending - Discussed supportive care treatment with fluids, rest and analgesia. - The patient may also use OTC cough and cold meds as needed, warm salt water gargles, throat lozenges and/or OTC throat spray as needed and nasal saline gtts and suction prn. - The patient should follow up in 3-5 days if symptoms persist or worsen - Call back if drooling, increased temperature, symptoms of dehydration and/or still sick in one week - STREP A MOLECULAR (POC) Niurka Costello APRN.CNP documented in this encounter [facility] 01-12-2022 History of Presen t illness Narrative Continue coumadin & repeat PT/INR in 1 month Sharlene Zarate MD patient had inr completed at [facility] patients inr is 2.9 (patients inr range is 2.0-3.0) patient is currently taking 8.5mg Mon,Fri and 8mg all other days patients last dose change was on 09/15/21 due to a high level of 3.1 (dose at that time was 8.5mg Mon,Wed,Fri and 8mg all other days) patient has had no change in medication and no missed doses and no change in diet Advised patient to continue on the same dose(s) and that they would only be contacted regarding dosage and follow up instructions after review with provider, if a change is needed. Written instructions given and patient verbalized understanding. Presently scheduled in 4 weeks (02/09/22) for follow up INR. documented in this encounter [facility] 12-15-2021 History of Presen t illness Narrative Agree with plan as outlined below. Jaswinder Scott DO patient had inr completed at [facility] patients inr is 2.7 (patients inr range is 2.0-3.0) patient is currently taking 8.5mg Mon,Fri and 8mg all other days patients last dose change was on 09/15/21 due to a high level of 3.1 (dose at that time was 8.5mg Mon,Wed,Fri and 8mg all other days) patient has had no changes in medication and no missed doses and no change in diet Advised patient to continue on the same dose(s) and that they would only be contacted regarding dosage and follow up instructions after review with provider, if a change is needed. Written instructions given and patient verbalized understanding. Presently scheduled in 4 weeks (01/12/22) for follow up INR. documented in this encounter [facility] 11-17-2021 History of Presen t illness Narrative Agree with plan as outlined below. Jaswinder Scott DO patient had inr completed at [facility] patients inr is 2.2 (patients inr range is 2.0-3.0) patient is currently taking 8.5mg Mon,Fri and 8mg all other days patients last dose change was on 09/15/21 due to a high level of 3.1 (dose at that time was 8.5mg Mon,Wed,Fri and 8mg all other days) patient has had no changes in medication and no missed doses and no change in diet Advised patient to continue on the same dose(s) and that they would only be contacted regarding dosage and follow up instructions after review with provider, if a change is needed. Written instructions given and patient verbalized understanding. Presently scheduled in 4 weeks (12/15/21) for follow up INR. documented in this encounter [facility] 11-10-2021 History of Presen t illness Narrative Advise him to continue current dose of Coumadin and recheck INR in a week as scheduled. Jaswinder Scott DO patient had inr completed at [facility] patients inr is 1.4 (patients inr range is 2.0-3.0) patient is currently taking 8.5mg Mon,Fri and 8mg all other days patients last dose change was on 09/15/21 due to a high level of 3.1 (dose at that time was 8.5mg Mon,Wed,Fri and 8mg all other days) patient has had no changes in medication and patient was off coumadin for a procedure on 10/30-11/04 and resumed dosing on Sunday 11/05 and no change in diet Advised patient that they would be contacted regarding medication dose and when to follow up after information is reviewed by provider. After provider review please contact the patient with information and schedule follow up appointment with coumadin clinic. ok to leave a detailed message if no answer FYI- patient has been scheduled for a 1 week follow up inr on 11/17/21 documented in this encounter [facility] 11-03-2021 History of Presen t illness Narrative spouse notified of information He can resume Coumadin the evening of the procedure or the evening following at the discretion of the urologist. We do not know if he is going to have anything removed from the bladder. When he resumes, dosing should be 8.5mg Mon, Fri and 8mg all other days. Recheck INR a week after resuming therapy. Jaswinder Scott DO patient had inr completed at [facility] patients inr is 1.1 (patients inr range is 2.0-3.0) patient is currently holding 8.5mg Mon, Fri and 8mg all other days since Sunday due to having a cystocopy tomorrow patients last dose change was on 09/15/21 due to a high level of 3.3 (dose at that time was 8.5mg Mon,Wed,Fri and 8mg all other days) patient has had a change in medication as patient is taking cefalexin and holding coumadin and no change in diet patient is waiting further instruction on when he should restart coumadin and on what dose and when to recheck inr. patient procedure is tomorrow. Ok to leave a detailed message with instruction documented in this encounter [facility] 11-03-2021 Miscellaneous Notes patients orders for coumadin clinic inr's has at this time. new order has been pended for approval if possible so that patient can continue to get inr's completed thru the coumadin clinic. coumadin clinic nurse only needs called if order can not be approved. documented in this encounter [facility] 11-01-2021 Miscellaneous Notes Left detailed message for patient stating to have INR done just in case Dr. Leos would like this for the procedure. Larisa Johansen LPN Patient states he is off of coumadin due to a procedure he is having done. He is asking if he should still have INR checked on . Please call patient to advise. Okay to leave detailed message. documented in this encounter [facility] 10-31-2021 Miscellaneous Notes Patient notified. Reminder left on desk to request note from Dr. Leos. Larisa Johansen LPN Agree.Will make decision when he can restart anticoagulation once he has cystoscopy performed and we have a diagnosis as to what is causing the bleeding. Please asked Dr. Leos's office staff to forward a copy of the cystoscopy report to me. Jaswinder Scott DO Pt returned call after seeing Dr. Leos today. He stated Dr. Leos said the CT of the Kidney did not show anything. He plans to do a surgery on 11/04/21 to take a closer look at the bladder/kidneys. Agrees to hold coumadin. Patient has seen Dr. Leos and had a CT abd/pelvis today. Report printed and placed in Dr. Scott's mailbox for review. Patient is seeing Dr. Leos this afternoon for CT results and will contact office with plan. Patient is aware to hold Coumadin. Larisa Johansen LPN Left message for patient to contact office. Larisa Johansen LPN He needs to see a urologist. Looks like the hospital already advised Dr. Leos. His hemoglobin in the ER was 14.7 g/dL. Kidney function was normal. Hold Coumadin for the time being until he has urologic evaluation. Jaswinder Scott DO ED report printed and will be given to Dr. Scott to review if follow-up is needed. Mellisa Cardenas RN Pt wanted Dr. Scott to know he had been in the [facility] ER 10/29/21 for blood in the urine. He wanted to know if Dr. Scott wanted to see him or do further tests. documented in this encounter [facility] documented as of this encounter (statuses as of 10/31/2021) [facility] History of Past illness Narrative* Problem Noted Date Resolved Date Encounter for screening for malignant neoplasm o f colon 04/04/2018 11/19/2018 Overview: Added automatically from request for surgery [id number] Right inguinal hernia 05/13/2015 11/19/2018 Mild intermittent asthma without complication 05/18/2020 CMC arthritis, thumb, degenerative 06/14/2012 06/03/2015 Hypercholesteremia 08/10/2010 05/24/2018 Acute gastritis without mention of hemorrhage 06/03/2015 Alcohol Intake 4 per day 11/15/2007 015 Overview: 1 case beer per week Esophagitis, unspecified 01/07/2007 018 Overview: Pringle's Esophagus - Next EGD due 2008 Cavus deformity of foot, acquired 09/12/2006 06/03/2015 Sprain of foot, unspecified site 09/12/2006 11/15/2007 documented as of this encounter (statuses as of 11/01/2021) [facility] History of Past illness Narrative* Problem Noted Date Resolved Date Encounter for screening for malignant neoplasm o f colon 04/04/2018 11/19/2018 Overview: Added automatically from request for surgery [id number] Right inguinal hernia 05/13/2015 11/19/2018 Mild intermittent asthma without complication 05/18/2020 CMC arthritis, thumb, degenerative 06/14/2012 06/03/2015 Hypercholesteremia 08/10/2010 05/24/2018 Acute gastritis without mention of hemorrhage 06/03/2015 Alcohol Intake 4 per day 11/15/2007 015 Overview: 1 case beer per week Esophagitis, unspecified 01/07/2007 018 Overview: Pringle's Esophagus - Next EGD due 2008 Cavus deformity of foot, acquired 09/12/2006 06/03/2015 Sprain of foot, unspecified site 09/12/2006 11/15/2007 documented as of this encounter (statuses as of 11/03/2021) [facility] History of Past illness Narrative* Problem Noted Date Resolved Date Encounter for screening for malignant neoplasm o f colon 04/04/2018 11/19/2018 Overview: Added automatically from request for surgery [id number] Right inguinal hernia 05/13/2015 11/19/2018 Mild intermittent asthma without complication 05/18/2020 CMC arthritis, thumb, degenerative 06/14/2012 06/03/2015 Hypercholesteremia 08/10/2010 05/24/2018 Acute gastritis without mention of hemorrhage 06/03/2015 Alcohol Intake 4 per day 11/15/2007 015 Overview: 1 case beer per week Esophagitis, unspecified 01/07/2007 018 Overview: Pringle's Esophagus - Next EGD due 2008 Cavus deformity of foot, acquired 09/12/2006 06/03/2015 Sprain of foot, unspecified site 09/12/2006 11/15/2007 documented as of this encounter (statuses as of 11/03/2021) [facility] History of Past illness Narrative* Problem Noted Date Resolved Date Encounter for screening for malignant neoplasm o f colon 04/04/2018 11/19/2018 Overview: Added automatically from request for surgery [id number] Right inguinal hernia 05/13/2015 11/19/2018 Mild intermittent asthma without complication 05/18/2020 CMC arthritis, thumb, degenerative 06/14/2012 06/03/2015 Hypercholesteremia 08/10/2010 05/24/2018 Acute gastritis without mention of hemorrhage 06/03/2015 Alcohol Intake 4 per day 11/15/2007 015 Overview: 1 case beer per week Esophagitis, unspecified 01/07/2007 018 Overview: Pringle's Esophagus - Next EGD due 2008 Cavus deformity of foot, acquired 09/12/2006 06/03/2015 Sprain of foot, unspecified site 09/12/2006 11/15/2007 documented as of this encounter (statuses as of 11/10/2021) [facility] History of Past illness Narrative* Problem Noted Date Resolved Date Encounter for screening for malignant neoplasm o f colon 04/04/2018 11/19/2018 Overview: Added automatically from request for surgery [id number] Right inguinal hernia 05/13/2015 11/19/2018 Mild intermittent asthma without complication 05/18/2020 CMC arthritis, thumb, degenerative 06/14/2012 06/03/2015 Hypercholesteremia 08/10/2010 05/24/2018 Acute gastritis without mention of hemorrhage 06/03/2015 Alcohol Intake 4 per day 11/15/2007 015 Overview: 1 case beer per week Esophagitis, unspecified 01/07/2007 018 Overview: Pringle's Esophagus - Next EGD due 2008 Cavus deformity of foot, acquired 09/12/2006 06/03/2015 Sprain of foot, unspecified site 09/12/2006 11/15/2007 documented as of this encounter (statuses as of 11/17/2021) [facility] History of Past illness Narrative* Problem Noted Date Resolved Date Encounter for screening for malignant neoplasm o f colon 04/04/2018 11/19/2018 Overview: Added automatically from request for surgery [id number] Right inguinal hernia 05/13/2015 11/19/2018 Mild intermittent asthma without complication 05/18/2020 CMC arthritis, thumb, degenerative 06/14/2012 06/03/2015 Hypercholesteremia 08/10/2010 05/24/2018 Acute gastritis without mention of hemorrhage 06/03/2015 Alcohol Intake 4 per day 11/15/2007 015 Overview: 1 case beer per week Esophagitis, unspecified 01/07/2007 018 Overview: Pringle's Esophagus - Next EGD due 2008 Cavus deformity of foot, acquired 09/12/2006 06/03/2015 Sprain of foot, unspecified site 09/12/2006 11/15/2007 documented as of this encounter (statuses as of 12/15/2021) [facility] History of Past illness Narrative* Problem Noted Date Resolved Date Encounter for screening for malignant neoplasm o f colon 04/04/2018 11/19/2018 Overview: Added automatically from request for surgery [id number] Right inguinal hernia 05/13/2015 11/19/2018 Mild intermittent asthma without complication 05/18/2020 CMC arthritis, thumb, degenerative 06/14/2012 06/03/2015 Hypercholesteremia 08/10/2010 05/24/2018 Acute gastritis without mention of hemorrhage 06/03/2015 Alcohol Intake 4 per day 11/15/2007 015 Overview: 1 case beer per week Esophagitis, unspecified 01/07/2007 018 Overview: Pringle's Esophagus - Next EGD due 2009 Cavus deformity of foot, acquired 09/12/2006 06/03/2015 Sprain of foot, unspecified site 09/12/2006 11/15/2007 documented as of this encounter (statuses as of 01/12/2022) [facility] History of Past illness Narrative* Problem Noted Date Resolved Date Encounter for screening for malignant neoplasm o f colon 04/04/2018 11/19/2018 Overview: Added automatically from request for surgery [id number] Right inguinal hernia 05/13/2015 11/19/2018 Mild intermittent asthma without complication 05/18/2020 CMC arthritis, thumb, degenerative 06/14/2012 06/03/2015 Hypercholesteremia 08/10/2010 05/24/2018 Acute gastritis without mention of hemorrhage 06/03/2015 Alcohol Intake 4 per day 11/15/2007 015 Overview: 1 case beer per week Esophagitis, unspecified 01/07/2007 018 Overview: Pringle's Esophagus - Next EGD due 2009 Cavus deformity of foot, acquired 09/12/2006 06/03/2015 Sprain of foot, unspecified site 09/12/2006 11/15/2007 documented as of this encounter (statuses as of 01/13/2022) [facility] History of Past illness Narrative* Problem Noted Date Resolved Date Encounter for screening for malignant neoplasm o f colon 04/04/2018 11/19/2018 Overview: Added automatically from request for surgery [id number] Right inguinal hernia 05/13/2015 11/19/2018 Mild intermittent asthma without complication 05/18/2020 CMC arthritis, thumb, degenerative 06/14/2012 06/03/2015 Hypercholesteremia 08/10/2010 05/24/2018 Acute gastritis without mention of hemorrhage 06/03/2015 Alcohol Intake 4 per day 11/15/2007 015 Overview: 1 case beer per week Esophagitis, unspecified 01/07/2007 018 Overview: Pringle's Esophagus - Next EGD due 2008 Cavus deformity of foot, acquired 09/12/2006 06/03/2015 Sprain of foot, unspecified site 09/12/2006 11/15/2007 documented as of this encounter (statuses as of 01/22/2022) [facility] History of Past illness Narrative* Problem Noted Date Resolved Date Encounter for screening for malignant neoplasm o f colon 04/04/2018 11/19/2018 Overview: Added automatically from request for surgery [id number] Right inguinal hernia 05/13/2015 11/19/2018 Mild intermittent asthma without complication 05/18/2020 CMC arthritis, thumb, degenerative 06/14/2012 06/03/2015 Hypercholesteremia 08/10/2010 05/24/2018 Acute gastritis without mention of hemorrhage 06/03/2015 Alcohol Intake 4 per day 11/15/2007 015 Overview: 1 case beer per week Esophagitis, unspecified 01/07/2007 018 Overview: Pringle's Esophagus - Next EGD due 2009 Cavus deformity of foot, acquired 09/12/2006 06/03/2015 Sprain of foot, unspecified site 09/12/2006 11/15/2007 documented as of this encounter (statuses as of 01/25/2022) [facility] History of Past illness Narrative* Problem Noted Date Resolved Date Encounter for screening for malignant neoplasm o f colon 04/04/2018 11/19/2018 Overview: Added automatically from request for surgery [id number] Right inguinal hernia 05/13/2015 11/19/2018 Mild intermittent asthma without complication 05/18/2020 CMC arthritis, thumb, degenerative 06/14/2012 06/03/2015 Hypercholesteremia 08/10/2010 05/24/2018 Acute gastritis without mention of hemorrhage 06/03/2015 Alcohol Intake 4 per day 11/15/2007 015 Overview: 1 case beer per week Esophagitis, unspecified 01/07/2007 018 Overview: Pringle's Esophagus - Next EGD due 2008 Cavus deformity of foot, acquired 09/12/2006 06/03/2015 Sprain of foot, unspecified site 09/12/2006 11/15/2007 documented as of this encounter (statuses as of 01/30/2022) [facility] History of Past illness Narrative* Problem Noted Date Resolved Date Encounter for screening for malignant neoplasm o f colon 04/04/2018 11/19/2018 Overview: Added automatically from request for surgery [id number] Right inguinal hernia 05/13/2015 11/19/2018 Mild intermittent asthma without complication 05/18/2020 CMC arthritis, thumb, degenerative 06/14/2012 06/03/2015 Hypercholesteremia 08/10/2010 05/24/2018 Acute gastritis without mention of hemorrhage 06/03/2015 Alcohol Intake 4 per day 11/15/2007 015 Overview: 1 case beer per week Esophagitis, unspecified 01/07/2007 018 Overview: Pringle's Esophagus - Next EGD due 2009 Cavus deformity of foot, acquired 09/12/2006 06/03/2015 Sprain of foot, unspecified site 09/12/2006 11/15/2007 documented as of this encounter (statuses as of 02/03/2022) [facility] History of Past illness Narrative* Problem Noted Date Resolved Date Encounter for screening for malignant neoplasm o f colon 04/04/2018 11/19/2018 Overview: Added automatically from request for surgery [id number] Right inguinal hernia 05/13/2015 11/19/2018 Mild intermittent asthma without complication 05/18/2020 CMC arthritis, thumb, degenerative 06/14/2012 06/03/2015 Hypercholesteremia 08/10/2010 05/24/2018 Acute gastritis without mention of hemorrhage 06/03/2015 Alcohol Intake 4 per day 11/15/2007 015 Overview: 1 case beer per week Esophagitis, unspecified 01/07/2007 018 Overview: Pringle's Esophagus - Next EGD due 2008 Cavus deformity of foot, acquired 09/12/2006 06/03/2015 Sprain of foot, unspecified site 09/12/2006 11/15/2007 documented as of this encounter (statuses as of 02/09/2022) [facility] History of Past illness Narrative* Problem Noted Date Resolved Date Encounter for screening for malignant neoplasm o f colon 04/04/2018 11/19/2018 Overview: Added automatically from request for surgery [id number] Right inguinal hernia 05/13/2015 11/19/2018 Mild intermittent asthma without complication 05/18/2020 CMC arthritis, thumb, degenerative 06/14/2012 06/03/2015 Hypercholesteremia 08/10/2010 05/24/2018 Acute gastritis without mention of hemorrhage 06/03/2015 Alcohol Intake 4 per day 11/15/2007 015 Overview: 1 case beer per week Esophagitis, unspecified 01/07/2007 018 Overview: Pringle's Esophagus - Next EGD due 2008 Cavus deformity of foot, acquired 09/12/2006 06/03/2015 Sprain of foot, unspecified site 09/12/2006 11/15/2007 documented as of this encounter (statuses as of 02/16/2022) [facility] Narrative* Problem Noted Date Resolved Date Encounter for screening for malignant neoplasm o f colon 04/04/2018 11/19/2018 Overview: Added automatically from request for surgery [id number] Right inguinal hernia 05/13/2015 11/19/2018 Mild intermittent asthma without complication 05/18/2020 CMC arthritis, thumb, degenerative 06/14/2012 06/03/2015 Hypercholesteremia 08/10/2010 05/24/2018 Acute gastritis without mention of hemorrhage 06/03/2015 Alcohol Intake 4 per day 11/15/2007 015 Overview: 1 case beer per week Esophagitis, unspecified 01/07/2007 018 Overview: Pringle's Esophagus - Next EGD due 2008 Cavus deformity of foot, acquired 09/12/2006 06/03/2015 Sprain of foot, unspecified site 09/12/2006 11/15/2007 documented as of this encounter (statuses as of 02/23/2022) [facility]10-04-2018 History of Past illness Narrative* Problem Noted Date Resolved Date Encounter for screening for malignant neoplasm o f colon 04/04/2018 11/19/2018 Overview: Added automatically from request for surgery [id number] Right inguinal hernia 05/13/2015 11/19/2018 Mild intermittent asthma without complication 05/18/2020 CMC arthritis, thumb, degenerative 06/14/2012 06/03/2015 Hypercholesteremia 08/10/2010 05/24/2018 Acute gastritis without mention of hemorrhage 06/03/2015 Alcohol Intake 4 per day 11/15/2007 015 Overview: 1 case beer per week Esophagitis, unspecified 01/07/2007 018 Overview: Pringle's Esophagus - Next EGD due 2008 Cavus deformity of foot, acquired 09/12/2006 06/03/2015 Sprain of foot, unspecified site 09/12/2006 11/15/2007 documented as of this encounter (statuses as of 02/27/2022) [facility]2018 History of Past illness Narrative* Problem Noted Date Resolved Date Encounter for screening for malignant neoplasm o f colon 04/04/2018 11/19/2018 Overview: Added automatically from request for surgery [id number] Right inguinal hernia 05/13/2015 11/19/2018 Mild intermittent asthma without complication 05/18/2020 CMC arthritis, thumb, degenerative 06/14/2012 06/03/2015 Hypercholesteremia 08/10/2010 05/24/2018 Acute gastritis without mention of hemorrhage 06/03/2015 Alcohol Intake 4 per day 11/15/2007 015 Overview: 1 case beer per week Esophagitis, unspecified 01/07/2007 018 Overview: Pringle's Esophagus - Next EGD due 2008 Cavus deformity of foot, acquired 09/12/2006 06/03/2015 Sprain of foot, unspecified site 09/12/2006 11/15/2007 documented as of this encounter (statuses as of 03/09/2022) [facility] History of Past illness Narrative* Problem Noted Date Resolved Date Encounter for screening for malignant neoplasm o f colon 04/04/2018 11/19/2018 Overview: Added automatically from request for surgery [id number] Right inguinal hernia 05/13/2015 11/19/2018 Mild intermittent asthma without complication 05/18/2020 CMC arthritis, thumb, degenerative 06/14/2012 06/03/2015 Hypercholesteremia 08/10/2010 05/24/2018 Acute gastritis without mention of hemorrhage 06/03/2015 Alcohol Intake 4 per day 11/15/2007 015 Overview: 1 case beer per week Esophagitis, unspecified 01/07/2007 018 Overview: Pringle's Esophagus - Next EGD due 2008 Cavus deformity of foot, acquired 09/12/2006 06/03/2015 Sprain of foot, unspecified site 09/12/2006 11/15/2007 documented as of this encounter (statuses as of 03/27/2022) [facility] History of Past illness Narrative* Problem Noted Date Resolved Date Encounter for screening for malignant neoplasm o f colon 04/04/2018 11/19/2018 Overview: Added automatically from request for surgery [id number] Right inguinal hernia 05/13/2015 11/19/2018 Mild intermittent asthma without complication 05/18/2020 CMC arthritis, thumb, degenerative 06/14/2012 06/03/2015 Hypercholesteremia 08/10/2010 05/24/2018 Acute gastritis without mention of hemorrhage 06/03/2015 Alcohol Intake 4 per day 11/15/2007 015 Overview: 1 case beer per week Esophagitis, unspecified 01/07/2007 018 Overview: Pringle's Esophagus - Next EGD due 2008 Cavus deformity of foot, acquired 09/12/2006 06/03/2015 Sprain of foot, unspecified site 09/12/2006 11/15/2007 documented as of this encounter (statuses as of 04/06/2022) [facility] History of Past illness Narrative* Problem Noted Date Resolved Date Encounter for screening for malignant neoplasm o f colon 04/04/2018 11/19/2018 Overview: Added automatically from request for surgery [id number] Right inguinal hernia 05/13/2015 11/19/2018 Mild intermittent asthma without complication 05/18/2020 CMC arthritis, thumb, degenerative 06/14/2012 06/03/2015 Hypercholesteremia 08/10/2010 05/24/2018 Acute gastritis without mention of hemorrhage 06/03/2015 Alcohol Intake 4 per day 11/15/2007 015 Overview: 1 case beer per week Esophagitis, unspecified 01/07/2007 018 Overview: Pringle's Esophagus - Next EGD due 2008 Cavus deformity of foot, acquired 09/12/2006 06/03/2015 Sprain of foot, unspecified site 09/12/2006 11/15/2007 documented as of this encounter (statuses as of 04/27/2022) [facility] History of Past illness Narrative* Problem Noted Date Resolved Date Encounter for screening for malignant neoplasm o f colon 04/04/2018 11/19/2018 Overview: Added automatically from request for surgery [id number] Right inguinal hernia 05/13/2015 11/19/2018 Mild intermittent asthma without complication 05/18/2020 CMC arthritis, thumb, degenerative 06/14/2012 06/03/2015 Hypercholesteremia 08/10/2010 05/24/2018 Acute gastritis without mention of hemorrhage 06/03/2015 Alcohol Intake 4 per day 11/15/2007 015 Overview: 1 case beer per week Esophagitis, unspecified 01/07/2007 018 Overview: Pringle's Esophagus - Next EGD due 2008 Cavus deformity of foot, acquired 09/12/2006 06/03/2015 Sprain of foot, unspecified site 09/12/2006 11/15/2007 documented as of this encounter (statuses as of 05/04/2022) [facility] History of Past illness Narrative* Problem Noted Date Resolved Date Encounter for screening for malignant neoplasm o f colon 04/04/2018 11/19/2018 Overview: Added automatically from request for surgery [id number] Right inguinal hernia 05/13/2015 11/19/2018 Mild intermittent asthma without complication 05/18/2020 CMC arthritis, thumb, degenerative 06/14/2012 06/03/2015 Hypercholesteremia 08/10/2010 05/24/2018 Acute gastritis without mention of hemorrhage 06/03/2015 Alcohol Intake 4 per day 11/15/2007 015 Overview: 1 case beer per week Esophagitis, unspecified 01/07/2007 018 Overview: Pringle's Esophagus - Next EGD due 2008 Cavus deformity of foot, acquired 09/12/2006 06/03/2015 Sprain of foot, unspecified site 09/12/2006 11/15/2007 documented as of this encounter (statuses as of 05/31/2022) [facility] History of Past illness Narrative* Problem Noted Date Resolved Date Encounter for screening for malignant neoplasm o f colon 04/04/2018 11/19/2018 Overview: Added automatically from request for surgery [id number] Right inguinal hernia 05/13/2015 11/19/2018 Mild intermittent asthma without complication 05/18/2020 CMC arthritis, thumb, degenerative 06/14/2012 06/03/2015 Hypercholesteremia 08/10/2010 05/24/2018 Acute gastritis without mention of hemorrhage 06/03/2015 Alcohol Intake 4 per day 11/15/2007 015 Overview: 1 case beer per week Esophagitis, unspecified 01/07/2007 018 Overview: Pringle's Esophagus - Next EGD due 2008 Cavus deformity of foot, acquired 09/12/2006 06/03/2015 Sprain of foot, unspecified site 09/12/2006 11/15/2007 documented as of this encounter (statuses as of 06/01/2022) [facility] History of Past illness Narrative* Problem Noted Date Resolved Date Encounter for screening for malignant neoplasm o f colon 04/04/2018 11/19/2018 Overview: Added automatically from request for surgery [id number] Right inguinal hernia 05/13/2015 11/19/2018 Mild intermittent asthma without complication 05/18/2020 CMC arthritis, thumb, degenerative 06/14/2012 06/03/2015 Hypercholesteremia 08/10/2010 05/24/2018 Acute gastritis without mention of hemorrhage 06/03/2015 Alcohol Intake 4 per day 11/15/2007 015 Overview: 1 case beer per week Esophagitis, unspecified 01/07/2007 018 Overview: Pringle's Esophagus - Next EGD due 2008 Cavus deformity of foot, acquired 09/12/2006 06/03/2015 Sprain of foot, unspecified site 09/12/2006 11/15/2007 documented as of this encounter (statuses as of 07/07/2022) [facility] History of Past illness Narrative* Problem Noted Date Resolved Date Encounter for screening for malignant neoplasm o f colon 04/04/2018 11/19/2018 Overview: Added automatically from request for surgery [id number] Right inguinal hernia 05/13/2015 11/19/2018 Mild intermittent asthma without complication 05/18/2020 CMC arthritis, thumb, degenerative 06/14/2012 06/03/2015 Hypercholesteremia 08/10/2010 05/24/2018 Acute gastritis without mention of hemorrhage 06/03/2015 Alcohol Intake 4 per day 11/15/2007 015 Overview: 1 case beer per week Esophagitis, unspecified 01/07/2007 018 Overview: Pringle's Esophagus - Next EGD due 2008 Cavus deformity of foot, acquired 09/12/2006 06/03/2015 Sprain of foot, unspecified site 09/12/2006 11/15/2007 documented as of this encounter (statuses as of 07/17/2022) [facility] History of Past illness Narrative* Problem Noted Date Resolved Date Encounter for screening for malignant neoplasm o f colon 04/04/2018 11/19/2018 Overview: Added automatically from request for surgery [id number] Right inguinal hernia 05/13/2015 11/19/2018 Mild intermittent asthma without complication 05/18/2020 CMC arthritis, thumb, degenerative 06/14/2012 06/03/2015 Hypercholesteremia 08/10/2010 05/24/2018 Acute gastritis without mention of hemorrhage 06/03/2015 Alcohol Intake 4 per day 11/15/2007 015 Overview: 1 case beer per week Esophagitis, unspecified 01/07/2007 018 Overview: Pringle's Esophagus - Next EGD due 2008 Cavus deformity of foot, acquired 09/12/2006 06/03/2015 Sprain of foot, unspecified site 09/12/2006 11/15/2007 documented as of this encounter (statuses as of 07/28/2022) [facility] History of Past illness Narrative* Problem Noted Date Resolved Date Encounter for screening for malignant neoplasm o f colon 04/04/2018 11/19/2018 Overview: Added automatically from request for surgery [id number] Right inguinal hernia 05/13/2015 11/19/2018 Mild intermittent asthma without complication 05/18/2020 CMC arthritis, thumb, degenerative 06/14/2012 06/03/2015 Hypercholesteremia 08/10/2010 05/24/2018 Acute gastritis without mention of hemorrhage 06/03/2015 Alcohol Intake 4 per day 11/15/2007 015 Overview: 1 case beer per week Esophagitis, unspecified 01/07/2007 018 Overview: Pringle's Esophagus - Next EGD due 2008 Cavus deformity of foot, acquired 09/12/2006 06/03/2015 Sprain of foot, unspecified site 09/12/2006 11/15/2007 documented as of this encounter (statuses as of 08/03/2022) [facility] History of Past illness Narrative* Problem Noted Date Resolved Date Encounter for screening for malignant neoplasm o f colon 04/04/2018 11/19/2018 Overview: Added automatically from request for surgery [id number] Right inguinal hernia 05/13/2015 11/19/2018 Mild intermittent asthma without complication 05/18/2020 CMC arthritis, thumb, degenerative 06/14/2012 06/03/2015 Hypercholesteremia 08/10/2010 05/24/2018 Acute gastritis without mention of hemorrhage 06/03/2015 Alcohol Intake 4 per day 11/15/2007 015 Overview: 1 case beer per week Esophagitis, unspecified 01/07/2007 018 Overview: Pringle's Esophagus - Next EGD due 2009 Cavus deformity of foot, acquired 09/12/2006 06/03/2015 Sprain of foot, unspecified site 09/12/2006 11/15/2007 documented as of this encounter (statuses as of 08/09/2022) [facility] History of Past illness Narrative* Problem Noted Date Resolved Date Encounter for screening for malignant neoplasm o f colon 04/04/2018 11/19/2018 Overview: Added automatically from request for surgery [id number] Right inguinal hernia 05/13/2015 11/19/2018 Mild intermittent asthma without complication 05/18/2020 CMC arthritis, thumb, degenerative 06/14/2012 06/03/2015 Hypercholesteremia 08/10/2010 05/24/2018 Acute gastritis without mention of hemorrhage 06/03/2015 Alcohol Intake 4 per day 11/15/2007 015 Overview: 1 case beer per week Esophagitis, unspecified 01/07/2007 018 Overview: Pringle's Esophagus - Next EGD due 2009 Cavus deformity of foot, acquired 09/12/2006 06/03/2015 Sprain of foot, unspecified site 09/12/2006 11/15/2007 documented as of this encounter (statuses as of 08/15/2022) [facility] History of Past illness Narrative* Problem Noted Date Resolved Date Encounter for screening for malignant neoplasm o f colon 04/04/2018 11/19/2018 Overview: Added automatically from request for surgery [id number] Right inguinal hernia 05/13/2015 11/19/2018 Mild intermittent asthma without complication 05/18/2020 CMC arthritis, thumb, degenerative 06/14/2012 06/03/2015 Hypercholesteremia 08/10/2010 05/24/2018 Acute gastritis without mention of hemorrhage 06/03/2015 Alcohol Intake 4 per day 11/15/2007 015 Overview: 1 case beer per week Esophagitis, unspecified 01/07/2007 018 Overview: Pringle's Esophagus - Next EGD due 2008 Cavus deformity of foot, acquired 09/12/2006 06/03/2015 Sprain of foot, unspecified site 09/12/2006 11/15/2007 documented as of this encounter (statuses as of 08/31/2022) [facility] History of Past illness Narrative* Problem Noted Date Resolved Date Encounter for screening for malignant neoplasm o f colon 04/04/2018 11/19/2018 Overview: Added automatically from request for surgery [id number] Right inguinal hernia 05/13/2015 11/19/2018 Mild intermittent asthma without complication 05/18/2020 CMC arthritis, thumb, degenerative 06/14/2012 06/03/2015 Hypercholesteremia 08/10/2010 05/24/2018 Acute gastritis without mention of hemorrhage 06/03/2015 Alcohol Intake 4 per day 11/15/2007 015 Overview: 1 case beer per week Esophagitis, unspecified 01/07/2007 018 Overview: Pringle's Esophagus - Next EGD due 2009 Cavus deformity of foot, acquired 09/12/2006 06/03/2015 Sprain of foot, unspecified site 09/12/2006 11/15/2007 documented as of this encounter (statuses as of 09/08/2022) [facility] History of Past illness Narrative* Problem Noted Date Resolved Date Encounter for screening for malignant neoplasm o f colon 04/04/2018 11/19/2018 Overview: Added automatically from request for surgery [id number] Right inguinal hernia 05/13/2015 11/19/2018 Mild intermittent asthma without complication 05/18/2020 CMC arthritis, thumb, degenerative 06/14/2012 06/03/2015 Hypercholesteremia 08/10/2010 05/24/2018 Acute gastritis without mention of hemorrhage 06/03/2015 Alcohol Intake 4 per day 11/15/2007 015 Overview: 1 case beer per week Esophagitis, unspecified 01/07/2007 018 Overview: Pringle's Esophagus - Next EGD due 2008 Cavus deformity of foot, acquired 09/12/2006 06/03/2015 Sprain of foot, unspecified site 09/12/2006 11/15/2007 documented as of this encounter (statuses as of 09/16/2022) [facility] History of Past illness Narrative* Problem Noted Date Resolved Date Encounter for screening for malignant neoplasm o f colon 04/04/2018 11/19/2018 Overview: Added automatically from request for surgery [id number] Right inguinal hernia 05/13/2015 11/19/2018 Mild intermittent asthma without complication 05/18/2020 CMC arthritis, thumb, degenerative 06/14/2012 06/03/2015 Hypercholesteremia 08/10/2010 05/24/2018 Acute gastritis without mention of hemorrhage 06/03/2015 Alcohol Intake 4 per day 11/15/2007 015 Overview: 1 case beer per week Esophagitis, unspecified 01/07/2007 018 Overview: Pringle's Esophagus - Next EGD due 2009 Cavus deformity of foot, acquired 09/12/2006 06/03/2015 Sprain of foot, unspecified site 09/12/2006 11/15/2007 documented as of this encounter (statuses as of 09/28/2022) [facility] History of Past illness Narrative* Problem Noted Date Resolved Date Encounter for screening for malignant neoplasm o f colon 04/04/2018 11/19/2018 Overview: Added automatically from request for surgery [id number] Right inguinal hernia 05/13/2015 11/19/2018 Mild intermittent asthma without complication 05/18/2020 CMC arthritis, thumb, degenerative 06/14/2012 06/03/2015 Hypercholesteremia 08/10/2010 05/24/2018 Acute gastritis without mention of hemorrhage 06/03/2015 Alcohol Intake 4 per day 11/15/2007 015 Overview: 1 case beer per week Esophagitis, unspecified 01/07/2007 018 Overview: Pringle's Esophagus - Next EGD due 2008 Cavus deformity of foot, acquired 09/12/2006 06/03/2015 Sprain of foot, unspecified site 09/12/2006 11/15/2007 documented as of this encounter (statuses as of 09/28/2022) [facility] History of Past illness Narrative* Problem Noted Date Resolved Date Encounter for screening for malignant neoplasm o f colon 04/04/2018 11/19/2018 Overview: Added automatically from request for surgery [id number] Right inguinal hernia 05/13/2015 11/19/2018 Mild intermittent asthma without complication 05/18/2020 CMC arthritis, thumb, degenerative 06/14/2012 06/03/2015 Hypercholesteremia 08/10/2010 05/24/2018 Acute gastritis without mention of hemorrhage 06/03/2015 Alcohol Intake 4 per day 11/15/2007 015 Overview: 1 case beer per week Esophagitis, unspecified 01/07/2007 018 Overview: Pringle's Esophagus - Next EGD due 2008 Cavus deformity of foot, acquired 09/12/2006 06/03/2015 Sprain of foot, unspecified site 09/12/2006 11/15/2007 documented as of this encounter (statuses as of 10/13/2022) [facility] History of Past illness Narrative* Problem Noted Date Resolved Date Encounter for screening for malignant neoplasm o f colon 04/04/2018 11/19/2018 Overview: Added automatically from request for surgery [id number] Right inguinal hernia 05/13/2015 11/19/2018 Mild intermittent asthma without complication 05/18/2020 CMC arthritis, thumb, degenerative 06/14/2012 06/03/2015 Hypercholesteremia 08/10/2010 05/24/2018 Acute gastritis without mention of hemorrhage 06/03/2015 Alcohol Intake 4 per day 11/15/2007 015 Overview: 1 case beer per week Esophagitis, unspecified 01/07/2007 018 Overview: Pringle's Esophagus - Next EGD due 2008 Cavus deformity of foot, acquired 09/12/2006 06/03/2015 Sprain of foot, unspecified site 09/12/2006 11/15/2007 documented as of this encounter (statuses as of 10/19/2022) [facility] History of Past illness Narrative* Problem Noted Date Resolved Date Encounter for screening for malignant neoplasm o f colon 04/04/2018 11/19/2018 Overview: Added automatically from request for surgery [id number] Right inguinal hernia 05/13/2015 11/19/2018 Mild intermittent asthma without complication 05/18/2020 CMC arthritis, thumb, degenerative 06/14/2012 06/03/2015 Hypercholesteremia 08/10/2010 05/24/2018 Acute gastritis without mention of hemorrhage 06/03/2015 Alcohol Intake 4 per day 11/15/2007 015 Overview: 1 case beer per week Esophagitis, unspecified 01/07/2007 018 Overview: Pringle's Esophagus - Next EGD due 2008 Cavus deformity of foot, acquired 09/12/2006 06/03/2015 Sprain of foot, unspecified site 09/12/2006 11/15/2007 documented as of this encounter (statuses as of 10/25/2022) [facility] History of Past illness Narrative* Problem Noted Date Resolved Date Encounter for screening for malignant neoplasm o f colon 04/04/2018 11/19/2018 Overview: Added automatically from request for surgery [id number] Right inguinal hernia 05/13/2015 11/19/2018 Mild intermittent asthma without complication 05/18/2020 CMC arthritis, thumb, degenerative 06/14/2012 06/03/2015 Hypercholesteremia 08/10/2010 05/24/2018 Acute gastritis without mention of hemorrhage 06/03/2015 Alcohol Intake 4 per day 11/15/2007 015 Overview: 1 case beer per week Esophagitis, unspecified 01/07/2007 018 Overview: Pringle's Esophagus - Next EGD due 2008 Cavus deformity of foot, acquired 09/12/2006 06/03/2015 Sprain of foot, unspecified site 09/12/2006 11/15/2007 documented as of this encounter (statuses as of 11/01/2022) [facility] History of Past illness Narrative* Problem Noted Date Diagnosed Date Resolved Date Encounter for screening for malignant neoplasm of colon 04/04/2018 11/19/2018 Overview: Added automatically from request for surgery [id number] Right inguinal hernia 05/13/20152018 Mild intermittent asthma without complication 05/06/20 15 05/18/2020 CMC arthritis, thumb, degenerative 06/14/2012 06/03/2015 Hypercholesteremia 08/10/2010 8 Acute gastritis without mention of hemorrhage 05/24/20 09 06/03/2015 Alcohol Intake 4 per day 11/15/200708/2014 Overview: 1 case beer per week Esophagitis, unspecified 01/07/2007 Overview: Pringle's Esophagus - Next EGD due 2008 Cavus deformity of foot, acquired 09/12/2006 06/03/2015 Sprain of foot, unspecified site 09/12/2006 11/15/2007 documented as of this encounter (statuses as of 01/15/2023) [facility] History of Past illness Narrative* Problem Noted Date Diagnosed Date Resolved Date Encounter for screening for malignant neoplasm of colon 04/04/2018 11/19/2018 Overview: Added automatically from request for surgery [id number] Right inguinal hernia 05/13/20152018 Mild intermittent asthma without complication 05/06/20 15 05/18/2020 CMC arthritis, thumb, degenerative 06/14/2012 06/03/2015 Hypercholesteremia 08/10/2010 8 Acute gastritis without mention of hemorrhage 05/24/20 09 06/03/2015 Alcohol Intake 4 per day 11/15/200708/2014 Overview: 1 case beer per week Esophagitis, unspecified 01/07/2007 Overview: Pringle's Esophagus - Next EGD due 2008 Cavus deformity of foot, acquired 09/12/2006 06/03/2015 Sprain of foot, unspecified site 09/12/2006 11/15/2007 documented as of this encounter (statuses as of 01/26/2023) [facility] History of Past illness Narrative* Problem Noted Date Diagnosed Date Resolved Date Encounter for screening for malignant neoplasm of colon 04/04/2018 11/19/2018 Overview: Added automatically from request for surgery [id number] Right inguinal hernia 05/13/20152018 Mild intermittent asthma without complication 05/06/20 15 05/18/2020 CMC arthritis, thumb, degenerative 06/14/2012 06/03/2015 Hypercholesteremia 08/10/2010 8 Acute gastritis without mention of hemorrhage 05/24/20 09 06/03/2015 Alcohol Intake 4 per day 11/15/200708/2014 Overview: 1 case beer per week Esophagitis, unspecified 01/07/2007 Overview: Pringle's Esophagus - Next EGD due 2008 Cavus deformity of foot, acquired 09/12/2006 06/03/2015 Sprain of foot, unspecified site 09/12/2006 11/15/2007 documented as of this encounter (statuses as of 02/07/2023) [facility] History of Past illness Narrative* Problem Noted Date Diagnosed Date Resolved Date Encounter for screening for malignant neoplasm of colon 04/04/2018 11/19/2018 Overview: Added automatically from request for surgery [id number] Right inguinal hernia 05/13/20152018 Mild intermittent asthma without complication 05/06/20 15 05/18/2020 CMC arthritis, thumb, degenerative 06/14/2012 06/03/2015 Hypercholesteremia 08/10/2010 8 Acute gastritis without mention of hemorrhage 05/24/20 09 06/03/2015 Alcohol Intake 4 per day 11/15/200708/2014 Overview: 1 case beer per week Esophagitis, unspecified 01/07/2007 Overview: Pringle's Esophagus - Next EGD due 2008 Cavus deformity of foot, acquired 09/12/2006 06/03/2015 Sprain of foot, unspecified site 09/12/2006 11/15/2007 documented as of this encounter (statuses as of 03/07/2023) [facility] History of Past illness Narrative* Problem Noted Date Diagnosed Date Resolved Date Encounter for screening for malignant neoplasm of colon 04/04/2018 11/19/2018 Overview: Added automatically from request for surgery [id number] Right inguinal hernia 05/13/20152018 Mild intermittent asthma without complication 05/06/20 15 05/18/2020 CMC arthritis, thumb, degenerative 06/14/2012 06/03/2015 Hypercholesteremia 08/10/2010 8 Acute gastritis without mention of hemorrhage 05/24/20 09 06/03/2015 Alcohol Intake 4 per day 11/15/200708/2014 Overview: 1 case beer per week Esophagitis, unspecified 01/07/2007 Overview: Pringle's Esophagus - Next EGD due 2008 Cavus deformity of foot, acquired 09/12/2006 06/03/2015 Sprain of foot, unspecified site 09/12/2006 11/15/2007 documented as of this encounter (statuses as of 03/09/2023) [facility] History of Past illness Narrative* Problem Noted Date Diagnosed Date Resolved Date Encounter for screening for malignant neoplasm of colon 04/04/2018 11/19/2018 Overview: Added automatically from request for surgery [id number] Right inguinal hernia 05/13/20152018 Mild intermittent asthma without complication 05/06/20 15 05/18/2020 CMC arthritis, thumb, degenerative 06/14/2012 06/03/2015 Hypercholesteremia 08/10/2010 8 Acute gastritis without mention of hemorrhage 05/24/20 09 06/03/2015 Alcohol Intake 4 per day 11/15/200708/2014 Overview: 1 case beer per week Esophagitis, unspecified 01/07/2007 Overview: Pringle's Esophagus - Next EGD due 2008 Cavus deformity of foot, acquired 09/12/2006 06/03/2015 Sprain of foot, unspecified site 09/12/2006 11/15/2007 documented as of this encounter (statuses as of 03/13/2023) [facility] History of Past illness Narrative* Problem Noted Date Diagnosed Date Resolved Date Encounter for screening for malignant neoplasm of colon 04/04/2018 11/19/2018 Overview: Added automatically from request for surgery [id number] Right inguinal hernia 05/13/20152018 Mild intermittent asthma without complication 05/06/20 15 05/18/2020 CMC arthritis, thumb, degenerative 06/14/2012 06/03/2015 Hypercholesteremia 08/10/2010 8 Acute gastritis without mention of hemorrhage 05/24/2006/03/2015 Alcohol Intake 4 per day 11/15/200708/2014 Overview: 1 case beer per week Esophagitis, unspecified 01/07/2007 Overview: Pringle's Esophagus - Next EGD due 2008 Cavus deformity of foot, acquired 09/12/2006 06/03/2015 Sprain of foot, unspecified site 09/12/2006 11/15/2007 documented as of this encounter (statuses as of 04/18/2023) [facility] History of Past illness Narrative* Problem Noted Date Diagnosed Date Resolved Date Encounter for screening for malignant neoplasm of colon 04/04/2018 11/19/2018 Overview: Added automatically from request for surgery [id number] Right inguinal hernia 05/13/20152018 Mild intermittent asthma without complication 05/06/20 15 05/18/2020 CMC arthritis, thumb, degenerative 06/14/2012 06/03/2015 Hypercholesteremia 08/10/2010 8 Acute gastritis without mention of hemorrhage 05/24/20 09 06/03/2015 Alcohol Intake 4 per day 11/15/200708/2014 Overview: 1 case beer per week Esophagitis, unspecified 01/07/2007 Overview: Pringle's Esophagus - Next EGD due 2008 Cavus deformity of foot, acquired 09/12/2006 06/03/2015 Sprain of foot, unspecified site 09/12/2006 11/15/2007 documented as of this encounter (statuses as of 04/24/2023) [facility] History of Past illness Narrative* Problem Noted Date Diagnosed Date Resolved Date Encounter for screening for malignant neoplasm of colon 04/04/2018 11/19/2018 Overview: Added automatically from request for surgery [id number] Right inguinal hernia 05/13/20152018 Mild intermittent asthma without complication 05/06/20 15 05/18/2020 CMC arthritis, thumb, degenerative 06/14/2012 06/03/2015 Hypercholesteremia 08/10/2010 8 Acute gastritis without mention of hemorrhage 05/24/2006/03/2015 Alcohol Intake 4 per day 11/15/200708/2014 Overview: 1 case beer per week Esophagitis, unspecified 01/07/2007 Overview: Pringle's Esophagus - Next EGD due 2009 Cavus deformity of foot, acquired 09/12/2006 06/03/2015 Sprain of foot, unspecified site 09/12/2006 11/15/2007 documented as of this encounter (statuses as of 04/30/2023) [facility] History of Past illness Narrative* Problem Noted Date Diagnosed Date Resolved Date Encounter for screening for malignant neoplasm of colon 04/04/2018 11/19/2018 Overview: Added automatically from request for surgery [id number] Right inguinal hernia 05/13/20152018 Mild intermittent asthma without complication 05/06/20 15 05/18/2020 CMC arthritis, thumb, degenerative 06/14/2012 06/03/2015 Hypercholesteremia 08/10/2010 8 Acute gastritis without mention of hemorrhage 05/24/20 09 06/03/2015 Alcohol Intake 4 per day 11/15/200708/2014 Overview: 1 case beer per week Esophagitis, unspecified 01/07/2007 Overview: Pringle's Esophagus - Next EGD due 2009 Cavus deformity of foot, acquired 09/12/2006 06/03/2015 Sprain of foot, unspecified site 09/12/2006 11/15/2007 documented as of this encounter (statuses as of 04/30/2023) [facility] History of Past illness Narrative* Problem Noted Date Diagnosed Date Resolved Date Encounter for screening for malignant neoplasm of colon 04/04/2018 11/19/2018 Overview: Added automatically from request for surgery [id number] Right inguinal hernia 05/13/20152018 Mild intermittent asthma without complication 05/06/20 15 05/18/2020 CMC arthritis, thumb, degenerative 06/14/2012 06/03/2015 Hypercholesteremia 08/10/2010 8 Acute gastritis without mention of hemorrhage 05/24/20 09 06/03/2015 Alcohol Intake 4 per day 11/15/200708/2014 Overview: 1 case beer per week Esophagitis, unspecified 01/07/2007 Overview: Pringle's Esophagus - Next EGD due 2009 Cavus deformity of foot, acquired 09/12/2006 06/03/2015 Sprain of foot, unspecified site 09/12/2006 11/15/2007 documented as of this encounter (statuses as of 05/09/2023) [facility] History of Past illness Narrative* Problem Noted Date Diagnosed Date Resolved Date Encounter for screening for malignant neoplasm of colon 04/04/2018 11/19/2018 Overview: Added automatically from request for surgery [id number] Right inguinal hernia 05/13/20152018 Mild intermittent asthma without complication 05/06/20 15 05/18/2020 CMC arthritis, thumb, degenerative 06/14/2012 06/03/2015 Hypercholesteremia 08/10/2010 8 Acute gastritis without mention of hemorrhage 05/24/20 09 06/03/2015 Alcohol Intake 4 per day 11/15/200708/2014 Overview: 1 case beer per week Esophagitis, unspecified 01/07/2007 Overview: Pringle's Esophagus - Next EGD due 2009 Cavus deformity of foot, acquired 09/12/2006 06/03/2015 Sprain of foot, unspecified site 09/12/2006 11/15/2007 documented as of this encounter (statuses as of 05/09/2023) [facility] History of Past illness Narrative* Problem Noted Date Diagnosed Date Resolved Date Encounter for screening for malignant neoplasm of colon 04/04/2018 11/19/2018 Overview: Added automatically from request for surgery [id number] Right inguinal hernia 05/13/20152018 Mild intermittent asthma without complication 05/06/20 15 05/18/2020 CMC arthritis, thumb, degenerative 06/14/2012 06/03/2015 Hypercholesteremia 08/10/2010 8 Acute gastritis without mention of hemorrhage 05/24/20 09 06/03/2015 Alcohol Intake 4 per day 11/15/200708/2014 Overview: 1 case beer per week Esophagitis, unspecified 01/07/2007 Overview: Pringle's Esophagus - Next EGD due 2009 Cavus deformity of foot, acquired 09/12/2006 06/03/2015 Sprain of foot, unspecified site 09/12/2006 11/15/2007 documented as of this encounter (statuses as of 05/16/2023) [facility] History of Past illness Narrative* Problem Noted Date Diagnosed Date Resolved Date Encounter for screening for malignant neoplasm of colon 04/04/2018 11/19/2018 Overview: Added automatically from request for surgery [id number] Right inguinal hernia 05/13/20152018 Mild intermittent asthma without complication 05/06/20 15 05/18/2020 CMC arthritis, thumb, degenerative 06/14/2012 06/03/2015 Hypercholesteremia 08/10/2010 8 Acute gastritis without mention of hemorrhage 05/24/20 09 06/03/2015 Alcohol Intake 4 per day 11/15/200708/2014 Overview: 1 case beer per week Esophagitis, unspecified 01/07/2007 Overview: Pringle's Esophagus - Next EGD due 2009 Cavus deformity of foot, acquired 09/12/2006 06/03/2015 Sprain of foot, unspecified site 09/12/2006 11/15/2007 documented as of this encounter (statuses as of 08/10/2023) [facility] Diagnosis Other chronic pulmonary embolism without acute cor pulmonale (HCC)- Primary Coagulation defect (HCC) Other and unspecified coagulation defects [facility] Diagnosis Other chronic pulmonary embolism without acute cor pulmonale (HCC)- Primary [facility] Diagnosis Other chronic pulmonary embolism without acute cor pulmonale (HCC)- Primary Coagulation defect (HCC) Other and unspecified coagulation defects [facility] Diagnosis Other chronic pulmonary embolism without acute cor pulmonale (HCC)- Primary Coagulation defect (HCC) Other and unspecified coagulation defects [facility] Diagnosis Other chronic pulmonary embolism without acute cor pulmonale (HCC)- Primary Coagulation defect (HCC) Other and unspecified coagulation defects [facility] Diagnosis Essential hypertension Unspecified essential hypertension Medication management Encounter for long-term (current) use of other medications [facility]* Diagnosis Pharyngitis, unspecified etiology- Primary [facility] Diagnosis Tobacco abuse Tobacco use disorder [facility] Essential hypertension- Primary Unspecified essential hypertension Esophageal spasm Dyskinesia of esophagus Mixed hyperlipidemia Vitamin D deficiency Unspecified vitamin D deficiency Anticardiolipin antibody positive Other and unspecified nonspecific immunological findings [facility] Diagnosis Other chronic pulmonary embolism without acute cor pulmonale (HCC)- Primary Coagulation defect (HCC) Other and unspecified coagulation defects [facility] Diagnosis Other chronic pulmonary embolism without acute cor pulmonale (HCC)- Primary Coagulation defect (HCC) Other and unspecified coagulation defects [facility] Esophageal spasm Dyskinesia of esophagus [facility] Diagnosis Esophageal spasm Dyskinesia of esophagus [facility] Diagnosis Other chronic pulmonary embolism without acute cor pulmonale (HCC)- Primary Coagulation defect (HCC) Other and unspecified coagulation defects [facility] Diagnosis Mixed hyperlipidemia [facility] Diagnosis Annual physical exam- Primary Routine general medical examination at a [facility] care facility Essential hypertension Unspecified essential hypertension Coagulation defect (HCC) Other and unspecified coagulation defects Other chronic pulmonary embolism without acute cor pulmonale (HCC) [facility]* Diagnosis Bilateral impacted cerumen- Primary Impacted cerumen Jaw pain [facility] Diagnosis Other chronic pulmonary embolism without acute cor pulmonale (HCC)- Primary Coagulation defect (HCC) Other and unspecified coagulation defects [facility] Diagnosis Anticardiolipin antibody positive- Primary Other and unspecified nonspecific immunological findings [facility] Diagnosis Other chronic pulmonary embolism without acute cor pulmonale (HCC)- Primary Coagulation defect (HCC) Other and unspecified coagulation defects [facility] Diagnosis Esophageal spasm Dyskinesia of esophagus [facility] Diagnosis Essential hypertension Unspecified essential hypertension [facility] Diagnosis Essential hypertension- Primary Unspecified essential hypertension Coagulation defect (HCC) Other and unspecified coagulation defects Mixed hyperlipidemia Liver lesion Other specified disorders of liver Screening for thyroid disorder [facility] Diagnosis Pelvic pain- Primary Inguinal pain, unspecified laterality [facility] Diagnosis Encounter for screening for colorectal malignant neoplasm in high risk patient- Primary Pringle's esophagus with dysplasia Pringle's esophagus [facility] Diagnosis Esophageal spasm Dyskinesia of esophagus [facility] Diagnosis Pringle's esophagus without dysplasia- Primary Pringle's esophagus Pringle's esophagus with dysplasia Pringle's esophagus Encounter for screening for colorectal malignant neoplasm in high risk patient [facility] Diagnosis Coagulation defect (HCC)- Primary Other and unspecified coagulation defects Anticardiolipin antibody positive Other and unspecified nonspecific immunological findings History of pulmonary embolism Personal history of pulmonary embolism documented in this encounter [facility] note* Diagnosis History of colonic polyps Personal history of colonic polyps Pringle's esophagus without dysplasia Pringle's esophagus documented in this encounter [facility] note* Diagnosis Annual physical exam- Primary Routine general medical examination at a health care facility Essential hypertension Unspecified essential hypertension Mixed hyperlipidemia Encounter for screening for lung cancer Screening for prostate cancer Special screening for malignant neoplasm of prostate documented in this encounter [facility] for referral (narrative)* Outpatient Procedure (Routine) - Authorized Specialty Diagnoses / Procedures Referred By Eriberto curry Referred To Contact [facility] Diagnoses Encounter for screening for colorectal malignant neoplasm in high risk patient Procedures EGD DIAGNOSTIC ESOPHAGOGASTRODUODENOSC OPY TRANSORAL DIAGNOSTIC Melissa Fuentes PA-C [address] [place] [address] [place] [phone] Referral ID Status Reason Start Date Expiration Date Visits Requested Visits Authorized [id number] Authorized Auto-Generat ed Referral 03/13/2023 03/13/2024 1 1 * Outpatient Procedure (Routine) - Authorized Specialty Diagnoses / Procedures Referred By Eriberto curry Referred To Contact [facility] Diagnoses Pringle's esophagus with dysplasia Procedures COLONOSCOPY SCREENING COLONOSCOPY FLX DX W/COLLJ SPEC WHEN PFRMD Melissa Fuentes PA-C [address] [place] [phone] [place] [address] Referral ID Status Reason Start Date Expiration Date Visits Requested Visits Authorized [id number] Authorized Auto-Generat ed Referral 03/13/2023 03/13/2024 1 1 [facility] for referral (narrative)* Outpatient Procedure (Routine) - Closed Specialty Diagnoses / Procedures Referred By Eriberto curry Referred To Contact [facility] Diagnoses Encounter for screening for colorectal malignant neoplasm in high risk patient Procedures EGD DIAGNOSTIC ESOPHAGOGASTRODUODENOSC OPY TRANSORAL DIAGNOSTIC Melissa Fuentes PA-C [address] [place] [address] [address] Referral ID Status Reason Start Date Expiration Date V isits Requested Visits Authorized [id number] Closed Auto-Generate d Referral 03/13/2023 03/13/2024 1 1 * Outpatient Procedure (Routine) - Closed Specialty Diagnoses / Procedures Referred By Eriberto curry Referred To Contact [facility] Diagnoses Pringle's esophagus with dysplasia Procedures COLONOSCOPY SCREENING COLONOSCOPY FLX DX W/COLLJ SPEC WHEN PFRMD Melissa Fuentes PA-C [address] [place] [address] [address] Referral ID Status Reason Start Date Expiration Date V isits Requested Visits Authorized [id number] Closed Auto-Generate d Referral 03/13/2023 03/13/2024 1 1 [facility] for visit Narrative* Outpatient Procedure (Routine) - Closed Specialty Diagnoses / Procedures Referred By Eriberto curry Referred To Contact [facility] Diagnoses Encounter for screening for colorectal malignant neoplasm in high risk patient Procedures EGD DIAGNOSTIC ESOPHAGOGASTRODUODENOSC OPY TRANSORAL DIAGNOSTIC Melissa Fuentes PA-C [address] [place] [address] [address] Referral ID Status Reason Start Date Expiration Date V isits Requested Visits Authorized [id number] Closed Auto-Generate d Referral 03/13/2023 03/13/2024 1 1 [facility] Advance Directives No Advanced Directives Records FoundDocuments on File Type Date Recorded 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 Advance Directive(s) 05/07/2020 12:03 PM Advance Directive(s) 04/28/2020 2:21 PM L ocated in Scanned Docs on 06/15/2009 Advance Directive(s) 04/08/2018 12:37 PM Advance Directive(s) 06/15/2009 9:11 PM Documents on File Type Date Recorded 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5-50 mg injection (BENADRYL) 12.5-50 mg, INTRAVENOUS, DIRECTED, Starting on Sun05/07/23 at 1030, Until Sun05/07/23 at 1429, DOSING DIRECTED BY PHYSICIAN FOR PROCEDURAL SEDATION ONLY, Intraprocedure Given 05/07/2023 10:11 AM EST 50 mg fentaNYL 50 mcg/mL 25-100 mcg injection (SUBLIMAZE) 25-100 mcg, INTRAVENOUS, DIRECTED, Starting on Sun05/07/23 at 1030, Until Sun05/07/23 at 1429, DOSING DIRECTED BY PHYSICIAN FOR PROCEDURAL SEDATION ONLY, Intraprocedure Given 05/07/2023 10:09 AM EST 50 mcg lactated ringers iv infusion 75 mL/hr, INTRAVENOUS, CONTINUOUS, Starting on Sun05/07/23 at 0930, Until Sun05/07/23 at 1041, Preprocedure New Bag/Syringe/Bottle 05/07/2023 9:38 AM EST 75 mL/hr 75 mL/hr midazolam 1-5 mg injection (VERSED) 1-5 mg, INTRAVENOUS, DIRECTED, Starting on Sun05/07/23 at 1030, Until Sun05/07/23 at 1429, DOSING DIRECTED BY PHYSICIAN FOR PROCEDURAL SEDATION ONLY, Intraprocedure Given 05/07/2023 10:23 AM EST 2 mg Reason for Referral Specialty Diagnoses / Procedures Referred By Eriberto curry Referred To Contact Diagnoses Encounter for screening for lung cancer Procedures CONSULT LUNG CANCER SCREENING CLINIC Eduarda Cortes PA-C [address] [place] [address] Referral ID Status Reason Start Date Expiration Date Visits Requested Visits Authorized [id number] Ref Not Required PCP Requested Referral 08/10/2023 11/08/2023 1 1 Summary Purpose Family History No Family History Records Found Additional Source Comments Source Comments (unrecognize d section and content) In the event this informatio n is protected by the Federal Confidentiality of Alcohol and Drug Abuse Patient Records regulations: The Federal rules restrict any use of the information to criminally investigate or prosecute any alcohol or drug abuse patient.[facility] event this information is protected by the Federal Confidentiality of Alcohol and Drug Abuse Patient Records regulations: The Federal rules restrict any use of the information to criminally investigate or prosecute any alcohol or drug abuse patient.[facility] event this information is protected by the Federal Confidentiality of Alcohol and Drug Abuse Patient Records regulations: The Federal rules restrict any use of the information to criminally investigate or prosecute any alcohol or drug abuse patient.[facility] event this information is protected by the Federal Confidentiality of Alcohol and Drug Abuse Patient Records regulations: The Federal rules restrict any use of the information to criminally investigate or prosecute any alcohol or drug abuse patient.[facility] event this information is protected by the Federal Confidentiality of Alcohol and Drug Abuse Patient Records regulations: The Federal rules restrict any use of the information to criminally investigate or prosecute any alcohol or drug abuse patient.[facility] event this information is protected by the Federal Confidentiality of Alcohol and Drug Abuse Patient Records regulations: The Federal rules restrict any use of the information to criminally investigate or prosecute any alcohol or drug abuse patient.[facility] event this information is protected by the Federal Confidentiality of Alcohol and Drug Abuse Patient Records regulations: The Federal rules restrict any use of the information to criminally investigate or prosecute any alcohol or drug abuse patient.[facility] event this information is protected by the Federal Confidentiality of Alcohol and Drug Abuse Patient Records regulations: The Federal rules restrict any use of the information to criminally investigate or prosecute any alcohol or drug abuse patient.[facility] event this information is protected by the Federal Confidentiality of Alcohol and Drug Abuse Patient Records regulations: The Federal rules restrict any use of the information to criminally investigate or prosecute any alcohol or drug abuse patient.[facility] event this information is protected by the Federal Confidentiality of Alcohol and Drug Abuse Patient Records regulations: The Federal rules restrict any use of the information to criminally investigate or prosecute any alcohol or drug abuse patient.[facility] event this information is protected by the Federal Confidentiality of Alcohol and Drug Abuse Patient Records regulations: The Federal rules restrict any use of the information to criminally investigate or prosecute any alcohol or drug abuse patient.[facility] event this information is protected by the Federal Confidentiality of Alcohol and Drug Abuse Patient Records regulations: The Federal rules restrict any use of the information to criminally investigate or prosecute any alcohol or drug abuse patient.[facility] event this information is protected by the Federal Confidentiality of Alcohol and Drug Abuse Patient Records regulations: The Federal rules restrict any use of the information to criminally investigate or prosecute any alcohol or drug abuse patient.[facility] event this information is protected by the Federal Confidentiality of Alcohol and Drug Abuse Patient Records regulations: The Federal rules restrict any use of the information to criminally investigate or prosecute any alcohol or drug abuse patient.[facility] event this information is protected by the Federal Confidentiality of Alcohol and Drug Abuse Patient Records regulations: The Federal rules restrict any use of the information to criminally investigate or prosecute any alcohol or drug abuse patient.[facility] event this information is protected by the Federal Confidentiality of Alcohol and Drug Abuse Patient Records regulations: The Federal rules restrict any use of the information to criminally investigate or prosecute any alcohol or drug abuse patient.[facility] event this information is protected by the Federal Confidentiality of Alcohol and Drug Abuse Patient Records regulations: The Federal rules restrict any use of the information to criminally investigate or prosecute any alcohol or drug abuse patient.[facility] HospitalIn the event this information is protected by the Federal Confidentiality of Alcohol and Drug Abuse Patient Records regulations: The Federal rules restrict any use of the information to criminally investigate or prosecute any alcohol or drug abuse patient.[facility] HospitalIn the event this information is protected by the Federal Confidentiality of Alcohol and Drug Abuse Patient Records regulations: The Federal rules restrict any use of the information to criminally investigate or prosecute any alcohol or drug abuse patient.[facility]In the event this information is protected by the Federal Confidentiality of Alcohol and Drug Abuse Patient Records regulations: The Federal rules restrict any use of the information to criminally investigate or prosecute any alcohol or drug abuse patient.[facility] HospitalIn the event this information is protected by the Federal Confidentiality of Alcohol and Drug Abuse Patient Records regulations: The Federal rules restrict any use of the information to criminally investigate or prosecute any alcohol or drug abuse patient.[facility] HospitalIn the event this information is protected by the Federal Confidentiality of Alcohol and Drug Abuse Patient Records regulations: The Federal rules restrict any use of the information to criminally investigate or prosecute any alcohol or drug abuse patient.[facility] HospitalIn the event this information is protected by the Federal Confidentiality of Alcohol and Drug Abuse Patient Records regulations: The Federal rules restrict any use of the information to criminally investigate or prosecute any alcohol or drug abuse patient.[facility] HospitalIn the event this information is protected by the Federal Confidentiality of Alcohol and Drug Abuse Patient Records regulations: The Federal rules restrict any use of the information to criminally investigate or prosecute any alcohol or drug abuse patient.[facility] HospitalIn the event this information is protected by the Federal Confidentiality of Alcohol and Drug Abuse Patient Records regulations: The Federal rules restrict any use of the information to criminally investigate or prosecute any alcohol or drug abuse patient.[facility] HospitalIn the event this information is protected by the Federal Confidentiality of Alcohol and Drug Abuse Patient Records regulations: The Federal rules restrict any use of the information to criminally investigate or prosecute any alcohol or drug abuse patient.[facility] HospitalIn the event this information is protected by the Federal Confidentiality of Alcohol and Drug Abuse Patient Records regulations: The Federal rules restrict any use of the information to criminally investigate or prosecute any alcohol or drug abuse patient.[facility] HospitalIn the event this information is protected by the Federal Confidentiality of Alcohol and Drug Abuse Patient Records regulations: The Federal rules restrict any use of the information to criminally investigate or prosecute any alcohol or drug abuse patient.[facility] HospitalIn the event this information is protected by the Federal Confidentiality of Alcohol and Drug Abuse Patient Records regulations: The Federal rules restrict any use of the information to criminally investigate or prosecute any alcohol or drug abuse patient.[facility] HospitalIn the event this information is protected by the Federal Confidentiality of Alcohol and Drug Abuse Patient Records regulations: The Federal rules restrict any use of the information to criminally investigate or prosecute any alcohol or drug abuse patient.[facility] HospitalIn the event this information is protected by the Federal Confidentiality of Alcohol and Drug Abuse Patient Records regulations: The Federal rules restrict any use of the information to criminally investigate or prosecute any alcohol or drug abuse patient.[facility] HospitalIn the event this information is protected by the Federal Confidentiality of Alcohol and Drug Abuse Patient Records regulations: The Federal rules restrict any use of the information to criminally investigate or prosecute any alcohol or drug abuse patient.[facility] HospitalIn the event this information is protected by the Federal Confidentiality of Alcohol and Drug Abuse Patient Records regulations: The Federal rules restrict any use of the information to criminally investigate or prosecute any alcohol or drug abuse patient.[facility] HospitalIn the event this information is protected by the Federal Confidentiality of Alcohol and Drug Abuse Patient Records regulations: The Federal rules restrict any use of the information to criminally investigate or prosecute any alcohol or drug abuse patient.[facility] HospitalIn the event this information is protected by the Federal Confidentiality of Alcohol and Drug Abuse Patient Records regulations: The Federal rules restrict any use of the information to criminally investigate or prosecute any alcohol or drug abuse patient.[facility] HospitalIn the event this information is protected by the Federal Confidentiality of Alcohol and Drug Abuse Patient Records regulations: The Federal rules restrict any use of the information to criminally investigate or prosecute any alcohol or drug abuse patient.[facility] HospitalIn the event this information is protected by the Federal Confidentiality of Alcohol and Drug Abuse Patient Records regulations: The Federal rules restrict any use of the information to criminally investigate or prosecute any alcohol or drug abuse patient.[facility] HospitalIn the event this information is protected by the Federal Confidentiality of Alcohol and Drug Abuse Patient Records regulations: The Federal rules restrict any use of the information to criminally investigate or prosecute any alcohol or drug abuse patient.[facility] HospitalIn the event this information is protected by the Federal Confidentiality of Alcohol and Drug Abuse Patient Records regulations: The Federal rules restrict any use of the information to criminally investigate or prosecute any alcohol or drug abuse patient.[facility] HospitalIn the event this information is protected by the Federal Confidentiality of Alcohol and Drug Abuse Patient Records regulations: The Federal rules restrict any use of the information to criminally investigate or prosecute any alcohol or drug abuse patient.[facility] HospitalIn the event this information is protected by the Federal Confidentiality of Alcohol and Drug Abuse Patient Records regulations: The Federal rules restrict any use of the information to criminally investigate or prosecute any alcohol or drug abuse patient.[facility] HospitalIn the event this information is protected by the Federal Confidentiality of Alcohol and Drug Abuse Patient Records regulations: The Federal rules restrict any use of the information to criminally investigate or prosecute any alcohol or drug abuse patient.[facility] the event this information is protected by the Federal Confidentiality of Alcohol and Drug Abuse Patient Records regulations: The Federal rules restrict any use of the information to criminally investigate or prosecute any alcohol or drug abuse patient.[facility] HospitalIn the event this information is protected by the Federal Confidentiality of Alcohol and Drug Abuse Patient Records regulations: The Federal rules restrict any use of the information to criminally investigate or prosecute any alcohol or drug abuse patient.[facility] HospitalIn the event this information is protected by the Federal Confidentiality of Alcohol and Drug Abuse Patient Records regulations: The Federal rules restrict any use of the information to criminally investigate or prosecute any alcohol or drug abuse patient.[facility] HospitalIn the event this information is protected by the Federal Confidentiality of Alcohol and Drug Abuse Patient Records regulations: The Federal rules restrict any use of the information to criminally investigate or prosecute any alcohol or drug abuse patient.[facility] HospitalIn the event this information is protected by the Federal Confidentiality of Alcohol and Drug Abuse Patient Records regulations: The Federal rules restrict any use of the information to criminally investigate or prosecute any alcohol or drug abuse patient.[facility] HospitalIn the event this information is protected by the Federal Confidentiality of Alcohol and Drug Abuse Patient Records regulations: The Federal rules restrict any use of the information to criminally investigate or prosecute any alcohol or drug abuse patient.[facility] HospitalIn the event this information is protected by the Federal Confidentiality of Alcohol and Drug Abuse Patient Records regulations: The Federal rules restrict any use of the information to criminally investigate or prosecute any alcohol or drug abuse patient.[facility] HospitalIn the event this information is protected by the Federal Confidentiality of Alcohol and Drug Abuse Patient Records regulations: The Federal rules restrict any use of the information to criminally investigate or prosecute any alcohol or drug abuse patient.[facility] HospitalIn the event this information is protected by the Federal Confidentiality of Alcohol and Drug Abuse Patient Records regulations: The Federal rules restrict any use of the information to criminally investigate or prosecute any alcohol or drug abuse patient.[facility] HospitalIn the event this information is protected by the Federal Confidentiality of Alcohol and Drug Abuse Patient Records regulations: The Federal rules restrict any use of the information to criminally investigate or prosecute any alcohol or drug abuse patient.[facility] HospitalIn the event this information is protected by the Federal Confidentiality of Alcohol and Drug Abuse Patient Records regulations: The Federal rules restrict any use of the information to criminally investigate or prosecute any alcohol or drug abuse patient.[facility] HospitalIn the event this information is protected by the Federal Confidentiality of Alcohol and Drug Abuse Patient Records regulations: The Federal rules restrict any use of the information to criminally investigate or prosecute any alcohol or drug abuse patient.[facility] Reason for Visit (unrecogniz ed section and content) Reason Comments Patient Question Reason Comments Anticoagulation Reason Comments Orders protime Reason Comments Sore Throat started last night Reason Onset Date Comments Refill Request 01/23/2022 Reason Comments Recheck 6 month follow up Reason Comments Refill Request Reason Onset Date Comments Refill Request 03/27/2022 Reason Onset Date Comments Refill Request 04/25/2022 Reason Comments Physical Reason Comments Results Reason Comments Pain Pt reported (RT) ear , jaw pain x2 wks, current [facility] dental appointment. Specialty Diagnoses / Procedures Referred By Contac t Referred To Contact Internal Medicine / [facility] Diagnoses Jaw, pain, ear throat pain Procedures EST SAME DAY Harper Coats MD [address] [place] [address] [facility] [address] [place] [address] Referral ID Status Reason Start Date Expiration Date V isits Requested Visits Authorized [id number] Pending Review 09/16/2022 12/15/2022 1 1 Reason Comments Results Lupus anticoagulant testing Reason Onset Date Comments Refill Request 01/15/2023 Reason Comments F/U 6 months HTN Reason Onset Date Comments Refill Request Refill Request 03/07/2023 Reason Comments Pelvic Pain x 1 day, bilateral s ides Reason Comments 05-07-2023 [facility] W[facility] STAY ON ANTICOAGULAT ION Reason Comments Eliquis Assistance Reason Comments Orders Reason Onset Date Comments Refill Request 04/30/2023 Reason Comments Established Patient Reason Comments Follow Up EGD and colonoscopy Reason Comments F/U 6 months labs and HTN Care Teams (unrecognized sec tion and content) Clinical Appeals Auditor Relationship Specialty Start Date End Date Harper Coats MD [address] [place] [address] PCP - General Internal Medicine 11/08/16 Jaswinder Scott, DO [address] [place] [address] Hematology/Oncology 05/08/16 Murray Preston MD [address] [place] [address] General Surgery 05/08/16 Clinical Appeals Auditor Relationship Specialty Start Date End Date Harper Coats MD [address] [place] [address] PCP - General Internal Medicine 11/08/16 Jaswinder Scott, DO [address] [place] [address] Hematology/Oncology 05/08/16 Murray Preston MD [address] [place] [address] General Surgery 05/08/16 Clinical Appeals Auditor Relationship Specialty Start Date End Date Harper Coats MD [address] [place] [address] PCP - General Internal Medicine 11/08/16 Jaswinder Scott, DO [address] [place] [address] Hematology/Oncology 05/08/16 Murray Preston MD [address] [place] [address] General Surgery 05/08/16 Clinical Appeals Auditor Relationship Specialty Start Date End Date Harper Coats MD [address] [place] [address] PCP - General Internal Medicine 11/08/16 Jaswinder Scott, DO [address] [place] [address] Hematology/Oncology 05/08/16 Murray Preston MD [address] [place] [address] General Surgery 05/08/16 Clinical Appeals Auditor Relationship Specialty Start Date End Date Harper Coats MD [address] [place] [address] PCP - General Internal Medicine 11/08/16 Jaswinder Scott, DO [address] [place] [address] Hematology/Oncology 05/08/16 Murray Preston MD [address] [place] [address] General Surgery 05/08/16 Clinical Appeals Auditor Relationship Specialty Start Date End Date Harper Coats MD [address] [place] [address] PCP - General Internal Medicine 11/08/16 Jaswinder Scott, DO [address] [place] [address] Hematology/Oncology 05/08/16 Murray Preston MD [address] [place] [address] General Surgery 05/08/16 Clinical Appeals Auditor Relationship Specialty Start Date End Date Harper Coats MD [address] [place] [address] PCP - General Internal Medicine 11/08/16 Jaswinder Scott, DO [address] [place] [address] Hematology/Oncology 05/08/16 Murray Preston MD [address] [place] [address] General Surgery 05/08/16 Clinical Appeals Auditor Relationship Specialty Start Date End Date Harper Coats MD [address] [place] [address] PCP - General Internal Medicine 11/08/16 Jaswinder Scott, DO [address] [place] [address] Hematology/Oncology 05/08/16 Murray Preston MD [address] [place] [address] General Surgery 05/08/16 Clinical Appeals Auditor Relationship Specialty Start Date End Date Harper Coats MD [address] [place] [address] PCP - General Internal Medicine 11/08/16 Jaswinder Scott, DO [address] [place] [address] Hematology/Oncology 05/08/16 Murray Preston MD [address] [place] [address] General Surgery 05/08/16 Clinical Appeals Auditor Relationship Specialty Start Date End Date Harper Coats MD [address] [place] [address] PCP - General Internal Medicine 11/08/16 Jaswinder Scott, DO [address] [place] [address] Hematology/Oncology 05/08/16 Murray Preston MD [address] [place] [address] General Surgery 05/08/16 Clinical Appeals Auditor Relationship Specialty Start Date End Date Harper Coats MD [address] [place] [address] PCP - General Internal Medicine 11/08/16 Jaswinder Scott, DO [address] [place] [address] Hematology/Oncology 05/08/16 Murray Preston MD [address] [place] [address] General Surgery 05/08/16 Clinical Appeals Auditor Relationship Specialty Start Date End Date Harper Coats MD [address] [place] [address] PCP - General Internal Medicine 11/08/16 Jaswinder Scott, DO [address] [place] [address] Hematology/Oncology 05/08/16 Murray Preston MD [address] [place] [address] General Surgery 05/08/16 Clinical Appeals Auditor Relationship Specialty Start Date End Date Harper Coats MD [address] [place] [address] PCP - General Internal Medicine 11/08/16 Jaswinder Scott, DO [address] [place] [address] Hematology/Oncology 05/08/16 Murray Preston MD [address] [place] [address] General Surgery 05/08/16 Clinical Appeals Auditor Relationship Specialty Start Date End Date Harper Coats MD [address] [place] [address] PCP - General Internal Medicine 11/08/16 Jaswinder Scott, DO [address] [place] [address] Hematology/Oncology 05/08/16 Murray Preston MD [address] [place] [address] General Surgery 05/08/16 Clinical Appeals Auditor Relationship Specialty Start Date End Date Harper Coats MD [address] [place] [address] PCP - General Internal Medicine 11/08/16 Jaswinder Scott, DO [address] [place] [address] Hematology/Oncology 05/08/16 Murray Preston MD [address] [place] [address] General Surgery 05/08/16 Clinical Appeals Auditor Relationship Specialty Start Date End Date Harper Coats MD [address] [place] [address] PCP - General Internal Medicine 11/08/16 Jaswinder Scott, DO [address] [place] [address] Hematology/Oncology 05/08/16 Murray Preston MD [address] [place] [address] General Surgery 05/08/16 Clinical Appeals Auditor Relationship Specialty Start Date End Date Harper Coats MD [address] [place] [address] PCP - General Internal Medicine 11/08/16 Jaswinder Scott DO [address] [place] [address] Hematology/Oncology 05/08/16 Murray Preston MD [address] [place] [address] General Surgery 05/08/16 Clinical Appeals Auditor Relationship Specialty Start Date End Date Harper Coats MD [address] [place] [address] PCP - General Internal Medicine 11/08/16 Jaswinder Scott DO [address] [place] [address] Hematology/Oncology 05/08/16 Murray Preston MD [address] [place] [address] General Surgery 05/08/16 Clinical Appeals Auditor Relationship Specialty Start Date End Date Harper Coats MD [address] [place] [address] PCP - General Internal Medicine 11/08/16 Jaswinder Scott DO [address] [place] [address] Hematology/Oncology 05/08/16 Murray Preston MD [address] [place] [address] General Surgery 05/08/16 Patricia Mustafa LISW [address] [place] [address] Helper/Driver Hematology/Oncology 02/06/23 Clinical Appeals Auditor Relationship Specialty Start Date End Date Harper Coats MD [address] [place] [address] PCP - General Internal Medicine 11/08/16 Jaswinder Scott DO [address] [place] [address] Hematology/Oncology 05/08/16 Murray Preston MD [address] [place] [address] General Surgery 05/08/16 Patricia Mustafa LISW [address] [place] [address] Helper/Driver Hematology/Oncology 02/06/23 Clinical Appeals Auditor Relationship Specialty Start Date End Date Harper Coats MD [address] [place] [address] PCP - General Internal Medicine 11/08/16 Jaswinder Scott DO [address] [place] [address] Hematology/Oncology 05/08/16 Murray Preston MD [address] [place] [address] General Surgery 05/08/16 Patricia Mustafa LISW [address] [place] [address] Helper/Driver Hematology/Oncology 02/06/23 Clinical Appeals Auditor Relationship Specialty Start Date End Date Harper Coats MD [address] [place] [address] PCP - General Internal Medicine 11/08/16 Jaswinder Scott DO [address] [place] [address] Hematology/Oncology 05/08/16 Murray Preston MD [address] [place] [address] General Surgery 05/08/16 Patricia Mustafa LISW [address] [place] [address] Helper/Driver Hematology/Oncology 02/06/23 Clinical Appeals Auditor Relationship Specialty Start Date End Date Harper Coats MD [address] [place] [address] PCP - General Internal Medicine 11/08/16 Jaswinder Scott DO [address] [place] [address] Hematology/Oncology 05/08/16 Murray Preston MD [address] [place] [address] General Surgery 05/08/16 Patricia Mustafa LISW [address] [place] [address] Helper/Driver Hematology/Oncology 02/06/23 Clinical Appeals Auditor Relationship Specialty Start Date End Date Harper Coats MD [address] [place] [address] PCP - General Internal Medicine 11/08/16 Jaswinder Scott DO [address] [place] [address] Hematology/Oncology 05/08/16 Murray Preston MD [address] [place] [address] General Surgery 05/08/16 Patricia Mustafa LISW [address] [place] [address] Helper/Driver Hematology/Oncology 02/06/23 Clinical Appeals Auditor Relationship Specialty Start Date End Date Harper Coats MD [address] [place] [address] PCP - General Internal Medicine 11/08/16 Jaswinder Scott DO [address] [place] [address] Hematology/Oncology 05/08/16 Murray Preston MD [address] [place] [address] General Surgery 05/08/16 Patricia Mustafa LISW [address] [place] [address] Helper/Driver Hematology/Oncology 02/06/23 Clinical Appeals Auditor Relationship Specialty Start Date End Date Harper Coats MD [address] [place] [address] PCP - General Internal Medicine 11/08/16 Jaswinder Scott DO [address] [place] [address] Hematology/Oncology 05/08/16 Murray Preston MD [address] [place] [address] General Surgery 05/08/16 Patricia Mustafa LISW [address] [place] [address] Helper/Driver Hematology/Oncology 02/06/23 Clinical Appeals Auditor Relationship Specialty Start Date End Date Harper Coats MD [address] [place] [address] PCP - General Internal Medicine 11/08/16 Jaswinder Scott DO [address] [place] [address] Hematology/Oncology 05/08/16 Murray Preston MD [address] [place] [address] General Surgery 05/08/16 Patricia Mustafa LISW [address] [place] [address] Helper/Driver Hematology/Oncology 02/06/23 Clinical Appeals Auditor Relationship Specialty Start Date End Date Harper Coats MD [address] [place] [address] PCP - General Internal Medicine 11/08/16 Jaswinder Scott DO [address] [place] [address] Hematology/Oncology 05/08/16 Murray Preston MD [address] [place] [address] General Surgery 05/08/16 Patricia Mustafa LISW [address] [place] [address] Helper/Driver Hematology/Oncology 02/06/23 (unrecognized sect ion and content) No Status Records Found INFORMATION SOURCE (unrecogn ized section and content) FOR RECORDS PERTAINING TO PATIENTS WHO ARE OR HAVE BEEN ENROLLED IN A CHEMICAL DEPENDENCY/SUBSTANCEABUSE PROGRAM, SOME INFORMATION MAY BE OMITTED. This clinical summary was aggregated from multiple sources. Caution should be exercised in using it in the provision of clinical care. This summary normalizes information from multiple sources, and as a consequence, information in this document may materially change the coding, format and clinical context of patient data. In addition, data may be omitted in some cases. CLINICAL DECISIONS SHOULD BE BASED ON THE PRIMARY CLINICAL RECORDS. [facility]. provides no warranty or guarantee of the accuracy or completeness of information in this document.
--- NOTE | 2023-08-20 17:12 | PCM.HP.STD ---
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 Preston who presented to [facility] ED in 08/20/2023 for abdominal pain. He had been feeling fine but woke up around 7:30 in the morning and as the day went on he had increasing pain in his abdomen. Pain is a twisting sensation in the suprapubic region with pressure in upper abdomen. Made himself vomit to see if he would feel better but had no relief of his symptoms. Did have bowel movement this morning that was diarrhea, no blood in stool. In ED total bili slightly elevated 1.7 with white blood cell count 13.3. CT abdomen pelvis in ED with fatty infiltration of liver as well as fluid distention of the stomach with thickening of gastric folds and nondilated fluid-filled distal small bowel loops as well as fluid in the colon, gastritis and ileus pattern should be ruled out. Surgery was contacted in the ED and advised admission and that they will be on consult with supportive care, no acute surgical indication necessary at this time. Hospitalist contacted for admission. Patient evaluated with family member at bedside, reports the pressure and bloating in his abdomen with 2 episodes of diarrhea earlier and nausea. Feeling somewhat better as time goes on here in the ED but has had no further bowel movements, nausea is improving. Had no other focal complaints [facility] Medical History GERD (gastroesophageal reflux disease) Hiatal hernia Hypertension Pulmonary embolism Home Medications fwwhsyup-cuz-gxmtb acid 0.4 mg-lycopene 300 mcg-lutein 250 mcg tablet (Centrum Silver) 1 ea PO DAILY 03/30/14 [History Last Taken 09/06/18] cholecalciferol (vitamin D3) 25 mcg (1,000 unit) capsule (Vitamin D3) 1,000 unit PO DAILY 04/09/18 [History Last Taken Unknown] Triamcinolone 0.1% Cream [Kenalog] 1 applic topical DAILY PSORIASIS 08/23/18 [History Last Taken Unknown] calcipotriene 0.005 % topical ointment (Calcitrene) 60 g topical DAILY PSORIASIS 08/23/18 [History Last Taken Unknown] dicyclomine 10 mg capsule 10 mg PO BID 10/29/21 [History Last Taken Unknown] rosuvastatin 10 mg tablet 10 mg PO DAILY cholesterol 10/29/21 [History Last Taken Unknown] apixaban 5 mg tablet (Eliquis) 5 mg PO Q12H 08/20/23 [History Last Taken Unknown] ketoconazole 2 % shampoo 1 applic topical DAILY 08/20/23 [History Last Taken Unknown] lisinopril 10 mg-hydrochlorothiazide 12.5 mg tablet 1 tab PO DAILY 08/20/23 [History Last Taken Unknown] omeprazole 40 mg capsule,delayed release 40 mg PO DAILY 08/20/23 [History Last Taken Unknown] Allergy/AdvReac Type Severity Reaction Status Date / Time Sulfa (Sulfonamide Allergy Unknown Verified 08/20/23 13:09 Antibiotics) venom-honey bee Allergy Hives Verified 08/20/23 13:09 [bee venom (honey bee)] Social History Smoking Status: Current every day smoker tobacco type: cigarettes substance use type: does not use ROS ROS Narrative General: Denies fever/chills HENT: Denies headache, denies stuffy nose, denies sore throat EYES: Denies changes in vision Resp: Denies cough, denies shortness of breath Cardiac: Denies chest pain GI: Abdominal bloating and discomfort, 2 episodes of diarrhea but no further bowel movements, nausea : Denies changes in urination Extremity: Denies swelling MSK: Denies weakness Neuro: Denies any numbness/tingling Heme: Denies any bleeding or bruising Skin: Denies rashes Psychiatric: No complaints voiced Vital Signs Vital Signs Vital Signs: 08/20/23 13:09 08/20/23 16:31 08/20/23 16:31 Temperature 97.1 F L 97.6 F L Temperature Source Temporal Pulse Rate 97 90 90 Respiratory Rate 18 14 14 Blood Pressure 103/86 H 122/79 H 122/79 H Blood Pressure Mean 91 93 93 Pulse Ox 100 99 99 Oxygen Delivery Method Room Air Room Air Weight Weight: 71.169 kg Body Mass Index (BMI) 22.5 Physical Exam Narrative General: Alert, oriented, no apparent distress HEENT: Atraumatic, normocephalic Eyes: Anicteric, normal conjunctiva, extraocular movements grossly intact Neck: Supple Respiratory: Clear to auscultation bilaterally, normal respiratory effort Cardiovascular: Regular rate and rhythm GI: Soft, no rebound, guarding, rigidity, no significant distention, hypoactive bowel sounds Extremities: No edema Musculoskeletal: Moving all extremities Neuro: No overt focal neurological deficits Skin: No rashes appreciated Psych: Cooperative Results Lab / Micro Data 08/20/23 13:25 08/20/23 13:25 Labs: Laboratory Results - last 24 hr 08/20/23 13:25: WBC 13.3 H, RBC 5.01, Hgb 15.4, Hct 47.1, MCV 94.0, MCH 30.7, MCHC 32.7, RDW Std Deviation 45.4 H, RDW Coeff of Liss 13.2, Plt Count 301, MPV 10.7, Immature Gran % (Auto) 0.400, Neut % (Auto) 83.2 H, Lymph % (Auto) 9.3 L, [place] % (Auto) 5.5, Eos % (Auto) 1.4, Baso % (Auto) 0.2, Absolute Neuts (auto) 11.1 H, Absolute Lymphs (auto) 1.24, Nucleated RBC % 0, Sodium 138, Potassium 3.8, Chloride 106, Carbon Dioxide 25.0, Anion Gap 7, BUN 19 H, Creatinine 0.95, Estim Creat Clear Calc 79.08, Est GFR (MDRD) Af Amer 102, Est GFR (MDRD) Non-Af 84, BUN/Creatinine Ratio 19.9, Glucose 110 H, Calcium 9.2, Total Bilirubin 1.70 H, AST 20, ALT 29, Alkaline Phosphatase 68, Troponin I High Sens 4, Total Protein 8.6 H, Albumin 3.8, Globulin 4.8 H, Albumin/Globulin Ratio 0.8 L, Urine Color Yellow, Urine Clarity Clear, Urine pH 5.0, Ur Specific [place] 1.020, Urine Protein 15 H, Urine Glucose (UA) Normal, Urine Ketones 5 H, Urine Occult Blood Negative, Urine Nitrite Negative, Urine Bilirubin Negative, Urine Urobilinogen Normal, Ur Leukocyte Esterase 25 H, Urine RBC 0-5 SEEN, Urine WBC 0-5 SEEN, Ur Squamous Epith Cells 0 SEEN, Urine Bacteria 1+, Urine Mucus 3+ 08/20/23 14:50: Lactic Acid 0.9 Rhythm Strip Rhythm Strip: Sinus Rhythm Rate: 79 Ectopy: None Imaging Radiology Impression Abdomen/Pelvis CT 08/20/23 14:06 IMPRESSION: Fatty infiltration of the liver. Fluid distention of the stomach with the thickening of the gastric folds. Gastritis should be ruled out. Nondilated fluid-filled distal small bowel loops as well as fluid in the colon. An ileus pattern should be ruled out. Electronically Signed: Michael Johnson MD at 15:35 EST , Assessment & Plan Assessment/Plan (1) Ileus, unspecified: (2) Gastroenteritis: PLAN: Plan #Abd pain with concern for gastritis and ileus -NPO -IV PPI -IVF -Surgery consult -No NG tube required at this time unless patient begins vomiting # History of VTE -Hold home anticoagulation in the event patient develops need for surgery #GERD -Continue PPI #Tobacco use -Advise cessation, only smokes on the weekends -Nicotine replacement available if desired #HTN -Continued home antihypertensives #DVT ppx: SCDs Gabby Chahal MD Charges/Coding Visit Charges Inpatient E&M: 54553 Init Hosp L1
[2023-08-20 17:48] VITALS: BMI 22.0
[2023-08-20 17:54] VITALS: BP 123/84; PULSE 91; RESP 20; TEMP 37; O2SAT 94
[2023-08-20] MEDS: Pantoprazole Sodium 40 MG in 0.9% Normal Saline (100mL MB+) 100 ML 330 MG IV (18:48)
[2023-08-20 20:38] VITALS: BP 104/61; PULSE 82; RESP 18; TEMP 36.5; O2SAT 96
[2023-08-21 02:13] VITALS: BP 135/80; PULSE 81; RESP 18; TEMP 37.4; O2SAT 97
[2023-08-21] MEDS: 0.9% Normal Saline (1000mL) 1,000 ML 125 ML IV (02:13)
--- NOTE | 2023-08-21 06:58 | RAD_ITS ---
INDICATION: ileus EXAMINATION/TECHNIQUE: X-RAY - XR Abdomen 1 View COMPARISON: CT August 20, 2023 FINDINGS: BOWEL GAS PATTERN: Mild layering small bowel distention in the left upper abdomen. Scattered colonic gas is present, extending to rectum... FREE AIR: Not well assessed on a supine view. ORGANOMEGALY: Not seen. CALCIFICATIONS: Scattered pelvic phleboliths. LOWER CHEST: Trace right effusion. Medial left lower lung atelectasis.. BONES AND SOFT TISSUES: No acute pathology. RAD/Abdomen Single View (Portable) IMPRESSION: Multiple mildly dilated loops of small bowel in left upper abdomen with diffuse bowel gas compatible with history of ileus. Radiographic follow-up recommended. Electronically Signed: Steven Hui MD at 8:20 EST ,
--- NOTE | 2023-08-21 07:40 | PN.SURG_ITS ---
Subjective Subjective Patient says he feels much better compared to yesterday. He says he is having a lot of diarrhea and had bowel movements about 7 or 8 times last night. He denies any nausea or vomiting or abdominal pain. Objective Data Objective Data Vital Signs: Vital Signs Temp Pulse Resp BP Pulse Ox O2 Del Method 99.3 F H 81 18 135/80 H 97 Room Air 08/21/23 02:13 08/21/23 02:13 08/21/23 02:13 08/21/23 02:13 08/21/23 02:13 08/21/23 02:15 Oxygen Delivery Method Room Air Weight: 153 lb 10.595 oz Body Mass Index (BMI) 22.0 Intake & Output: Intake and Output for Last 24 Hours 08/19/23 08/20/23 08/21/23 23:59 23:59 23:59 Intake Total 593.33 / 593.33 1000 / 1000 Balance 593.33 / 593.33 1000 / 1000 Lab / Micro Data 08/20/23 13:25 08/20/23 13:25 Labs: Laboratory Results - last 24 hr 08/20/23 13:25: WBC 13.3 H, RBC 5.01, Hgb 15.4, Hct 47.1, MCV 94.0, MCH 30.7, MCHC 32.7, RDW Std Deviation 45.4 H, RDW Coeff of Liss 13.2, Plt Count 301, MPV 10.7, Immature Gran % (Auto) 0.400, Neut % (Auto) 83.2 H, Lymph % (Auto) 9.3 L, [place] % (Auto) 5.5, Eos % (Auto) 1.4, Baso % (Auto) 0.2, Absolute Neuts (auto) 11.1 H, Absolute Lymphs (auto) 1.24, Nucleated RBC % 0, Sodium 138, Potassium 3.8, Chloride 106, Carbon Dioxide 25.0, Anion Gap 7, BUN 19 H, Creatinine 0.95, Estim Creat Clear Calc 79.08, Est GFR (MDRD) Af Amer 102, Est GFR (MDRD) Non-Af 84, BUN/Creatinine Ratio 19.9, Glucose 110 H, Calcium 9.2, Total Bilirubin 1.70 H, AST 20, ALT 29, Alkaline Phosphatase 68, Troponin I High Sens 4, Total Protein 8.6 H, Albumin 3.8, Globulin 4.8 H, Albumin/Globulin Ratio 0.8 L, Urine Color Yellow, Urine Clarity Clear, Urine pH 5.0, Ur Specific [place] 1.020, Urine Protein 15 H, Urine Glucose (UA) Normal, Urine Ketones 5 H, Urine Occult Blood Negative, Urine Nitrite Negative, Urine Bilirubin Negative, Urine Urobilinogen Normal, Ur Leukocyte Esterase 25 H, Urine RBC 0-5 SEEN, Urine WBC 0-5 SEEN, Ur Squamous Epith Cells 0 SEEN, Urine Bacteria 1+, Urine Mucus 3+ 08/20/23 14:50: Lactic Acid 0.9 Radiography Diagnostic Testing: Radiology Impression Abdomen/Pelvis CT 08/20/23 14:06 IMPRESSION: Fatty infiltration of the liver. Fluid distention of the stomach with the thickening of the gastric folds. Gastritis should be ruled out. Nondilated fluid-filled distal small bowel loops as well as fluid in the colon. An ileus pattern should be ruled out. Electronically Signed: Michael Johnson MD at 15:35 EST Reading Location ID and State: [facility] / [place] , Service support , Rhythm Strip Rhythm Strip: Sinus Rhythm Rate: 79 Ectopy: None Physical Exam Const oriented x3 and no apparent distress Resp normal respiratory effort GI soft to palpation and non-tender Assessment & Plan Assessment/Plan (1) Gastroenteritis: PLAN: The patient says he is feeling much better although he still having diarrhea. He is thirsty and hungry. I will try him on a clear liquid diet and see how he tolerates this. I told him if he gets any nausea he should stop his diet. As long as he tolerates diet today and his diarrhea is decreasing I may start him on a regular diet either this afternoon or tomorrow morning. Alexander Michele MD Pager: [facility] [address] [place] [address], [address] [place] [address] Office:
[2023-08-21 08:17] LABS: Absolute Lymphocyte Count 1.25 X10^3/uL (0.83-4.51); Absolute Neutrophil Count 5.7 X10^3/uL (2.0-7.7); Basophil# 0.03 X10^3/uL; Basophil% 0.4 % (0-1); Eosinophil# 0.05 X10^3/uL; Eosinophils% 0.7 % (0-5); Hematocrit 39.5 % (40-54); Hemoglobin 12.7 g/dL (13.0-16.5); Lymphocyte # 1.25 X10^3/ul (0.83-4.51); Lymphocyte % 16.3 % (19-41); Mean Corp Hgb Conc 32.2 g/dL (32-36); Mean Corpuscular Hgb 30.8 pg (27.0-32.0); Mean Corpuscular Volume 95.6 fL (80-94); Mean Platelet Vol. 10.4 fl (6.2-12.0); Monocyte# 0.63 X10^3/uL; Monocyte% 8.2 % (0-10); NRBC Flagged by Analyzer 0 % (0-5); Neutrophil # 5.69 X10^3/uL (2.7-7.7); Neutrophil % 73.9 % (47-70); Platelet Count 253 K/mm3 (150-450); RBC Distribution Width CV 13.5 % (11.6-14.6); RBC Distribution Width SD 48.3 fl (35.1-43.9); Red Blood Count 4.13 M/mm3 (4.6-6.2); White Blood Count 7.7 K/mm3 (4.4-11.0)
[2023-08-21 08:48] VITALS: BP 129/84; PULSE 77; RESP 18; TEMP 36.9; O2SAT 98
[2023-08-21 08:50] LABS: ALB/GLOB Ratio 0.8 RATIO (0.9-2.4); AST(SGOT) 15 U/L (15-37); Alanine Aminotransfer ALT/SGPT 20 U/L (16-61); Alkaline Phosphatase 51 U/L (45-117); Anion Gap 4 (5-15); BUN 13 mg/dL (7-18); BUN/Creat Ratio 15.4 RATIO (10-20); Calcium,Total 8.4 mg/dL (8.5-10.1); Chloride 110 mmol/L (98-107); Creatinine, Serum 0.84 mg/dL (0.70-1.30); EST Glomerular Filtration Rate 97 mL/min (>60); Est Glom Filt Rate - Afr Amer 117 mL/min (>60); Estimated Creatinine Clearance 87.59 ml/min; Globulin 3.8 g/dL (2.2-4.2); Glucose 105 mg/dL (74-106); Potassium 3.4 mmol/L (3.5-5.1); Protein, Total 6.8 g/dL (6.4-8.2); Sodium Level 140 mmol/L (136-145)
[2023-08-21] MEDS: Pantoprazole Sodium 40 MG in 0.9% Normal Saline (100mL MB+) 100 ML 330 MG IV ×2 (08:55→21:40)
[2023-08-21] MEDS: Lisinopril 10 MG Tablet PO (08:56)
[2023-08-21] MEDS: hydroCHLOROthiazide 12.5mg 12.5 MG PO (08:56)
[2023-08-21] MEDS: Atorvastatin Calcium 20 MG Tablet PO (08:56)
--- NOTE | 2023-08-21 09:45 | PCM.PN.HOSP ---
Reason for Visit Reason for Visit: Diagnoses Noninfective gastroenteritis and colitis, unspecified (08/20/23) Ileus, unspecified (08/20/23) Objective Data Objective Data Vital Signs: Vital Signs Temp Pulse Resp BP Pulse Ox O2 Del Method 98.4 F 77 18 129/84 H 98 Room Air 08/21/23 08:48 08/21/23 08:48 08/21/23 08:48 08/21/23 08:48 08/21/23 08:48 08/21/23 08:59 Oxygen Delivery Method Room Air Weight: 153 lb 10.595 oz Body Mass Index (BMI) 22.0 Intake & Output: Intake and Output for Last 24 Hours 08/19/23 08/20/23 08/21/23 23:59 23:59 23:59 Intake Total 593.33 / 593.33 1110 / 1110 Balance 593.33 / 593.33 1110 / 1110 Lab / Micro Data 08/21/23 07:49 08/21/23 07:49 Labs: Laboratory Results - last 24 hr 08/20/23 13:25: WBC 13.3 H, RBC 5.01, Hgb 15.4, Hct 47.1, MCV 94.0, MCH 30.7, MCHC 32.7, RDW Std Deviation 45.4 H, RDW Coeff of Liss 13.2, Plt Count 301, MPV 10.7, Immature Gran % (Auto) 0.400, Neut % (Auto) 83.2 H, Lymph % (Auto) 9.3 L, [place] % (Auto) 5.5, Eos % (Auto) 1.4, Baso % (Auto) 0.2, Absolute Neuts (auto) 11.1 H, Absolute Lymphs (auto) 1.24, Nucleated RBC % 0, Sodium 138, Potassium 3.8, Chloride 106, Carbon Dioxide 25.0, Anion Gap 7, BUN 19 H, Creatinine 0.95, Estim Creat Clear Calc 79.08, Est GFR (MDRD) Af Amer 102, Est GFR (MDRD) Non-Af 84, BUN/Creatinine Ratio 19.9, Glucose 110 H, Calcium 9.2, Total Bilirubin 1.70 H, AST 20, ALT 29, Alkaline Phosphatase 68, Troponin I High Sens 4, Total Protein 8.6 H, Albumin 3.8, Globulin 4.8 H, Albumin/Globulin Ratio 0.8 L, Urine Color Yellow, Urine Clarity Clear, Urine pH 5.0, Ur Specific [place] 1.020, Urine Protein 15 H, Urine Glucose (UA) Normal, Urine Ketones 5 H, Urine Occult Blood Negative, Urine Nitrite Negative, Urine Bilirubin Negative, Urine Urobilinogen Normal, Ur Leukocyte Esterase 25 H, Urine RBC 0-5 SEEN, Urine WBC 0-5 SEEN, Ur Squamous Epith Cells 0 SEEN, Urine Bacteria 1+, Urine Mucus 3+ 08/20/23 14:50: Lactic Acid 0.9 08/21/23 07:49: WBC 7.7, RBC 4.13 L, Hgb 12.7 L, Hct 39.5 L, MCV 95.6 H, MCH 30.8, MCHC 32.2, RDW Std Deviation 48.3 H, RDW Coeff of Liss 13.5, Plt Count 253, MPV 10.4, Immature Gran % (Auto) 0.500, Neut % (Auto) 73.9 H, Lymph % (Auto) 16.3 L, [place] % (Auto) 8.2, Eos % (Auto) 0.7, Baso % (Auto) 0.4, Absolute Neuts (auto) 5.7, Absolute Lymphs (auto) 1.25, Nucleated RBC % 0, Sodium 140, Potassium 3.4 L, Chloride 110 H, Carbon Dioxide 26.0, Anion Gap 4 L, BUN 13, Creatinine 0.84, Estim Creat Clear Calc 87.59, Est GFR (MDRD) Af Amer 117, Est GFR (MDRD) Non-Af 97, BUN/Creatinine Ratio 15.4, Glucose 105, Calcium 8.4 L, Total Bilirubin 1.30 H, AST 15, ALT 20, Alkaline Phosphatase 51, Total Protein 6.8, Albumin 3.0 L, Globulin 3.8, Albumin/Globulin Ratio 0.8 L Radiography Diagnostic Testing: Radiology Impression Abdomen/Pelvis CT 08/20/23 14:06 IMPRESSION: Fatty infiltration of the liver. Fluid distention of the stomach with the thickening of the gastric folds. Gastritis should be ruled out. Nondilated fluid-filled distal small bowel loops as well as fluid in the colon. An ileus pattern should be ruled out. Electronically Signed: Michael Johnson MD at 15:35 EST , KUB X-Ray 08/21/23 06:58 IMPRESSION: Multiple mildly dilated loops of small bowel in left upper abdomen with diffuse bowel gas compatible with history of ileus. Radiographic follow-up recommended. Electronically Signed: Steven Hui MD at 8:20 EST , Rhythm Strip Rhythm Strip: Sinus Rhythm Rate: 79 Ectopy: None Physical Exam Narrative Seen and examined. Patient admitted with nausea, loose bowel movement and self-induced vomiting. He had abdominal pain. Abdominal pain has much improved. Patient on clear liquids. Physical exam General: Alert, Oriented x3, Cooperative HEENT: Atraumatic, PERRLA, EOMI, Normocephalic Oral: Oral mucosa dry. No Gingival or Mucosal Lesions/ Ulcerations Neck: Supple, No JVD, Negative Carotid Bruits Chest wall/Lungs: Air entry diminished in bilateral lung bases. No crepitation/rhonchi Cardiovascular: Regular rate, Regular Rhythm, Normal S1, Normal S2, No M/G/R Abdomen: Bowel Sounds Present, Soft, Non Tender, Non-Distended : No dysuria. No renal angle tenderness. No suprapubic tenderness. Extremities: No edema, Capillary Refill Less than 3 Seconds Skin: No rashes, No breakdown Musculoskeletal: No Tenderness to Palpation of Joints or Extremities Neurological: Cranial nerves II-XII grossly intact, DTR 2+/4. No acute focal neurological deficit. Psych/Mental Status: Flat affect. Assessment & Plan Assessment/Plan (1) Ileus, unspecified: (2) Gastroenteritis: PLAN: Plan This is a 63-year-old gentleman with prior right inguinal hernia repair by Dr. Preston was admitted with progressive worsening of abdominal pain started on the day of admission. It felt like twisting pain in suprapubic region with intense pressure in upper abdomen. He had nausea, vomiting and bowel movement which was more liquid without any blood. #Abd pain with concern for gastritis and ileus: Patient is started on clear liquid diet. Continue IV PPI. Continue IV fluid. Patient was seen by surgeon. Patient is still dehydrated after he had 7-8 loose bowel movements yesterday. Patient tolerating clear liquid but will keep it and advance to soft diet tomorrow. # History of VTE His hemoglobin is dropped from 15.4-12.7 probably first 1 was hemoconcentrated. Patient not having any active bleed but will hold an oral anticoagulant. #GERD -Continue PPI #Tobacco use -Advise cessation, only smokes on the weekends -Nicotine replacement available if desired #HTN -Continued home antihypertensives #DVT ppx: SCDs Laboratory Results 08/20/23 13:25: WBC 13.3 H, RBC 5.01, Hgb 15.4, Hct 47.1, MCV 94.0, MCH 30.7, MCHC 32.7, RDW Std Deviation 45.4 H, RDW Coeff of Liss 13.2, Plt Count 301, MPV 10.7, Immature Gran % (Auto) 0.400, Neut % (Auto) 83.2 H, Lymph % (Auto) 9.3 L, [place] % (Auto) 5.5, Eos % (Auto) 1.4, Baso % (Auto) 0.2, Absolute Neuts (auto) 11.1 H, Absolute Lymphs (auto) 1.24, Nucleated RBC % 0, Sodium 138, Potassium 3.8, Chloride 106, Carbon Dioxide 25.0, Anion Gap 7, BUN 19 H, Creatinine 0.95, Estim Creat Clear Calc 79.08, Est GFR (MDRD) Af Amer 102, Est GFR (MDRD) Non-Af 84, BUN/Creatinine Ratio 19.9, Glucose 110 H, Calcium 9.2, Total Bilirubin 1.70 H, AST 20, ALT 29, Alkaline Phosphatase 68, Troponin I High Sens 4, Total Protein 8.6 H, Albumin 3.8, Globulin 4.8 H, Albumin/Globulin Ratio 0.8 L, Urine Color Yellow, Urine Clarity Clear, Urine pH 5.0, Ur Specific [place] 1.020, Urine Protein 15 H, Urine Glucose (UA) Normal, Urine Ketones 5 H, Urine Occult Blood Negative, Urine Nitrite Negative, Urine Bilirubin Negative, Urine Urobilinogen Normal, Ur Leukocyte Esterase 25 H, Urine RBC 0-5 SEEN, Urine WBC 0-5 SEEN, Ur Squamous Epith Cells 0 SEEN, Urine Bacteria 1+, Urine Mucus 3+ 08/20/23 14:50: Lactic Acid 0.9 08/21/23 07:49: WBC 7.7, RBC 4.13 L, Hgb 12.7 L, Hct 39.5 L, MCV 95.6 H, MCH 30.8, MCHC 32.2, RDW Std Deviation 48.3 H, RDW Coeff of Liss 13.5, Plt Count 253, MPV 10.4, Immature Gran % (Auto) 0.500, Neut % (Auto) 73.9 H, Lymph % (Auto) 16.3 L, [place] % (Auto) 8.2, Eos % (Auto) 0.7, Baso % (Auto) 0.4, Absolute Neuts (auto) 5.7, Absolute Lymphs (auto) 1.25, Nucleated RBC % 0, Sodium 140, Potassium 3.4 L, Chloride 110 H, Carbon Dioxide 26.0, Anion Gap 4 L, BUN 13, Creatinine 0.84, Estim Creat Clear Calc 87.59, Est GFR (MDRD) Af Amer 117, Est GFR (MDRD) Non-Af 97, BUN/Creatinine Ratio 15.4, Glucose 105, Calcium 8.4 L, Total Bilirubin 1.30 H, AST 15, ALT 20, Alkaline Phosphatase 51, Total Protein 6.8, Albumin 3.0 L, Globulin 3.8, Albumin/Globulin Ratio 0.8 L Clinical Impression(s) from Imaging Studies Abdomen/Pelvis CT 08/20/23 14:06 IMPRESSION: Fatty infiltration of the liver. Fluid distention of the stomach with the thickening of the gastric folds. Gastritis should be ruled out. Nondilated fluid-filled distal small bowel loops as well as fluid in the colon. An ileus pattern should be ruled out. KUB X-Ray 08/21/23 06:58 IMPRESSION: Multiple mildly dilated loops of small bowel in left upper abdomen with diffuse bowel gas compatible with history of ileus. Radiographic follow-up recommended. Electronically Signed: Steven Hui MD at 8:20 EST , Charges/Coding Visit Charges Inpatient E&M: 58599 Subs Hosp L2
[2023-08-21] MEDS: KCL 40mEq in 0.9% NS 40 MEQ/1,000 ML IV.SOLN 125 MEQ IV ×2 (10:32→18:19)
--- NOTE | 2023-08-21 12:03 | CHAPLAIN ---
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 Tender ___ Other (describe below) Sacrament/Intervention _x__ Active listening ___ Anointing ___ Jewish ___ Bereavement ___ Communion ___ [place] exploration ___ ___ Life review ___ Prayer ___ Reconciliation ___ Sacrament of Sick _x__ Supportive presence ___ Wedding ___ Other (describe below) Pastoral Comments patient was napping but was awakened easily to his name; spouse is with him in the room; both report that pt is feeling better and has hopes to be discharged tomorrow; pt states that he is encouraged by the care and prospects and does not have further needs; spouse reports on good prayer support from others;
[2023-08-21 15:00] VITALS: BP 110/73; PULSE 72; RESP 18; TEMP 36.6; O2SAT 99
[2023-08-21 19:58] VITALS: BP 113/76; PULSE 76; RESP 15; TEMP 36.7; O2SAT 97
[2023-08-21 21:00] VITALS: RESP 15
[2023-08-22 02:44] VITALS: BP 121/85; PULSE 67; RESP 15; TEMP 36.8; O2SAT 97
[2023-08-22] MEDS: KCL 40mEq in 0.9% NS 40 MEQ/1,000 ML IV.SOLN 125 MEQ IV (03:02)
--- NOTE | 2023-08-22 08:03 | PCM.PN.SRG ---
Subjective Subjective Patient reports tolerating a full liquid diet yesterday. He did have a few episodes of diarrhea overnight. He denies any nausea or vomiting or abdominal pain. Objective Data Objective Data Vital Signs: Vital Signs Temp Pulse Resp BP Pulse Ox O2 Del Method 98.3 F 67 15 121/85 H 97 Room Air 08/22/23 02:44 08/22/23 02:44 08/22/23 02:44 08/22/23 02:44 08/22/23 02:44 08/22/23 02:44 Oxygen Delivery Method Room Air Weight: 153 lb 10.595 oz Body Mass Index (BMI) 22.0 Intake & Output: Intake and Output for Last 24 Hours 08/20/23 08/21/23 08/22/23 23:59 23:59 23:59 Intake Total 593.33 / 593.33 3149.17 / 3149.17 1000 / 1000 Balance 593.33 / 593.33 3149.17 / 3149.17 1000 / 1000 Lab / Micro Data 08/21/23 07:49 08/21/23 07:49 Labs: Laboratory Results - last 24 hr 08/21/23 07:49: WBC 7.7, RBC 4.13 L, Hgb 12.7 L, Hct 39.5 L, MCV 95.6 H, MCH 30.8, MCHC 32.2, RDW Std Deviation 48.3 H, RDW Coeff of Liss 13.5, Plt Count 253, MPV 10.4, Immature Gran % (Auto) 0.500, Neut % (Auto) 73.9 H, Lymph % (Auto) 16.3 L, [place] % (Auto) 8.2, Eos % (Auto) 0.7, Baso % (Auto) 0.4, Absolute Neuts (auto) 5.7, Absolute Lymphs (auto) 1.25, Nucleated RBC % 0, Sodium 140, Potassium 3.4 L, Chloride 110 H, Carbon Dioxide 26.0, Anion Gap 4 L, BUN 13, Creatinine 0.84, Estim Creat Clear Calc 87.59, Est GFR (MDRD) Af Amer 117, Est GFR (MDRD) Non-Af 97, BUN/Creatinine Ratio 15.4, Glucose 105, Calcium 8.4 L, Total Bilirubin 1.30 H, AST 15, ALT 20, Alkaline Phosphatase 51, Total Protein 6.8, Albumin 3.0 L, Globulin 3.8, Albumin/Globulin Ratio 0.8 L Radiography Diagnostic Testing: Radiology Impression KUB X-Ray 08/21/23 06:58 IMPRESSION: Multiple mildly dilated loops of small bowel in left upper abdomen with diffuse bowel gas compatible with history of ileus. Radiographic follow-up recommended. Electronically Signed: Steven Hui MD at 8:20 EST Reading Location ID and State: [facility] / [place] Tel , Service support , Rhythm Strip Rhythm Strip: Sinus Rhythm Rate: 79 Ectopy: None Physical Exam Const oriented x3 and no apparent distress Resp normal respiratory effort GI normal to inspection, nondistended, normoactive bowel sounds Assessment & Plan Assessment/Plan (1) Gastroenteritis: PLAN: Patient reports he tolerated full liquids no nausea or vomiting or abdominal pain. He had a few episodes of diarrhea but says it is improving. He is not having any abdominal pain and would like to try regular diet and go home. I will order regular diet for him and if he tolerates this he may be discharged home from my standpoint. Follow-up as needed. Alexander Michele MD Pager: [facility] [address] [place] [address], [address] [place] [address] Office:
[2023-08-22 08:11] VITALS: BP 119/75; PULSE 63; RESP 16; TEMP 36.8; O2SAT 98
[2023-08-22] MEDS: Pantoprazole Sodium 40 MG in 0.9% Normal Saline (100mL MB+) 100 ML 330 MG IV (10:59)
[2023-08-22] MEDS: Lisinopril 10 MG Tablet PO (11:00)
[2023-08-22] MEDS: hydroCHLOROthiazide 12.5mg 12.5 MG PO (11:00)
[2023-08-22] MEDS: Atorvastatin Calcium 20 MG Tablet PO (11:00)
--- NOTE | 2023-08-22 11:33 | DCINST_ITS ---
Discharge Instructions Diet Discharge Diet: No restrictions Activity Discharge Activity: Return to Normal Activity Weight Bearing Status: Weight bearing as tolerated Dressing / Incision Call your doctor if you observe: Fever of 101 or Higher, Coldness, Increased Pain, Numbness or Tingling, Change in Color, Inability to urinate, Inability to have a bowel movement, Shortness of breath, Dizziness, Fainting spells, Swelling in the ankles, Chest pain, Prolonged hiccupping, Increased palpitations (irregular heartbeat) and Calf discomfort Follow Up Care When: IN 2 WEEKS Test Results: Test results from this visit will be discussed in further detail at your follow- up appointment, if applicable. Discharge Plan Admission Admit Date/Time: 08/20/23 17:12 Primary Reason for Your Visit: Nausea and diarrhea probably unspecified gastr oenteritis Attending Provider: Micheal Cuevas Primary Care Provider: Harper Oliva Consulting Providers: Alexander Michele; Gabby Chahal Discharge Orders/Prescriptions Prescriptions: New potassium chloride 20 mEq tablet extended release 20 meq PO DAILY 7 Days Qty: 7 0RF Continued Centrum Silver 1 EACH tablet 1 ea PO DAILY Patient Comments: suppliment cholecalciferol (vitamin D3) [Vitamin D3] 1,000 UNIT capsule 1,000 unit PO DAILY calcipotriene [Calcitrene] 60 GM ointment 60 g topical DAILY Triamcinolone 0.1% Cream [Kenalog] 1 APPLIC Tube 1 applic topical DAILY dicyclomine 10 mg capsule 10 mg PO BID Patient Comments: take 1 capsule by mouth twice a day with meals rosuvastatin 10 mg tablet 10 mg PO DAILY Patient Comments: take 1 tablet by mouth once daily Eliquis 5 mg tablet 5 mg PO Q12H Patient Comments: TAKE 1 TABLET BY MOUTH 2 TIMES A DAY. lisinopril-hydrochlorothiazide 10-12.5 mg tablet 1 tab PO DAILY Patient Comments: take 1 tablet by mouth once daily omeprazole 40 mg capsule,delayed release(DR/EC) 40 mg PO DAILY Patient Comments: take 1 capsule by mouth once daily ketoconazole 2 % shampoo 1 applic topical DAILY Referrals / Follow Up: Harper Oliva MD [Primary Care Provider] - Within 2 Weeks Disposition Disposition (needs filled in before D/C Order can be placed): Home, Self Care
--- NOTE | 2023-08-22 11:36 | DS.PCM_ITS ---
Providers Date of Admission: 08/20/23 Date of Discharge: 08/22/23 Primary Care Physician: Dr. Harper Oliva MD Consultations 08/20/23 17:45 Consult: General Surgery Routine Consulting Provider: Alexander Michele Reason for Consult: concern for ileus, contacted in ED EMERGENT Consult: No MD Notified: Yes Date Notified: 08/20/23 Time Notified: 17:18 Method of Notification: ED Physician Initiated Reason For Visit: ILEUS Diagnosis Discharge Diagnosis (1) Gastroenteritis: Status: Acute Code(s): K52.9 - Noninfective gastroenteritis and colitis, unspecified Plan This is a 63-year-old gentleman with prior right inguinal hernia repair by Dr. Preston was admitted with progressive worsening of abdominal pain started on the day of admission. It felt like twisting pain in suprapubic region with intense pressure in upper abdomen. He had nausea, vomiting and bowel movement which was more liquid without any blood. #Abd pain with concern for gastritis and ileus: Patient is started on clear liquid diet. Continue IV PPI. Continue IV fluid. Patient was seen by surgeon. Patient is still dehydrated after he had 7-8 loose bowel movements yesterday. Patient tolerating clear liquid but will keep it and advance to soft diet tomorrow. 08/22: Abdominal pain has resolved. Patient tolerated liquid diet and advance to soft diet. Was soft diet for next 5 days and then regular diet. KUB showed mildly dilated loops of small bowel in left upper quadrant with diffuse bowel gas compatible with history of ileus. Patient had CT abdomen which showed al lar fluid distention of the stomach with thickening of gastric folds and nondilated fluid-filled distal small bowel loops and fluid in the colon similar to ileus pattern. Patient diarrhea has started. Patient has mild hypokalemia therefore discharged home on potassium supplement. Follow with PCP and repeat BMP in 1 week. # History of VTE His hemoglobin is dropped from 15.4-12.7 probably first 1 was hemoconcentrated. Patient not having any active bleed but will hold an oral anticoagulant. Resume Eliquis 5 mg twice daily. #GERD -Continue PPI #Tobacco use -Advise cessation, only smokes on the weekends -Nicotine replacement available if desired #HTN -Continued home antihypertensives #DVT ppx: SCDs Laboratory Results 08/20/23 13:25: WBC 13.3 H, RBC 5.01, Hgb 15.4, Hct 47.1, MCV 94.0, MCH 30.7, MCHC 32.7, RDW Std Deviation 45.4 H, RDW Coeff of Liss 13.2, Plt Count 301, MPV 10.7, Immature Gran % (Auto) 0.400, Neut % (Auto) 83.2 H, Lymph % (Auto) 9.3 L, [place] % (Auto) 5.5, Eos % (Auto) 1.4, Baso % (Auto) 0.2, Absolute Neuts (auto) 11.1 H, Absolute Lymphs (auto) 1.24, Nucleated RBC % 0, Sodium 138, Potassium 3.8, Chloride 106, Carbon Dioxide 25.0, Anion Gap 7, BUN 19 H, Creatinine 0.95, Estim Creat Clear Calc 79.08, Est GFR (MDRD) Af Amer 102, Est GFR (MDRD) Non-Af 84, BUN/Creatinine Ratio 19.9, Glucose 110 H, Calcium 9.2, Total Bilirubin 1.70 H, AST 20, ALT 29, Alkaline Phosphatase 68, Troponin I High Sens 4, Total Protein 8.6 H, Albumin 3.8, Globulin 4.8 H, Albumin/Globulin Ratio 0.8 L, Urine Color Yellow, Urine Clarity Clear, Urine pH 5.0, Ur Specific [place] 1.020, Urine Protein 15 H, Urine Glucose (UA) Normal, Urine Ketones 5 H, Urine Occult Blood Negative, Urine Nitrite Negative, Urine Bilirubin Negative, Urine Urobilinogen Normal, Ur Leukocyte Esterase 25 H, Urine RBC 0-5 SEEN, Urine WBC 0-5 SEEN, Ur Squamous Epith Cells 0 SEEN, Urine Bacteria 1+, Urine Mucus 3+ 08/20/23 14:50: Lactic Acid 0.9 08/21/23 07:49: WBC 7.7, RBC 4.13 L, Hgb 12.7 L, Hct 39.5 L, MCV 95.6 H, MCH 30.8, MCHC 32.2, RDW Std Deviation 48.3 H, RDW Coeff of Liss 13.5, Plt Count 253, MPV 10.4, Immature Gran % (Auto) 0.500, Neut % (Auto) 73.9 H, Lymph % (Auto) 16.3 L, [place] % (Auto) 8.2, Eos % (Auto) 0.7, Baso % (Auto) 0.4, Absolute Neuts (auto) 5.7, Absolute Lymphs (auto) 1.25, Nucleated RBC % 0, Sodium 140, Potassium 3.4 L, Chloride 110 H, Carbon Dioxide 26.0, Anion Gap 4 L, BUN 13, Creatinine 0.84, Estim Creat Clear Calc 87.59, Est GFR (MDRD) Af Amer 117, Est GFR (MDRD) Non-Af 97, BUN/Creatinine Ratio 15.4, Glucose 105, Calcium 8.4 L, Total Bilirubin 1.30 H, AST 15, ALT 20, Alkaline Phosphatase 51, Total Protein 6.8, Albumin 3.0 L, Globulin 3.8, Albumin/Globulin Ratio 0.8 L Clinical Impression(s) from Imaging Studies Abdomen/Pelvis CT 08/20/23 14:06 IMPRESSION: Fatty infiltration of the liver. Fluid distention of the stomach with the thickening of the gastric folds. Gastritis should be ruled out. Nondilated fluid-filled distal small bowel loops as well as fluid in the colon. An ileus pattern should be ruled out. KUB X-Ray 08/21/23 06:58 IMPRESSION: Multiple mildly dilated loops of small bowel in left upper abdomen with diffuse bowel gas compatible with history of ileus. Radiographic follow-up recommended. Electronically Signed: Steven Hui MD at 8:20 EST Reading Location ID and State: [facility] / [place] Tel , Service support , Medications at Discharge Home Medications [id number]-[id number] acid 0.4 mg-lycopene 300 mcg-lutein 250 mcg tablet (Centrum Silver) 1 ea PO DAILY 03/30/14 cholecalciferol (vitamin D3) 25 mcg (1,000 unit) capsule (Vitamin D3) 1,000 unit PO DAILY 04/09/18 Triamcinolone 0.1% Cream [Kenalog] 1 applic topical DAILY PSORIASIS 08/23/18 calcipotriene 0.005 % topical ointment (Calcitrene) 60 g topical DAILY PSORIASIS 08/23/18 dicyclomine 10 mg capsule 10 mg PO BID 10/29/21 rosuvastatin 10 mg tablet 10 mg PO DAILY cholesterol 10/29/21 apixaban 5 mg tablet (Eliquis) 5 mg PO Q12H 08/20/23 ketoconazole 2 % shampoo 1 applic topical DAILY 08/20/23 lisinopril 10 mg-hydrochlorothiazide 12.5 mg tablet 1 tab PO DAILY 08/20/23 omeprazole 40 mg capsule,delayed release 40 mg PO DAILY 08/20/23 potassium chloride 20 mEq tablet,extended release 20 meq PO DAILY 1 week #7 tabs 08/22/23 Physical Exam Narrative Seen and examined. Patient tolerated clear liquid. Nausea and vomiting and subsided. Abdominal pain resolved. Physical exam General: Alert, Oriented x3, Cooperative HEENT: Atraumatic, PERRLA, EOMI, Normocephalic Oral: Oral mucosa dry. No Gingival or Mucosal Lesions/ Ulcerations Neck: Supple, No JVD, Negative Carotid Bruits Chest wall/Lungs: Air entry diminished in bilateral lung bases. No crepitation/rhonchi Cardiovascular: Regular rate, Regular Rhythm, Normal S1, Normal S2, No M/G/R Abdomen: Bowel Sounds Present, Soft, Non Tender, Non-Distended : No dysuria. No renal angle tenderness. No suprapubic tenderness. Extremities: No edema, Capillary Refill Less than 3 Seconds Skin: No rashes, No breakdown Musculoskeletal: No Tenderness to Palpation of Joints or Extremities Neurological: Cranial nerves II-XII grossly intact, DTR 2+/4. No acute focal neurological deficit. Psych/Mental Status: Flat affect. Weight / BMI Weight Weight: 153 lb 10.595 oz Body Mass Index (BMI) 22.0 ABG / Lab / Microbiology Data 08/21/23 07:49 08/21/23 07:49 Radiography Diagnostic Testing: Radiology Impression KUB X-Ray 08/21/23 06:58 IMPRESSION: Multiple mildly dilated loops of small bowel in left upper abdomen with diffuse bowel gas compatible with history of ileus. Radiographic follow-up recommended. Electronically Signed: Steven Hui MD at 8:20 EST , D/C Instructions Discharge Diet: No restrictions Weight Bearing Status: Weight bearing as tolerated Call your doctor if you observe: Fever of 101 or Higher, Coldness, Increased Pain, Numbness or Tingling, Change in Color, Inability to urinate, Inability to have a bowel movement, Shortness of breath, Dizziness, Fainting spells, Swelling in the ankles, Chest pain, Prolonged hiccupping, Increased palpitations (irregular heartbeat) and Calf discomfort When: IN 2 WEEKS Meaningful Use Info Meaningful Use Diagnoses (Choose all that apply): None applicable Discharge Plan Admission Admit Date/Time: 08/20/23 17:12 Primary Reason for Your Visit: Nausea and diarrhea probably unspecified gastroenteritis Attending Provider: Micheal Cuevas Primary Care Provider: Harper Oliva Consulting Providers: Alexander Michele; Gabby Chahal Discharge Orders/Prescriptions Prescriptions: New potassium chloride 20 mEq tablet extended release 20 meq PO DAILY 7 Days Qty: 7 0RF Continued Centrum Silver 1 EACH tablet 1 ea PO DAILY Patient Comments: suppliment cholecalciferol (vitamin D3) [Vitamin D3] 1,000 UNIT capsule 1,000 unit PO DAILY calcipotriene [Calcitrene] 60 GM ointment 60 g topical DAILY Triamcinolone 0.1% Cream [Kenalog] 1 APPLIC Tube 1 applic topical DAILY dicyclomine 10 mg capsule 10 mg PO BID Patient Comments: take 1 capsule by mouth twice a day with meals rosuvastatin 10 mg tablet 10 mg PO DAILY Patient Comments: take 1 tablet by mouth once daily Eliquis 5 mg tablet 5 mg PO Q12H Patient Comments: TAKE 1 TABLET BY MOUTH 2 TIMES A DAY. lisinopril-hydrochlorothiazide 10-12.5 mg tablet 1 tab PO DAILY Patient Comments: take 1 tablet by mouth once daily omeprazole 40 mg capsule,delayed release(DR/EC) 40 mg PO DAILY Patient Comments: take 1 capsule by mouth once daily ketoconazole 2 % shampoo 1 applic topical DAILY Referrals / Follow Up: Harper Oliva MD [Primary Care Provider] - Within 2 Weeks Disposition Disposition (needs filled in before D/C Order can be placed): Home, Self Care
--- NOTE | 2023-08-22 12:14 | CASEMGMT ---
RN CM in to see pt as DC orders placed. Pt is from home, independent at baseline without DME. Pt confirmed he has no concerns regarding discharge and will return home with self care. Mellisa Enriquez MSN, RN, CCM
--- NOTE | 2023-08-22 14:36 | PHA.DC.MR.R ---
Pharmacy [facility] Med Reconciliation Pharmacy Service has performed discharge medication reconciliation for this patient. Medication education papers prepared, patient discharged when counseling was attempted. Medications reviewed. The patient's discharge medication list was reviewed for discrepancies and discrepancies were resolved. Medications at Discharge Home Medications aedwzbgv-[id number] acid 0.4 mg-lycopene 300 mcg-lutein 250 mcg tablet (Centrum Silver) 1 ea PO DAILY 03/30/14 cholecalciferol (vitamin D3) 25 mcg (1,000 unit) capsule (Vitamin D3) 1,000 unit PO DAILY 04/09/18 Triamcinolone 0.1% Cream [Kenalog] 1 applic topical DAILY PSORIASIS 08/23/18 calcipotriene 0.005 % topical ointment (Calcitrene) 60 g topical DAILY PSORIASIS 08/23/18 dicyclomine 10 mg capsule 10 mg PO BID 10/29/21 rosuvastatin 10 mg tablet 10 mg PO DAILY cholesterol 10/29/21 apixaban 5 mg tablet (Eliquis) 5 mg PO Q12H 08/20/23 ketoconazole 2 % shampoo 1 applic topical DAILY 08/20/23 lisinopril 10 mg-hydrochlorothiazide 12.5 mg tablet 1 tab PO DAILY 08/20/23 omeprazole 40 mg capsule,delayed release 40 mg PO DAILY 08/20/23 potassium chloride 20 mEq tablet,extended release 20 meq PO DAILY 1 week #7 tabs 08/22/23
== END 2023-08-22 12:43 | disposition home or self-care (01) ==
LOC: ED 16:56 → MS3 17:29
PROVIDERS: Admitting Provider Internal Medicine; Emergency Provider Emergency Medicine; PCP Internal Medicine; Visit Provider Internal Medicine
DX: K52.9 Noninfective gastroenteritis and colitis, unspecified (principal); K56.7 Ileus, unspecified; I10 Essential (primary) hypertension; E87.6 Hypokalemia; F17.210 Nicotine dependence, cigarettes, uncomplicated; K21.9 Gastro-esophageal reflux disease without esophagitis; Z79.899 Other long term (current) drug therapy; Z79.01 Long term (current) use of anticoagulants; Z86.711 Personal history of pulmonary embolism
CPT/HCPCS: 36415; 74018; 74177; 80053; 81001; 83605; 84484; 85025; 93005; 96361; 96365; 96366; 96367; 96375; 97802; 99221; 99283; J7030; Q9967; A4216; G0378; J2405

== ENCOUNTER → 2023-09-17 | Outpatient (CLI) | payer BC, SELFPAY ==
--- NOTE | 2023-09-17 09:28 | RAD_ITS ---
INDICATION: abd pain EXAMINATION/TECHNIQUE: X-RAY - XR Abdomen 1 View COMPARISON: No relevant prior comparison study available 08/21/2023 FINDINGS: BOWEL GAS PATTERN: Non-obstructive. No bowel or stomach distention. FREE AIR: Not assessed on a single supine view. ORGANOMEGALY: Not seen. CALCIFICATIONS: No abnormal calcifications observed. LOWER CHEST: No acute pathology. BONES AND SOFT TISSUES: No acute pathology. RAD/Abdomen Single View IMPRESSION: Non-obstructive bowel gas pattern. Electronically Signed: Luke Cobos MD at 10:23 EDT ,
== END | disposition home or self-care (01) ==
LOC: RAD 09:24
PROVIDERS: PCP Internal Medicine; Referring Provider Internal Medicine Gastroenterology; Visit Provider Internal Medicine Gastroenterology
DX: R10.9 Unspecified abdominal pain (principal)
CPT/HCPCS: 74018